=== PATIENT | male | born 1940 | race Caucasian/White ===

== ENCOUNTER → 2020-06-25 10:26 | Outpatient (BNVA) | payer MEDICARE, SELFPAY | PROVIDERS: Family Provider Nurse Practitioner; PCP Nurse Practitioner; Visit Provider Nurse Practitioner | DX: J43.9 Emphysema, unspecified (principal); R10.10 Upper abdominal pain, unspecified; I10 Essential (primary) hypertension; I25.10 Atherosclerotic heart disease of native coronary artery without angina pectoris | CPT/HCPCS: 71046; 80053; 80061; 85025 ==

== ENCOUNTER 2020-08-31 13:15 | Emergency (ER) | payer MEDICARE, SELFPAY ==
[2020-08-31 13:26] VITALS: BP 179/76; PULSE 78; RESP 14; TEMP 36.2; O2SAT 95; BMI 28.3
--- NOTE | 2020-08-31 13:33 | XRR_ITS ---
PROCEDURE INFORMATION: Exam: XR Left Wrist Exam date and time: 08/31/2020 1:38 PM Age: 80 years old Clinical indication: Injury or trauma; Fall; Blunt trauma (contusions or hematomas); Wrist; Left; Injury date: 08/31/20 TECHNIQUE: Imaging protocol: XR Left wrist. Views: 3 or more views. COMPARISON: No relevant prior studies available. FINDINGS: Bones/joints: There is a comminuted fracture of the distal left radius with dorsal angulation of the distal fracture fragment. There is osteopenia. There is joint space narrowing and osteophyte formation at the left 1st CMC joint. Soft tissues: Normal. XR/XR wrist LT min 3V* [id number] IMPRESSION: There is a comminuted fracture of the distal left radius with dorsal angulation of the distal fracture fragment.
--- NOTE | 2020-08-31 13:33 | XRR_ITS ---
PROCEDURE INFORMATION: Exam: XR Left Hip with Pelvis when Performed Exam date and time: 08/31/2020 1:38 PM Age: 80 years old Clinical indication: Injury or trauma; Fall; Blunt trauma (contusions or hematomas); Left; Hip; Injury date: 08/31/20 TECHNIQUE: Imaging protocol: XR Left hip with pelvis when performed. Views: 2 or 3 views. COMPARISON: No relevant prior studies available. FINDINGS: Bones/joints: There is osteopenia. No acute fracture. Soft tissues: Unremarkable. XR/XR hip LT 2-3V wo/w pel* [id number] IMPRESSION: No acute findings.
--- NOTE | 2020-08-31 13:33 | ED_ITS ---
HPI - Fall General: Chief Complaint: Fall Stated Complaint: FALL, POSS BROKEN ARM (L) Time Seen by Provider: 08/31/20 13:33 Source: patient Mode of arrival: ambulatory Limitations: no limitations History of Present Illness: HPI Narrative: 80-year-old male patient reports that he was in the yard and he tripped falling and injuring his left wrist and left hip area. Patient was able to stand on the hip but had significant pain and discomfort. Patient appears well. Patient denies any loss of consciousness or head injury. Patient denies any chest pain or difficulty breathing. Patient appears well. Patient appears in mild to moderate pain. Patient has a history of coronary artery disease, hypertension, and COPD. Patient takes Plavix, Review of Systems General: Reports: 10 or more systems reviewed and unremarkable except in HPI and below Musc: Reports: other (Left wrist, left hip pain.) [facility] ED PFSH: Medical History (Updated 08/31/20 @ 14:44 by KASHMIR Davis) CAD (coronary artery disease) COPD (chronic obstructive pulmonary disease) with emphysema Essential hypertension Mixed hyperlipidemia SCC (squamous cell carcinoma) Surgical History (Updated 06/25/20 @ 10:12 by KASHMIR Erazo-C) History of heart artery stent 5 Family History Other Heart disease Denies family history of Bleeding disorder Social History Smoking and tobacco status: current every day smoker Second hand smoke exposure: Yes Smoking risk assessment/counseling performed?: No Alcohol intake: never Desire information about alcohol rehabilitation?: No Counseling given: No Desire information about substance/drug rehabilitation?: No Counseling given: No Adopted: No Caregiver/support person: No Lives independently: Yes Household members: spouse Housing: House Marital status: Number of children: 0 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 History of recent travel: No Current gender identity: Male Physical Exam Const: COMMON NORMALS: no acute distress and patient oriented x3 GENERAL APPEARANCE: cooperative HENMT: COMMON NORMALS: normocephalic, TM's normal bilaterally and Normal external nose present HEAD & SCALP: normal to inspection and normocephalic NOSE: Normal external nose present TYMPANIC MEMBRANE: TM's normal bilaterally MOUTH: Normal oral and palatal mucosa present THROAT: posterior oropharynx normal Eye: GENERAL EYE: appearance normal, both eyes and all related structures Neck/C-Spine: COMMON NORMALS: full ROM Lymph: LYMPHATIC: no lymphadenopathy noted Chest: COMMONS NORMALS: normal inspection of the chest Resp: COMMON NORMALS: normal respiratory effort EFFORT & INSPECTION: Yes able to speak in complete sentences Cardio: COMMON NORMALS: regular rate and regular rhythm RATE: regular rate RHYTHM: regular rhythm GI: COMMON NORMALS: non-tender Back/Pelvis: COMMON NORMALS: thoracic and lumbar spine normal to inspection Extremity: NARRATIVE EXTREMITY EXAM: Mild dinner fork deformity to the left wrist area, tenderness is noted to the left hip area. Patient is able to lift leg from the ground. No swelling is noted in the extremities. Neuro: COMMON NORMALS: patient oriented x3 and moves all extremities Psych: COMMON NORMALS: mental status grossly normal and cooperative Skin: COMMON NORMALS: no rashes or lesions noted GENERAL SKIN EXAM: no rashes or lesions noted Course Vital Signs: Vital signs: Vital Signs Temperature 97.1 F L 08/31/20 13:26 Pulse Rate 74 08/31/20 13:55 Respiratory Rate 18 08/31/20 13:55 Blood Pressure 149/80 08/31/20 13:55 Pulse Oximetry 94 08/31/20 13:55 MDM - Fall MDM Narrative: Medical decision making narrative: Patient presents with injury to the left wrist and left hip area. Patient had tripped while walking in the [facility] falling catching self with outstretched left arm and landing on his hip. Patient denies any other injury. Patient appears well. Patient appears in moderate pain. Patient has taken ibuprofen prior to arrival to the ER. Exam notes dinner fork deformity to the left wrist area. Pulses and cap refill are intact. Left hip has some lateral tenderness, and some mild groin tenderness. Vital signs are normal except for some mild elevation in blood pressure. Differential diagnosis includes fracture, sprain, contusion. X-ray of the hip on the left side, pelvis, and left wrist noted a fracture of the distal left radius. Some mild angulation is noted to a comminuted intra-articular fracture. Patient was placed in a dorsal?volar splint to the left wrist. Patient had good report of pain control. Patient was placed in a sling for further comfort. Patient was evaluated for ambulation and was able to ambulate with minimal discomfort to the left wrist. Reviewed exam with patient with recommendations for follow-up with orthopedics. Case management was consulted for the orthopedic follow-up. Patient reported understanding of care plan and need for further treatment. Discharge Plan Discharge Patient Disposition: Home Clinical Impression: Distal radius fracture, left Qualifiers: Encounter type: initial encounter Fracture type: closed Fracture morphology: unspecified fracture morphology Qualified Code(s): S52.502A - Unspecified fracture of the lower end of left radius, initial encounter for closed fracture Condition: Stable Prescriptions: No Action aspirin 81 mg tablet,delayed release (DR/EC) 81 mg PO DAILY RF: 0 meclizine 25 mg tablet 25 mg PO DAILY PRNRF: 0 nitroglycerin 0.4 mg tablet, sublingual 0.4 mg sublingual Q5M PRNRF: 0 albuterol sulfate [Proventil HFA] 90 mcg/actuation HFA aerosol inhaler 2 puff inhalation TID Qty: 18 RF: 5 amlodipine 5 mg tablet 5 mg PO DAILY Qty: 30 RF: 5 clopidogrel 75 mg tablet 75 mg PO DAILY Qty: 30 RF: 5 lisinopril-hydrochlorothiazide 20-12.5 mg tablet 1 tab PO DAILY Qty: 30 RF: 5 metoprolol succinate 25 mg tablet extended release 24 hr 25 mg PO DAILY Qty: 30 RF: 5 Discharge Orders: Discharge ED (Routine); Ordered 08/31/20 Ordered By: Anthony Lopez Referrals: Mainor Cardenas, POSTAL SUPERINTENDENT-C [Primary Care Provider] - Discharge Diet: Usual diet Discharge Activity: Increase activity as tolerated Patient Instructions: Wrist Fracture in Adults (ED) Activity Restrictions/Additional Instructions: Keep splint clean and dry. Use sling for comfort. Use acetaminophen and ibuprofen for pain. Follow-up with orthopedics for further treatment and evaluation. Return to the emergency department for new concerns. Coding Level of Care Code ED Critical Care Physician for Justino Mcleod Exam Comprehensive
[2020-08-31 13:35] VITALS: BP 179/76; PULSE 78; RESP 16; O2SAT 97
[2020-08-31 13:55] VITALS: BP 149/80; PULSE 74; RESP 18; O2SAT 94
--- NOTE | 2020-09-01 10:18 | DCPLANNER ---
services account manager had message to schedule a follow-up appointment with ortho. services account manager called ortho and spoke with Nithya. Gave clinic patient's information. services account manager was told that patient's information would be printed and reviewed. Clinic will call patient with appointment information.
--- NOTE | 2020-09-02 09:12 | DCPLANNER ---
Patient has a follow up appointment scheduled for Monday, September 14 at 9:[address] Zavala. Clinic will call patient with appointment information.
--- NOTE | 2020-10-08 15:44 | DCPLANNER ---
Patient had a follow up appointment scheduled for 09.14.20 with ortho - patient did attend appointment.
== END 2020-08-31 14:52 | disposition home or self-care (01) ==
PROVIDERS: Emergency Provider Nurse Practitioner Family; PCP Nurse Practitioner
DX: S52.502A Unspecified fracture of the lower end of left radius, initial encounter for closed fracture (principal); Z79.82 Long term (current) use of aspirin; Z79.02 Long term (current) use of antithrombotics/antiplatelets; I25.10 Atherosclerotic heart disease of native coronary artery without angina pectoris; J44.9 Chronic obstructive pulmonary disease, unspecified; I10 Essential (primary) hypertension; E78.2 Mixed hyperlipidemia; F17.210 Nicotine dependence, cigarettes, uncomplicated; W01.0XXA Fall on same level from slipping, tripping and stumbling without subsequent striking against object, initial encounter
CPT/HCPCS: 12345; 29125; 73110; 73502; 99281; 99283

== ENCOUNTER → 2020-09-04 10:44 | Outpatient (BNVA) | payer MEDICARE, SELFPAY | PROVIDERS: PCP Nurse Practitioner; Referring Provider Nurse Practitioner Family; Visit Provider Orthopaedic Surgery | DX: S52.502A Unspecified fracture of the lower end of left radius, initial encounter for closed fracture (principal); W19.XXXA Unspecified fall, initial encounter | CPT/HCPCS: 73110; 97760; L3982 ==

== ENCOUNTER 2020-09-04 11:22 | Outpatient (CLI) | payer MEDICARE, SELFPAY | END 2020-09-04 11:23 | disposition home or self-care (01) | LOC: SPT 11:23 | PROVIDERS: PCP Nurse Practitioner; Visit Provider Orthopaedic Surgery | DX: Z46.89 Encounter for fitting and adjustment of other specified devices (principal); S52.502D Unspecified fracture of the lower end of left radius, subsequent encounter for closed fracture with routine healing; X58.XXXD Exposure to other specified factors, subsequent encounter | CPT/HCPCS: 97760; L3982 ==

== ENCOUNTER → 2020-09-25 09:15 | Outpatient (BNVA) | payer MEDICARE, SELFPAY | PROVIDERS: PCP Nurse Practitioner; Visit Provider Orthopaedic Surgery | DX: S52.502D Unspecified fracture of the lower end of left radius, subsequent encounter for closed fracture with routine healing (principal); X58.XXXD Exposure to other specified factors, subsequent encounter | CPT/HCPCS: 73110; 88304 ==

== ENCOUNTER → 2020-10-16 09:35 | Outpatient (BNVA) | payer MEDICARE, SELFPAY | PROVIDERS: PCP Nurse Practitioner; Visit Provider Orthopaedic Surgery | DX: S52.502D Unspecified fracture of the lower end of left radius, subsequent encounter for closed fracture with routine healing (principal); X58.XXXD Exposure to other specified factors, subsequent encounter | CPT/HCPCS: 73110 ==

== ENCOUNTER 2021-03-12 03:56 | Inpatient (IN) | payer OTHER, MEDICARE, SELFPAY ==
[2021-03-12] VITALS (14 sets, daily range): BP systolic 113–180; BP diastolic 69–90; PULSE 57–71; RESP 16–22; TEMP 35.8–37.1; O2SAT 90–98; BMI 28.3
--- NOTE | 2021-03-12 04:05 | ECG_ITS ---
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 Measurements Intervals Groom Rate: 69 P: 32 VT: 183 QRS: 78 QRSD: 86 T: 80 QT: 398 QTc: 429 Interpretive Statements SINUS RHYTHM SEPTAL MYOCARDIAL INFARCTION , PROBABLY OLD [40+ ms Q WAVE IN V1/V2] Compared to ECG 07/15/2016 05:58:14 Myocardial infarct finding now present T-wave abnormality no longer present Electronically Signed On 03-12-2021 19:31:14 CDT by Lucretia Tobar M.D. [id number]
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
[2021-03-12] MEDS: aspirin 81 mg Chew Tablet 324 MG PO (04:17)
[2021-03-12] MEDS: nitroglycerin 0.4 mg sublingual Tablet SUBLINGUAL (04:18)
[2021-03-12 04:21] LABS: Basophils # 0.1 10^3/uL (0.0-0.1); Basophils % 0.9 %; Eosinophils # 0.2 10^3/uL (0.0-0.8); Hematocrit 55.1 % (42.0-52.0); Lymphocytes # 2.2 10^3/uL (0.8-4.8); Lymphocytes % 18.4 %; Mean Corpuscular HGB Conc 30.9 g/dL (30.0-36.0); Mean Corpuscular Volume 90.6 fl (80-94); Mean Platelet Volume 10.1 fL (7.4-10.4); Monocytes # 0.8 10^3/uL (0.2-0.9); Monocytes % 6.7 %; Neutrophils # 8.38 10^3/uL (1.8-7.7); Neutrophils % 71.4 %; Nucleated Red Blood Cells % 0 %; Platelet Count 271 10^3/cmm (130-400); Red Blood Count 6.08 10^6/uL (4.1-5.3); Red Cell Distribution Width 13.5 % (12.1-15.1); White Blood Count 11.7 10^3/uL (4.0-10.0)
[2021-03-12 04:29] LABS: D Dimer <= 0.27 ug/mIFEU (0-0.59)
[2021-03-12 04:38] LABS: Troponin(5th) Baseline 21 ng/L (0-15)
[2021-03-12 04:47] LABS: Alanine Aminotransferase 24 U/L (0-41); Albumin Level 4.1 g/dL (3.5-5.2); Alkaline Phosphatase 85 IU/L (40-130); Anion Gap 13.5 (5-19); Aspartate Amino Transferase 12 U/L (0-40); Blood Urea Nitrogen 11 mg/dL (8-23); Calcium 9.2 mg/dL (8.5-10.5); Carbon Dioxide 31 mmol/L (22-29); Chloride 102 mmol/L (98-107); Globulin 2.5 g/dL (1.3-4.6); Glucose 137 mg/dL (65-115); NT Pro B Type Natriuretic Pept 140 pg/mL (0-450); Osmolality Calculated 296 mOsm/kg (285-295); Potassium 4.5 mmol/L (3.5-5.1); Sodium 142 mmol/L (136-145); Total Bilirubin 0.7 mg/dL (0.15-1.2); Total Protein 6.6 g/dL (6.6-8.7)
[2021-03-12 04:53] LABS: SARS Covid-2 Antigen Negative (Negative)
[2021-03-12 08:04] LABS: Troponin 5 2HR 17.94 ng/L (0-15)
[2021-03-12 08:08] LABS: Troponin 5 2HR Delta -3.06 ABS# (0-10)
--- NOTE | 2021-03-12 09:08 | USCV_ITS ---
Jason Escobedo Age: 80 Gender: M : 1940 Exam Date: 03/12/2021 15:19 Ordering Phys: Corbin Oliveira MD Technologist: Carri Del Valle Exam Location: [facility] [place] Indication: CHEST PAIN BP: 151 / 72 HR: 62 Rhythm: Sinus Technical Quality: Very poor MEASUREMENTS (Male / Female) Normal Values 2D ECHO LV Diastolic Diameter PLAX 4.0 cm 4.2 - 5.9 / 3.9 - 5.3 cm LV Systolic Diameter PLAX 1.9 cm IVS Diastolic Thickness 1.2 cm 0.6 - 1.0 / 0.6 - 0.9 cm IVS Systolic Thickness 1.7 cm LVPW Diastolic Thickness 1.1 cm 0.6 - 1.0 / 0.6 - 0.9 cm LVPW Systolic Thickness 1.8 cm LVOT Diameter 2.0 cm LV Ejection Fraction 2D Teich 83.7 % LV Ejection Fraction MOD 2C 70.0 % LV Ejection Fraction 2C AL 71.3 % LA Diameter 2.6 cm LA Width 3.8 cm LA Height 4.6 cm RA Width 4.3 cm RA Height 4.6 cm DOPPLER MV Peak Velocity 79.0 cm/s MV Area PHT 2.9 cm squared Mitral E to A Ratio 0.8 MV E' Velocity 41.0 cm/s Mitral E to MV E' Ratio 9.3 Mitral E to LV E' Lateral Ratio 12.2 Mitral E to LV E' Septal Ratio 7.6 FINDINGS Left Ventricle Normal left ventricular cavity size, wall thickness and systolic function. Left ventricular ejection fraction is estimated at 60 %. No regional wall motion abnormalities. Abnormal septal motion. Right Ventricle Normal right ventriular size and systolic function. Right Atrium Right atrium not well visualized. Probably normal right atrial size. Right atrial pressure estimated at 3 mm Hg. Left Atrium Normal left atrial size. Mitral Valve Structurally normal mitral valve. No mitral valve stenosis. No mitral valve regurgitation. Aortic Valve Aortic valve not well visualized. Tricuspid Valve Structurally normal tricuspid valve. Pulmonic Valve Pulmonic valve not well visualized. Pericardium No pericardial effusion. Aorta Aorta not well visualized. CONCLUSIONS 1. This is a technically difficult study. Optison was used per protocol. 2. Normal left ventricular cavity size, wall thickness and systolic function. Left ventricular ejection fraction is estimated at 60 %. No regional wall motion abnormalities. Abnormal septal motion. 3. Normal right ventriular size and systolic function. 4. No gross valvular abnormality. 5. No prior similar studies to compare. Chapis Garces MD (Electronically Signed) Final Date: 12 March 2021 19:22 S
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
--- NOTE | 2021-03-12 09:27 | PC.PHAR ---
PT STATES HE TAKES CARE OF HIS OWN MEDICATIONS-PT STATES METOPROLOL SUCCINATE ER 25MG DAILY WAS DCED BY Blake VAZQUEZ-[facility]ake [facility] OFFICE LAST SAW 06/25/20 ADDED THIS A NEW MED WITH 5 REFILLS 25MG PO DAILY-Blake [facility] OFFICE DIDNT DC PER [facility] LAST FILLED 01/21/21 30D/S-PT STATES HE THINKS THE LUMIGAN AND LOTEMAX ARE THE CORRECT EYE DROP HE HAS BEEN USING -BOTH EYE DROPS ARE ON THE PTS LIST FROM DR CASE OFFICE-PT STATES HIS WILL BRING IN THE EYE DROPS HE IS USING-PT STATES HE SAW DR CASE YESTERDAY AND STATES HE IS SUPPOSE TO HAVE SURGERY GENA SO HE WILL START USING EYE DROPS IN THE RIGHT EYE ALSO-PT STATES DR CASE DCED ONE OF HIS EYE DROPS YESTERDAY DR CASE OFFICE HAS PROLENSA A DCED EYE DROP-PT STATES HE THINKS HE WAS USING LUMIGAN 1 DROP LEFT EYE QPM THAT MATCHED DR CASE LIST AND PT STATES HE THINKS HE WAS USING LOTEMAX [address] CASE HAS 1 DROP TID-NOTES ARE MADE IN THE PHARMACY COMMENTS
[2021-03-12 09:35] LABS: Estmated Average Glucose 140; Hemoglobin A1C 6.5 % (4.0-6.0)
[2021-03-12 09:46] LABS: Thyroid Stimulating Hormone 1.81 uIU/mL (0.27-4.20)
[2021-03-12] MEDS: sodium chloride 0.9% 1,000 ML 50 ML IV (10:00)
--- NOTE | 2021-03-12 10:05 | ECG_ITS ---
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 Measurements Intervals [place] Rate: 63 P: 49 [place]: 194 QRS: 72 QRSD: 81 T: 75 QT: 393 QTc: 404 Interpretive Statements SINUS RHYTHM Compared to ECG 03/12/2021 04:02:49 Myocardial infarct finding no longer present Electronically Signed On 03-12-2021 19:40:24 CDT by Lucretia Tobar M.D. [id number]
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
[2021-03-12] MEDS: enoxaparin 40 mg/0.4 mL Syringe SUBCUT (10:09)
[2021-03-12 10:55] LABS: Troponin 5 6HR 17.89 ng/L (0-15)
[2021-03-12 11:01] LABS: Troponin 5 6HR Delta -3.11 ng/L (0-12)
[2021-03-12] MEDS: metoprolol tartrate 25 mg Tablet 12.5 MG PO ×2 (11:37→19:54)
[2021-03-12] MEDS: amlodipine 5 mg Tablet PO (11:37)
[2021-03-12] MEDS: lisinopril 20 mg Tablet PO (11:38)
[2021-03-12] MEDS: clopidogrel 75 mg Tablet PO (11:38)
--- NOTE | 2021-03-12 13:16 | XACV_ITS ---
Exam Room: 1 Ht: 185 cm Wt: 98 kg BSA: 2.26 m2 Gender: Male : 1940 Any Known Allergies: Other Exam Priority: Routine Procedure(s): Procedure Description: Diagnostic procedure Procedure Description: PCI procedure Procedure Description: Drug Eluting Coronary Stent Procedure Description: PTCA Procedure Description: Coronary Angiography Procedure Description: Pressure Wire Diagnostic Cath Status: Urgent Diagnostic Findings * No disease noted in the Left Main, Left Anterior Descending, Right, or Circumflex coronary arteries. * 1st Diagonal: severe 90% stenosis, BETO: 3 flow. * First Obtuse Marginal Branch Segment: moderate 50% stenosis, BETO: 3 flow. * Coronary angiography shows right dominance. PCI Status: Urgent PCI Indication: New Onset Angina <= 2 months Interventional Findings * Procedure detail: Procedure details: We engaged left main artery with a XB 3.5 guide catheter. IV heparin was administered to maintain an ACT above 250 seconds. FFR of OM was performed that was non-ischemic with a value of 0.93. We then turned our attention to diagonal artery stenosis. Initial plan was only to perform balloon angioplasty however after balloon angioplasty dissection was noted and patient vessel was stented to cover the dissection. A 0.014 run-through guidewire was used to cross the stenosis and was placed in distal diagonal artery. 2.25 x 12 mm semicompliant balloon was used to perform balloon angioplasty. This resulted in small dissection of the diagonal artery. We placed a 2.25 x 12 mm resolute [place] drug-eluting stent and diagonal artery. This was followed by dilation of the LAD stent as diagonal artery stent was slightly extending into the LAD. This dilation was performed with a 3.25 x12 mm noncompliant balloon. At this time final angiogram was performed that showed excellent stent expansion, BETO-3 flow and no residual stenosis. Guidewire and guide catheter were removed. Patient left the Baggage Checker in a stable condition.. * 1st Diagonal: 90% stenosis treated with a AB TREK 2.25X12 RX BALLOON, and MDT R ASIM 2.25X12 REMBERTO. 0% residual stenosis, BETO: 3 flow. Conclusions 1. Severe ostial diagonal stenosis status post successful revascularization with REMBERTO x1. 2. Moderate OM stenosis s/p FFR. FFR was non-ischemic. 3. No disease noted in the Left Main, Left Anterior Descending, Right, or Circumflex coronary arteries. 4. 1st Diagonal was treated with a Balloon, and Drug Eluting Stent. Recommendations * Aspirin and Plavix for atleast 1 year. * High intensity statin therapy. * Outpatient cardiology follow up in 1 month. Interventional RX Recommendation: PCI w/o planned CABG Diagnostic RX Recommendation: PCI w/o planned CABG Anticoagulation: Heparin Pressures Phase:Rest AO : 144 / 61 ( 94 ) @ 7:19:00 AM 150 / 62 ( 95 ) @ 7:20:00 AM 153 / 63 ( 97 ) @ 7:40:00 AM 171 / 65 ( 77 ) @ 7:53:00 AM Clinical Evaluation EBL: 5mL-10mL Procedural Details Procedure Consent Obtained. Pre-Procedure Time Out. Identified patient by full name and date of as verbalized by the patient/guarantor. Does the consent match the physician's order: Yes. Accurate & Complete Informed Consent: Yes. Inpatient/Outpatient History & Physical on Chart: Yes. If H&P is completed, is and addenduem needed: No. Visualize and Verify Site with Patient/Guarantor: N/A. Relevant Radiology Images available: Yes. The risks, benefits, and alternatives of sedation and/or procedure were discussed by physician. The patient agrees to continue. Procedure started. [facility] Clinical Fraility Score: 3: Managing Well. Baggage Checker Indications: Unstable/Worsening Angina. Chest Pain Symptom Assessment: Typical Angina Symptoms. Cardiovascular Instability: No. Correct patient, site and procedure confirmed by cath team. PERRLA. Strong, equal hand substance addiction coordinator bilaterally. Lungs clear x 5 lobes. IV Site on Arrival: 18 gauge in the right anticubital. IV Fluids: 0.9% NaCl at KVO. 100 mL infused prior to packing house laborer. Pre Procedural Pulses: bilateral dorsalis pedis was 2+. Pre Procedural Pulses: bilateral posterior tibial was 2+. Pre Procedural Pulses: bilateral radial was 3+. Oxygen started at 2liters/min via nasal canula. right groin was prepped with chloroprep then draped in the usual sterile fashion. right radial was prepped with chloroprep then draped in the usual sterile fashion. Physician notified. Baseline sample Acquired. HR: 76 BPM. Patient's family unavailable. Equipment: 6F - Radial. Cardiac Cath Pack. ACIST Manifold Kit Model BT 2000. Heparinized Saline (2 units/mL), 1000 mL bag. Physician arrived. Physician scrubbed in. Immediate Pre-Procedure Time Out. Correct Patient: Yes; Correct Procedure: Yes; Correct Site: Yes; Correct Patient Position: Yes; Correct Supplies: Yes; Dried Flammable Prep: Yes; Blood Products Available: N/A. Lidocaine 1% infiltrated to the right radial. Current Diagnosis : NSTEMI. Arterial access obtained. A 5 yemeni TIG catheter in over the exchange wire. Multiple views taken of left coronary artery. Catheter redirected to the RCA. Multiple views taken of right coronary artery. Catheter removed over the exchange wire. Physician review of cineography. 6 yemeni XB 3.5 guide catheter was inserted over the exchange wire. FFR guidewire was advanced through the guide catheter to lesion in the OM. An FFR value of 0.93 was obtained for a lesion located at 1st Ob [place]. FFR Guidewire redirected across lesion in the ostial diagonal branch. Fractional flow reserve measurements obtained. FFR wire out. Runthrough guidewire was advanced through the guide catheter to lesion in the prox LAD. Inflation number : 1 A AB TREK 2.25X12 RX BALLOON was prepped and advanced across the 1st Diag , then inflated to 10 ARTURO for 0:17 seconds. Inflation number: 2 The AB TREK 2.25X12 RX BALLOON was reinflated across the 1st Diag, to 12 ARTURO for 0:26 seconds. Balloon out. Inflation Number : 3 A WARREN Katz ASIM 2.25X12 REMBERTO -Lot Number# [id number] was prepped and advanced across the 1st Diag. The stent was deployed at 12 ARTURO for 0:22 seconds. Exp. 12/10/2021. Stent balloon out over wire. Runthrough wire redirected to the mid LAD. Inflation number : 1 A WARREN BECERRA EUPHORA RX [id number] BALLOON was prepped and advanced across the Mid LAD , then inflated to 14 ARTURO for 0:22 seconds. Results checked. Balloon and wire out. Results checked. Guide catheter out. Physician scrubbed out. ACT drawn. Results 234 seconds. Therapeutic limits - pre-heparin administration 90-150 seconds and monitoring heparin during a vascular procedure >250 seconds. TR band placed. Hemostasis obtained. Post Procedure: Pulses reassessed and unchanged. PERRLA. Strong, equal hand substance addiction coordinator bilaterally. No VTE prophylaxis required. Medication's Wasted: Lidocaine 1% = 18 mL. Medication's Wasted: Heparin = 1000 units. Medication's Wasted: Nitro = 49.8 mg. Medication's Wasted: Adenosine = 60 mg. Total IV fluids: 75 mL. A TR Band was successful obtaining hemostatsis at the Right Radial artery insertion site. PCI Indication: unstable angina/worsening angina. Post-op diagnosis: severe diagonal disease. Complications: none. Estimated blood loss: 5mL-10mL. Procedure completed. Patient transferred by stretcher to 1st floor. Vital chart was stopped. Access Site Site: Right Radial artery Sheath Size: 6 Fr Hemostasis Method: TR Band Hemostasis Success: Successful Procedure Medications Start: 8:06 AM Stop: 8:06 AM Medication: Solu-Medrol (methylprednisolone) Amount: 125 mg Route: I.V. Start: 8:06 AM Stop: 8:06 AM Medication: Versed Amount: 1 mg Route: I.V. Start: 8:06 AM Stop: 8:06 AM Medication: Fentanyl Amount: 50 mcg Route: I.V. Start: 8:13 AM Stop: 8:13 AM Medication: Nitrogylcerin Amount: 200 mcg Route: I.A. Start: 8:16 AM Stop: 8:16 AM Medication: Heparin Amount: 5000 units Route: I.V. Start: 8:26 AM Stop: 8:26 AM Medication: Heparin Amount: 5000 units Route: I.V. Start: 8:36 AM Stop: 8:36 AM Medication: Adenosine (Adenocard) Amount: 823 Route: I.V. bolus Start: 8:52 AM Stop: 8:52 AM Medication: Fentanyl Amount: 25 mcg Route: I.V. I, the attending physician, have reviewed and verified all procedure medications. Yes, all medications given per verbal order History/Risk Factors Hypertension: Yes Dyslipidemia: Yes Peripheral Arterial Disease (PAD): No Myocardial Infarction (IA): Yes Obesity: No Renal Disease: No Prior Interventions PCI: Yes CABG: No Valve Surgery: No Date of PCI: 07/14/2016 Report Signatures Finalized by Orestes Barkley MD on 03/24/2021 12:51 PM
[2021-03-12] MEDS: isosorbide mononitrate ER 30 mg Tablet 15 MG PO (14:10)
[2021-03-12] MEDS: enoxaparin 60 mg/0.6 mL Syringe SUBCUT (14:10)
--- NOTE | 2021-03-12 16:13 | PC.RESP ---
SMOKING CESSATION AND PULMONARY REHAB INFORMATION SENT TO PATIENT.
[2021-03-12] MEDS: perflutren protein-a microsphr 0.22 mg/mL SDV 3 mL IV (16:16)
--- NOTE | 2021-03-12 16:29 | ECG_ITS ---
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 Measurements Intervals [place] Rate: 57 P: 57 TX: 187 QRS: 73 QRSD: 76 T: 74 QT: 416 QTc: 407 Interpretive Statements SINUS BRADYCARDIA LOW QRS VOLTAGE IN PRECORDIAL LEADS [QRS DEFLECTION < 1.0 mV IN CHEST LEADS] SEPTAL MYOCARDIAL INFARCTION , OF INDETERMINATE AGE [40+ ms Q WAVE IN V1/V2] Compared to ECG 03/12/2021 12:05:20 Low QRS voltage now present Myocardial infarct finding now present Sinus rhythm no longer present Electronically Signed On 03-12-2021 19:41:53 CDT by Lucretia Tobar M.D. [id number]
--- NOTE | 2021-03-12 19:01 | PC.NURSE ---
Shift Note Frequent safety and comfort rounds continue. Orders and/or nursing care completed as indicated. Patient monitored for response to intervention and treatment(s). Education provided includes[pre cardiac cath instructions]. Patient and/or marketing development representative [verb understanding of instructions]. Will continue to monitor.
[2021-03-12] MEDS: atorvastatin 40 mg Tablet PO (19:54)
[2021-03-13] VITALS (39 sets, daily range): BP systolic 130–179; BP diastolic 58–92; PULSE 41–76; RESP 16–20; TEMP 36.7–36.9; O2SAT 87–99
[2021-03-13] MEDS: clopidogrel 75 mg Tablet PO (05:32)
[2021-03-13] MEDS: amlodipine 5 mg Tablet PO (05:32)
[2021-03-13] MEDS: sodium chloride 0.9% 1,000 ML 50 ML IV (05:32)
--- NOTE | 2021-03-13 05:38 | PC.NURSE ---
Addendum entered by Nina Devine RN 03/13/21 06:54: Dr. Barkley notified. Ordered to give 50 mg Benadryl IV, instead of PO. Original Note: Patient was asked about his allergy to contrast. Patient states, my throat swelled shut when they gave me contrast for an upper GI. Patient has heart stents. Patient was asked if he had a reaction to the contrast used when he had his heart stents placed in the past. Patient states, I don't remember anything about it, I was out. Dr. Barkley will be notified of contrast allergy.
--- NOTE | 2021-03-13 05:49 | PC.NURSE ---
Shift Note Frequent safety and comfort rounds continue. Orders and/or nursing care completed as indicated. Patient monitored for response to intervention and treatment(s). Education provided includes cardiac catheterization and NPO diet. Patient and/or floor representative asked questions and verbalized understanding. Will continue to monitor.
[2021-03-13] MEDS: diphenhydrAMINE 50 mg/mL SDV 1mL IVP (07:22)
--- NOTE | 2021-03-13 07:45 | PC.NURSE ---
patient taken to matlab developer via bed for planned procedure
[2021-03-13 08:00] LABS: Basophils # 0.1 10^3/uL (0.0-0.1); Basophils % 0.7 %; Eosinophils # 0.2 10^3/uL (0.0-0.8); Eosinophils % 1.8 %; Hematocrit 51.7 % (42.0-52.0); Hemoglobin 16.1 g/dL (11.7-16.6); Lymphocytes # 2.1 10^3/uL (0.8-4.8); Lymphocytes % 22.7 %; Mean Corpuscular HGB Conc 31.1 g/dL (30.0-36.0); Mean Corpuscular Volume 89.9 fl (80-94); Mean Platelet Volume 10.1 fL (7.4-10.4); Monocytes # 0.7 10^3/uL (0.2-0.9); Monocytes % 7.4 %; Neutrophils # 6.28 10^3/uL (1.8-7.7); Nucleated Red Blood Cells % 0 %; Platelet Count 232 10^3/cmm (130-400); Red Blood Count 5.75 10^6/uL (4.1-5.3); Red Cell Distribution Width 13.4 % (12.1-15.1); White Blood Count 9.4 10^3/uL (4.0-10.0)
--- NOTE | 2021-03-13 08:03 | W.PM.OPSUD ---
Surgery/Procedure H&P Update DATE OF PROCEDURE: March 13, 2021 DATE H&P PERFORMED: 03/12/21 H&P UPDATE INFORMATION: I have reviewed H&P completed within last 30 days, I have examined patient prior to procedure and No changes to prior documentation PREOP DIAGNOSIS: Unstable angina PRIMARY INDICATION FOR PROCEDURE: Unstable angina PLANNED PROCEDURE: Operation Date: 03/13/21 08:00 Proposed Procedures p Cardiac Catheterization(Left) - Orestes Barkley M.D Possible percutaneous coronary intervention PATIENT REASSESSED PRIOR TO SEDATION, WITH NO CHANGE NOTED: Yes PHYSICAL EXAM: alert, oriented x 3, clear to auscultation bilaterally and regular rate & rhythm AIRWAY EVAL/ANESTHESIA PLAN: ASA III, Monitored Anesthesia, Local Anesthesia, Risks, benefits & alternatives of sedation and/or procedure discussed and Patient agrees to continue as planned
[2021-03-13 08:43] LABS: Chol HDL Ratio 3.61 mg/dL (1.0-5.00); Cholesterol 148 mg/dL (0-200); HDL Cholesterol 41 mg/dL (60-100); LDL Cholesterol Calculated 83 mg/dL (50-129); LDL Cholesterol Direct 105 mg/dL (0-100); LDL HDL Ratio 2.02 RATIO (0.00-3.22); Triglycerides 118 mg/dL (0-150)
[2021-03-13] MEDS: lisinopril 20 mg Tablet PO (09:46)
[2021-03-13] MEDS: pantoprazole DR 40 mg Tablet PO (09:46)
[2021-03-13] MEDS: aspirin 325 mg Tablet PO (09:46)
[2021-03-13] MEDS: isosorbide mononitrate ER 30 mg Tablet 15 MG PO (09:46)
[2021-03-13] MEDS: clopidogrel 300 mg Tablet PO (09:46)
[2021-03-13] MEDS: metoprolol tartrate 25 mg Tablet 12.5 MG PO ×2 (09:48→19:19)
[2021-03-13 12:04] LABS: Alanine Aminotransferase 20 U/L (0-41); Albumin Level 3.5 g/dL (3.5-5.2); Alkaline Phosphatase 72 IU/L (40-130); Anion Gap 14.1 (5-19); Aspartate Amino Transferase 14 U/L (0-40); Blood Urea Nitrogen 9 mg/dL (8-23); Calcium 8.5 mg/dL (8.5-10.5); Carbon Dioxide 29 mmol/L (22-29); Chloride 100 mmol/L (98-107); Globulin 2.6 g/dL (1.3-4.6); Glucose 120 mg/dL (65-115); Osmolality Calculated 288 mOsm/kg (285-295); Potassium 4.1 mmol/L (3.5-5.1); Sodium 139 mmol/L (136-145); Total Bilirubin 1.1 mg/dL (0.15-1.2); Total Protein 6.1 g/dL (6.6-8.7)
--- NOTE | 2021-03-13 13:08 | P.PN_ITS ---
Subjective Subjective: Interval history: 80-year-old male presented to emergency room with chest discomfort. Status post cardiac catheterization. Denies chest pain. Breathing stable. Vitals stable Medications: Reviewed: Yes Vitals/I&O/Wt Last Vital Signs Temp 98.1 F 03/13/21 11:54 Pulse 66 03/13/21 11:54 Resp 19 H 03/13/21 11:54 BP 141/70 03/13/21 11:54 Pulse Ox 90 03/13/21 11:54 03/12/21 03/13/21 03/13/21 22:59 06:59 14:59 Intake Total 360 / 1420 300 / 1720 Balance 360 / 1420 300 / 1720 Weight last 48 hrs Weight 215 lb Physical Exam Const: COMMON NORMALS: no acute distress, average body habitus and patient oriented x3 Neck/C-Spine: COMMON NORMALS: no JVD Chest: COMMONS NORMALS: negative for normal inspection of the chest Resp: COMMON NORMALS: normal respiratory effort and No retractions Cardio: COMMON NORMALS: no JVD and regular rate RATE: regular rate GI: COMMON NORMALS: Normal to inspection, nondistended, normoactive bowel sounds present and Soft to palpation PALPATION: Yes Soft to palpation Extremity: OTHER: Right wrist incision site stable Neuro: COMMON NORMALS: patient oriented x3 and CN's II-XII intact bilaterally Psych: COMMON NORMALS: mental status grossly normal Data : 03/13/21 07:48 03/13/21 07:48 A&P Assessment and plan (1) CAD (coronary artery disease): Status: Chronic (2) COPD (chronic obstructive pulmonary disease) with emphysema: Status: Chronic (3) Mixed hyperlipidemia: Status: Acute (4) Essential hypertension: Status: Chronic Additional A&P Information #CAD --s/p cardiac catherization, angioplasty with stenting. final report pending --chest pain free --Plavix, lipitor, metoprolol, asa 325mg #HTN --BP stable, continue Norvasc 5mg --Lisinopril 20mg --Metoprolol DVT:Lovenox Dispo: home soon Attestations Medical Necessity Statement*: Jason Arauz Gregg's hospital stay will require greater than 2 midnights for chest pain Coding Level of Care Code Acute Data Software Engineer for g Fwd Diagnoses CAD (coronary artery disease) I25.10 COPD (chronic obstructive pulmonary disease) with emphysema J43.9 Mixed hyperlipidemia E78.2 Essential hypertension I10
[2021-03-13] MEDS: atorvastatin 40 mg Tablet PO (19:19)
--- NOTE | 2021-03-13 19:43 | PC.NURSE ---
Right wrist dressing and site WNL. Distal skin and pulses WNL. VSS. Patient educated on post-cath activity restrictions and care and verbalized understanding.
--- NOTE | 2021-03-13 20:04 | PC.NURSE ---
Shift Note Frequent safety and comfort rounds continue. Orders and/or nursing care completed as indicated. Patient monitored for response to intervention and treatment(s). Education provided includes Tr band removal and restrictions post PCI. Patient and/or guest services representative verbalized understanding. Will continue to monitor.
[2021-03-14 00:18] VITALS: BP 161/88; PULSE 69
[2021-03-14 03:27] VITALS: PULSE 62
[2021-03-14 03:46] VITALS: BP 132/67; PULSE 71; RESP 18; TEMP 36.9; O2SAT 93
[2021-03-14] MEDS: clopidogrel 75 mg Tablet PO (04:00)
[2021-03-14] MEDS: amlodipine 5 mg Tablet PO (04:00)
--- NOTE | 2021-03-14 04:08 | PC.NURSE ---
Shift Note Frequent safety and comfort rounds continue. Orders and/or nursing care completed as indicated. Patient monitored for response to intervention and treatment(s). Education provided includes post-cath activity restrictions and care. Patient and/or retail sales representative verbalized understanding. Will continue to monitor.
[2021-03-14 07:49] VITALS: BP 145/60; PULSE 75; RESP 18; TEMP 36.7; O2SAT 94
--- NOTE | 2021-03-14 08:19 | PM.PN ---
Subjective Subjective: Interval history: s/p ballooning and REMBERTO placement to ostial D1. Other stents are patent He denies having any symptoms overnight and states he is ready to go home. Medications: Reviewed: Yes Vitals/I&O/Wt Last Vital Signs Temp 98.0 F 03/14/21 07:49 Pulse 75 03/14/21 07:49 Resp 18 03/14/21 07:49 BP 145/60 03/14/21 07:49 Pulse Ox 94 03/14/21 07:49 03/13/21 03/14/21 03/14/21 22:59 06:59 14:59 Intake Total 1000 / 1360 300 / 1660 Output Total 775 / 775 Balance 1000 / 1360 -475 / 885 Physical Exam Narrative: EXAM NARRATIVE: GENERAL: Averagely built and averagely nourished in no acute distress HEENT: Left eye erythema+, no pallor or icterus. NECK: No carotid bruit. CARDIOVASCULAR SYSTEM: S1-S2 regular. No S3 or S4 present. No murmur rubs or gallops. RESPIRATORY SYSTEM: Chest clear to auscultation. No wheezes rhonchi or rubs heard. No use of accessory muscles. ABDOMEN: Soft, nontender and nondistended. Normal bowel sounds present. EXTREMITIES: No cyanosis or clubbing. No edema. No signs of chronic venous insufficiency. 2+ radial, no significant bruising or hematoma. MACHINERY CLEANER: Patient is alert oriented ?3. No focal neurological deficits. SKIN: Normal turgor and temperature. Data : 03/13/21 07:48 03/13/21 07:48 A&P Assessment and plan (1) NSTEMI (non-ST elevated myocardial infarction): Non ST elevation ACS -s/p left heart cathetarization by right radial access. -REMBERTO to ostial D1. -continue DAPT, statin, metoprolol. -Normal LV function on echo. Ms. Colette Sena in 1 week and with me in 6 weeks. -He lives 70 [place] away at [place] so probably will not be able to participate in cardiac rehab. Status: Acute (2) CAD (coronary artery disease): Status: Chronic Qualifiers: Associated angina: without angina Coronary Disease-Associated Artery/Lesion type: [place] artery [place] vs. transplanted heart: [place] heart Qualified Code(s): I25.10 - Atherosclerotic heart disease of [place] coronary artery without angina pectoris (3) Essential hypertension: Status: Chronic (4) Mixed hyperlipidemia: Status: Acute Additional A&P Information Bradycardia : keep a BP and HR log till follow up. recent left cataract surgery Thank you for allowing me to participate in patient's care. Patient may be discharged home from cardiac standpoint. Attestations Medical Necessity Statement*: stable to be discharged Time Spent in Patient Care: 16 - 35 minutes (>than 50% of time spent in counselling and/or direct pt care on unit). Coding Level of Care Code Acute Tourist Adviser for Chg Fwd Diagnoses NSTEMI (non-ST elevated myocardial infarction) I21.4 CAD (coronary artery disease) I25.10 Associated angina: without angina Coronary Disease-Associated Artery/Lesion type: [place] artery [place] vs. transplanted heart: [place] heart Essential hypertension I10 Mixed hyperlipidemia E78.2
[2021-03-14] MEDS: pantoprazole DR 40 mg Tablet PO (09:10)
[2021-03-14] MEDS: aspirin 325 mg Tablet PO (09:10)
[2021-03-14] MEDS: metoprolol tartrate 25 mg Tablet 12.5 MG PO (09:11)
[2021-03-14] MEDS: isosorbide mononitrate ER 30 mg Tablet 15 MG PO (09:13)
[2021-03-14] MEDS: lisinopril 20 mg Tablet PO (09:13)
--- NOTE | 2021-03-14 11:02 | PC.CHAP ---
Pastoral Care Encounter/Spiritual Assessment Type of Contact [] Declined scientific database curator visit [] Patient/Family/Request visit [] Outpatient visit [] Follow-up visit [] Physician referral [] Code/Alert [x] Routine visit [] Staff referral [] Actively dying [] Patient sleeping [] Family support [] [] Out of room [] Palliative care [] [] Receiving care in room [] Pre-surgical visit [] Trauma [] Long length of stay [] ICU visit [] Other: Relational/Emotional Strength [x] Patient feels connected with others/family/visitors/staff [] Distress [] Loneliness/isolation [] Abandonment Spirituality of Patient [x] Person of Ermelinda [] Attends Mandaeism of their [place] [x] Believes in Prayer [] Reads Bible or Yarsanism materials [] There are Spiritual issues to be addressed Blue Prints Trimmer Interventions [x] Prayer [x] Active listening [x] Non-anxious presence [] Spiritual/emotional support [] Crisis/trauma care [] Spiritual counseling [] Bereavement support [] Provided bereavement packet [] Provided Bible/devotional materials [] Provided toy/stuffed animal, coloring book to patient or family member [] Provided Communion [] Anointing/Downing [] Salvation [x] Completed spiritual assessment [] Other: Impact on Illness or Injury [] Angry [] Fearful [] Anxious [] Often cries [] Exhaustion [] Unable to work [] Unable to attend pentecostal [] Unable to walk/stand [] Unable to read [] Unable to drive [] Unable to eat/drink [] Unable to sleep [] Unable to be with family [] Patient intubated [] Other: Summary Blue Prints Trimmer prayed with patient. Time spent with patient 8 minutes.
[2021-03-14 12:41] VITALS: BP 145/60; PULSE 75; RESP 18; TEMP 36.7; O2SAT 94
--- NOTE | 2021-03-14 15:09 | P.DS_ITS ---
Discharge Providers Date of Admission: 03/13/21 13:14 Date of Discharge: March 14, 2021 Attending Provider at Admission: Jacy Delaney MD Attending Provider at Discharge: Arlette Leyva MD Primary Care Provider: MORENA Erazo Diagnoses at Discharge Discharge Diagnosis (1) NSTEMI (non-ST elevated myocardial infarction): Status: Acute (2) CAD (coronary artery disease): Status: Chronic Permanent problem details: 2016 angiogram demonstrated 90% LAD disease with 80% diagonal, circumflex 85% with obtuse marginal 80% RCA with 80 to 90%. Stents were deployed in circumflex, obtuse marginal, RCA. Qualifiers: Coronary Disease-Associated Artery/Lesion type: [place] artery [place] vs. transplanted heart: [place] heart Associated angina: without angina Qualified Code(s): I25.10 - Atherosclerotic heart disease of [place] coronary artery without angina pectoris (3) Essential hypertension: Status: Chronic (4) Mixed hyperlipidemia: Status: Acute Reason for Visit Reason for Visit: cp/sob Hospital Course Hospital Course Is a 80-year-old male who presented to the ER with complaints of chest discomfort. He also had some nausea sweating and shortness of breath. Chest symptoms improved with nitroglycerin. He was evaluated by cardiology. He was given aspirin,Echocardiogram was ordered. Patient was npo possible angiog Treated with aspirin, Plavix and bb. s/p ballooning and REMBERTO placement to ostial D1. Other stents are patent He was kept overnight for observation. Discharge chest pain-free. Discharged i n improved condition Physical Exam Const: COMMON NORMALS: no acute distress and patient oriented x3 Resp: COMMON NORMALS: normal respiratory effort and No retractions Cardio: COMMON NORMALS: regular rate and regular rhythm RATE: regular rate RHYTHM: regular rhythm GI: COMMON NORMALS: Normal to inspection, nondistended, normoactive bowel sounds present Neuro: COMMON NORMALS: patient oriented x3 and CN's II-XII intact bilaterally Psych: COMMON NORMALS: mental status grossly normal and Normal thought process present THOUGHT PROCESS: Normal thought process present Discharge Data Data Completed and Pending: Completed Studies During Hospitalization Category Date Time Status XR chest 1V [place] [id number] Stat Exams 03/12/21 04:05 Completed CV. echo wo/w con trast [id number] Routin e Ultrasound 03/12/21 09:08 Completed Pending at discharge Category Date Time Status AVIONICS SYSTEMS ENGINEER request for service Routin e Exams 03/12/21 13:16 Taken Vitals: Last Vital Signs Temp 98.0 F 03/14/21 12:41 Pulse 75 03/14/21 12:41 Resp 18 03/14/21 12:41 BP 145/60 03/14/21 12:41 Pulse Ox 94 03/14/21 12:41 Discharge Plan Discharge Patient Disposition: Home Condition: Stable Prescriptions: New atorvastatin 40 mg Tablet 40 mg PO BEDTIME Qty: 90 RF: 1 aspirin 325 mg Tablet 325 mg PO DAILY Qty: 30 RF: 0 isosorbide mononitrate 30 mg Tablet Extended Release 24 Hr 15 mg PO DAILY Qty: 30 RF: 0 nitroglycerin 0.4 mg Tablet, Sublingual 0.4 mg sublingual Q5M PRN (Reason: Chest Pain) Qty: 30 RF: 0 metoprolol tartrate 25 mg Tablet 12.5 mg PO BID@0900,2100 Qty: 60 RF: 0 clopidogrel 75 mg Tablet 75 mg PO QAM Qty: 30 RF: 0 Continued nitroglycerin 0.4 mg tablet, sublingual 0.4 mg sublingual Q5M PRN (Reason: Chest Pain) RF: 0 (DME) fastform cock up splint See Rx Instructions .Route .MEDSUPPLY Qty: 1 RF: 0 lisinopril-hydrochlorothiazide 20-12.5 mg tablet 1 tab PO QAM RF: 0 clopidogrel 75 mg tablet 75 mg PO QAM RF: 0 amlodipine 5 mg tablet 5 mg PO QAM RF: 0 Proventil HFA 90 mcg/actuation HFA aerosol inhaler 2 puff inhalation Q4H PRN (Reason: Shortness Of Breath) RF: 0 Lumigan 0.01 % drops 1 drp ophthalmic (eye) QPM RF: 0 Lotemax SM 0.38 % drops,gel 1 drp ophthalmic (eye) BID RF: 0 Discontinued aspirin 81 mg tablet,delayed release (DR/EC) 81 mg PO QAM RF: 0 metoprolol succinate 25 mg Tablet Extended Release 24 Hr See Rx Instructions .ROUTE .COMPLEX RF: 0 Discharge Orders: Discharge Order (Routine); Ordered 03/14/21 Ordered By: Arlette Leyva Referrals: Colette Sena FNP [Nurse Practitioner] - 4-7 days ([facility] will contact you to schedule an follow-up appointment in 4 to 7 days. If you haven't heard from them by Monday morning. Please call ) Chapis Garces MD [Physician] - 6 Weeks ([facility] anthony contact you to schedule an follow-up appointment in 6 weeks. If you haven't heard from them by Monday morning. Please call ) Discharge Diet: Cardiac Discharge Activity: Increase activity as tolerated Patient Instructions: Metoprolol (By mouth), Nitroglycerin (By mouth), Aspirin (By mouth), Isosorbide Mononitrate (By mouth), Atorvastatin (By mouth), Clopidogrel (By mouth), Left Heart Catheterization (DC), Opioid Safety, Post Angiogram Home Care Instructions Discharge Attestations Time Spent in Discharge Care*: less than 30 min Quality Metrics Clinical Quality Measures During this hospital stay, did patient experience: AMI Clinical Trial Participant: No Contraindication to aspirin (AMI): Aspirin given Contraindicati on to statin: Statin prescribed Coding Level of Care Code Acute [facility] DC note Diagnoses NSTEMI (non-ST elevated myocardial infarction) I21.4 CAD (coronary artery disease) I25.10 Coronary Disease-Associated Artery/Lesion type: [place] artery [place] vs. transplanted heart: [place] heart Associated angina: without angina Essential hypertension I10 Mixed hyperlipidemia E78.2
--- NOTE | 2021-03-17 09:35 | PC.SOCIAL ---
discharge follow up call made. Spoke with pts . Pt picked up all new medications and is taking as prescribed. Hasn't made follow up appointments. Follow up appointment made for Colette Sena, the office will call patient with appointment date and time with Dr. Garces.
--- NOTE | 2021-03-17 12:20 | PC.RESP ---
SMOKING CESSATION AND PULMONARY REHAB INFORMATION SENT TO PATIENT.
== END 2021-03-14 12:43 | disposition home or self-care (01) | DRG 247 ==
LOC: ER 05:35 → CSU 05:41
PROVIDERS: Internal Medicine; Internal Medicine Cardiovascular Disease; Admitting Provider Hospitalist; Emergency Provider Emergency Medicine; PCP Nurse Practitioner; Visit Provider Internal Medicine
DX: I21.4 Non-ST elevation (NSTEMI) myocardial infarction (principal); I25.10 Atherosclerotic heart disease of native coronary artery without angina pectoris; Z95.5 Presence of coronary angioplasty implant and graft; J44.9 Chronic obstructive pulmonary disease, unspecified; I10 Essential (primary) hypertension; E78.5 Hyperlipidemia, unspecified; E78.2 Mixed hyperlipidemia; F17.210 Nicotine dependence, cigarettes, uncomplicated; R73.9 Hyperglycemia, unspecified; I25.2 Old myocardial infarction; Z79.02 Long term (current) use of antithrombotics/antiplatelets
CPT/HCPCS: 36415; 71045; 80053; 80061; 83036; 83721; 83735; 83880; 84443; 84484; 85025; 85347; 85378; 87426; 93005; 93454; 93571; 96372; 99285; C1725; C1769; C1874; C1887; C1894; C8929; C9600; G0378; J0153; J1200; J1644; J1650; J2250; J2930; J3010; J3490; J7030; Q9956; Q9967

== ENCOUNTER → 2021-03-22 10:58 | Outpatient (BNVA) | payer OTHER, SELFPAY | PROVIDERS: PCP Nurse Practitioner; Visit Provider Nurse Practitioner Family | DX: I25.10 Atherosclerotic heart disease of native coronary artery without angina pectoris (principal) | CPT/HCPCS: 80048 ==

== ENCOUNTER → 2022-04-05 13:04 | Outpatient (BNVA) | payer OTHER, SELFPAY | PROVIDERS: PCP Family Medicine; Visit Provider Surgery | DX: Z12.11 Encounter for screening for malignant neoplasm of colon (principal) | CPT/HCPCS: 99203 ==

== ENCOUNTER 2022-05-09 06:53 | Day surgery (SDC) | payer OTHER, SELFPAY ==
[2022-05-05 09:46] VITALS: BMI 3905.5
[2022-05-09 07:42] VITALS: BP 167/71; PULSE 78; RESP 18; TEMP 36.2; O2SAT 93
[2022-05-09] MEDS: sodium chloride 0.9% 1,000 ML 30 ML IV (07:50)
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
[2022-05-09] MEDS: metoprolol tartrate 25 mg Tablet 12.5 MG PO (08:39)
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
[2022-05-09 09:29] VITALS: BP 110/57; PULSE 54; RESP 16; TEMP 36.1; O2SAT 94
[2022-05-09 09:42] VITALS: BP 100/57; PULSE 59; RESP 18; O2SAT 97
--- NOTE | 2022-05-09 14:58 | ANE.PACU2 ---
Inpatient post-anesthesia follow up: Airway intact: Yes Vital signs: Temperature 97 F Pulse Rate 59 Respiratory Rate 18 Blood Pressure 100/57 Pulse Oximetry 97 Oxygen Delivery Me thod Room Air Oxygen Flow Rate Fraction of Inspir ed Oxygen Hydration adequate: Yes Nausea and vomiting: No Pain level: 1 Mental status: Baseline
== END 2022-05-09 09:58 | disposition home or self-care (01) ==
PROVIDERS: PCP Family Medicine; Visit Provider Surgery
PROC: 0DJD8ZZ Inspection of Lower Intestinal Tract, Via Natural or Artificial Opening Endoscopic (ICD-10-PCS; CPT 45378; principal; 2022-05-09 09:00)
DX: Z12.11 Encounter for screening for malignant neoplasm of colon (principal); D12.4 Benign neoplasm of descending colon; Z79.82 Long term (current) use of aspirin; I25.10 Atherosclerotic heart disease of native coronary artery without angina pectoris; J44.9 Chronic obstructive pulmonary disease, unspecified; I10 Essential (primary) hypertension; Z86.010 Personal history of colon polyps; E78.2 Mixed hyperlipidemia; I25.2 Old myocardial infarction; F17.210 Nicotine dependence, cigarettes, uncomplicated; Z95.5 Presence of coronary angioplasty implant and graft
CPT/HCPCS: 45385; 88305; J2704; J7030

== ENCOUNTER → 2022-05-17 14:44 | Outpatient (BNVA) | payer OTHER, SELFPAY | PROVIDERS: PCP Family Medicine; Visit Provider Internal Medicine Cardiovascular Disease | DX: I25.10 Atherosclerotic heart disease of native coronary artery without angina pectoris (principal); I10 Essential (primary) hypertension; E78.2 Mixed hyperlipidemia; F17.200 Nicotine dependence, unspecified, uncomplicated; I25.2 Old myocardial infarction | CPT/HCPCS: 99214 ==

== ENCOUNTER → 2022-11-16 08:45 | Outpatient (BNVA) | payer MEDICARE, SELFPAY | PROVIDERS: PCP Family Medicine; Visit Provider Dermatology | DX: L27.9 Dermatitis due to unspecified substance taken internally (principal); Z48.02 Encounter for removal of sutures | CPT/HCPCS: 99212 ==

== ENCOUNTER → 2023-06-12 13:24 | Outpatient (BNVA) | payer OTHER, SELFPAY | PROVIDERS: PCP Family Medicine; Visit Provider Internal Medicine Cardiovascular Disease | DX: I25.10 Atherosclerotic heart disease of native coronary artery without angina pectoris (principal); I10 Essential (primary) hypertension; E78.2 Mixed hyperlipidemia; F17.200 Nicotine dependence, unspecified, uncomplicated; J43.9 Emphysema, unspecified | CPT/HCPCS: 99214 ==

== ENCOUNTER 2023-08-25 09:52 | Emergency (ER) | payer OTHER, SELFPAY ==
[2023-08-25] VITALS (8 sets, daily range): BP systolic 106–150; BP diastolic 68–88; PULSE 68–91; RESP 12–25; TEMP 36.6; O2SAT 90–96
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
--- NOTE | 2023-08-25 09:59 | ECG_ITS ---
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 Measurements Intervals [place] Rate: 86 P: 55 ME: 153 QRS: 87 QRSD: 86 T: 74 QT: 371 QTc: 446 Interpretive Statements SINUS RHYTHM WITH OCCASIONAL VENTRICULAR PREMATURE COMPLEXES WITH OCCASIONAL SUPRAVENTRICULAR PREMATURE COMPLEXES Compared to ECG 03/12/2021 16:37:59 Ventricular premature complex(es) now present Sinus bradycardia no longer present Myocardial infarct finding no longer present Electronically Signed On 08-26-2023 23:15:33 DRY GOODS CLERK by Orestes Barkley M.D. [id number] f
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
--- NOTE | 2023-08-25 11:47 | PC.PHAR ---
Addendum entered by Kira Devine 08/25/23 12:26: [facility]ts [facility] l[facility]op[facility]/hctz 10-12.5mg one tab bid pt states only takes one tab qam-pts [facility] med list [facility] lipitor 80mg take 40mg qpm pt states he does not take- Original Note: pt states he takes care of his own medications-pt states he no longer takes lipitor-medications entered are what the pt states he takes waiting on [facility] to fax med list back
[2023-08-25 12:45] LABS: Basophils # 0.1 10^3/uL (0.0-0.1); Basophils % 0.8 %; Eosinophils # 0.1 10^3/uL (0.0-0.8); Eosinophils % 1.8 %; Hematocrit 57.8 % (37-53); Lymphocytes # 1.6 10^3/uL (0.8-4.8); Lymphocytes % 22.4 %; Mean Corpuscular HGB Conc 31.5 g/dL (30-55); Mean Corpuscular Hemoglobin 28.1 pg (27-33); Mean Corpuscular Volume 89.3 fl (82-101); Mean Platelet Volume 9.8 fL (7.4-10.4); Monocytes # 0.6 10^3/uL (0.2-0.9); Monocytes % 7.8 %; Neutrophils # 4.88 10^3/uL (1.8-7.7); Neutrophils % 66.8 %; Nucleated Red Blood Cells % 0 %; Platelet Count 225 10^3/cmm (157-399); Red Blood Count 6.47 10^6/uL (3.85-5.65); Red Cell Distribution Width 13.7 % (12.1-15.1); White Blood Count 7.31 10^3/uL (3.29-11.43)
[2023-08-25 13:05] LABS: Troponin(5th) Baseline 26 ng/L (0-15)
[2023-08-25 13:06] LABS: INR 0.96 (0.8-1.2)
[2023-08-25 13:07] LABS: Glucose Urine UA Norm (Normal); Protein Urine 1+ (Negative); Urine Appearance Cloudy (CLEAR); Urine Color Dark Yellow (Yellow); pH Urine 5 (5-7)
[2023-08-25 13:07] LABS: Partial Thromboplastin Time 28.4 SECONDS (23.9-36.7)
[2023-08-25 13:08] LABS: Add Urine Microscopic? YES; Bilirubin Urine 1+ (Negative); Blood Urine Trace (Negative); Ketones Urine 1+ (Negative); Leukocyte Esterase Urine Trace (Negative); Nitrate Urine Negative (Negative); Urobilinogen Urine 1 mg/dL (Negative)
[2023-08-25 13:09] LABS: Add Urine Culture? No; Bacteria Urine 1+ /hpf; Mucus Urine 2+ /hpf; RBC Urine 0-4 /hpf (0-2); WBC Urine 0-4 /hpf (0-5)
[2023-08-25 13:15] LABS: Alanine Aminotransferase 14 U/L (0-41); Albumin Level 4.1 g/dL (3.5-5.2); Alkaline Phosphatase 78 U/L (40-130); Aspartate Amino Transferase 11 U/L (0-40); Blood Urea Nitrogen 16 mg/dL (8-23); Calcium 9.7 mg/dL (8.5-10.5); Carbon Dioxide 29 mmol/L (22-29); Chloride 101 mmol/L (98-107); Creatine Phosphokinase 46 U/L (39-308); Globulin 2.3 g/dL (1.3-4.6); Glucose 120 mg/dL (65-115); Lipase 29 U/L (13-60); NT Pro B Type Natriuretic Pept 151 pg/mL (0-450); Osmolality Calculated 292 mOsm/kg (285-295); Sodium 140 mmol/L (136-145); Total Protein 6.4 g/dL (6.6-8.7)
[2023-08-25 13:25] LABS: Anion Gap 14.8 (5-19); Potassium 4.8 mmol/L (3.5-5.1)
[2023-08-25 14:49] LABS: Troponin 5 2HR 22.54 ng/L (0-15)
[2023-08-25 14:52] LABS: Troponin 5 2HR Delta -3.46 ABS# (0-10)
--- NOTE | 2023-08-25 15:05 | ECG_ITS ---
[facility] Test Date: 2023-08-25 Pat Name: Jason Escobedo Department: Room: Gender: Male Supervisor Plate Forming: : 1940 Requested By: Dimitrios Quinteros Order Number: [id number] Fabian MD: Orestes Barkley M.D. Measurements Intervals [place] Rate: 70 P: 66 CO: 186 QRS: 74 QRSD: 82 T: 78 QT: 391 QTc: 423 Interpretive Statements SINUS RHYTHM Compared to ECG 08/25/2023 09:59:55 Ventricular premature complex(es) no longer present Electronically Signed On 08-26-2023 23:26:44 AUDITOR/QUALITY by Orestes Barkley M.D. [email or web address] Transmit [id number]
== END 2023-08-25 17:17 | disposition home or self-care (01) ==
PROVIDERS: Physician Assistant; Emergency Provider Family Medicine; PCP Family Medicine
DX: J44.1 Chronic obstructive pulmonary disease with (acute) exacerbation (principal); Z79.02 Long term (current) use of antithrombotics/antiplatelets; Z79.82 Long term (current) use of aspirin; I25.10 Atherosclerotic heart disease of native coronary artery without angina pectoris; I10 Essential (primary) hypertension; E78.2 Mixed hyperlipidemia; I25.2 Old myocardial infarction; Z72.0 Tobacco use
CPT/HCPCS: 36415; 71045; 80053; 81001; 82550; 83690; 83880; 84484; 85025; 85610; 85730; 93005; 94640; 99285

== ENCOUNTER → 2023-11-02 09:03 | Outpatient (BNVA) | payer MEDICARE, SELFPAY | PROVIDERS: PCP Family Medicine; Visit Provider Dermatology | DX: D48.5 Neoplasm of uncertain behavior of skin (principal); L24.9 Irritant contact dermatitis, unspecified cause; L72.0 Epidermal cyst; L57.0 Actinic keratosis; L57.8 Other skin changes due to chronic exposure to nonionizing radiation; D22.39 Melanocytic nevi of other parts of face; L81.4 Other melanin hyperpigmentation; D22.5 Melanocytic nevi of trunk | CPT/HCPCS: 11102; 17000; 99214 ==

== ENCOUNTER → 2023-11-23 14:26 | Outpatient (BNVA) | payer MEDICARE, SELFPAY | PROVIDERS: PCP Family Medicine; Visit Provider Dermatology | DX: D48.5 Neoplasm of uncertain behavior of skin (principal) | CPT/HCPCS: 11403; 11422; 12034; 13132 ==

== ENCOUNTER → 2023-11-29 08:29 | Outpatient (BNVA) | payer MEDICARE, SELFPAY | PROVIDERS: PCP Family Medicine; Visit Provider Dermatology | DX: C44.629 Squamous cell carcinoma of skin of left upper limb, including shoulder (principal); L82.1 Other seborrheic keratosis; L57.0 Actinic keratosis | CPT/HCPCS: 11602; 13121; 17000; 99212 ==

== ENCOUNTER → 2024-02-12 10:27 | Outpatient (BNVA) | payer OTHER, SELFPAY | PROVIDERS: PCP Family Medicine; Visit Provider Internal Medicine Cardiovascular Disease | DX: I25.10 Atherosclerotic heart disease of native coronary artery without angina pectoris (principal); Z95.5 Presence of coronary angioplasty implant and graft; E78.2 Mixed hyperlipidemia; I10 Essential (primary) hypertension; J43.9 Emphysema, unspecified; J44.9 Chronic obstructive pulmonary disease, unspecified; Z72.0 Tobacco use | CPT/HCPCS: 99214 ==

== ENCOUNTER 2024-03-18 08:22 | Outpatient (CLI) | payer OTHER, SELFPAY ==
--- NOTE | 2024-03-18 | ECG_ITS ---
[facility] Test Date: 2024-03-18 Pat Name: Jason Escobedo Department: Room: Gender: Male Dedicated Owner Operator: : 1940 Requested By: Jean Claude Otoole Order Number: [id number] Fabian MD: Orestes Barkley M.D. Interpretive Statements LEXISCAN Procedure: At the baseline, the blood pressure was 149/71 mmHg with a heart rate of 78 bpm. The electrocardiogram showed normal sinus rhythm, normal axis with normal ST and T's. The Lexiscan was infused over a period of 20 seconds. A total of 0.4 mg of Lexiscan was infused. The stress phase was continued for a total of 5 minutes. Heart rate was at the end of stress phase was 87 bpm and a blood pressure of 132/58 mmHg. The EKG at the peak infusion revealed normal sinus rhythm with no significant ST-T wave changes.PVCs were noted. Sestamibi was injected 20 seconds after the Lexiscan infusion. Blood pressure at the end of recovery phase was 129/60 mmHg with a heart rate of 83 bpm. Conclusion: 1. Normal EKG response to Lexiscan infusion 2. No Lexiscan induced chest pain or cardiac arrhythmia. 3. Normal blood pressure and heart rate response. 4. Sestamibi/sestamibi perfusion scan pending; see separate report. Electronically Signed On 03-22-2024 19:32:21 CDT by Orestes Barkley M.D. [id number]
[2024-03-18 08:47] VITALS: BMI 26.7
--- NOTE | 2024-03-18 09:08 | NMCV_ITS ---
NM elvira perf SPECT r/s* [id number] Jason Escobedo Age: 83 Gender: M : 1940 Exam Date: 03/18/2024 09:15 Ordering Phys: Jean Claude Otoole MD ([email or web address]) Technologist: ANTOINE Ahmadi Exam Location: [facility] Indications: SOB STRESS TEST [facility] IMAGE PROTOCOL Rest/Stress 1 Lexiscan Day Radiopharmaceutical Dose (mCi) Administration Site Administered by Rest: Tc-99m 10.9 IV ANTOINE Ahmadi Sestamibi Stress:Tc-99m 32.5 IV ANTOINE Ahmadi Sestamibi Rest: 18-Mar-2024 60 Discovery 630 Stress: 18-Mar-2024 30 Discovery 630 0.4mg Lexiscan. Images obtained in supine and prone position. SPECT RESULTS Technical Quality: Good Raw Data Analysis: Normal Image Corrections: No attenuation or motion correction applied Summed Stress Score: 2 Summed Rest Score: 0 Summed Difference Score: 2 PERFUSION FINDINGS Small area of reversible perfusion defect seen in the inferolateral wall that improves on prone imaging. This is consistent with small area of ischemia in left circumflex artery territory vs more likely attenuation artifact. Medical correlation is required. FUNCTIONAL RESULTS (calculated via Gated SPECT) Stress Image LV EF (%): 60 Stress EDV (mL):108 TID: 0.88 Stress ESV (mL):43 FUNCTIONAL FINDINGS: There is normal left ventricular systolic function. IMPRESSIONS 1. Small area of perfusion defect seen in inferolateral wall. Most likely attenuation artifact. Low probability of small area of ischemia in circumflex artery territory. Clinical correlation is required. 2. LV systolic function is normal Orestes Barkley MD (Electronically Signed) Final Date: 18 March 2024 11:55 S
[2024-03-18] MEDS: regadenoson 0.4 Mg/5 ml Syringe IVP (10:03)
[2024-03-18 10:35] VITALS: BP 132/84; PULSE 72
== END 2024-03-18 08:23 | disposition home or self-care (01) ==
LOC: CDL 08:47
PROVIDERS: PCP Family Medicine; Visit Provider Internal Medicine Cardiovascular Disease
DX: I25.10 Atherosclerotic heart disease of native coronary artery without angina pectoris (principal); R94.39 Abnormal result of other cardiovascular function study
CPT/HCPCS: 36415; 78452; 93017; 96374; A9500; J2785

== ENCOUNTER → 2024-04-16 13:20 | Outpatient (BNVA) | payer OTHER, SELFPAY | PROVIDERS: PCP Family Medicine; Visit Provider Nurse Practitioner Family | DX: L57.0 Actinic keratosis (principal); L57.8 Other skin changes due to chronic exposure to nonionizing radiation; L72.0 Epidermal cyst; L81.4 Other melanin hyperpigmentation; D22.5 Melanocytic nevi of trunk; Z85.828 Personal history of other malignant neoplasm of skin | CPT/HCPCS: 17004; 99213 ==

== ENCOUNTER 2024-05-01 11:51 | Emergency (ER) | payer OTHER, MEDICARE, SELFPAY ==
[2024-05-01 11:55] VITALS: BP 130/68; PULSE 86; RESP 16; TEMP 36.9; O2SAT 93; BMI 26.0
[2024-05-01 13:49] LABS: Basophils # 0.1 10^3/uL (0.0-0.1); Basophils % 0.6 %; Eosinophils % 0.2 %; Hematocrit 57.8 % (37-53); Lymphocytes # 1.2 10^3/uL (0.8-4.8); Mean Corpuscular HGB Conc 30.3 g/dL (30-55); Mean Corpuscular Hemoglobin 27.9 pg (27-33); Mean Platelet Volume 10.3 fL (7.4-10.4); Monocytes % 8.3 %; Neutrophils # 9.21 10^3/uL (1.8-7.7); Neutrophils % 80.1 %; Nucleated Red Blood Cells % 0 %; Platelet Count 239 10^3/cmm (157-399); Red Blood Count 6.28 10^6/uL (3.85-5.65); Red Cell Distribution Width 13.8 % (12.1-15.1); White Blood Count 11.49 10^3/uL (3.29-11.43)
[2024-05-01 14:07] LABS: Lactic Sepsis W/Reflex 2.3 mmol/L (0.5-2.2)
[2024-05-01 14:13] LABS: Alanine Aminotransferase 17 U/L (0-41); Albumin Level 3.5 g/dL (3.5-5.2); Alkaline Phosphatase 91 U/L (40-130); Anion Gap 15.8 (5-19); Aspartate Amino Transferase 12 U/L (0-40); Blood Urea Nitrogen 16 mg/dL (8-23); Carbon Dioxide 30 mmol/L (22-29); Chloride 101 mmol/L (98-107); Globulin 3.6 g/dL (1.3-4.6); Glucose 146 mg/dL (65-115); Osmolality Calculated 300 mOsm/kg (285-295); Potassium 3.8 mmol/L (3.5-5.1); Sodium 143 mmol/L (136-145); Total Bilirubin 0.9 mg/dL (0.15-1.2); Total Protein 7.1 g/dL (6.6-8.7)
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
[2024-05-01 14:14] VITALS: BP 171/80; PULSE 87; O2SAT 92
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
[2024-05-01] MEDS: phenazopyridine 100 mg Tablet PO (14:24)
[2024-05-01 15:00] VITALS: BP 171/78; PULSE 81; O2SAT 90
[2024-05-01 15:32] LABS: Add Urine Culture? Yes; Bacteria Urine 2+ /hpf; Mucus Urine 1+ /hpf; Oval Fat Bodies Urine 1+ /hpf; RBC Urine >100 /hpf (0-2); WBC Urine TOO NUMEROUS TO CNT /hpf (0-5)
[2024-05-01 15:32] LABS: Reflex Lactate Order REFLEX LACTIC ORDERD
[2024-05-01] MEDS: cefTRIAXone 2,000 mg SDV 2000 MG IVP (15:39)
[2024-05-01 16:14] VITALS: BP 144/65; PULSE 82; O2SAT 93
== END 2024-05-01 16:17 | disposition home or self-care (01) ==
PROVIDERS: Emergency Medicine; Emergency Provider Student in an Organized Health Care Education/Training Program; PCP Family Medicine
DX: N30.01 Acute cystitis with hematuria (principal); Z79.02 Long term (current) use of antithrombotics/antiplatelets; Z79.82 Long term (current) use of aspirin; Z87.891 Personal history of nicotine dependence; I25.2 Old myocardial infarction; I10 Essential (primary) hypertension; J44.9 Chronic obstructive pulmonary disease, unspecified; I25.10 Atherosclerotic heart disease of native coronary artery without angina pectoris; E78.2 Mixed hyperlipidemia
CPT/HCPCS: 36415; 74176; 80053; 81001; 83605; 85025; 87040; 87077; 87086; 87186; 96374; 99285; J0696

== ENCOUNTER 2024-07-28 12:09 | Inpatient (IN) | payer OTHER, MEDICARE, SELFPAY ==
[2024-07-28] VITALS (27 sets, daily range): BP systolic 144–169; BP diastolic 72–88; PULSE 88–107; RESP 18–36; TEMP 36.6–36.7; O2SAT 84–99; BMI 3807.9; BMI 24.3
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
--- NOTE | 2024-07-28 12:33 | ECG_ITS ---
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 Measurements Intervals [place] Rate: 95 P: 86 IA: 161 QRS: 102 QRSD: 89 T: 74 QT: 358 QTc: 451 Interpretive Statements SINUS RHYTHM RIGHT AXIS DEVIATION [QRS AXIS > 100] Compared to ECG 08/25/2023 15:16:10 Right-axis deviation now present Electronically Signed On 07-28-2024 13:30:23 SALES REPRESENTATIVE PUBLICATIONS by Lucretia Tobar M.D. [email or web address]
[2024-07-28 12:49] LABS: Basophils # 0.1 10^3/uL (0.0-0.1); Basophils % 0.4 %; Eosinophils % 0.2 %; Hematocrit 54.6 % (37-53); Lymphocytes # 1.1 10^3/uL (0.8-4.8); Lymphocytes % 8.6 %; Mean Corpuscular HGB Conc 30.6 g/dL (30-55); Mean Corpuscular Hemoglobin 26.6 pg (27-33); Mean Corpuscular Volume 87.1 fl (82-101); Monocytes % 7.3 %; Neutrophils # 11.02 10^3/uL (1.8-7.7); Nucleated Red Blood Cells % 0 %; Platelet Count 234 10^3/cmm (157-399); Red Blood Count 6.27 10^6/uL (3.85-5.65); Red Cell Distribution Width 14.9 % (12.1-15.1); White Blood Count 13.27 10^3/uL (3.29-11.43)
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
--- NOTE | 2024-07-28 12:53 | PC.PHAR ---
[facility]. Will consult with pt.
[2024-07-28 12:57] LABS: ABG PH Result 7.34 (7.35-7.45); Base Excess ABG 4.8 mmol/L (-2.0-2.0); Blood Gas Allen Test Pos; Blood Gas Operator Identificat WALCI; Blood Gas Sample Site Radial, right; Blood Gas Sample Type Arterial; Carboxyhemoglobin 2.5 %THgb (0.4-20.1); HCO3 ABG 33.1 mmol/L (22-26); HGB O2 Sat 91.1 % (95-100); Ionized Calcium Level - ABG 1.3 mmol/L (1.1-1.4); Methemoglobin 0.2 % (0.4-1.5); Oxygen Device NC; Oxygen Saturation ABG 93.6; PO2 ABG 80.5 mmHg (80.0-100.0); PO2 FiO2 Ratio Arterial Blood 2683; Potassium Level - ABG 3.9 mmol/L (3.5-5.0)
[2024-07-28 12:58] LABS: ABG PCO2 61.8 mmHg (35-45)
[2024-07-28] MEDS: methylPREDNISolone sod succ 125 mg/2 mL INJ IVP (13:00)
[2024-07-28] MEDS: ipratropium-albuterol 3 mL Neb INHALATION ×3 (13:02→19:15)
[2024-07-28] MEDS: albuterol 2.5 mg/3 mL Neb INHALATION (13:02)
[2024-07-28 13:08] LABS: Lactic Sepsis W/Reflex 1.6 mmol/L (0.5-2.2)
[2024-07-28 13:11] LABS: Troponin(5th) Baseline 25 ng/L (0-15)
[2024-07-28 13:18] LABS: Alanine Aminotransferase 12 U/L (0-41); Albumin Level 3.9 g/dL (3.5-5.2); Alkaline Phosphatase 85 U/L (40-130); Anion Gap 24.6 (5-19); Aspartate Amino Transferase 9 U/L (0-40); Blood Urea Nitrogen 13 mg/dL (8-23); Calcium 9.3 mg/dL (8.5-10.5); Carbon Dioxide 29 mmol/L (22-29); Chloride 92 mmol/L (98-107); Creatinine Clr Calc Pharmacy 89.0652; Globulin 2.8 g/dL (1.3-4.6); Glucose 160 mg/dL (65-115); NT Pro B Type Natriuretic Pept 975 pg/mL (0-450); Osmolality Calculated 296 mOsm/kg (285-295); Potassium 4.6 mmol/L (3.5-5.1); Sodium 141 mmol/L (136-145); Total Bilirubin 0.9 mg/dL (0.15-1.2); Total Protein 6.7 g/dL (6.6-8.7)
--- NOTE | 2024-07-28 14:17 | ECG_ITS ---
[facility] 2024-07[facility]28 Pat Name: Jason Escobedo Department: Room: 112 Gender: Male Assistant Designer: : 1940 Requested By: Yael Quinteros Order Number: [id number] Fabian MD: Lucretia Tobar M.D. Measurements Intervals [place] Rate: 93 P: 86 CT: 157 QRS: 98 QRSD: 85 T: 72 QT: 359 QTc: 448 Interpretive Statements SINUS RHYTHM BORDERLINE RIGHT AXIS DEVIATION [QRS AXIS > 90] Compared to ECG 07/28/2024 12:33:43 No significant changes Electronically Signed On 07-29-2024 17:24:52 QUALITY ASSURANCE DIRECTOR by Lucretia Tobar M.D. [id number]
[2024-07-28] MEDS: doxycycline 100 MG in sodium chloride 0.9% (plus) 100 ML IV (14:33)
[2024-07-28 14:45] LABS: Troponin 5 2HR 22.12 ng/L (0-15)
[2024-07-28 14:46] LABS: Troponin 5 2HR Delta -2.88 ABS# (0-10)
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
--- NOTE | 2024-07-28 15:01 | CTR_ITS ---
PROCEDURE INFORMATION: Exam: CTA Chest With Contrast Exam date and time: 07/28/2024 3:59 PM Age: 84 years old Clinical indication: Shortness of breath; Additional info: Hypoxia, HX of copd , suspect pe TECHNIQUE: Imaging protocol: Computed tomographic angiography of the chest with contrast. Exam focused on the arteries. 3D rendering (Not supervised by radiologist): MIP and/or 3D reconstructed images were created by the technologist. Radiation optimization: All CT scans at this facility use at least one of these dose optimization techniques: automated exposure control; mA and/or kV adjustment per patient size (includes targeted exams where dose is matched to clinical indication); or iterative reconstruction. Contrast material: OMNI 350; Contrast volume: 65 ml; Contrast route: INTRAVENOUS (IV); COMPARISON: CR (CHEST, ) 07/28/2024 12:39 PM RADIATION DOSE METRICS: Total DLP (mGy-cm): 380.63 FINDINGS: Pulmonary arteries: Normal. No pulmonary emboli. Aorta: Unremarkable. No aortic aneurysm. No aortic dissection. Other arteries: Calcified atheromas of the visualized arteries. Lungs: Scattered calcified granulomas in the lungs. Mild centrilobular emphysematous changes are present. Bibasilar atelectasis. No focal infiltrates. Pleural spaces: Unremarkable. No pneumothorax. No pleural effusion. Heart: Unremarkable. No cardiomegaly. No pericardial effusion. Lymph nodes: Calcified subcarinal lymph nodes. Bones/joints: There are diffuse enthesopathic changes consistent with benign diffuse idiopathic skeletal hyperostosis (DISH). Demineralization of the visualized bones, limiting sensitivity for nondisplaced fractures. Soft tissues: Unremarkable. CT/CT angio chest PE protcl [id number] IMPRESSION: 1. No pulmonary embolism. 2. No acute infiltrates.
[2024-07-28 15:14] LABS: Adenovirus Not Detected (NOT DETECT); Chlamydia Pneumoniae Not Detected (NOT DETECT); Coronavirus 229E,HKU1,NL63,OC4 Not Detected (NOT DETECT); Human Metapneumovirus Not Detected (NOT DETECT); Human Rhinovirus/Enterovirus Not Detected (NOT DETECT); Influenza A Not Detected (NOT DETECT); Influenza A H1 Not Detected (NOT DETECT); Influenza A H1-2009 Not Detected (NOT DETECT); Influenza A H3 Not Detected (NOT DETECT); Influenza B Not Detected (NOT DETECT); Mycoplasma Pneumoniae Not Detected (NOT DETECT); Parainfluenza Virus Type 1 Not Detected (NOT DETECT); Parainfluenza Virus Type 2 Not Detected (NOT DETECT); Parainfluenza Virus Type 3 Not Detected (NOT DETECT); Parainfluenza Virus Type 4 Not Detected (NOT DETECT); Respiratory Syncytial Virus A Not Detected (NOT DETECT); Respiratory Syncytial Virus B Not Detected (NOT DETECT); SARS-COV-2 Not Detected (NOT DETECT)
[2024-07-28 15:22] LABS: Lactic Sepsis W/Reflex 1.9 mmol/L (0.5-2.2)
[2024-07-28 15:33] LABS: Procalcitonin 0.06 ng/mL (0-0.5); Thyroid Stimulating Hormone 1.96 uIU/mL (0.27-4.20)
[2024-07-28] MEDS: diphenhydrAMINE 50 mg/mL SDV 1mL IVP (15:39)
[2024-07-28] MEDS: famotidine 20 mg/2 mL INJ 40 MG IVP (15:39)
--- OUTSIDE RECORDS SUMMARY | 2024-07-28 15:52 | XMS_ITS | Continuity of Care Document ---
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 It does not include entries that were removed or entered in error. Problem Status Onset Date Problem Type Date of Resolution Comments Source Arthritis * (ICD-9-CM 716.90) Active Condition [place] [facility] CAD - Coronary Artery Disease (SCT 70306583) Active Condition Apr 19, 2021 Entered By: NAVIN EUBANKS Comment: Sees cardiology.Sep 06, 2023 Entered By: NAVIN EUBANKS Comment: 5 cardiac stents 06/2016 [facility] Chest Pain (SCT 44969495) Active Condition Mar 20, 2021 Entered By: NAVIN EUBANKS Comment: seen in ED for CP 2020 Entered By: NAVIN EUBANKS Comment: NSTEMI, CAD, hyperlipidemia, [facility] [facility] Chronic obstructive lung disease Active Condition [facility] COPD - Chronic Obstructive Pulmonary Disease (SCT 87383301) Active Condition [place] [facility] Diabetes Mellitus Type 2 (SCT 95167277) Active Condition Mar 25, 2022 Entered By: NAVIN EUBANKS Comment: diet controlled [place] [facility] elevated hemoglobin & hematocrit Active Condition [place] [facility] Essential hypertension (SNOMED CT 06014416) Active Condition [place] [facility] hematuria, uti Active Condition [place] [facility] Hypertensive disorder Active Condition [facility] Mixed Hyperlipidemia (SCT 698980431) Active Condition [place] [facility] Neck Pain (ICD-9-CM 723.1) Active Condition [place] [facility] Nocturia due to benign prostatic hypertrophy (SNOMED CT 0374893438186) Active Condition [place] [facility] Polyp Colon (SCT 30639252) Active Condition Sep 06, 2023 Entered By: NAVIN EUBANKS Comment: Needs Colonoscopy done 04/2027 [facility] Tobacco user Active Condition [facility] Diagnosis: ICD-10-CM J44.9 Chronic obstructive pulmonary disease, unspecified Active Diagnosis [facility] Diagnosis: ICD-10-CM R32 Unspecified urinary incontinence Active Diagnosis [facility] Diagnosis: ICD-10-CM Z00.01 Encounter for general adult medical exam w abnormal findings Active Diagnosis [facility] Diagnosis: ICD-10-CM L08.9 Local infection of the skin and subcutaneous tissue, unsp Active Diagnosis [facility] Diagnosis: ICD-10-CM Z71.89 Other specified counseling Active Diagnosis [facility] Diagnosis: ICD-10-CM J44.1 Chronic obstructive pulmonary disease w (acute) exacerbation Active Diagnosis [facility] Diagnosis: ICD-10-CM I25.10 Athscl heart disease of [place] coronary artery w/o ang pctrs Active Diagnosis [facility] Medications Combined list of outpatient medications from Department of Defense and Veterans Affairs facilities.Medications provided include 1) outpatient medications from the last 15 months, and 2) patient-reported medications. Medication Details Route Status Patient Instructions Prescription Expires Prescription Number Last Dispense Date Ordering Provider Order Date Order Qty Source ALBUTEROL SO4 90MCG/ACTUA T (CFC-F) INHL,ORAL,8 .5GM INHALE 2 PUFFS ORAL INHALATI ON EVERY 4 HOURS NEEDED FOR SHORTNES S OF BREATH SHAKE WELL. RINSE MOUTHPIE CE FREQUENT LY TO PREVENT CLOGGING . RESPIR ATORY (INHAL ATION) ACTIVE 12/01/2024 [id number] 4 QUENTIN CALVIN W 2023 3 [facility] ALBUTEROL SO4 90MCG/ACTUA T (CFC-F) INHL,ORAL,8 .5GM INHALE 2 PUFFS ORAL INHALATI ON EVERY 4 HOURS NEEDED FOR SHORTNES S OF BREATH SHAKE WELL. RINSE MOUTHPIE CE FREQUENT LY TO PREVENT CLOGGING . RESPIR ATORY (INHAL ATION) DISCONT INUED (EDIT) 06/12/2024 [id number] 4 CHRISTINA CORBIN 2022 1 [place] [facility] ALBUTEROL SO4 90MCG/ACTUA T (CFC-F) INHL,ORAL,8 .5GM INHALE 2 PUFFS BY ORAL INHALATI ON FOUR TIMES A DAY NEEDED FOR BREATHIN G. SHAKE WELL. RINSE MOUTHPIE CE FREQUENT LY TO PREVENT CLOGGING . RESPIR ATORY (INHAL ATION) DISCONT INUED 10/29/2023 [id number] 3 JAKY EUBANKS 2022 3 [facility] APPLE CIDER VINEGAR CAP/TAB TAKE 1 CAP/TAB BY MOUTH ONCE A DAY ORAL ACTIVE QUENTIN CALVIN 2023 [facility] ASPIRIN 81MG TAB,CHEWABL E CHEW AND SWALLOW ONE TABLET BY MOUTH ONCE A DAY FOR CARDIOVA SCULAR DISEASE (TAKE WITH FOOD) ORAL 04/06/2024 [id number] 4 JAKY EUBANKS 2022 90 [facility] ASPIRIN 81MG TAB,EC TAKE ONE TABLET BY MOUTH ONCE A DAY ORAL ACTIVE GRISEL HALL 2014 [place] [facility] CARBAMIDE PEROXIDE 6.5%/GLYCER IN SOLN,OTIC INSTILL 4 DROPS IN BOTH EARS EVERY 4 WEEKS NEEDED FOR EAR WAX BLOCKAGE AURICU LAR (OTIC) 04/06/2024 [id number] 4 JAKY EUBANKS 2022 15 [facility] CHOLECALCIF JACKELYN 50MCG (2,000UNIT) TAB TAKE THREE TABLETS BY MOUTH ONCE A DAY FOR VITAMIN D DEFICIEN CY ORAL ACTIVE 04/05/2025 [id number] 4 QUENTIN CALVIN 2023 300 [facility] CHOLECALCIF JACKELYN 50MCG (2,000UNIT) TAB TAKE TWO TABLETS BY MOUTH ONCE A DAY FOR VITAMIN D DEFICIEN CY ORAL DISCONT INUED (EDIT) 09/22/2024 [id number] 4 JAKY EUBANKS 2023 200 [facility] CRANBERRY JUICE TAKE 120 ML ONCE A DAY ACTIVE QUENTIN CALVIN 2023 [facility] FINASTERIDE 5MG TAB TAKE ONE TABLET BY MOUTH EVERY EVENING FOR BENIGN PROSTATI C HYPERPLA ANA SWALLOW WHOLE, DO NOT CRUSH, SPLIT, OR CHEW. ORAL ACTIVE 05/14/2025 [id number] 4 QUENTIN CALVIN W 2023 90 [facility] FLUTICASONE 100MCG/SALM ETEROL 50MCG INHL,ORAL,D ISKUS,60 INHALE 1 INHALATI ON ORAL INHALATI ON TWICE A DAY FOR COPD (OPEN DISKUS; CLICK ONLY ONCE; MAY INHALE TWICE TO COMPLETE DOSE; CLOSE WHEN FINISHED ) RINSE MOUTH AND SPIT AFTER EACH USE. RESPIR ATORY (INHAL ATION) ACTIVE 09/06/2024 [id number] 4 JAKY EUBANKS 2023 3 [facility] HYDROCHLORO THIAZIDE 12.5MG/TREMAYNE NOPRIL 10MG TAB TAKE 1 TABLET BY MOUTH TWICE A DAY ORAL 06/12/2024 [id number] CHRISTINA CORBIN HANA 2022 180 [place] [facility] LOSARTAN 50MG TAB TAKE ONE-HALF TABLET BY MOUTH ONCE A DAY ORAL ACTIVE TATA POPE 2015 KRUPA LEYVA [facility] MUPIROCIN 2% OINT,TOP APPLY SPARINGL Y TO AFFECTED AREA(S) TWICE A DAY FOR BACTERIA L INFECTIO N EXTERNAL USE ONLY. TOPICA L ACTIVE 10/03/2024 [id number] 4 [place] ISTENeli G 2023 66 [facility] PHENAZOPYRI DINE HCL 100MG TAB TAKE TWO TABLETS BY MOUTH THREE TIMES A DAY WITH MEALS FOR URINARY ANALGESI A TAKE WITH PLENTY OF WATER*MA Y DISCOLOR THE URINE ORAL ACTIVE 05/14/2025 [id number] 4 QUENTIN CALVIN W 2023 180 [facility] ROSUVASTATI N CA 5MG TAB TAKE ONE-HALF TABLET BY MOUTH EVERY EVENING FOR HIGH CHOLESTE ROL TAKE ORALLY WITH EVENING MEAL ORAL ACTIVE 04/05/2025 [id number] QUENTIN CALVIN W 2023 45 [facility] TIOTROPIUM 2.5MCG/ACTU AT INHL,ORAL,6 0D,4GM INHALE 2 INHALATI ONS ORAL INHALATI ON ONCE A DAY FOR COPD (ADMINIS TER AT SAME TIME EACH DAY) RESPIR ATORY (INHAL ATION) ACTIVE 08/28/2024 [id number] 4 ACACIARHONDAJAKY Regla Katz 2023 3 [facility] Allergies, Adverse Reactions, Alerts Combined list of allergies from Department of Defense and Veterans Affairs facilities. It does not include entries that were removed or entered in error. Substance Category Reaction Severity Reaction type Status Date Reported Comments Source CONTRAST MEDIA Propensity to adverse reactions to drug (finding) Eruption, Itching active 5 [facility] 15 Immunizations Combined list of available immunizations from the Department of [facility] and Veterans Affairs facilities. Immunization Series Date Given Administered By Site Reaction Lot Number CVX Code Drug Hvac Operations Technician Status Comments Source ZOSTER RECOMBINANT 2023 JOYA GROVER LEFT DELTO ID [id number] 187 complet ed [facility] INFLUENZA, HIGH-DOSE, QUADRIVALENT 3 2022 197 complet ed [facility] N ZOSTER RECOMBINANT 2022 JOYA GROVER LEFT DELTO ID [id number] 187 complet ed [facility] INFLUENZA, HIGH-DOSE, QUADRIVALENT 2 2021 197 complet ed [facility] N INFLUENZA, INJECTABLE, QUADRIVALENT, PRESERVATIVE FREE 2020 150 complet ed [facility] COVID-19 (DRAGAN), VECTOR-NR, [id number], PF, 0.5 ML 1 2020 212 complet ed [facility] N INFLUENZA, INJECTABLE, QUADRIVALENT, PRESERVATIVE FREE 2018 150 complet ed [facility] INFLUENZA, HIGH DOSE SEASONAL 1 2017 135 complet ed [facility] N INFLUENZA, SEASONAL, INJECTABLE, PRESERVATIVE FREE 2016 140 complet ed Right Deltoid [facility] INFLUENZA, SEASONAL, INJECTABLE, PRESERVATIVE FREE 2015 140 complet ed [place] [facility] PNEUMOCOCCAL CONJUGATE PCV 13 2015 133 complet ed [facility] [place] [facility] PNEUMOCOCCAL CONJUGATE PCV 13 2015 133 complet ed [facility] INFLUENZA, SEASONAL, INJECTABLE, PRESERVATIVE FREE 2014 140 complet ed [facility] INFLUENZA, UNSPECIFIED FORMULATION 2014 88 complet ed [facility] INFLUENZA, UNSPECIFIED FORMULATION 2013 88 complet ed [facility] INFLUENZA, UNSPECIFIED FORMULATION 2012 88 complet ed [place] [facility] INFLUENZA, UNSPECIFIED FORMULATION 2011 88 complet ed [facility] INFLUENZA, UNSPECIFIED FORMULATION 2010 88 complet ed [facility] TDAP 2010 115 complet ed [facility] 15 INFLUENZA, UNSPECIFIED FORMULATION 2009 88 complet ed [facility] INFLUENZA, UNSPECIFIED FORMULATION 2008 88 complet ed [facility] PNEUMOCOCCAL, UNSPECIFIED FORMULATION 2008 109 complet ed Left Deltoid, Lot #:[id number] [facility] PNEUMOCOCCAL POLYSACCHARID E PPV23 2008 33 complet ed [facility], [facility] 15 INFLUENZA, UNSPECIFIED FORMULATION 2007 88 complet ed [facility] INFLUENZA, UNSPECIFIED FORMULATION 2006 88 complet ed [facility] INFLUENZA, UNSPECIFIED FORMULATION 2005 88 complet ed [facility] INFLUENZA, UNSPECIFIED FORMULATION 2004 88 complet ed [facility] TD (ADULT), 2 LF TETANUS TOXOID, PRESERVATIVE FREE, ADSORBED 1 2000 09 complet ed [facility] DIV[facility] N Results Combined list of recent chemistry, hematology and other laboratory results from Department of Defense and Veterans Affairs, ranging from 15 months to all on record, depending upon the facility. Order Name Results Value Reference Range Date Interpretation Specimen Comments Source POC UA (STL-PB-MA ) PROTEIN [MASS/VOLUM E] IN URINE BY TEST STRIP 30 mg/dL 04/04 Specimen Type: URINE No comment entered. Ordering Provider: QUENTIN CALVIN Report Released Date/Time : Apr 04, 2024 12:10 PM Reporting Lab: [place] [facility] [address] [facility] [address] Performin g Lab: [place] [facility] [address] [place] [place] [address] [place] [facility] POC UA (STL-PB-MA ) HEMOGLOBIN [MASS/VOLUM E] IN URINE BY TEST STRIP Negative 04/04 Specimen Type: URINE No comment entered. Ordering Provider: QUENTIN CALVIN Report Released Date/Time : Apr 04, 2024 12:10 PM Reporting Lab: [place] [facility] [address] [facility] [address] Performin g Lab: [place] [facility] [address] [place] [place] [place] [address] [place] [facility] POC UA (STL-PB-MA ) LEUKOCYTES [PRESENCE] IN URINE Negative 04/04 Specimen Type: URINE No comment entered. Ordering Provider: QUENTIN CALVIN Report Released Date/Time : Apr 04, 2024 12:10 PM Reporting Lab: [place] [facility] [address] [facility] [address] [facility] [address] Performin g Lab: [place] [facility] [address] [place] [place] [address] [place] [facility] POC UA (STL-PB-MA ) COLOR OF URINE Dark yellow 04/04 Specimen Type: URINE No comment entered. Ordering Provider: QUENTIN CALVIN Report Released Date/Time : Apr 04, 2024 12:10 PM Reporting Lab: [place] [facility] [address] [facility] [address] [facility] [address] Performin g Lab: [place] [facility] [address] [facility] [address] [place] [address] [place] [facility] POC UA (STL-PB-MA ) SPECIFIC GRAVITY OF URINE 1.025 1.005 - 1.030 04/04 Specimen Type: URINE No comment entered. Ordering Provider: QUENTIN CALVIN Report Released Date/Time : Apr 04, 2024 12:10 PM Reporting Lab: [place] [facility] [address] [facility] [address] [facility] [address] Performin g Lab: [place] [facility] [address] [place] [address] [facility] POC UA (STL-PB-MA ) UROBILINOGE N [UNITS/VOLU ME] IN URINE 1.0 {Shannon' U}/dL 0.1 - 1.0 04/04 Specimen Type: URINE No comment entered. Ordering Provider: QUENTIN CALVIN Report Released Date/Time : Apr 04, 2024 12:10 PM Reporting Lab: [place] [facility] [address] [place] [address] Performin g Lab: [place] [facility] [address] [facility] [address] [facility] [address] [place] [facility] POC UA (STL-PB-MA ) BILIRUBIN.T OTAL [PRESENCE] IN URINE Negative 04/04 Specimen Type: URINE No comment entered. Ordering Provider: QUENTIN CALVIN Report Released Date/Time : Apr 04, 2024 12:10 PM Reporting Lab: [place] [facility] [address] [facility] [address] Performin g Lab: [place] [facility] [address] [facility] [address] [facility] [address] [facility] POC UA (STL-PB-MA ) KETONES [MASS/VOLUM E] IN URINE BY TEST STRIP Negativem g/dL 04/04 Specimen Type: URINE No comment entered. Ordering Provider: QUENTIN CALVIN Report Released Date/Time : Apr 04, 2024 12:10 PM Reporting Lab: [place] [facility] [address] [facility] [address] Performin g Lab: [place] [facility] [address] [facility] [address] [facility] POC UA (STL-PB-MA ) GLUCOSE [MASS/VOLUM E] IN URINE BY TEST STRIP Negativem g/dL 04/04 Specimen Type: URINE No comment entered. Ordering Provider: QUENTIN CALVIN Report Released Date/Time : Apr 04, 2024 12:10 PM Reporting Lab: [place] [facility] [address] [facility] [address] Performin g Lab: [place] [facility] [address] [place] [address] [facility] POC UA (STL-PB-MA ) PH OF URINE 6.0 5.0 - 8.0 04/04 Specimen Type: URINE No comment entered. Ordering Provider: QUENTIN CALVIN Report Released Date/Time : Apr 04, 2024 12:10 PM Reporting Lab: [place] [facility] [address] [place] [address] Performin g Lab: [place] [facility] [address] [place] [address] [facility] POC UA (STL-PB-MA ) NITRITE [PRESENCE] IN URINE BY TEST STRIP Negative 04/04 Specimen Type: URINE No comment entered. Ordering Provider: QUENTIN CALVIN Report Released Date/Time : Apr 04, 2024 12:10 PM Reporting Lab: [facility] [address] [facility] [address] Performin g Lab: [facility] [address] [facility] [address] [facility] [address] [facility] POC UA (STL-PB-MA ) CLARITY OF URINE Clear 04/04 Specimen Type: URINE No comment entered. Ordering Provider: QUENTIN CALVIN Report Released Date/Time : Apr 04, 2024 12:10 PM Reporting Lab: [facility] [address] [facility] [address] [facility] [address] Performin g Lab: [facility] [address] [facility] [address] [facility] [address] [facility] COMPREHENS MICKIE METABOLIC PANEL CREATININE [MASS/VOLUM E] IN SERUM OR PLASMA 0.97 mg/dL 0.7 - 1.3 03/27 Specimen Type: PLASMA No comment entered. Ordering Provider: JAKY EUBANKS Report Released Date/Time : Apr 05, 2023 04:52 PM Reporting Lab: [place] [facility] [address] [place] [address] Performin g Lab: [place] [facility] [address] [place] [address] [facility] COMPREHENS MICKIE METABOLIC PANEL UREA NITROGEN [MASS/VOLUM E] IN SERUM OR PLASMA 13 mg/dL 9 - 25 03/27 Specimen Type: PLASMA No comment entered. Ordering Provider: JAKY EUBANKS Report Released Date/Time : Apr 05, 2023 04:52 PM Reporting Lab: [place] [facility] [address] [place] [address] Performin g Lab: [place] [facility] [address] [place] [address] [facility] COMPREHENS MICKIE METABOLIC PANEL GLUCOSE [MASS/VOLUM E] IN SERUM OR PLASMA 159 mg/dL 72 - 99 03/27 H Specimen Type: PLASMA No comment entered. Ordering Provider: JAKY EUBANKS Report Released Date/Time : Apr 05, 2023 04:52 PM Reporting Lab: [place] [facility] [address] [place] [address] Performin g Lab: [place] [facility] [address] [place] [address] [facility] COMPREHENS MICKIE METABOLIC PANEL SODIUM [MOLES/VOLU ME] IN SERUM OR PLASMA 142 meq/L 136 - 145 03/27 Specimen Type: PLASMA No comment entered. Ordering Provider: JAKY EUBANKS Report Released Date/Time : Apr 05, 2023 04:52 PM Reporting Lab: [place] [facility] [address] [place] [address] Performin g Lab: [place] [facility] [address] [place] [address] [facility] COMPREHENS MICKIE METABOLIC PANEL POTASSIUM [MOLES/VOLU ME] IN SERUM OR PLASMA 3.9 meq/L 3.5 - 5 03/27 Specimen Type: PLASMA No comment entered. Ordering Provider: JAKY EUBANKS Report Released Date/Time : Apr 05, 2023 04:52 PM Reporting Lab: [place] [facility] [address] [place] [address] Performin g Lab: [place] [facility] [address] [place] [address] [facility] COMPREHENS MICKIE METABOLIC PANEL CHLORIDE [MOLES/VOLU ME] IN SERUM OR PLASMA 102 meq/L 98 - 107 03/27 Specimen Type: PLASMA No comment entered. Ordering Provider: JAKY EUBANKS Report Released Date/Time : Apr 05, 2023 04:52 PM Reporting Lab: [place] [facility] [address] [place] [address] Performin g Lab: [place] [facility] [address] [place] [address] [facility] COMPREHENS MICKIE METABOLIC PANEL CARBON DIOXIDE, TOTAL [MOLES/VOLU ME] IN SERUM OR PLASMA 31 meq/L 22 - 31 03/27 Specimen Type: PLASMA No comment entered. Ordering Provider: JAKY EUBANKS Report Released Date/Time : Apr 05, 2023 04:52 PM Reporting Lab: [place] [facility] [address] [place] [address] Performin g Lab: [place] [facility] [address] [place] [address] [facility] COMPREHENS MICKIE METABOLIC PANEL CALCIUM [MASS/VOLUM E] IN SERUM OR PLASMA 8.9 mg/dL 8.4 - 10.4 03/27 Specimen Type: PLASMA No comment entered. Ordering Provider: JAKY EUBANKS Report Released Date/Time : Apr 05, 2023 04:52 PM Reporting Lab: [place] [facility] [address] [place] [address] Performin g Lab: [place] [facility] [address] [place] [address] [facility] COMPREHENS MICKIE METABOLIC PANEL PROTEIN [MASS/VOLUM E] IN SERUM OR PLASMA 6.7 g/dL 6 - 8.6 03/27 Specimen Type: PLASMA No comment entered. Ordering Provider: JAKY EUBANKS Report Released Date/Time : Apr 05, 2023 04:52 PM Reporting Lab: [place] [facility] [address] [place] [address] Performin g Lab: [place] [facility] [address] [place] [address] [facility] COMPREHENS MICKIE METABOLIC PANEL ALBUMIN [MASS/VOLUM E] IN SERUM OR PLASMA 4.0 g/dL 3.4 - 5 03/27 Specimen Type: PLASMA No comment entered. Ordering Provider: JAKY EUBANKS Report Released Date/Time : Apr 05, 2023 04:52 PM Reporting Lab: [place] [facility] [address] [place] [address] Performin g Lab: [place] [facility] [address] [place] [address] [facility] COMPREHENS MICKIE METABOLIC PANEL BILIRUBIN.T OTAL [MASS/VOLUM E] IN SERUM OR PLASMA 1.0 mg/dL 0.2 - 1.2 03/27 Specimen Type: PLASMA No comment entered. Ordering Provider: JAKY EUBANKS Report Released Date/Time : Apr 05, 2023 04:52 PM Reporting Lab: [place] [facility] [address] [place] [address] Performin g Lab: [place] [facility] [address] [place] [address] [facility] COMPREHENS MICKIE METABOLIC PANEL ALKALINE PHOSPHATASE [ENZYMATIC ACTIVITY/VO LUME] IN SERUM OR PLASMA 70 U/L 40 - 150 03/27 Specimen Type: PLASMA No comment entered. Ordering Provider: JAKY EUBANKS Report Released Date/Time : Apr 05, 2023 04:52 PM Reporting Lab: [place] [facility] [address] [place] [address] Performin g Lab: [place] [facility] [address] [place] [address] [facility] COMPREHENS MICKIE METABOLIC PANEL ASPARTATE AMINOTRANSF ERASE [ENZYMATIC ACTIVITY/VO LUME] IN SERUM OR PLASMA 12 U/L 5 - 34 03/27 Specimen Type: PLASMA No comment entered. Ordering Provider: JAKY EUBANKS Report Released Date/Time : Apr 05, 2023 04:52 PM Reporting Lab: [place] [facility] [address] [place] [address] Performin g Lab: [place] [facility] [address] [place] [address] [facility] COMPREHENS MICKIE METABOLIC PANEL ALANINE AMINOTRANSF ERASE [ENZYMATIC ACTIVITY/VO LUME] IN SERUM OR PLASMA 16 U/L 8 - 40 03/27 Specimen Type: PLASMA No comment entered. Ordering Provider: JAKY EUBANKS Report Released Date/Time : Apr 05, 2023 04:52 PM Reporting Lab: [place] [facility] [address] [place] [address] Performin g Lab: [place] [facility] [address] [place] [address] [facility] COMPREHENS MICKIE METABOLIC PANEL GLOMERULAR FILTRATION RATE/1.73 SQ M.PREDICTED [VOLUME RATE/AREA] IN SERUM, PLASMA OR BLOOD BY CREATININE- BASED FORMULA (CKD-EPI 2020) 78 03/27 Specimen Type: PLASMA No comment entered. Ordering Provider: JAKY EUBANKS Report Released Date/Time : Apr 05, 2023 04:52 PM Reporting Lab: [place] [facility] [address] [place] [address] Performin g Lab: [place] [facility] [address] [place] [address] [facility] B12 COBALAMIN (VITAMIN B12) [MASS/VOLUM E] IN SERUM OR PLASMA 679 pg/mL 213 - 816 03/27 Specimen Type: SERUM No comment entered. Ordering Provider: JAKY EUBANKS Report Released Date/Time : Apr 05, 2023 04:52 PM Reporting Lab: [place] [facility] [address] [place] [address] Performin g Lab: [place] [facility] [address] [place] [address] [facility] CBC LEUKOCYTES [#/VOLUME] IN BLOOD BY AUTOMATED COUNT 7.9 10*3/uL 3.6 - 11.2 03/27 Specimen Type: BLOOD No comment entered. Ordering Provider: JAKY EUBANKS Report Released Date/Time : Apr 05, 2023 04:52 PM Reporting Lab: [place] [facility] [address] [place] [address] Performin g Lab: [place] [facility] [address] [place] [address] 8 [facility] CBC ERYTHROCYTE S [#/VOLUME] IN BLOOD BY AUTOMATED COUNT 6.44 10*6/uL 4.10 - 5.70 03/27 H Specimen Type: BLOOD No comment entered. Ordering Provider: JAKY EUBANKS Report Released Date/Time : Apr 05, 2023 04:52 PM Reporting Lab: [place] [facility] [address] [place] [address] 8 Performin g Lab: [place] [facility] [address] [place] [id number] 8 [facility] CBC HEMOGLOBIN [MASS/VOLUM E] IN BLOOD 18.0 g/dL 13.1 - 16.8 03/27 H Specimen Type: BLOOD No comment entered. Ordering Provider: JAKY EUBANKS Report Released Date/Time : Apr 05, 2023 04:52 PM Reporting Lab: [place] [facility] [address] [place] [address] 8 Performin g Lab: [place] [facility] [address] [place] [phone] [facility] CBC HEMATOCRIT [VOLUME FRACTION] OF BLOOD 57.1 38.2 - 48.4 03/27 H Specimen Type: BLOOD No comment entered. Ordering Provider: JAKY EUBANKS Report Released Date/Time : Apr 05, 2023 04:52 PM Reporting Lab: [place] [facility] [address] [place] [address] 8 Performin g Lab: [place] [facility] [address] [place] [address] 8 [facility] CBC MCV [ENTITIC VOLUME] BY AUTOMATED COUNT 88.7 fL 80.0 - 100.0 03/27 Specimen Type: BLOOD No comment entered. Ordering Provider: JAKY EUBANKS Report Released Date/Time : Apr 05, 2023 04:52 PM Reporting Lab: [place] [facility] [address] [place] [address] 8 Performin g Lab: [place] [facility] [address] [place] [address] [facility] CBC MCH [ENTITIC MASS] BY AUTOMATED COUNT 28.0 pg 27.0 - 34.0 03/27 Specimen Type: BLOOD No comment entered. Ordering Provider: JAKY EUBANKS Report Released Date/Time : Apr 05, 2023 04:52 PM Reporting Lab: [place] [facility] [address] [place] [address] 8 Performin g Lab: [place] [facility] [address] [place] [address] 8 [facility] CBC MCHC [MASS/VOLUM E] BY AUTOMATED COUNT 31.5 g/dL 33.0 - 36.0 03/27 L Specimen Type: BLOOD No comment entered. Ordering Provider: JAKY EUBANKS Report Released Date/Time : Apr 05, 2023 04:52 PM Reporting Lab: [place] [facility] [address] [place] [address] Performin g Lab: [place] [facility] [address] [place] [address] 8 [facility] CBC PLATELETS [#/VOLUME] IN BLOOD BY AUTOMATED COUNT 212 10*3/uL 150 - 400 03/27 Specimen Type: BLOOD No comment entered. Ordering Provider: JAKY EUBANKS Report Released Date/Time : Apr 05, 2023 04:52 PM Reporting Lab: [place] [facility] [address] [place] [address] 8 Performin g Lab: [place] [facility] [address] [place] [address] 8 [facility] CBC PLATELET MEAN VOLUME [ENTITIC VOLUME] IN BLOOD BY AUTOMATED COUNT 10.7 fL 7.5 - 11.2 03/27 Specimen Type: BLOOD No comment entered. Ordering Provider: JAKY EUBANKS Report Released Date/Time : Apr 05, 2023 04:52 PM Reporting Lab: [place] [facility] [address] [place] [address] 8 Performin g Lab: [place] [facility] [address] [place] [address] 8 [facility] CBC ERYTHROCYTE DISTRIBUTIO N WIDTH [RATIO] BY AUTOMATED COUNT 13.8 11.8 - 15.1 03/27 Specimen Type: BLOOD No comment entered. Ordering Provider: JAKY EUBANKS Report Released Date/Time : Apr 05, 2023 04:52 PM Reporting Lab: [place] [facility] [address] [place] [address] 8 Performin g Lab: [place] [facility] [address] [place] [address] 8 [facility] CBC LYMPHOCYTES /100 LEUKOCYTES IN BLOOD BY AUTOMATED COUNT 20.2 03/27 Specimen Type: BLOOD No comment entered. Ordering Provider: JAKY EUBANKS Report Released Date/Time : Apr 05, 2023 04:52 PM Reporting Lab: [place] [facility] [address] [place] [address] 8 Performin g Lab: [place] [facility] [address] [place] [address] 8 [facility] CBC MONOCYTES/1 00 LEUKOCYTES IN BLOOD BY AUTOMATED COUNT 6.3 03/27 Specimen Type: BLOOD No comment entered. Ordering Provider: JAKY EUBANKS Report Released Date/Time : Apr 05, 2023 04:52 PM Reporting Lab: [place] [facility] [address] [place] [address] 8 Performin g Lab: [place] [facility] [address] [place] [address] 8 [facility] CBC NEUTROPHILS /100 LEUKOCYTES IN BLOOD BY AUTOMATED COUNT 69.7 03/27 Specimen Type: BLOOD No comment entered. Ordering Provider: JAKY EUBANKS Report Released Date/Time : Apr 05, 2023 04:52 PM Reporting Lab: [place] [facility] [address] [place] [address] 8 Performin g Lab: [place] [facility] [address] [place] [address] 8 [place] [facility] CBC EOSINOPHILS /100 LEUKOCYTES IN BLOOD BY AUTOMATED COUNT 2.4 03/27 Specimen Type: BLOOD No comment entered. Ordering Provider: JAKY EUBANKS Report Released Date/Time : Apr 05, 2023 04:52 PM Reporting Lab: [place] [facility] [address] [place] [address] 8 Performin g Lab: [place] [facility] [address] [place] [address] 8 [facility] CBC BASOPHILS/1 00 LEUKOCYTES IN BLOOD BY AUTOMATED COUNT 0.9 03/27 Specimen Type: BLOOD No comment entered. Ordering Provider: JAKY EUBANKS Report Released Date/Time : Apr 05, 2023 04:52 PM Reporting Lab: [place] [facility] [address] [place] [address] 8 Performin g Lab: [place] [facility] [address] [place] [address] 8 [facility] CBC LYMPHOCYTES [#/VOLUME] IN BLOOD BY AUTOMATED COUNT 1.60 10*3/uL 0.77 - 4.50 03/27 Specimen Type: BLOOD No comment entered. Ordering Provider: JAKY EUBANKS Report Released Date/Time : Apr 05, 2023 04:52 PM Reporting Lab: [place] [facility] [address] [place] [address] Performin g Lab: [place] [facility] [address] [place] [address] 8 [facility] CBC MONOCYTES [#/VOLUME] IN BLOOD BY AUTOMATED COUNT 0.50 10*3/uL 0.19 - 0.8 03/27 Specimen Type: BLOOD No comment entered. Ordering Provider: JAKY EUBANKS Report Released Date/Time : Apr 05, 2023 04:52 PM Reporting Lab: [place] [facility] [address] [place] [address] 8 Performin g Lab: [place] [facility] [address] [place] [address] 8 [facility] CBC NEUTROPHILS [#/VOLUME] IN BLOOD BY AUTOMATED COUNT 5.51 10*3/uL 2.10 - 8.00 03/27 Specimen Type: BLOOD No comment entered. Ordering Provider: JAKY EUBANKS Report Released Date/Time : Apr 05, 2023 04:52 PM Reporting Lab: [place] [facility] [address] [place] [address] Performin g Lab: [place] [facility] [address] [place] [address] 8 [facility] CBC EOSINOPHILS [#/VOLUME] IN BLOOD BY AUTOMATED COUNT 0.19 10*3/uL 0.00 - 0.60 03/27 Specimen Type: BLOOD No comment entered. Ordering Provider: JAKY EUBANKS Report Released Date/Time : Apr 05, 2023 04:52 PM Reporting Lab: [place] [facility] [address] [place] [address] Performin g Lab: [place] [facility] [address] [place] [address] [facility] CBC BASOPHILS [#/VOLUME] IN BLOOD BY AUTOMATED COUNT 0.07 10*3/uL 0.00 - 0.20 03/27 Specimen Type: BLOOD No comment entered. Ordering Provider: JAKY EUBANKS Report Released Date/Time : Apr 05, 2023 04:52 PM Reporting Lab: [place] [facility] [address] [place] [address] Performin g Lab: [place] [facility] [address] [place] [address] [facility] CBC IMMATURE GRANULOCYTE S/100 LEUKOCYTES IN BLOOD BY AUTOMATED COUNT 0.5 03/27 Specimen Type: BLOOD No comment entered. Ordering Provider: JAKY EUBANKS Report Released Date/Time : Apr 05, 2023 04:52 PM Reporting Lab: [place] [facility] [address] [place] [address] 8 Performin g Lab: [place] [facility] [address] [place] [address] 8 [facility] CBC IMMATURE GRANULOCYTE S [#/VOLUME] IN BLOOD BY AUTOMATED COUNT 0.04 10*3/uL 0.00 - 0.05 03/27 Specimen Type: BLOOD No comment entered. Ordering Provider: JAKY EUBANKS Report Released Date/Time : Apr 05, 2023 04:52 PM Reporting Lab: [place] [facility] [address] [place] [address] Performin g Lab: [place] [facility] [address] [place] [address] 8 [facility] HGA1C HEMOGLOBIN A1C/HEMOGLO BIN.TOTAL IN BLOOD 6.5 4.0 - 6.0 03/27 H Specimen Type: BLOOD No comment entered. Ordering Provider: JAKY EUBANKS Report Released Date/Time : Apr 05, 2023 04:52 PM Reporting Lab: [place] [facility] [address] [place] [address] Performin g Lab: [place] [facility] [address] [place] [address] [facility] FOLATE (PB) FOLATE [MASS/VOLUM E] IN SERUM OR PLASMA 7.0 ng/mL 7 - 20 03/27 Specimen Type: SERUM No comment entered. Ordering Provider: JAKY EUBANKS Report Released Date/Time : Apr 05, 2023 04:52 PM Reporting Lab: [place] [facility] [address] [place] [address] Performin g Lab: [place] [facility] [address] [place] [address] 8 [facility] VITAMIN D, 25-HYDROXY 25-HYDROXYV ITAMIN D3 [MASS/VOLUM E] IN SERUM OR PLASMA 23.4 ng/mL 30 - 96 03/27 L Specimen Type: SERUM No comment entered. Ordering Provider: JAKY EUBANKS Report Released Date/Time : Apr 05, 2023 04:52 PM Reporting Lab: [place] [facility] [address] [place] [address] Performin g Lab: [place] [facility] [address] [place] [address] [facility] URINE ALBUMIN PROFILE-ih (PB) ALBUMIN [MASS/VOLUM E] IN URINE 222.10 mg/L 0 - 30 03/27 H Specimen Type: URINE No comment entered. Ordering Provider: JAKY EUBANKS Report Released Date/Time : Apr 05, 2023 04:52 PM Reporting Lab: [place] [facility] [address] [place] [address] Performin g Lab: [place] [facility] [address] [place] [address] 8 [facility] URINE ALBUMIN PROFILE-ih (PB) ALBUMIN/CRE ATININE [MASS RATIO] IN URINE 107.25 ug/mg 03/27 Specimen Type: URINE No comment entered. Ordering Provider: JAKY EUBANKS Report Released Date/Time : Apr 05, 2023 04:52 PM Reporting Lab: [place] [facility] [address] [place] [address] 8 Performin g Lab: [place] [facility] [address] [place] [address] 8 [facility] URINE ALBUMIN PROFILE-ih (PB) CREATININE [MASS/VOLUM E] IN URINE 207.08 mg/dL 03/27 Specimen Type: URINE No comment entered. Ordering Provider: JAKY EUBANKS Report Released Date/Time : Apr 05, 2023 04:52 PM Reporting Lab: [place] [facility] [address] [place] [address] Performin g Lab: [place] [facility] [address] [place] [address] 8 [facility] CHOLESTERO L PANEL (PB) CHOLESTEROL [MASS/VOLUM E] IN SERUM OR PLASMA 188 mg/dL 0 - 200 03/27 Specimen Type: PLASMA No comment entered. Ordering Provider: JAKY EUBANKS Report Released Date/Time : Apr 05, 2023 04:52 PM Reporting Lab: [place] [facility] [address] [place] [address] 8 Performin g Lab: [place] [facility] [address] [place] [address] 8 [facility] CHOLESTERO L PANEL (PB) TRIGLYCERID E [MASS/VOLUM E] IN SERUM OR PLASMA 77 mg/dL 0 - 150 03/27 Specimen Type: PLASMA No comment entered. Ordering Provider: JAKY EUBANKS Report Released Date/Time : Apr 05, 2023 04:52 PM Reporting Lab: [place] [facility] [address] [place] [address] 8 Performin g Lab: [place] [facility] [address] [place] [address] 8 [facility] CHOLESTERO L PANEL (PB) CHOLESTEROL IN LDL [MASS/VOLUM E] IN SERUM OR PLASMA BY CALCULATION 122.3 mg/dL 03/27 Specimen Type: PLASMA No comment entered. Ordering Provider: JAKY EUBANKS Report Released Date/Time : Apr 05, 2023 04:52 PM Reporting Lab: [place] [facility] [address] [place] [address] Performin g Lab: [place] [facility] [address] [place] [address] 8 [facility] CHOLESTERO L PANEL (PB) CHOLESTEROL IN HDL [MASS/VOLUM E] IN SERUM OR PLASMA 50.3 mg/dL 40 03/27 H Specimen Type: PLASMA No comment entered. Ordering Provider: JAKY EUBANKS Report Released Date/Time : Apr 05, 2023 04:52 PM Reporting Lab: [place] [facility] [address] [place] [address] 8 Performin g Lab: [place] [facility] [address] [place] [address] 8 [facility] CHOLESTERO L PANEL (PB) CHOLESTEROL IN HDL/CHOLEST JACKELYN.TOTAL [MASS RATIO] IN SERUM OR PLASMA 26.8 25 03/27 Specimen Type: PLASMA No comment entered. Ordering Provider: JAKY EUBANKS Report Released Date/Time : Apr 05, 2023 04:52 PM Reporting Lab: [place] [facility] [address] [place] [address] Performin g Lab: [place] [facility] [address] [place] [address] [facility] TSH (MA-PB) THYROTROPIN [UNITS/VOLU ME] IN SERUM OR PLASMA 1.700 u[IU]/mL 0.47 - 5 03/27 Specimen Type: SERUM No comment entered. Ordering Provider: JAKY EUBANKS Report Released Date/Time : Apr 05, 2023 04:52 PM Reporting Lab: [place] [facility] [address] [place] [address] 8 Performin g Lab: [place] [facility] [address] [place] [address] [facility] [place] [facility] Vital Signs Combined list of inpatient and outpatient Vital Signs from Department of Defense and Veterans Affairs, ranging from 12 months to all on record, depending upon the facility. Vital Sign Value Date Comments Source SYSTOLIC BLOOD PRESSURE 106 05/13/2024 11:38:00 [place] [facility] DIASTOLIC BLOOD PRESSURE 60 05/13/2024 11:38:00 [place] [facility] TEMPERATURE 97.9 05/13/2024 11:38:00 [place] [facility] PULSE 70 05/13/2024 11:38:00 [place] [facility] SYSTOLIC BLOOD PRESSURE 128 04/04/2024 11:34:00 [place] [facility] DIASTOLIC BLOOD PRESSURE 72 04/04/2024 11:34:00 [place] [facility] PULSE OXIMETRY 96 04/04/2024 11:34:00 [facility] [place] [facility] WEIGHT 192.3 04/04/2024 11:34:00 [place] [facility] BMI 26kg/m2 04/04/2024 11:34:[place] [facility] PAIN 0 04/04/2024 11:34:00 [place] [facility] HEIGHT 72.0 04/04/2024 11:34:00 [place] [facility] TEMPERATURE 98.0 04/04/2024 11:34:00 [place] [facility] PULSE 79 04/04/2024 11:34:00 [place] [facility] RESPIRATION 18 04/04/2024 11:34:[place] [facility] SYSTOLIC BLOOD PRESSURE 115 10/05/2023 13:55:17 [place] [facility] DIASTOLIC BLOOD PRESSURE 68 10/05/2023 13:55:17 [place] [facility] PULSE OXIMETRY 94 10/05/2023 13:55:17 [place] [facility] WEIGHT 192.1 10/05/2023 13:55:17 [place] [facility] BMI 26kg/m2 10/05/2023 13:55:17 [place] [facility] PAIN 3 10/05/2023 13:55:17 [place] [facility] TEMPERATURE 97.6 10/05/2023 13:55:17 [place] [facility] PULSE 81 10/05/2023 13:55:17 [place] [facility] RESPIRATION 18 10/05/2023 13:55:17 [facility] [place] [facility] SYSTOLIC BLOOD PRESSURE 117 09/06/2023 11:51:53 [facility] [place] [facility] DIASTOLIC BLOOD PRESSURE 80 09/06/2023 11:51:53 [place] [facility] PULSE OXIMETRY 94 09/06/2023 11:51:53 [facility] [place] [facility] WEIGHT 192 09/06/2023 11:51:53 [place] [facility] BMI 26kg/m2 09/06/2023 11:51:53 [place] [facility] PAIN 0 09/06/2023 11:51:53 [place] [facility] HEIGHT 72 09/06/2023 11:51:53 [place] [facility] TEMPERATURE 98.2 09/06/2023 11:51:53 [place] [facility] PULSE 85 09/06/2023 11:51:53 [place] [facility] RESPIRATION 16 09/06/2023 11:51:53 [place] [facility] Encounters Combined list of: 1) Encounters from Department of [facility] facilities going back up to thelast 18 months. 2) Encounters from the Department of Defense facilities going back up to 280 months. 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<b r/> NAVIN EUBANKS Gianna 04/06 [facility] Outpatient Encounter [id number] CUSTRED,TO RRI J 04/12 [facility] Outpatient Encounter [id number] NAVIN EUBANKS Gianna 04/17 [facility] Outpatient Encounter [id number] 05/09 [facility] [place] [facility] Outpatient Encounter [id number] 05/16 [place] [facility] Outpatient Encounter [id number] 05/22 [facility] [place] [facility] Outpatient Encounter [id number] 05/23 [place] [facility] Outpatient Encounter [id number] 05/24 [facility] Outpatient Encounter [id number] 06/12 [facility] Outpatient Encounter [id number] 06/12 [facility] Outpatient Encounter [id number] OSBALDO ISAACS 08/28 [facility] [place] [facility] Outpatient Encounter [id number] NOVEMBERKELLY E 08/28 [place] [facility] [place] [facility] Outpatient Encounter [id number] 08/28 [place] [facility] Outpatient Encounter [id number] Diagnos is: ICD-10- CM J44.1 Chronic obstruc tive pulmona ry disease w (acute) exacerb ation<b r/> Arminda CALVIN CANDY W 08/28 [facility] [place] [facility] Outpatient Encounter [id number] 08/30 [place] [facility] OFFICE O/P EST MOD 30 MIN [id number] Diagnos is: ICD-10- CM J44.9 Chronic obstruc tive pulmona ry disease , unspeci fied
CHANAVIN R 09/06 [facility] FEE [id number] Diagnos is: ICD-10- CM J44.9 Chronic obstruc tive pulmona ry disease , unspeci fied
RAJEEV GROVER 09/06 [facility] HC PRO PHONE CALL 5-10 MIN [id number] Diagnos is: ICD-10- CM Z71.89 Other specifi ed ip counsel ing<br/ > MONALISA TOLLIVER 10[facility]02 [facility] EST NOVEM[facility] X REQ PHY/QHP [id number] Diagnos is: ICD-10- CM L08.9 Local infecti on of the skin and subcuta neous tissue, unsp
CUSTRED,TO RRI J 10/02 [facility] Outpatient Encounter [id number] 10/02 [facility] OFFICE O/P EST MOD 30 MIN [id number] Diagnos is: ICD-10- CM L08.9 Local infecti on of the skin and subcuta neous tissue, unsp
VÍCTOR HAMPTON STEL G 10/02 [facility] OFF/OP EST NOVEMBER X REQ PHY/QHP [id number] [id number] Diagnos is: ICD-10- CM L08.9 Local infecti on of the skin and subcuta neous tissue, unsp
MONALISA TOLLIVER D 10/04 [facility] Outpatient Encounter [id number] 11/01 [facility] Outpatient Encounter [id number] Diagnos is: ICD-10- CM J44.9 Chronic obstruc tive pulmona ry disease , unspeci fied
Arminda CALVIN W 11/30 [facility] Outpatient Encounter [id number] 12/26 [facility] MTMS BY PHARM ADDL 15 MIN [id number] Diagnos is: ICD-10- CM J44.9 Chronic obstruc tive pulmona ry disease , unspeci fied
Arminda CALVIN W 01/11 [facility] Outpatient Encounter [id number] 01/15 [facility] Outpatient Encounter [id number] 01/[address] [facility] Outpatient Encounter [id number] 02/11 [facility] Outpatient Encounter [id number] 04/04 [facility] CB OFFICE O/P EST MOD 30 MIN [id number] Diagnos is: ICD-10- CM Z00.01 Encount er for general adult medical exam w abnorma l finding s
NAVIN EUBANKS R 04/04 [facility] MTMS BY PHARM ADDL 15 MIN [id number] Diagnos is: ICD-10- CM J44.9 Chronic obstruc tive pulmona ry disease , unspeci fied
Arminda CALVIN W 04/04 [facility] Outpatient Encounter [id number] [id number] 04/16 [facility] Outpatient Encounter [id number] VÍCTOR DAVILA N 05/02 [facility] Outpatient Encounter [id number] 05/03 [facility] OFF/OP EST MAY X REQ PHY/QHP [id number] Diagnos is: ICD-10- CM R32 Unspeci fied urinary inconti nence<b r/> CUSTRED,TO RRI J 05/13 [facility] MTMS BY PHARM ADDL 15 MIN [id number] [id number] Diagnos is: ICD-10- CM J44.9 Chronic obstruc tive pulmona ry disease , unspeci fied
Arminda CALVIN CANDY W 05/13 [facility] Outpatient Encounter [id number] 07/05 [facility] Outpatient Encounter [id number] 07/09 [facility] MTMS BY PHARM ADDL 15 MIN [id number] Diagnos is: ICD-10- CM J44.9 Chronic obstruc tive pulmona ry disease , unspeci fied
Arminda CALVIN CANDY W 07/26 [facility] Social History Combined list of available smoking, tobacco, and other social history from Department of Defense and Veterans Affairs facilities. Social History Type Response Date Comment Sourc e Tobacco smoking status NHIS VA-TOBACCO USER EVERY DAY 04/04/2024 [facility] History of tobacco use [place]-TOBACCO DOESNT USE WI 30 MIN WAKEUP 04/04/2024 [facility] History of tobacco use VA-TOBACCO USER S OME DAYS 04/06/2023 [facility] History of tobacco use VA-TOBACCO USER E VERY DAY 04/12/2022 [facility] History of tobacco use CO-TOBACCO USE [address] 02/03/2015 [facility] History of tobacco use TOBACCO OFFERED S [facility] 10/12/2009 [facility] History of tobacco use TOBACCO OFFERRED ST[facility]MOKING [facility]INIC 08/07/2008 [facility] History of tobacco use QUIT TOBACCO >7 Y EARS AGO 06/12/2007 [facility] History of tobacco use CURRENT TOBACCO USER 08/31/2005 [facility] History of tobacco use CURRENT TOBACCO USER 06/21/2005 [facility] History of tobacco use CURRENT TOBACCO USER 12/14/2004 [facility] History of tobacco use CURRENT TOBACCO USER 12/09/2003 [facility] Plan of Care List of future care activities from Department of Veterans Affairs facilities. Additional future care activities may be listed in the Assessment and Plan section. Date/Time Care Activity Care Activity Detail Facili ty 08/15/2024 AMBULATORY - MEDICINE AMBULATORY - MEDICI [facility] 07/05/2024 Consult Order COMMUNITY CARE-D ERMATOLOGY [id number] Cons Venereal Disease Investigator's Choice [facility] 07/19/2024 Laboratory - Manager Credit Risk ry Order DIRECT LDL (MA-PB) GREEN LI/HEP BLD/PLAS PLASMA [facility] 07/19/2024 Laboratory - Manager Credit Risk ry Order CHOLESTEROL PANEL (PB) GREEN LI/HEP BLD/PLAS PLAS[facility] 07/19/2024 Laboratory - Manager Credit Risk ry Order COMPREHENSIVE METABOLIC PANEL GREEN LI/HEP BLD/PLAS PLAS[facility] 07/19/2024 Laboratory - Manager Credit Risk ry Order VITAMIN D, 25-HYDROXY GOLD/RED SST SERUM [facility] 07/19/2024 Laboratory - Manager Credit Risk ry Order FOLATE (PB) GOLD/RED SST SERUM [facility] 07/19/2024 Laboratory - Manager Credit Risk ry Order B12 GOLD/RED SST [facility] 07/19/2024 Laboratory - Manager Credit Risk ry Order HGA1C BLOOD [facility]
--- OUTSIDE RECORDS SUMMARY | 2024-07-28 15:53 | XMS_ITS | Encounter Summary ---
Author Name [facility] [place] [facility] [place] Address [address] [place] [address] Care Team Providers Care Gold And Silver Assayer Name Role Phone NAVIN EUBANKS Primary Care Provider Unavailabl e Insurance Providers: All historical and current Section Date Range: From patient's date of to the date document was created. This section includes the names of all active insurance providers for the patient. Insurance Provider Type of Coverage Plan Name Start of Policy Coverage End of Policy Coverage Group Number Member ID Insurance Provider's Telephone Number Policy Reagan's Name Patient's Relationship to Policy Reagan [facility] (WNR) MEDICARE ADVANTAGE [facility] November 22, 2015 [id number] Arminda LONG PATIENT MEDICARE (WNR) MEDICARE (M) PART A Feb 21, 2007 PART A [id number] [phone] Arminda LONG PATIENT MEDICARE (WN) MEDICARE (M) PART B Feb 21, 2007 PART B [id number] [phone] Arminda LONG PATIENT [facility] (WNR) MEDICARE ADVANTAGE [facility] ([facility]) November 22, 2015 [id number] Arminda LONG PATIENT Selected Encounter This section includes the information on record at [place] for the Encounter. Date/Time Encounter Type Encounter Description Reason Provider Source Apr 04, 2024 11:30 AM MTMS BY PHARM GAL 15 MIN CLINICAL PHARMACY ICD-10-CM J44.9 Chronic obstructive pulmonary disease, unspecified QUENTIN CALVIN Regla Encounter Template Text not used by [place] Assessments - Encounter Diagnoses This section includes the primary and secondary diagnoses documented for the Encounter. Date/Time Primary/Secondary Diagnosis Diagnosis Name Provider Source Apr 04, 2024 06:41 AM PRIMARY Chronic obstructive pulmonary disease, unspecified QUENTIN CALVIN [facility] Plan of Treatment: Future Appointments (+ 6 months) and Future Tests (+/- 45 days) The Plan of Treatment section includes future care activities for the patient from all [facility]. This section includes future appointments and future orders which are active, pending or scheduled. Future Appointments This section includes appointments that were scheduled to occur 6 months from the date of the Encounter, up to a maximum of 20 appointments. The data comes from all [facility]. Appointment Date/Time Appointment Type Appointme nt Facility Name May 13, 2024 10:30 AM AMBULATORY - MEDICINE [facility] May 13, 2024 11:00 AM AMBULATORY - MEDICINE [facility] Jul 26, 2024 09:30 AM AMBULATORY MEDICINE [facility] Aug 15, 2024 02:00 PM [facility] Active, Pending, and Scheduled Orders This section includes a listing of several types of active, pending, and scheduled orders, including clinic medications orders, diagnostic test orders, procedure orders and consult orders; where the start date of the order is 45 days before the date of the Encounter or 45 days after the date of theEncounter. The data comes from all [facility]. Test Date/Time Test Type Test Details Facility Name Apr 04, 2024 11:56 AM Laboratory - Chemi stry Order POC UA (STL-PB-MA) [facility] May 13, 2024 10:16 AM Laboratory - Chemi stry Order POC UA (STL-PB-MA) [facility] Lab Results: +/- 30 days of the encounter This section includes the Chemistry and Hematology Lab Results [facility] with [facility] for [facility]. Radiology Reports and Pathology Reports are provided separately, in subsequent sections. Lab Results This section contains the Chemistry/Hematology Results that were resulted 30 days before or 30 daysafter the date of the Encounter. Date/Time Source Result Type Result - Unit Interpretation Reference Range Comment Apr 04, 2024 12:03 PM [facility] POC UA (STL-PB-MA) Specimen Type: URINE No comment entered. Ordering Provider: DM CALVIN Report Released Date/Time: Apr 04, 2024 12:10 PM Reporting Lab: [facility] [address] [facility] [address] Performing Lab: [facility] [address] [facility] [address] PROTEIN POC UA 30 mg/dL Negative BLOOD POC UA Negative Negative LEUKOCYTES POC UA Negative Negative COLOR POC UA Dark yellow YELLOW SPEC GRAV POC UA 1.025 1.005-1.030 UROBILINOGEN POC UA 1.0 {Shannon'U} /dL 0.1-1.0 BILIRUBIN POC UA Negative Negative KETONES POC UA Negative mg/dL Negative GLUCOSE POC UA Negative mg/dL Negative pH POC UA 6.0 5.0-8.0 NITRITE POC UA Negative Negative CLARITY POC UA Clear CLEAR Mar 27, 2024 08:37 AM [facility] B[facility] Specimen Type: SERUM No comment entered. Ordering Provider: NAVIN EUBANKS Report Released Date/Time: Apr 05, 2023 04:52 PM Reporting Lab: [place] [facility] [address] [place] [address] Performing Lab: [place] [facility] [address] [place] [address] B12 679 pg/mL 213-816 Mar 27, 2024 08:37 AM [facility] COMPREHENSIVE METABOLIC PANEL Specimen Type: PLASMA No comment entered. Ordering Provider: NAVIN EUBANKS Report Released Date/Time: Apr 05, 2023 04:52 PM Reporting Lab: [place] [facility] [address] [place] [address] Performing Lab: [place] [facility] [address] [place] [address] CREATININE 0.97 mg/dL 0.7-1.3 UREA NITROGEN 13 mg/dL 9-25 GLUCOSE 159 mg/dL H 72-99 SODIUM 142 meq/L 136-145 POTASSIUM 3.9 meq/L 3.5-5 CHLORIDE 102 meq/L 98-107 CARBON DIOXIDE 31 meq/L 22-31 CALCIUM 8.9 mg/dL 8.4-10.4 PROTEIN 6.7 g/dL 6-8.6 ALBUMIN 4.0 g/dL 3.4-5 TOTAL BILIRUBIN 1.0 mg/dL 0.2-1.2 ALKALINE PHOSPHATASE 70 U/L 40-150 AST/SGOT 12 U/L 5-34 ALT/SGPT 16 U/L 8-40 EGFR (CKD-EPI 2020) 78 Mar 27, 2024 08:37 AM [facility] CBC Specimen Type: BLOOD No comment entered. Ordering Provider: NAVIN EUBANKS Report Released Date/Time: Apr 05, 2023 04:52 PM Reporting Lab: [place] [facility] [address] [facility] [facility] [address] Performing Lab: [place] [facility] [address] [facility] [facility] [address] WBC 7.9 10*3/uL 3.6-11.2 RBC 6.44 10*6/uL H 4.10-5.70 HGB 18.0 g/dL H 13.1-16.8 HCT 57.1 H 38.2-48.4 MCV 88.7 fL 80.0-100.0 MCH 28.0 pg 27.0-34.0 MCHC 31.5 g/dL L 33.0-36.0 PLT 212 10*3/uL 150-400 MPV 10.7 fL 7.5-11.2 RDW 13.8 11.8-15.1 LYMPHOCYTES, AUTO % 20.2 MONOCYTES, AUTO % 6.3 NEUTROPHILS, AUTO % 69.7 EOSINOPHILS, AUTO % 2.4 BASOPHILS, AUTO % 0.9 LYMPHOCYTES, ABSOLUTE 1.60 10*3/uL 0.77-4.50 MONOCYTES, ABSOLUTE 0.50 10*3/uL 0.19-0.8 NEUTROPHILS, ABSOLUTE 5.51 10*3/uL 2.10-8.00 EOSINOPHILS, ABSOLUTE 0.19 10*3/uL 0.00-0.60 BASOPHILS, ABSOLUTE 0.07 10*3/uL 0.00-0.20 IMMATURE GRANS, AUTO % 0.5 IMMATURE GRANS, AUTO ABS 0.04 10*3/uL 0.00-0.05 Mar 27, 2024 08:37 AM [facility] [place] [facility] FOLATE (PB) Specimen Type: SERUM No comment entered. Ordering Provider: NAVIN EUBANKS Report Released Date/Time: Apr 05, 2023 04:52 PM Reporting Lab: [place] [facility] [address] [place] [address] Performing Lab: [place] [facility] [address] [place] [address] FOLATE (PB) 7.0 ng/mL 7-20 Mar 27, 2024 08:37 AM [facility] HGA1C Specimen Type: BLOOD No comment entered. Ordering Provider: NAVIN EUBANKS Report Released Date/Time: Apr 05, 2023 04:52 PM Reporting Lab: [place] [facility] [address] [place] [address] Performing Lab: [place] [facility] [address] [place] [address] HGA1C 6.5 H 4.0-6.0 Mar 27, 2024 08:37 AM [facility] URINE ALBUMIN PROFILE-ih (PB) Specimen Type: URINE No comment entered. Ordering Provider: NAVIN EUBANKS Report Released Date/Time: Apr 05, 2023 04:52 PM Reporting Lab: [place] [facility] [address] [place] [address] Performing Lab: [place] [facility] [address] [place] [address] URINE ALBUMIN (PB-STL) 222.10 mg/L H 0-30 uACR (PB-MA) 107.25 ug/mg CREATININE URINE/OTHERS 207.08 mg/dL Mar 27, 2024 08:37 AM [facility] VITAMIN D, 25-HYDROXY Specimen Type: SERUM No comment entered. Ordering Provider: NAVIN EUBANKS Report Released Date/Time: Apr 05, 2023 04:52 PM Reporting Lab: [place] [facility] [address] [place] [address] Performing Lab: [place] [facility] [address] [place] [address] VITAMIN D, 25-HYDROXY 23.4 ng/mL L 30-96 Mar 27, 2024 08:37 AM [facility] CHOLESTEROL PANEL (PB) Specimen Type: PLASMA No comment entered. Ordering Provider: NAVIN EUBANKS Report Released Date/Time: Apr 05, 2023 04:52 PM Reporting Lab: [place] [facility] [address] [place] [address] Performing Lab: [place] [facility] [address] [place] [address] CHOLESTEROL 188 mg/dL 0-200 TRIGLYCERIDE 77 mg/dL 0-150 CALCULATED LDL 122.3 mg/dL HDL(New) 50.3 mg/dL H >40 HDL % OF TOTAL CHOLESTEROL (PB) 26.8 >25 Mar 27, 2024 08:37 AM [facility] TSH (MA-PB) Specimen Type: SERUM No comment entered. Ordering Provider: NAVIN EUBANKS Report Released Date/Time: Apr 05, 2023 04:52 PM Reporting Lab: [place] [facility] [address] [place] [address] Performing Lab: [place] [facility] [address] [place] [address] TSH 1.700 u[IU]/mL 0.47-5 Mar 27, 2024 08:37 AM [facility] FERRITIN Specimen Type: SERUM No comment entered. Ordering Provider: NAVIN EUBANKS Report Released Date/Time: Sep 22, 2023 09:54 AM Reporting Lab: [place] [facility] [address] [place] [address] Performing Lab: [place] [facility] [address] [place] [address] FERRITIN 62 ng/mL 22-275 Mar 27, 2024 08:37 AM [facility] IRON/TIBC PROFILE Specimen Type: PLASMA No comment entered. Ordering Provider: NAVIN EUBANKS Report Released Date/Time: Sep 22, 2023 09:54 AM Reporting Lab: [place] [facility] [address] [place] [address] Performing Lab: [place] [facility] [address] [place] [address] TIBC 368 mg/dL TRANSFERRIN 294 mg/dL 163-344 IRON SATURATION 38 20-50 IRON 139 ug/dL 65-175 Vital Signs: All taken on the encounter date This section contains inpatient and outpatient Vital Signs collected on the date of the Encounter. Date/Time Temperature Pulse Blood Pressure Respiratory Rate SP02 Pain Height Weight Body Mass Index Source Apr 04, 2024 11:34 AM 98.0 79 128/72 18 96 0 72.0 192.3 26 [facility] Social History: Smoking Status (Most current) and Tobacco Use (All prior to encounter date) This section includes the most current, and the historical, smoking and tobacco- related health factors from the [place] facility where the Encounter took place. Current Smoking Status This section includes the most current smoking, or tobacco-related health factor, from the [place] facility where the Encounter took place. Date/Time Current Smoking Status Comment Facil ity Apr 04, 2024 10:30 AM VA-TOBACCO USER EVERY DAY [facility] Tobacco Use History This section includes a history of the smoking, or tobacco-related health factors, that were collected on or before the date of the Encounter. The data comes from the [place] facility where the Encounter took place. Date/Time Smoking Status/Tobacco Use Comment F acility Apr 04, 2024 10:30 AM VA-TOBACCO USE 30 YEARS OR MORE [facility] Apr 04, 2024 10:30 AM VA-TOBACCO USE ADVICE [facility] Apr 04, 2024 10:30 AM VA-TOBACCO USE PHARMACIST HOSPITAL NO [facility] Apr 04, 2024 10:30 AM VA-TOBACCO USE MED NO [facility] Apr 04, 2024 10:30 AM VA-TOBACCO USER EVERY DAY [facility] Apr 06, 2023 08:30 AM VA-TOBACCO DOESNT USE WI 30 MIN WAKEUP [facility] Apr 06, 2023 08:30 AM VA-TOBACCO USE 30 YEARS OR MORE [facility] Apr 06, 2023 08:30 AM VA-TOBACCO USE ADVICE [facility] Apr 06, 2023 08:30 AM VA-TOBACCO USE PHARMACIST HOSPITAL NO [facility] Apr 06, 2023 08:30 AM VA-TOBACCO USE MED NO [facility] Apr 06, 2023 08:30 AM VA-TOBACCO USER SOME DAYS [facility] Apr 12, 2022 02:30 PM VA-TOBACCO DOESNT USE WI 30 MIN [place]KEUP [place] [facility] Apr 12, 2022 02:30 PM VA-TOBACCO USE 30 YEARS OR MORE [place] [facility] Apr 12, 2022 02:30 PM VA-TOBACCO USE ADVICE [facility] Apr 12, 2022 02:30 PM VA-TOBACCO USE [facility] [place] [facility] Apr 12, 2022 02:30 PM VA-TOBACCO USE MED NO [facility] [facility] Apr 12, 2022 02:30 PM VA-TOBACCO USER EVERY DAY [facility] Oct 12, 2009 10:39 AM CURRENT TOBACCO USER [place] [facility] Oct 12, 2009 10:39 AM TOBACCO OFFERED STOP SMOKING CLI FABI [facility] Aug 07, 2008 11:49 AM CURRENT TOBACCO USER [facility] Aug 07, 2008 11:49 AM TOBACCO OFFERED STOP SMOKING CLI FABI [facility] Aug 07, 2008 11:49 [facility] Jun 12, 2007 10:21 AM QUIT TOBACCO >7 YEARS AGO [facility] Aug 31, 2005 01:59 PM CURRENT TOBACCO USER [facility] Jun 21, 2005 08:52 AM CURRENT TOBACCO USER [facility] December 14, 2004 09:52 AM CURRENT TOBACCO USER [facility] December 09, 2003 01:01 PM CURRENT TOBACCO USER [facility] Encounter Notes: All associated encounter notes This section contains the clinical notes associated to the Encounter. Date/Time Encounter Note(s) Provider Source Apr 04, 2024 06:39 AM PHARMACY NOTE: LOCAL TITLE: PHARMACY CHRONIC DISEASE STATE MANAGEMENT PB STANDARD TITLE: PHARMACY NOTE DATE OF NOTE: APR 04, 2024@06:39 ENTRY DATE: APR 04, 2024@06:39:56 AUTHOR: QUENTIN CALVIN EXP COSIGNER: URGENCY: STATUS: COMPLETED QUENTIN LONG is a 83 year old MALE monitored for dyslipidemia - T2D - HTN - CAD - BPH - colon polyps - arthritis - h/o chest pain - COPD - h/o of MRSA with sebaceous cysts Allergies: Patient has answered NKA - verified personal appointment; identified pt. by social security and full name service connected status: not connected Was the personal/phone visit directly with the patient or immediate resident care spec: YES-patient Subjective: 1. Missed doses or extra doses or pt. stopping any medications: NO saw today in clinic to follow-up on recent labs and discuss necessity for cholesterol and LDL lowering medication due to increased values at these labs; also discussed the use of patient's 3 metered-dose inhalers and reviewed technique and overall use of these devices; vitamin D3 required increase from 50 mcg to 150 mcg daily; patient's hemoglobin A1c was still controlled, but has increased; patient did get dermatology consult for sebaceous cysts and had removal; patient has not had any further emergency room admissions for shortness of breath or COPD exacerbations; cont. derm. f/u appts. 2. [-] med. compliance- [-} weight gain- [-] weight loss- [-] hypoglycemia symptoms or values <70 mg/dL- [-] hyperglycemia symptoms- [x] rule of 15 discussed/checked [-] hypotension symptoms or values <90/60 mmHg- [-] hypertension symptoms- [x] Dietary modifications made- discussed in detail [-] Changes in lifestyle or social history- [x] tobacco use disorder counseling- [x] Lung abnormalities: [x] COPD-patient uses fluticasone/salmeterol, albuterol, and tiotropium MDIs and seems to be controlled on these 3 devices, but question compliance [-] emphysema [-] asthma [-] other related SOB issues [-] oxygen use at home [-] cancer [-] Adverse effects of antilipemic agents-muscle pain/weakness, GI upset, or flushing) [-] Mental Health med. evaluation- none [x] Shared medical decision making- occurred during this visit with the Objective: seemed alert and oriented; no headache, blurred vision, dizziness, or extreme fatigue; denies chest pains, shortness of breath, or edema;reports he generally feels -somewhat better with cyst excision VITALS: Weight: Patient Weight History - Last Four 1. 192.1 lbs. / 87.1 kg. on OCT 05, 2023@13:55:17 2. 192.0 lbs. / 87.1 kg. on SEP 06, 2023@11:51:53 3. 196.0 lbs. / 88.9 kg. on APR 06, 2023@08:46:48 4. 202.7 lbs. / 91.9 kg. on APR 12, 2022@14:44:17 Height: 72 in [182.9 cm] (09/06/2023 11:51) BMI: 26.1 Pulse: 81 (10/05/2023 13:55) RR: 18 (10/05/2023 13:55) Pulse Ox:(L/MIN)(%) 10/05/2023 13:55 94 09/06/2023 11:51 94 04/06/2023 08:46 92 04/12/2022 14:44 94 TEMP:97.6 F [36.4 C] (10/05/2023 13:55) B/P-Latest: (10/05/2023 13:55) Pertinent Labs: Creatine phosphokinase test: not evaluated 25 U/L L (09/06/23 12:15) Hepatitis C Antibody [facility] Hep C tests in last five years. *No Lab Data Found* Calculated 10 year cardiovascular risk is: 22.7% -- Physical monitoring parameters: B/P, edema, renal function, electrolytes, s/s of dizziness/drowsiness --HTN: Assessment/Plan - older diagnosis - (evaluated at this time); Pt is monitored by PCP (consulted) Goal: per 2021 ACC/AHA guidelines; Recommendation 10.4 on blood pressure treatment goals in individuals with diabetes was revised to target a blood pressure of less than 130/80; Blood pressure target is usually below 140/90 for people with diabetes or below 150/90 if aged 80 years or above; for patients with kidney disease the target may be below 130/80 *Normal = less than 120 and less than 80 *Elevated = 120-129 and greater than 80 *High Blood Pressure Stage 1 = 130-139 or 80-89 *High Blood Pressure Stage 2 = 140 or higher or 90 or higher *Hypertensive Crisis (call provider immediately) = Higher than 180 and/or higher than 120 *Goal is reduced to <140/90 with accompanying T2D and > 60 years per VA/DOD guidelines *Per Up-To-Date for older adults: in most older adults (defined as age 65 years or older), suggest a less aggressive systolic goal blood pressure of 135 to 140 routinely -Pt. most recent blood pressure evaluation: on 04 October in clinic, 102/65 on 06 APR 2023 -Pt. is on: Hydrochlorothiazide 12.5/lisinopril 10mg daily -Pt. blood pressure is controlled for age category; did asked patient to get blood pressure check at next clinic appointment --DM: Assessment/Plan - older diagnosis - (evaluated at this time); Pt is monitored by PCP (consulted) -Glycemic goal: HA1C <7.5 w/o episode of hypoglycemia; fasting bg 90-130; 1.5 hours PP <180; 2 hours PP <140; Bedtime <150 -Contact the clinic if you have a blood glucose less than 70 (after you follow the rule of 15) or blood glucose greater than 300 -HYPOGLYCEMIC EPISODES: none stated in the last few weeks; but did reviewed rule of15 with the and solutions to counter occurrences -Pt. most recent HA1c was 6.5 with B/G of 159 on Mar, ncreased from 6.1[best ever] with blood glucose of 148 on 04 January, decreased from prior 6.8 with blood glucose of 167 on Aug, increased from 6.7 with blood glucose of 178 on 06 April 2023 -Pt. is on: no medications, but cautioned about dietary planning -Patient states B/G values have ranged from the 130s to 150s in the last several weeks -Non-medication therapy: is not keeping B/G log to georgina glycemic progress, but will send BG monitoring supplies and asked patient to monitor weekly to keep BG's in the 120s to 140s range -Pt.'s support system in the event of hypoglycemia or hyperglycemia: Yes- spouse/caregiver -Patient was also told to check feet monthly -Pave Foot Check-foot exam (including monofilament test for sensation) has never been performed in the past 3 years in the private sector or at [place] -Confirmed patient has had optometry appointment within the last year for prior cataracts -Patient to drink more water and avoid sweetened beverages and less coffee and tea -Patient's diabetic situation is adequately controlled to less than 6.5, but barely and will follow in future COPD GOALS: -Check for family history; access gas exchange, physical characteristics, such as bending over and use of throat muscles, barrel chest, very lean body weight, any hosp. dismissal notes, exacerbation history, cyanosis, clubbed fingers, SpO2 less than 87%, history of exposure, or obesity -Look at absolute eosinophil counts, WBCs, check history -Provide education on meds. usage -Check for ADEs/side effects -Access pt. characteristics Check adherence, technique, and correct inhaler usage -Ask how COPD affects daily activities and what are patients GOALS or need for pulmonary consult; check with PCP -Asked patient about symptoms and exacerbation history, which guided initial med choice -Check to see if all vaccinations are updated (flu, COVID-19, pneumococcal) -Discussed and emphasized smoking cessation, when needed -Questioned pt. about infiltrates possibly to lungs and presence of frequent pneumonia bouts -Try to order spirometry or obtain latest FEV1/FVC, if less than 70% or 0.7, which indicates presence of airway obstruction/limitations - FVC should be less than 80%; both pre & post bronchodilator use should be less than 70% FEV1/FVC for diagnosis?.healthy males 20-60 range is 4.75 to 5.5 liters -Note if Lungs are restricted to filling to vital capacity of air -Check history for contaminants or exposures -Note CAT score less than 10 is good / greater than 30 is bad -Asertain GOLD Grouping: A-albuterol as rescue / Phoebe tiotropium/olodaterol or fluticasone/salmeterol / [place] ICS; also consider exacerbations and recent hospital admissions -Check to see if Bronchodilator response should be more than 12% or 200ml increase in either FEV1 or FVC -Determine if other causes of obstruction are: asthma, allergic rhinitis, chronic bronchitis, or cancer -Asked patient to demonstrate inhaler technique, use of devices, and also remind about cleanliness and other usage characteristics of MDIs and other devices -Define necessity and difficult to get spirometery on pt. due to no availability locally -NOTE: if improvement in post-BD use or increasing FEV1/FVC or reversing consider ASTHMA -ALSO NOTE: normal absolute eosinophil count ranges from 0 to 500 cells per microliter; elevated in COPD pts.; eosinophil count > 300 suggests addition of an ICS, but watch eosinophil counts if pt. is using ICS senior living COPD PLAN: -Pt is not monitored by non-va starch dumper -Pt is now somewhat interested in making changes at this time -Pt states he does not have a scheduled appt. with any starch dumper, and can usually manage condition, but will go to ED, only when needed -Pt. will continue to follow the directions of the [place] providers -Goal is to reduce exacerbations and control symptoms for this -Pt. states adherence -Reinforced proper inhaler use and technique, including shaking, activation, aming, holding breath, cleanliness, and storage and pt. has fully demonstrated proper inhaler use -Patient is usually controlled on his 2 metered-dose inhalers of albuterol 1 puff up to every 6 hours as needed for rescue and tiotropium MDI at 1 to 2 inhalations twice daily, continually, but added fluticasone/salmeterol MDI at 1 inhalation twice daily, but may occasionally increase to 2 inhalations as described -Pt. will not consult starch dumper, due to non-effectiveness from prior visits -Pt. will be more adherent to INH johanna. and appreciated review of dosing instructions -Patient states he feels all symptoms are now controlled on currently prescribed inhalers, devices, and nebulizer treatment -Unable to access spirometry parameters either in history or current for this patient -Pt. declined to do CAT analysis -Patient's eosinophil count: is not within asseptable range at last labs of 2.4 -Patient is current on all vaccines, except RSV vacc.-offered -Patient was educated about condition management and side effects and precautions of all meds -Patient is satisfied with current therapy and recent improvement of condition --Medication profile management and general reconciliation: patient does not experience problems or side effects; continue all 3 metered-dose inhalers, increase vitamin D3 from 50 mcg 150 mcg daily, continue hydrochlorothiazide/lisinopril , added rosuvastatin 2.5mg with evening meal and OTC apple cider vinegar daily; suggested inj. of new flu and COVID, as well as RSV vaccs. Active and Recently Outpatient Medications (excluding Supplies): Active Outpatient Medications Status 1) ALBUTEROL 90MCG (CFC-F) 200D ORAL INHL INHALE 2 PUFFS ACTIVE ORAL INHALATION EVERY 4 HOURS NEEDED FOR SHORTNESS OF BREATH SHAKE WELL. RINSE MOUTHPIECE FREQUENTLY TO PREVENT CLOGGING. 2) ASPIRIN 81MG CHEW TAB CHEW AND SWALLOW ONE TABLET BY ACTIVE MOUTH ONCE A DAY FOR CARDIOVASCULAR DISEASE (TAKE WITH FOOD) 3) CARBAMIDE PEROXIDE 6.5% OTIC SOLN INSTILL 4 DROPS IN ACTIVE BOTH EARS EVERY 4 WEEKS NEEDED FOR EAR WAX BLOCKAGE 4) CHOLECALCIF 50MCG (D3-2,000UNIT) TAB TAKE TWO TABLETS ACTIVE BY MOUTH ONCE A DAY FOR VITAMIN D DEFICIENCY 5) FLUTICAS 100/SALMETEROL 50 INHL DISK 60 INHALE 1 ACTIVE INHALATION ORAL INHALATION TWICE A DAY FOR COPD (OPEN DISKUS; CLICK ONLY ONCE; MAY INHALE TWICE TO COMPLETE DOSE; CLOSE WHEN FINISHED) RINSE MOUTH AND SPIT AFTER EACH USE. 6) HCTZ 12.5/LISINOPRIL 10MG TAB TAKE 1 TABLET BY MOUTH ACTIVE TWICE A DAY 7) MUPIROCIN 2% OINT APPLY SPARINGLY TO AFFECTED AREA(S) ACTIVE TWICE A DAY FOR BACTERIAL INFECTION EXTERNAL USE ONLY. 8) TIOTROPIUM 2.5MCG/ACTUAT 60D ORAL INHL INHALE 2 ACTIVE INHALATIONS ORAL INHALATION ONCE A DAY FOR COPD (ADMINISTER AT SAME TIME EACH DAY) LIPID PROFILE - High cholesterol and triglycerides (lipids) are risk factors for heart disease. Cholesterol should fall between 140 and 200, and triglycerides levels should be less than or equal to 150. HDL is the good cholesterol and should ideally be greater than 40. LDL is the bad cholesterol and optimal levels should be less than 100 (near optimal is between 100 and 129) LIPID Therapeutic goals: (consulted) [facility]/D[facility] guideline; triglycerides <150 & cholesterol 140-200 & HDL > 40 & LDL <100 Assessment: 1. The pt is currently on lipid or other necessary medication? If so List: Patient is currently on no medication for lipid reduction 2. Compliance per pt response? YES Patient only takes aspirin 81 mg ECT daily, HCTZ/lisinopril 12.5/10 twice daily, increased vitamin D3 from 50 mcg to 100 mcg daily, and patient also uses mupirocin ointment and carbamide peroxide otic solution besides the 3 metered-dose inhalers; Pt states he will not skip/miss doses Plan: --Lipid lowering agent and dose: per ACC/AHA guidelines for ASCVD, however shared decision making is a goal: lipids now controlled [low intensity statin]- cont. rosuvastatin 2.5 mg with evening meal and also added OTC apple cider vinegar daily --Pt. instructed to contact Lipid clinic if they have medication changes (new medications or stopped medications) --Overall Plan: patient to continue lipid meds. as above, continue fluticasone/salmeterol, tiotropium, and albuterol metered-dose inhalers, hydrochlorothiazide 12.5/lisinopril 10 mg daily, increased vitamin D3 to 100 mcg daily, but will now increase to 150mcg daily, continue aspirin 81 mg chewable daily, carbamide peroxide ear solution, and continue to use mupirocin ointment for subcutaneous cystic excision areas; cont. derm. f/u appts.; advised shingles, RSV, and new flu and COVID vaccs. --Specific information about medication(s): necessity to start very low-dose statin --Diet Interventions: discussed minimizing the intake of trans fats, processed meats, refined carbohydrates, and sweetened beverages as part of a heart healthy diet -Discussed with pt. the Nutrient basic Composition of the [facility] Diet and pt. to choose a low fat/low carb diet, modeled after the my-plate model and concentrate on eating oatmeal, whole grains, bran flakes, beans, eggplant, okra, nuts, apples, grapes, strawberries, oranges and use vegetable oils; avoid red meat and more turkey, fish, sea food, chicken, and pork; avoid fried and any fatty foods and avoid sodas and alcohol -Encouraged low salt and decreased caffeine intake -Saturated fat < 7 percent of total calories. -Polyunsaturated fat Up to 10 percent of total calories. -Monounsaturated fat Up to 20 percent of total calories. -Total fat 25-35 percent of total calories. -Carbohydrate 50-60 percent of total calories. Carbohydrate should be derived predominantly from foods rich in complex carbohydrates including grains, especially whole grains, fruits, and vegetables -Fiber 20-30 g/day. -Protein Approximately 15 percent of total calories. -Cholesterol Less than 200 mg/day. --Weight management: Weight Loss: Plasma triglyceride and LDL tend to decrease and HDL levels tend to increase in obese persons who lose weight; pt. needs to lose no more than a pound each month --Increased physical activity as indicated: Aerobic exercise has a modest elevating effect on plasma levels of HDL in most persons but has cardiovascular benefits that extend beyond the effects on plasma lipid levels. ADA recommends 150min/week (distributed over at least 3 days) of moderated aerobic physical activity); stressed to pt. that a routine daily exercise program consisting of 15 to 20 minutes of walking exercise should be started and maintained if at all possible --Future Appointments: 04/04/2024 11:30 [facility] PHONE PACT PHARM 03/27/2024 08:40 [facility] ( 04/04/2024 10:30 [facility] PACT DELTA PCP --Precautions: patient was instructed to seek medical attention immediately if they experience any signs or symptoms of severe muscle pain/chest pain or gastrointestinal difficulties; patient did not report any side effects from diabetic/lipid/HTN medications; stressed the importance of medication adherence --Discrepancies: compared newly ordered medications and medication changes to pertinent active medications and non-VA medications and then reviewed medications with patient and/or caregiver; all discrepancies noted and reconciled; reviewed pertinent labs; potential adverse reactions of new medications were also discussed with the patient --Consult(s): will be placed to: derm, f/u to nursing -- in agreement with plan and voices understanding: yes --Next lab date: Jun; the patient repeat labs will be scheduled; pt understands labs are fasting; will alert audit control clerk to schedule next lab and appointment --PID: Next follow up date: Jul; follow-up to labs from Jun and check MDIs and added rosuvastatin; will alert audit control clerk to schedule this check status appt --Thanked for their time and expressed my pleasure to serve them I have communicated previous lab results to patient and the voiced understanding ---Please note that this dictation was completed with computer recognition software, often unanticipated grammatical, syntax and other interpretive errors are inadvertently transcribed by the computer software. Please disregard these errors--- Time spent: 39 minute(s)- TELEPHONE CONTACT no - FACE TO FACE yes PBM PharmD Pharmacotherapy Rem V12: PHARMACIST INTERVENTIONS: CHRONIC OBSTRUCTIVE PULMONARY DISEASE (COPD) Medication monitoring, no dosage change required, continue to monitor and assess Plan: PATIENT TO CONTINUE tiotropium MDI and newly added fluticasone/salmeterol metered-dose inhaler, continually / pt. to not wait for using rescue inhaler, albuterol MDI and/or as soon as he feels exacerbation starting, cont. rosuvastatin 2.5mg with evening meal, increased vit D3 from 100 to 150mcg daily, HCTZ/lisinopril 12.5/10 daily, OTC asa 81mg chew. daily, and carbamide peroxide ear suspension as needed / patient did complete prophylactic prednisone course and anti-biotics per last ED admission / patient could use pulmonology consult, but declined / did request dermatology consult for sebaceous cyst that was excised and check for any recurrence also to continue derm. follow-up and use of mupirocin ointment / advised shingles, RSV, and new flu and COVID vaccs. /evelia/ Donnell ALBERTS PACT CLINICAL GRAINING OPERATOR Signed: 04/04/2024 16:41 Receipt Acknowledged By: 04/05/2024 13:20 /evelia/ [facility]
--- OUTSIDE RECORDS SUMMARY | 2024-07-28 15:53 | XMS_ITS | Encounter Summary ---
Author Name [facility] Address [address] [place] [address] Care Team Providers Care Audio Technician Name Role Phone NAVIN EUBANKS Primary Care [...] Reagan's Name Patient's Relationship to Policy Reagan [facility] (WNR) MEDICARE ADVANTAGE [facility] ([facility]) November 22, 2015 [id number] Arminda LONG PATIENT MEDICARE (WNR) MEDICARE (M) PART A Feb 21, 2007 PART A [id number] [phone] Arminda LONG PATIENT MEDICARE (WN) MEDICARE (M) PART B Feb 21, 2007 PART B [id number] [phone] Arminda LONG PATIENT [facility] (WNR) MEDICARE ADVANTAGE [facility] ([facility]) November 22, 2015 [id number] [phone] Arminda LONG PATIENT Selected Encounter This section includes the information on record at NH for the Encounter. Date/Time Encounter Type Encounter Description Reason Provider Source May 13, 2024 11:00 AM MTMS BY PHARM GAL 15 MIN CLINICAL PHARMACY ICD-10-CM J44.9 Chronic obstructive pulmonary disease, unspecified QUENTIN CALVIN Regla Encounter Template Text not used by [place] Assessments - Encounter Diagnoses This section includes the primary and secondary diagnoses documented for the Encounter. Date/Time Primary/Secondary Diagnosis Diagnosis Name Provider Source May 13, 2024 10:14 AM PRIMARY Chronic obstructive pulmonary disease, unspecified QUENTIN CALVIN [facility] May 13, 2024 10:14 AM SECONDARY Mixed hyperlipidemia QUENTIN CALVIN [facility] May 13, 2024 10:14 AM SECONDARY Type 2 diabetes mellitus without complications [facility] Plan of Treatment: Future Appointments (+ 6 months) and Future Tests (+/- 45 days) The Plan of Treatment section includes future care activities for the patient [facility] This section includes future appointments and future orders which are active, pending or scheduled. Future Appointments This section includes appointments that were scheduled to occur 6 months from the date of the Encounter, up to a maximum of 20 appointments. The data comes from all [place] treatment facilities. Appointment Date/Time Appointment Type Appointme nt Facility Name Jul 26, 2024 09:30 AM AMBULATORY - MEDICINE [facility] Aug 15, 2024 02:00 PM [facility]ORY [facility] MEDICINE [facility] Active, Pending, and Scheduled Orders This section includes a listing of several types of active, pending, and scheduled orders, including clinic medications orders, diagnostic test orders, procedure orders and consult orders; where the start date of the order is 45 days before the date of the Encounter or 45 days after the date of theEncounter. The data comes from all [place] treatment [facility]. Test Date/Time Test Type Test Details Facility Name Apr 04, 2024 11:56 AM Laboratory - Chemi stry Order POC UA (STL-PB-MA) URINE [facility] May 13, 2024 10:16 AM Laboratory - Chemi stry Order POC UA (STL-PB-MA) URINE [facility] Vital Signs: All taken on the encounter date This section contains inpatient and outpatient Vital Signs collected on the date of the Encounter. Date/Time Temperature Pulse Blood Pressure Respiratory Rate SP02 Pain Height Weight Body Mass Index Source May 13, 2024 11:38 AM 97.9 70 106/60 [facility] Social History: Smoking Status (Most current) and Tobacco Use (All prior to encounter date) This section includes the most current, and the historical, smoking and tobacco- related health factors from the [place] facility where the Encounter took place. Current Smoking Status This section includes the most current smoking, or tobacco-related health factor, from the [place] facility where the Encounter took place. Date/Time Current Smoking Status Comment Facil ity Apr 04, 2024 10:30 AM VA-TOBACCO USER EVERY DAY [facility] Tobacco Use History This section includes a history of the smoking, or tobacco-related health factors, that were collected on or before the date of the Encounter. The data comes from the [place] facility where the Encounter took place. Date/Time Smoking Status/Tobacco Use Comment F acility Apr 04, 2024 10:30 AM VA-TOBACCO USE 30 YEARS OR MORE [facility] Apr 04, 2024 10:30 AM VA-TOBACCO USE ADVICE [facility] Apr 04, 2024 10:30 AM VA-TOBACCO USE CLEANING SPECIALIST NO [facility] Apr 04, 2024 10:30 AM VA-TOBACCO USE MED NO [facility] Apr 04, 2024 10:30 AM VA-TOBACCO USER EVERY DAY [facility] Apr 06, 2023 08:30 AM VA-TOBACCO DOESNT USE WI 30 MIN WAKEUP [facility] Apr 06, 2023 08:30 AM VA-TOBACCO USE 30 YEARS OR MORE [facility] Apr 06, 2023 08:30 AM VA-TOBACCO USE ADVICE [facility] Apr 06, 2023 08:30 AM VA-TOBACCO USE CLEANING SPECIALIST NO [facility] Apr 06, 2023 08:30 AM VA-TOBACCO USE MED NO [facility] Apr 06, 2023 08:30 AM VA-TOBACCO USER SOME DAYS [facility] Apr 12, 2022 02:30 PM VA-TOBACCO DOESNT USE WI 30 MIN WA[facility]UP [facility] Apr 12, 2022 02:30 PM VA-TOBACCO USE 30 YEARS OR MORE [facility] Apr 12, 2022 02:30 PM VA-TOBACCO USE ADVICE [facility] Apr 12, 2022 02:30 PM VA-TOBACCO USE CLEANING SPECIALIST NO [facility] Apr 12, 2022 02:30 PM VA-TOBACCO USE MED NO [facility] Apr 12, 2022 02:30 PM VA-TOBACCO USER EVERY DAY [facility] Oct 12, 2009 10:39 AM CURRENT TOBACCO USER [facility] Oct 12, 2009 10:39 AM TOBACCO OFFERED STOP SMOKING CLI [facility] Aug 07, 2008 11:49 AM CURRENT TOBACCO USER [facility] Aug 07, 2008 11:49 AM TOBACCO OFFERED STOP SMOKING CLI [facility] Aug 07, 2008 11:49 AM TOBACCO OFFERRED S TOP SMOKING CLINIC [facility] Jun 12, 2007 10:21 AM QUIT TOBACCO >7 YEARS AGO [facility] Aug 31, 2005 01:59 PM [facility] Jun 21, 2005 08:52 AM [facility] December 14, 2004 09:52 AM CURRENT TOBACCO USER [facility] December 09, 2003 01:01 PM CURRENT TOBACCO USER [facility] Encounter Notes: All associated encounter notes This section contains the clinical notes associated to the Encounter. Date/Time Encounter Note(s) Provider Source May 13, 2024 10:13 AM PHARMACY NOTE: LOCAL TITLE: PHARMACY CHRONIC DISEASE STATE MANAGEMENT PB STANDARD TITLE: PHARMACY NOTE DATE OF NOTE: MAY 13, 2024@10:13 ENTRY DATE: MAY 13, 2024@10:13:12 AUTHOR: QUENTIN CALVIN EXP COSIGNER: URGENCY: STATUS: COMPLETED ETHANQUENTIN is a 84 year old MALE monitored for dyslipidemia - [...] visit directly with the patient or immediate youth career specialist: YES-patient Subjective: 1. Missed doses or extra doses or pt. stopping any medications: NO saw today in clinic to follow-up on recent ED admision for a UTI; pt. did complete oral cephalexin after IM ceftriaxone and condition has now resolved; added phenoazopyridien 200mg 3 times daily and also advised pt. to combine his OTC apple cider vinegar daily use with cranberry, water and lemon juice mixture; also will add finasteride 5mg each evening for severe BPH; re- discussed recent labs and reminded pt. of necessity for cholesterol and LDL lowering medication due to increased values at last labs; also discussed the use of patient's 3 metered-dose inhalers and reviewedtechnique and overall use of these devices; vitamin D3 required increase from 50 mcg to 150 mcg daily; patient's hemoglobin A1c was still controlled, but has increased somewhat and re-discussed diset plan; patient did get dermatology consult for sebaceous cysts and had removal and will use muprocin and triple antibiotic oints.; patient has not had any further emergency [...] denies chest pains, shortness of breath, or edema; reports he generally feels -somewhat better with cyst excision, but is prone to UTIs VITALS: Weight: Patient Weight History - Last Four 1. 192.3 lbs. / 87.2 kg. on APR 04, 2024@11:34 2. 192.1 lbs. / 87.1 kg. on OCT 05, 2023@13:55:17 3. 192.0 lbs. / 87.1 kg. on SEP 06, 2023@11:51:53 4. 196.0 lbs. / 88.9 kg. on APR 06, 2023@08:46:48 Height: 72 in [182.9 cm] (09/06/2023 11:51) BMI: 26.1 Pulse: 81 (10/05/2023 13:55) RR: 18 (10/05/2023 13:55) Pulse Ox:(L/MIN)(%) 10/05/2023 13:55 94 09/06/2023 11:51 94 04/06/2023 08:46 92 04/12/2022 14:44 94 TEMP:97.6 F [36.4 C] (10/05/2023 13:55) B/P-Latest:128/72 (04/04/2024 13:55) Pertinent Labs: HGB A1C Collection DT Specimen Test Name Result Units Ref Range 03/27/2024 08:37 BLOOD HGA1C 6.5 H % 4.0 - 6.0 01/05/2024 08:48 BLOOD HGA1C 6.1 H % 4.0 - 6.0 09/06/2023 12:15 BLOOD HGA1C 6.8 H % 4.0 - 6.0 04/06/2023 09:11 BLOOD HGA1C 6.7 H % 4.0 - 6.0 LIVER FUNCTION PANEL Labs: triglyceride cholesterol LDL values are high TRIGLYCERIDE 77 mg/dL 03/27/2024 08:37 CHOLESTEROL 188 mg/dL 03/27/2024 08:37 HDL(New) 50.3 H mg/dL 03/27/2024 08:37 DIRECT LDL 121.8 H mg/dL 01/05/2024 08:48 CALCULATED LDL 122.3 mg/dL 03/27/2024 08:37 HDL % OF TOTAL CHOLESTEROL (PB) 26.8 % 03/27/2024 08:37 DIRECT LDL 121.8 H mg/dL 01/05/2024 08:48 Liver Function Tests: values are within acceptable limit SGOT: 12 U/L (03/27/24 08:37) SGPT: 16 U/L (03/27/24 08:37) Chemistry: Sodium: SODIUM 142 mEq/L 03/27/2024 08:37 POTASSIUM 3.9 mEq/L 03/27/2024 08:37 Chloride: 102 mEq/L (03/27/24 08:37) BUN: 13 mg/dL (03/27/24 08:37) Glucose: GLUCOSE 159 H mg/dL 03/27/2024 08:37 ALT/SGPT 16 U/L 03/27/2024 08:37 AST/SGOT 12 U/L 03/27/2024 08:37 Renal function: Creatinine Clearance: 64.4mL/min CREATININE 0.97 mg/dL 03/27/2024 08:37 EGFR (CKD-EPI 2020) 78 03/27/2024 08:37 No MICRAL/CREAT RATIO (STL) data found Creatine phosphokinase test: not evaluated 25 U/L [...] routinely -Pt. most recent blood pressure evaluation: 128/72 on Mar in clinic, 115/68 on 04 October in clinic, 102/65 on 06 APR 2023 -Pt. is on: Hydrochlorothiazide 12.5/lisinopril 10mg daily -Pt. 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 with any telephone surveyor, and can usually manage condition, but will go to ED, only when needed -Pt. will continue to follow the directions of the [facility] providers -Goal is to reduce exacerbations and control symptoms for this -Pt. states adherence -Reinforced proper inhaler use and technique, including shaking, activation, aming, holding breath, cleanliness, and storage and pt. has fully demonstrated proper inhaler use -Patient is usually controlled on his 3 metered-dose inhalers of albuterol 1 puff up to every 6 hours as needed for rescue and tiotropium MDI at 2 inhalations twice daily, continually, but added fluticasone/salmeterol MDI at 1 inhalation twice daily, but may occasionally increase to 2 inhalations as described -Pt. will not consult telephone surveyor, due to non-effectiveness from prior visits -Pt. will be more adherent to MDI johanna. and appreciated review of dosing instructions -Patient states he feels all symptoms are now controlled on currently prescribed inhalers and devices treatment -Unable to access spirometry parameters either [...] meal and OTC apple cider vinegar daily; added phenoazopyridien 200mg 3 times daily and also advised pt. to combine his apple cider vinegar daily use with cranberry, water and lemon juice mixture; also will add finasteride 5mg each evening for severe BPH; suggested inj. of new flu and COVID, [...] to continue lipid meds. as above, continue fluticasone/salmeterol 1 puff daily, tiotropium at 2 puffs daily, and albuterol for rescue metered-dose inhalers, hydrochlorothiazide 12.5/lisinopril 10 mg daily, increased vitamin D3 to 100 mcg daily, but will now increase to 150mcg daily, continue OTC aspirin 81 mg chewable daily, carbamide peroxide ear solution, and continue to use mupirocin and triple antibiotic ointments for subcutaneous cystic excision areas; added phenoazopyridien 200mg 3 times daily and also advised pt. to combine his apple cider vinegar daily use with water, SF cranberry, and lemon juice mixture; also will add finasteride 5mg each evening for severe BPH; cont. derm. f/u appts.; advised shingles, RSV, and new flu and COVID vaccs. --Specific information about medication(s): necessity to start very low-dose statin --Diet Interventions: discussed minimizing the intake of trans fats, processed meats, refined carbohydrates, and sweetened beverages as part of a heart healthy diet -Discussed with pt. the Nutrient basic Composition of the [facility] Diet and pt. to choose a low [...] maintained if at all possible --Future Appointments: 05/13/2024 11:30 [facility] --Precautions: patient was instructed to seek medical [...] will be placed to: derm, f/u to nursing, cardiology -- in agreement with plan and voices understanding: yes --Next lab date: Jun; the patient repeat labs will be scheduled; pt understands labs are fasting; will alert tool clerk to schedule next lab and appointment --PID: Next follow up date: Jul; follow-up to labs from Jun and check MDIs and added rosuvastatin; will alert tool clerk to schedule this check status appt --Thanked for their time and expressed my pleasure to serve them I have communicated previous lab results to patient and the voiced understanding ---Please note that this dictation was completed with computer recognition software, often unanticipated grammatical, syntax and other interpretive errors are inadvertently transcribed by the computer software. Please disregard these errors--- Time spent: 43 minute(s)- TELEPHONE CONTACT no - FACE TO FACE yes PBM PharmD Pharmacotherapy Rem V12: PHARMACIST INTERVENTIONS: CHRONIC OBSTRUCTIVE PULMONARY DISEASE (COPD) Medication monitoring, no dosage change required, continue to monitor and assess Plan: patient to continue tiotropium MDI and newly added fluticasone/salmeterol metered-dose inhaler, continually / pt. to not wait for using rescue inhaler, albuterol MDI and/or as soon as he feels exacerbation starting, cont. rosuvastatin 2.5mg with evening meal, increased vit D3 from 100 to 150mcg daily, HCTZ/lisinopril 12.5/10 daily, OTC asa 81mg chew. daily, and carbamide peroxide ear suspension as needed / added phenoazopyridien 200mg 3 times daily and also advised pt. to combine his apple cider vinegar daily use with cranberry, water, and lemon juice mixture; also will add finasteride 5mg each evening for severe BPHpatient did complete prophylactic prednisone course and anti-biotics per last ED admission / patient could use pulmonology consult, but declined / did request dermatology consult for sebaceous cyst that was excised and check for any recurrence also to continue derm. follow-up and use of mupirocin and triple antibiotic ointments / advised shingles, RSV, and new flu and COVID vaccs. /evelia/ Donnell [facility] PACT CLINICAL NEONATAL CRITICAL CARE NURSE Signed: 05/13/2024 13:06 Receipt Acknowledged By: 05/13/2024 13:25 /evelia/ JESSE JUAN [facility] QU[facility]IN MOORE [facility]
--- OUTSIDE RECORDS SUMMARY | 2024-07-28 15:53 | XMS_ITS | Encounter Summary ---
Author Name [facility] [place] Organization [facility] [place] Address [address] [place] [address] Care Team Providers Care Risk Adjustment Specialist Name Role Phone CHA NAVIN Primary Care Provider Unavailabl e Insurance Providers: [...] Reagan's Name Patient's Relationship to Policy Reagan [facility] (WNR) MEDICARE ADVANTAGE [facility] ([facility]) November 22, 2015 [id number] [phone] Arminda LONG PATIENT MEDICARE (WNR) MEDICARE (M) PART A Feb 21, 2007 PART A [id number] [phone] Arminda LONG PATIENT MEDICARE (WN) MEDICARE (M) PART B Feb 21, 2007 PART B [id number] [phone] Arminda LONG PATIENT [facility] (WNR) MEDICARE ADVANTAGE [facility] (WN) November 22, 2015 [id number] Arminda LONG PATIENT Selected Encounter This section includes the information on record at [place] for the Encounter. Date/Time Encounter Type Encounter Description Reason Provider Source May 13, 2024 10:30 AM OFF/OP EST MAY X REQ PHY/QHP PRIMARY CARE/MEDICINE ICD-10-CM R32 Unspecified urinary incontinence DIANA MARQUEZ [facility] Encounter Template Text not used by VA Assessments - Encounter Diagnoses This section includes the primary and secondary diagnoses documented for the Encounter. Date/Time Primary/Secondary Diagnosis Diagnosis Name Provider Source May 14, 2024 08:16 AM PRIMARY Unspecified urinary incontinence DIANA MARQUEZ [facility] Plan of Treatment: Future Appointments (+ 6 months) and Future Tests (+/- 45 days) The Plan of Treatment section includes future care activities for the patient from all [place] [facility]. This section includes future appointments and future orders which are active, pending or scheduled. Future Appointments This section includes appointments that were scheduled to occur 6 months from the date of the Encounter, up to a maximum of 20 appointments. The data comes from all [place] treatment facilities. Appointment Date/Time Appointment Type Appointme nt Facility Name Jul 26, 2024 09:30 AM AMBULATORY - MEDICINE [facility] Aug 15, 2024 02:00 PM AMBULATORY - MEDICINE [facility] Active, Pending, and Scheduled Orders This section includes a listing of several types of active, pending, and scheduled orders, including clinic medications orders, diagnostic test orders, procedure orders and consult orders; where the start date of the order is 45 days before the date of the Encounter or 45 days after the date of theEncounter. The data comes from all [place] treatment facilities. Test Date/Time Test Type Test Details Facility Name Apr 04, 2024 11:56 AM Laboratory - Chemi stry Order POC UA (STL-PB-MA) URINE [facility] May 13, 2024 10:16 AM Laboratory - Chemi stry Order POC UA (STL-PB-MA) URINE [facility] Vital Signs: All taken on the encounter date This section contains inpatient and outpatient Vital Signs collected on the date of the Encounter. Date/Time Temperature Pulse Blood Pressure Respiratory Rate SP02 Pain Height Weight Body Mass Index Source May 13, 2024 11:38 AM 97.9 70 106/60 [facility] Social History: Smoking Status (Most current) and Tobacco Use (All prior to encounter date) This section includes the most current, and the historical, smoking and tobacco- related health factors from the [place] facility where the Encounter took place. Current Smoking Status This section includes the most current smoking, or tobacco-related health factor, from the [place] facility where the Encounter took place. Date/Time Current Smoking Status Comment Facil ity Apr 04, 2024 10:30 AM VA-TOBACCO USER EVERY DAY [facility] Tobacco Use History This section includes a history of the smoking, or tobacco-related health factors, that were collected on or before the date of the Encounter. The data comes from the [place] facility where the Encounter took place. 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 [facility] Apr 04, 2024 10:30 AM VA-TOBACCO USE MED NO [facility] Apr 04, 2024 10:30 AM VA-TOBACCO USER EVERY DAY [facility] Apr 06, 2023 08:30 AM VA-TOBACCO DOESNT USE WI 30 MIN WAKEUP [facility] Apr 06, 2023 08:30 AM VA-TOBACCO USE 30 YEARS OR MORE [facility] Apr 06, 2023 08:30 AM VA-TOBACCO USE ADVICE [facility] Apr 06, 2023 08:30 AM 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 [facility] Apr 06, 2023 08:30 AM VA-TOBACCO USE MED NO [facility] Apr 06, 2023 08:30 AM VA-TOBACCO USER SOME DAYS [facility] Apr 12, 2022 02:30 PM VA-TOBACCO DOESNT USE WI 30 MIN WAKEUP [facility] Apr 12, 2022 02:30 PM VA-TOBACCO USE 30 YEARS OR MORE [facility] Apr 12, 2022 02:30 PM VA-TOBACCO USE ADVICE [facility] Apr 12, 2022 02:30 PM 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 [facility] Apr 12, 2022 02:30 PM VA-TOBACCO USE MED NO [facility] Apr 12, 2022 02:30 PM VA-TOBACCO USER EVERY DAY [facility] Oct 12, 2009 10:39 AM CURRENT TOBACCO USER [facility] Oct 12, 2009 10:39 AM TOBACCO OFFERED STOP SMOKING CLI [facility] Aug 07, 2008 11:49 AM CURRENT TOBACCO USER [facility] Aug 07, 2008 11:49 AM TOBACCO OFFERED STOP SMOKING CLI F[facility] Aug 07, 2008 11:49 AM TOBACCO OFFERRED S [facility] SMOKING [facility]INIC [facility] Jun 12, 2007 10:21 AM QUIT TOBACCO >7 YEARS AGO [facility] Aug 31, 2005 01:59 PM CURRENT TOBACCO USER [facility] Jun 21, 2005 08:52 AM CURRENT TOBACCO USER [facility] December 14, 2004 09:52 AM CURRENT TOBACCO USER [facility] December 09, 2003 01:01 PM CURRENT TOBACCO USER [facility] Encounter Notes: All associated encounter notes This section contains the clinical notes associated to the Encounter. Date/Time Encounter Note(s) Provider Source May 13, 2024 11:38 AM NURSING PROGRESS N OTE: LOCAL TITLE: NURSING NOTE PB STANDARD TITLE: NURSING PROGRESS NOTE DATE OF NOTE: MAY 13, 2024@11:38 ENTRY DATE: MAY 13, 2024@11:38:39 AUTHOR: DIANA MARQUEZ EXP COSIGNER: URGENCY: STATUS: COMPLETED Blood Pressure: 106/60 Pulse: 70 Temperature: 97.9 F (36.6 C) Pulse Oximetry: 97% Active Outpatient Medications: Active Outpatient Medications (including Supplies): Active Outpatient Medications Status 1) ALBUTEROL 90MCG (CFC-F) 200D ORAL INHL INHALE 2 PUFFS ACTIVE ORAL INHALATION EVERY 4 HOURS NEEDED FOR SHORTNESS OF BREATH SHAKE WELL. RINSE MOUTHPIECE FREQUENTLY TO PREVENT CLOGGING. 2) CHOLECALCIF 50MCG (D3-2,000UNIT) TAB TAKE THREE ACTIVE TABLETS BY MOUTH ONCE A DAY FOR VITAMIN D DEFICIENCY 3) FLUTICAS 100/SALMETEROL 50 INHL DISK 60 INHALE 1 ACTIVE INHALATION ORAL INHALATION TWICE A DAY FOR COPD (OPEN DISKUS; CLICK ONLY ONCE; MAY INHALE TWICE TO COMPLETE DOSE; CLOSE WHEN FINISHED) RINSE MOUTH AND SPIT AFTER EACH USE. 4) HCTZ 12.5/LISINOPRIL 10MG TAB TAKE 1 TABLET BY MOUTH ACTIVE TWICE A DAY 5) MUPIROCIN 2% OINT APPLY SPARINGLY TO AFFECTED AREA(S) ACTIVE TWICE A DAY FOR BACTERIAL INFECTION EXTERNAL USE ONLY. 6) ROSUVASTATIN CA 5MG TAB TAKE ONE-HALF TABLET BY MOUTH ACTIVE EVERY EVENING FOR HIGH CHOLESTEROL TAKE ORALLY WITH EVENING MEAL 7) TIOTROPIUM 2.5MCG/ACTUAT 60D ORAL INHL INHALE 2 ACTIVE INHALATIONS ORAL INHALATION ONCE A DAY FOR COPD (ADMINISTER AT SAME TIME EACH DAY) Active Non-VA Medications Status 1) Non-VA APPLE CIDER VINEGAR CAP/TAB 1 CAP/TAB BY MOUTH ACTIVE ONCE A DAY CC: Ernesto presents to clinic for scheduled nurse visit to assess recent UTI diagnosis from ER visit. Subjective: Edina states he went to ER for hematuria on 05/03/24. He was discharged home with diagnosis of UTI. Edina prescribed antibiotic course for 10 days. Here to follow up. O/A: is alert and oriented. States improved urinary symptoms. Denies fevres, chills, malaise, burning, or pain. Respirations easy and non-labored. Heart rate regular with stable VS. Abdomen soft and not tender on palpation. Urine specimen obtained and dark rg in color. No visible blood or cloudiness. Edina reports continued urgency and incontinence of urine. Plan/ Intervention: Post void bladder scan done and less than 7cc remains in bladder. POC urine collected. Discussed with PACT PCP. Edina reports 1 day of treatment remains of antibiotic course from ER. Treatment continues so UA C/S not done. instructed to finish course and allow few days to see if symptoms subside. Return to clinic in 1 week if symptoms continue. Report sooner if fevers, chills, malaise, or difficulty urinating occurs. Encouraged good hydration. Edina reports understanding of instructions. RTC: As scheduled and as needed. Per [facility] Directive 1605.06, wristband documentation: Patient wristband was removed and destroyed by (staff name) Diana Marquez RN and placed in the designated [facility] bin. /es/ DIANA JARAMILLO, JOHN [facility] Signed: 05/13/2024 11:56 Receipt Acknowledged By: 05/13/2024 15:33 /es/ NAVIN MARQUEZ,DIANA [facility]
--- OUTSIDE RECORDS SUMMARY | 2024-07-28 15:53 | XMS_ITS | Encounter Summary ---
Author Name [facility] [place] Organization [facility] [place] Address [address] [place] [address] Care Team Providers Care Bmw Sales Consultant Name Role Phone ACACIANAVIN ELLIS Primary Care Provider Unavailabl e Insurance Providers: [...] Reagan's Name Patient's Relationship to Policy Reagan [facility] (WNR) MEDICARE ADVANTAGE [facility] ([facility]) November 22, 2015 [id number] Arminda LONG PATIENT MEDICARE (WNR) MEDICARE (M) PART A Feb 21, 2007 PART A [id number] [phone] Arminda LONG PATIENT MEDICARE (WN) MEDICARE (M) PART B Feb 21, 2007 PART B [id number] [phone] Arminda LONG PATIENT [facility] (WNR) MEDICARE ADVANTAGE [facility] ([facility]) November 22, 2015 [id number] Arminda LONG PATIENT Selected Encounter This section includes the information on record at [place] for the Encounter. Date/Time Encounter Type Encounter Description Reason Pro vider Source Jul 05, 2024 01:15 PM Outpatient Encounter COMMUNITY CARE CONSULT IHE Encounter Template Text not used by [place] Plan of Treatment: Future Appointments (+ 6 months) and Future Tests (+/- 45 days) The Plan of Treatment section includes future care activities for the patient from all [place] [facility]. This section includes future appointments and future orders which are active, pending or scheduled. Future Appointments This section includes appointments that were scheduled to occur 6 months from the date of the Encounter, up to a maximum of 20 appointments. The data comes from all [place] treatment [facility]. Appointment Date/Time Appointment Type Appointme nt Facility Name Jul 26, 2024 09:30 AM AMBULATORY - MEDICINE [facility] Aug 15, 2024 02:00 PM AMBULATORY - MEDICINE [facility] Active, Pending, and Scheduled Orders This section includes a listing of several types of active, pending, and scheduled orders, including clinic medications orders, diagnostic test orders, procedure orders and consult orders; where the start date of the order is 45 days before the date of the Encounter or 45 days after the date of theEncounter. The data comes from all [facility]. Test Date/Time Test Type Test Details Facility Name Jul 05, 2024 02:55 PM Consult Order COMMUNITY CARE-DERMATOLOGY [id number] Cons Outside B2B Sales's Choice CHRISTIAN COLMENARES [facility] Jul 19, 2024 12:00 AM Laboratory - Chemistry Order CHOLESTEROL PANEL (PB) GREEN LI/HEP BLD/PLAS PLASMA [facility] Jul 19, 2024 12:00 AM Laboratory - Chemistry Order DIRECT LDL (MA-PB) GREEN LI/HEP BLD/PLAS PLASMA [facility] Jul 19, 2024 12:00 AM Laboratory - Chemistry Order COMPREHENSIVE METABOLIC PANEL GREEN LI/HEP BLD/PLAS PLASMA [facility] Jul 19, 2024 12:00 AM Laboratory - Chemistry Order VITAMIN D, 25-HYDROXY GOLD/RED SST SERUM [facility] Jul 19, 2024 12:00 AM Laboratory - Chemistry Order FOLATE (PB) GOLD/RED SST SERUM [facility] Jul 19, 2024 12:00 AM Laboratory - Chemistry Order B12 GOLD/RED SST SERUM [facility] Jul 19, 2024 12:00 AM Laboratory - Chemistry Order [id number] BLOOD [facility] Encounter Notes: All associated encounter notes This section contains the clinical notes associated to the Encounter. Date/Time Encounter Note(s) Provider Source Jul 05, 2024 01:17 PM LETTERS: LOCAL TITLE: COMMUNITY CARE-REQUEST FOR SERVICES (RFS) LETTER PB STANDARD TITLE: LETTERS DATE OF NOTE: JUL 05, 2024@13:17 ENTRY DATE: JUL 05, 2024@13:17:34 AUTHOR: MARC GROVER EXP COSIGNER: URGENCY: STATUS: COMPLETED [facility] [address] [place] [address] P: [phone] F: [phone] Dear Provider, [place] Information: Patient Name: QUENTIN LONG Date of : 1940 The [facility] has received the request. Upon review, the following determination has been made: A new consult has been entered for the requested services. Once the consult has been signed and processed a new authorization will be faxed to the appropriate office. No further action is required from you at this time. Should you have questions, please contact the employment evaluator/case manager Marc Grover RN at [phone] ext [phone]. As a reminder, if applicable, return medical records within 30 days for routine services. Sincerely, MARC Lundberg RN [facility] Jul 05, 2024 01:16 PM NONVA NOTE: LOCAL TITLE: COMMUNITY CARE-REQUEST FOR SERVICE NOTE PB STANDARD TITLE: NONVA NOTE DATE OF NOTE: JUL 05, 2024@13:16 ENTRY DATE: JUL 05, 2024@13:16:19 AUTHOR: MARC GROVER EXP COSIGNER: URGENCY: STATUS: COMPLETED COMMUNITY CARE-REQUEST FOR SERVICE NOTE PB Has ADDENDA Request for Services (RFS) documentation has been sent for scanning to [facility] [facility] Community Care Consult: COMMUNITY [id number] Consult Number: [id number] Authorization Number: Date sent to scanning: Jun A Request for Service (RFS) form [id number] has been received which includes the following: Care Requested:. RFS received from [facility] for continuation of care, appointment 08/15/24 at 1400. Dx Z85.828, L57.0 Date VA received request: Jun Date service required (PID): Jul Requesting Community Provider Information: Name of Ordering Provider: . [facility] [address] [place] [address] P: [phone] F: [phone] /evelia/ MARC GROVER RN Signed: 07/05/2024 13:17 07/08/2024 ADDENDUM STATUS: COMPLETED [facility] Scanned Document - Addendum. Request for Services (RFS) documentation has been sent for scanning to [facility] Community Care Consult: COMMUNITY [id number] Consult Number: [id number] Authorization Number: Date sent to scanning: Jun SCANNED DOCUMENT SIGNATURE NOT REQUIRED Electronically Filed: 07/08/2024 by: MARC Yanez [facility]
--- OUTSIDE RECORDS SUMMARY | 2024-07-28 15:53 | XMS_ITS | Encounter Summary ---
Author Name [facility] [place] Organization [facility] [place] Address [address] [place] [address] Care Team Providers Care Tube Man Name Role Phone ACACIANAVIN ELLIS Primary Care [...] Reagan's Name Patient's Relationship to Policy Reagan [facility] (WNR) MEDICARE ADVANTAGE [facility]) November 22, 2015 [id number] Arminda LONG PATIENT MEDICARE (WNR) MEDICARE (M) PART A Feb 21, 2007 PART A [id number] [phone] Arminda LONG PATIENT MEDICARE (WN) MEDICARE (M) PART B Feb 21, 2007 PART B [id number] [phone] Arminda LONG PATIENT [facility] (WNR) MEDICARE ADVANTAGE [facility] ([facility]) November 22, 2015 [id number] [phone] Arminda LONG PATIENT Selected Encounter This section includes the information on record at [place] for the Encounter. Date/Time Encounter Type Encounter Description Reason Provider Source May 02, 2024 08:38 AM Outpatient Encounter COMMUNITY CARE CONSULT PATRICIA DAVILA IHRegla Encounter Template Text not used by [place] Plan of Treatment: Future Appointments (+ 6 months) and Future Tests (+/- 45 days) The Plan of Treatment section includes future care activities for the patient from all [place] [facility]. This section includes future appointments and future orders which are active, pending or scheduled. Future Appointments This section includes appointments that were scheduled to occur 6 months from the date of the Encounter, up to a maximum of 20 appointments. The data comes from all [facility]. Appointment Date/Time Appointment Type Appointme nt Facility Name May 13, 2024 10:30 AM AMBULATORY - MEDICINE [facility] May 13, 2024 11:00 AM AMBULATORY - MEDICINE [facility] Jul 26, 2024 09:30 AM AMBULATORY - MEDICINE [facility] Aug 15, 2024 02:00 PM AMBULATORY - MEDICINE [facility] Active, Pending, and Scheduled Orders This section includes a listing of several types of active, pending, and scheduled orders, including clinic medications orders, diagnostic test orders, procedure orders and consult orders; where the start date of the order is 45 days before the date of the Encounter or 45 days after the date of theEncounter. The data comes from all [facility]. Test Date/Time Test Type Test Details Facility Name Apr 04, 2024 11:56 AM Laboratory - Chemi stry Order POC UA (STL-PB-MA) URINE [facility] May 13, 2024 10:16 AM Laboratory - Chemi stry Order POC UA (STL-PB-MA) URINE [facility] Lab Results: +/- 30 days of the encounter This section includes the Chemistry and Hematology Lab Results on record with [place] for the patient. Radiology Reports and Pathology Reports are provided separately, in subsequent sections. Lab Results This section contains the Chemistry/Hematology Results that were resulted 30 days before or 30 daysafter the date of the Encounter. Date/Time Source Result Type Result - Unit Interpretation Reference Range Comment Apr 04, 2024 12:03 PM [facility] POC UA (STL-PB-MA) Specimen Type: URINE No comment entered. Ordering Provider: DM CALVIN Report Released Date/Time: Apr 04, 2024 12:10 PM Reporting Lab: [facility] [address] [facility] [address] Performing Lab: [facility] [address] [facility] [address] PROTEIN POC UA 30 mg/dL Negative BLOOD [...] Negative Negative CLARITY POC UA Clear CLEAR Encounter Notes: All associated encounter notes This section contains the clinical notes associated to the Encounter. Date/Time Encounter Note(s) Provider Source May 02, 2024 11:56 AM ADDENDUM: LOCAL TITLE: Addendum STANDARD TITLE: ADDENDUM DATE OF NOTE: MAY 02, 2024@11:56:29 ENTRY DATE: MAY 02, 2024@11:56:31 AUTHOR: ROSEMARIE ISAACS EXP COSIGNER: URGENCY: STATUS: COMPLETED [address] [address] Time Seen by Provider: 05/01/24 14:08 84-year-old male presents with some hematuria and passing blood clots this been going for about 4 days. He complains of significant discomfort when he urinates with a burning. He is on a blood thinner. He denies any nausea, vomiting, flank pain, belly emilia. Associated symptoms: Reports dysuria, hematuria and urinary incontinence; Deny nausea or vomiting Patient's labs were ordered reviewed and interpreted by me. Patient'ss [id number] is consistent with likely urinary tract infection. Patient CT also shows symptoms consistent for cystitis and ureteritis. Patient was treated with 2 g IV Rocephin in the ER and discharged on Keflex x 7 days. He should follow-up with a primary care provider early next week for recheck of his symptoms. Patient is stable and discharged home. Patient Disposition: Home Clinical Impression: Urinary tract infection Qualifiers: Urinary tract infection type: acute cystitis Hematuria presence: with hematuria Qualified Code(s): N30.0l - Acute cystitis with hematuria Condition: Stable Prescriptions: New cephalexin 500 mg capsule 500 mg PO Q6H 7 Days Qty: 28 ORF (Provider: Jacob Nelson DO) /evelia/ ROSEMARIE JARAMILLO RN Signed: 05/02/2024 12:01 Receipt Acknowledged By: 05/03/2024 14:33 /es/ LUDA SALDANA LPN 05/03/2024 20:40 /es/ NAVIN EUBANKS MD --- Original Document --- 05/01/24 [facility] SELF PRESENTING CARE COORD PLAN 657A4 PB: Emergency Notification Intake Date Presenting to the Facility: 05/01/2024 11:45 AM CDT Date of note has been modified to reflect Date of Service. Reason for modification: Care Coordination Method of Contact: Notified from [employer] worklist Notification ID: [id number] [facility] Referral #: [id number] Clinical Review [facility] Hospital Name: [facility] Address: [address] [place] [address] City: [place] State: [place] Zip Code: [address] Phone : [facility] Facility Point of Contact: Name: Connie Diallo Chief complaint: Passing blood, lots of pain Primary Diagnosis: Disposition Unknown at time of intake note entry /es/ Patricia Davila RN-BSN Devendra Rice [facility] Signed: 05/02/2024 08:40 Receipt Acknowledged By: 05/02/2024 09:35 /evelia/ ROSEMARIE JARAMILLO RN 05/01/2024 ADDENDUM STATUS: COMPLETED VistA Imaging Scanned Document - Addendum. ED NOTES/CT ABD PELV REPORT, [facility], [id number] SCANNED DOCUMENT SIGNATURE NOT REQUIRED Electronically Filed: 05/03/2024 by: OLGA ALEXIS,BUSINESS OFFICE ROSEMARIE ISAACS [facility] May 01, 2024 12:00 PM NONVA NOTE: LOCAL TITLE: COMMUNITY CARE-LEIGH SELF PRESENTING CARE COORD PLAN STANDARD TITLE: NONVA NOTE DATE OF NOTE: MAY 01, 2024@12:00 ENTRY DATE: MAY 02, 2024@08:39 AUTHOR: PATRICIA DAVILA COSIGNER: URGENCY: STATUS: COMPLETED COMMUNITY CARE-LEIGH SELF PRESENTING CARE COORD PLAN 657A4 PB Has ADDENDA Emergency Notification Intake Date Presenting to the Facility: 05/01/2024 11:45 AM CDT Date of note has been modified to reflect Date of Service. Reason for modification: Care Coordination Method of Contact: Notified from [employer] worklist Notification ID: [id number] [facility] Referral #: [id number] Clinical Review [facility] Address: [address] [facility] City: [place] State: [place] Zip Code: [address] Phone : [facility] Facility Point of Contact: Name: Connie Diallo Chief complaint: Passing blood, lots of pain Primary Diagnosis: Disposition Unknown at time of intake note entry /es/ Patricia Davila RN-BSN Devendra Chahing [facility] Signed: 05/02/2024 08:40 Receipt Acknowledged By: 05/02/2024 09:35 /es/ ROSEMARIE JARAMILLO RN 05/02/2024 ADDENDUM STATUS: COMPLETED [address] [place] [address] Time Seen by Provider: 05/01/24 14:08 84-year-old male presents with some hematuria and passing blood clots this been going for about 4 days. He complains of significant discomfort when he urinates with a burning. He is on a blood thinner. He denies any nausea, vomiting, flank pain, belly emilia. Associated symptoms: Reports dysuria, hematuria and urinary incontinence; Deny nausea or vomiting Patient's labs were ordered reviewed and interpreted by me. Patient'ss [id number] is consistent with likely urinary tract infection. Patient CT also shows symptoms consistent for cystitis and ureteritis. Patient was treated with 2 g IV Rocephin in the ER and discharged on Keflex x 7 days. He should follow-up with a primary care provider early next week for recheck of his symptoms. Patient is stable and discharged home. Patient Disposition: Home Clinical Impression: Urinary tract infection Qualifiers: Urinary tract infection type: acute cystitis Hematuria presence: with hematuria Qualified Code(s): N30.0l - Acute cystitis with hematuria Condition: Stable Prescriptions: New cephalexin 500 mg capsule 500 mg PO Q6H 7 Days Qty: 28 ORF (Provider: Jacob Nelson DO) /october Neli JONESN,RN Signed: 05/02/2024 12:01 Receipt Acknowledged By: * AWAITING SIGNATURE * LUDA SALDANA * AWAITING SIGNATURE * DIANA NOLASCO * AWAITING SIGNATURE * NAVIN EUBANKS * AWAITING SIGNATURE * JESSE JUAN 05/01/2024 ADDENDUM STATUS: COMPLETED VistA Imaging Scanned Document - Addendum. ED NOTES/CT ABD PELV REPORT, [facility], [id number] SCANNED DOCUMENT SIGNATURE NOT REQUIRED Electronically Filed: 05/03/2024 by: OLGA LAEXIS,BUSINESS OFFICE PATRICIA DAVILA [facility]
--- OUTSIDE RECORDS SUMMARY | 2024-07-28 15:53 | XMS_ITS | Encounter Summary ---
Author Name Department of Vetera Affairs [place]) Organization [place] Address [address] [place] [address] Care Team Providers Care Medical Claims Analyst Name Role Phone ACACIANAVIN ELLIS Primary Care [...] Reagan's Name Patient's Relationship to Policy Reagan [facility] (WNR) MEDICARE ADVANTAGE [facility] ([facility]) November 22, 2015 [id number] Arminda LONG PATIENT MEDICARE (WNR) MEDICARE (M) PART A Feb 21, 2007 PART A [id number] [phone] Arminda LONG PATIENT MEDICARE (WN) MEDICARE (M) PART B Feb 21, 2007 PART B [id number] [phone] [facility] (WNR) MEDICARE ADVANTAGE [facility] ([facility]) November 22, 2015 [id number] [phone] Arminda LONG PATIENT Selected Encounter This section includes the information on record at [place] for the Encounter. Date/Time Encounter Type Encounter Description Reason Pro vider Source Jul 09, 2024 04:12 PM Outpatient Encounter COMMUNITY CARE CONSULT IHE Encounter Template Text not used by [place] Plan of Treatment: Future Appointments (+ 6 months) and Future Tests (+/- 45 days) The Plan of Treatment section includes future care activities for the patient from all [place] [facility]. This section includes future appointments and future orders which are active, pending or scheduled. Future Appointments This section includes appointments that were scheduled to occur 6 months from the date of the Encounter, up to a maximum of 20 appointments. The data comes from all [place] treatment [facility]. Appointment Date/Time Appointment Type Appointme nt Facility Name Jul 26, 2024 09:30 AM AMBULATORY - MEDICINE [facility] Aug 15, 2024 02:00 PM AMBULATORY - MEDICINE [facility] Active, Pending, and Scheduled Orders This section includes a listing of several types of active, pending, and scheduled orders, including clinic medications orders, diagnostic test orders, procedure orders and consult orders; where the start date of the order is 45 days before the date of the Encounter or 45 days after the date of theEncounter. The data comes from all [facility]. Test Date/Time Test Type Test Details Facility Name Jul 05, 2024 02:55 PM Consult Order COMMUNITY CARE-DERMATOLOGY 657A4 Cons Client Solutions Manager's Choice [facility] Jul 19, 2024 12:00 AM Laboratory - Chemistry Order CHOLESTEROL PANEL (PB) GREEN LI/HEP BLD/PLAS PLASMA [facility] Jul 19, 2024 12:00 AM Laboratory - Chemistry Order DIRECT LDL (MA-PB) GREEN LI/HEP BLD/PLAS PLASMA [facility] Jul 19, 2024 12:00 AM Laboratory - Chemistry Order COMPREHENSIVE METABOLIC PANEL GREEN LI/HEP BLD/PLAS PLASMA [facility] Jul 19, 2024 12:00 AM Laboratory - Chemistry Order VITAMIN D, 25-HYDROXY GOLD/RED SST SERUM [facility] Jul 19, 2024 12:00 AM Laboratory - Chemistry Order FOLATE (PB) GOLD/RED SST [facility] Jul 19, 2024 12:00 AM Laboratory - Chemistry Order B12 GOLD/RED SST [facility] Jul 19, 2024 12:00 AM Laboratory - Chemistry Order HGA1C BLOOD SP [facility] Encounter Notes: All associated encounter notes This section contains the clinical notes associated to the Encounter. Date/Time Encounter Note(s) Provider Source Jul 09, 2024 04:12 PM LETTERS: LOCAL TITLE: COMMUNITY CARE-REFERRAL PB (AUTO-PRINT) STANDARD TITLE: LETTERS DATE OF NOTE: JUL 09, 2024@16:12:33 ENTRY DATE: JUL 09, 2024@16:12:33 AUTHOR: EMANUEL GALAN COSIGNER: URGENCY: STATUS: COMPLETED Quentin Long [id number] [place], [place] [address] Dear QUENTIN LONG, Your VA provider has referred you to a provider within the community for care. Your medical care for dermatology has been authorized with the Community Care Provider listed below. DO NOT REPORT TO THE [facility] Provider info: An appointment has been scheduled for you on: Aug 15, 2024 02:00 PM Office Name: [facility] Address: [address] [place] [address] Address: [place] [address] Auth #: [id number] Referral Issue Date: 2024-07-09 Expiration Date: 2025-02-11 If you are unable to keep this appointment or the appointment is no longer needed, please contact the community provider above for notification/rescheduling and then call the Devendra Rice [place] Community Care Office at [phone] Ext [phone]. If you need additional care/services not mentioned above, please contact your primary care provider for a new referral. Co-Payments: If you are required to pay a VA co-payment, you will be billed by the ID for each authorized visit that you attend. However, you are NOT REQUIRED to make co-payments to a Community Provider. Prescriptions: Your community provider may write a prescription related to the authorized care. If there is an immediate need for your prescriptions from your community care visit, you may be able to get up to a 14-day fill of your prescription at your own expense for the cost of the medication, and may seek reimbursement from the VA. If you require more than a 14-day supply or if the prescribed medication is not immediately needed, your community provider will send a prescription to a VA pharmacy so that the VA can provide you with your routine medication. In-network locations can be found at https://www.va.gov/find-loca tions/ Medical Devices: Your community provider may recommend that medical devices, adapted equipment, or other items be provided for the treatment or rehabilitation of your medical condition. Veterans are generally required to obtain these items through the Prosthetics and Sensory Aids Service (PSAS) in your referring facility. Emergency/Inpatient Services: You, your community provider, or your family must provide notification within 72hr or ER visit and/or admission by [phone]. Thank you for the opportunity to serve you and for your service to our great nation! Devendra Rice [facility] Care in the Community [address] [facility] [place] [address] EMANUEL GALAN [facility]
--- OUTSIDE RECORDS SUMMARY | 2024-07-28 15:53 | XMS_ITS | Encounter Summary ---
Author Name [facility] [place] [facility] [place] Address [address] [place] [address] Care Team Providers Care Puppy Walker Name Role Phone ACACIANAVIN ELLIS Primary Care [...] Reagan's Name Patient's Relationship to Policy Reagan AARP [facility] (WNR) MEDICARE ADVANTAGE [facility] ([facility]) November 22, 2015 [id number] [phone] Arminda LONG PATIENT MEDICARE (WNR) MEDICARE (M) PART A Feb 21, 2007 PART A [id number] Arminda LONG PATIENT MEDICARE (WNR) MEDICARE (M) PART B Feb 21, 2007 PART B [id number] [phone] Arminda LONG PATIENT [facility] (WNR) MEDICARE ADVANTAGE [facility] (WN) November 22, 2015 [id number] Arminda LONG PATIENT Selected Encounter This section includes the information on record at [place] for the Encounter. Date/Time Encounter Type Encounter Description Reason Pro vider Source Apr 16, 2024 12:00 AM Outpatient Encounter EVENT (HISTORICAL) IHE Encounter Template Text not used by [facility] Plan of Treatment: Future Appointments (+ 6 months) and Future Tests (+/- 45 days) The Plan of Treatment section includes future care activities for the patient from all [place] [facility]. This section includes future appointments and future orders which are active, pending or scheduled. Future Appointments This section includes appointments that were scheduled to occur 6 months from the date of the Encounter, up to a maximum of 20 appointments. The data comes from all [facility]. Appointment Date/Time Appointment Type Appointme nt Facility Name May 13, 2024 10:30 AM AMBULATORY - MEDICINE [facility] May 13, 2024 11:00 AM AMBULATORY - MEDICINE [facility] Jul 26, 2024 09:30 AM AMBULATORY - MEDICINE [facility] Aug 15, 2024 02:00 PM AMBULATORY - MEDICINE [facility] Active, Pending, and Scheduled Orders This section includes a listing of several types of active, pending, and scheduled orders, including clinic medications orders, diagnostic test orders, procedure orders and consult orders; where the start date of the order is 45 days before the date of the Encounter or 45 days after the date of theEncounter. The data comes from all [facility]. Test Date/Time Test Type Test Details Facility Name Apr 04, 2024 11:56 AM Laboratory - Chemi stry Order POC UA (STL-PB-MA) URINE [facility] May 13, 2024 10:16 AM Laboratory - Chemi stry Order POC UA (STL-PB-MA) URINE [facility] Lab Results: +/- 30 days of the encounter This section includes the Chemistry and Hematology Lab Results on record with [place] for the patient. Radiology Reports and Pathology Reports are provided separately, in subsequent sections. Lab Results This section contains the Chemistry/Hematology Results that were resulted 30 days before or 30 daysafter the date of the Encounter. Date/Time Source Result Type Result - Unit Interpretation Reference Range Comment Apr 04, 2024 12:03 PM [facility] POC UA (STL-PB-MA) Specimen Type: URINE No comment entered. Ordering Provider: DM CALVIN Report Released Date/Time: Apr 04, 2024 12:10 PM Reporting Lab: [facility] [address] [facility] [address] Performing Lab: [facility] [address] [facility] [address] [facility] [address] PROTEIN POC UA 30 mg/dL Negative BLOOD [...] Clear CLEAR Mar 27, 2024 08:37 AM [facility] COMPREHENSIVE METABOLIC PANEL Specimen Type: PLASMA No comment entered. Ordering Provider: NAVIN EUBANKS Report Released Date/Time: Apr 05, 2023 04:52 PM Reporting Lab: [place] [facility] [address] [place] [address] Performing Lab: [place] [facility] [address] [place] [address] CREATININE 0.97 mg/dL 0.7-1.3 UREA NITROGEN 13 [...] 2020) 78 Mar 27, 2024 08:37 AM [facility] CBC Specimen Type: BLOOD No comment entered. Ordering Provider: NAVIN EUBANKS Report Released Date/Time: Apr 05, 2023 04:52 PM Reporting Lab: [place] [facility] [address] [place] [address] Performing Lab: [place] [facility] [address] [place] [address] WBC 7.9 10*3/uL 3.6-11.2 RBC 6.44 10*6/uL [...] 10*3/uL 0.00-0.05 Mar 27, 2024 08:37 AM [facility] B12 Specimen Type: SERUM No comment entered. Ordering Provider: NAVIN EUBANKS Report Released Date/Time: Apr 05, 2023 04:52 PM Reporting Lab: [place] [facility] [address] [place] [address] Performing Lab: [place] [facility] [address] [place] [address] B12 679 pg/mL 213-816 Mar 27, 2024 08:37 AM [facility] HGA1C Specimen Type: BLOOD No comment entered. Ordering Provider: NAVIN EUBANKS Report Released Date/Time: Apr 05, 2023 04:52 PM Reporting Lab: [place] [facility] [address] [place] [facility] Performing Lab: [place] [facility] [address] [place] [address] HGA1C 6.5 H 4.0-6.0 Mar 27, 2024 08:37 AM [facility] FOLATE (PB) Specimen Type: SERUM No comment entered. Ordering Provider: NAVIN EUBANKS Report Released Date/Time: Apr 05, 2023 04:52 PM Reporting Lab: [place] [facility] [address] [place] [address] Performing Lab: [place] [facility] [address] [place] [address] FOLATE (PB) 7.0 ng/mL 7-20 Mar 27, 2024 08:37 AM [facility] CHOLESTEROL PANEL (PB) Specimen Type: PLASMA No comment entered. Ordering Provider: NAVIN EUBANKS Report Released Date/Time: Apr 05, 2023 04:52 PM Reporting Lab: [place] [facility] [address] [place] [address] Performing Lab: [place] [facility] [address] [place] [address] CHOLESTEROL 188 mg/dL 0-200 TRIGLYCERIDE 77 mg/dL 0-150 CALCULATED LDL 122.3 mg/dL HDL(New) 50.3 mg/dL H >40 HDL % OF TOTAL CHOLESTEROL (PB) 26.8 >25 Mar 27, 2024 08:37 AM [facility] URINE ALBUMIN PROFILE-ih (PB) Specimen Type: URINE No comment entered. Ordering Provider: NAVIN EUBANKS Report Released Date/Time: Apr 05, 2023 04:52 PM Reporting Lab: [place] [facility] [address] [place] [address] Performing Lab: [place] [facility] [address] [place] [address] URINE ALBUMIN (PB-STL) 222.10 mg/L H 0-30 uACR (PB-MA) 107.25 ug/mg CREATININE URINE/OTHERS 207.08 mg/dL Mar 27, 2024 08:37 AM [facility] TSH (MA-PB) Specimen Type: SERUM No comment entered. Ordering Provider: NAVIN EUBANKS Report Released Date/Time: Apr 05, 2023 04:52 PM Reporting Lab: [place] [facility] [address] [place] [address] Performing Lab: [place] [facility] [address] [place] [address] TSH 1.700 u[IU]/mL 0.47-5 Mar 27, 2024 08:37 AM [facility] VITAMIN D, 25-HYDROXY Specimen Type: SERUM No comment entered. Ordering Provider: NAVIN EUBANKS Report Released Date/Time: Apr 05, 2023 04:52 PM Reporting Lab: [place] [facility] [address] [place] [address] Performing Lab: [place] [facility] [address] [place] [address] VITAMIN D, 25-HYDROXY 23.4 ng/mL L 30-96 Mar 27, 2024 08:37 AM [facility] FERRITIN Specimen Type: SERUM No comment entered. Ordering Provider: NAVIN EUBANKS Report Released Date/Time: Sep 22, 2023 09:54 AM Reporting Lab: [place] [facility] [address] [place] [address] Performing Lab: [place] [facility] [address] [place] [address] FERRITIN 62 ng/mL 22-275 Mar 27, 2024 08:37 AM [facility] IRON/TIBC PROFILE Specimen Type: PLASMA No comment entered. Ordering Provider: NAVIN EUBANKS Report Released Date/Time: Sep 22, 2023 09:54 AM Reporting Lab: [place] [facility] [address] [place] [address] Performing Lab: [place] [facility] [address] [place] [address] TIBC 368 mg/dL TRANSFERRIN 294 mg/dL 163-344 IRON SATURATION 38 20-50 IRON 139 ug/dL 65-175 Encounter Notes: All associated encounter notes This section contains the clinical notes associated to the Encounter. Date/Time Encounter Note(s) Provider Source Apr 16, 2024 12:00 AM NONVA CONSULT: LOCAL TITLE: COMMUNITY CARE-CONSULT RESULT NOTE PB STANDARD TITLE: NONVA CONSULT DATE OF NOTE: APR 16, 2024 ENTRY DATE: JUL 07, 2024@23:33:13 AUTHOR: NGHIA BARRIGA EXP COSIGNER: URGENCY: STATUS: COMPLETED VistA Imaging - Scanned Document 04/16/24 [facility] DERMATOLOGY F/U SCANNED DOCUMENT SIGNATURE NOT REQUIRED Electronically Filed: 07/07/2024 by: NGHIA TOSCANO [facility]
--- OUTSIDE RECORDS SUMMARY | 2024-07-28 15:53 | XMS_ITS | Encounter Summary ---
Author Name [facility] [place] Address [address] [place] [address] Care Team Providers Care Electrical Products Engineer Name Role Phone NAVIN EUBANKS Primary Care [...] Reagan's Name Patient's Relationship to Policy Reagan [facility] (WNR) MEDICARE ADVANTAGE [facility] ([facility]) November 22, 2015 [id number] [phone] Arminda LONG PATIENT MEDICARE (WNR) MEDICARE (M) PART A Feb 21, 2007 PART A [id number] Arminda LONG PATIENT MEDICARE (WN) MEDICARE (M) PART B Feb 21, 2007 PART B [id number] Arminda LONG PATIENT [facility] (WNR) MEDICARE ADVANTAGE [facility] ([facility]) November 22, 2015 [id number] Arminda LONG PATIENT Selected Encounter This section includes the information on record at [place] for the Encounter. Date/Time Encounter Type Encounter Description Reason Provider Source Jul 26, 2024 09:30 AM MTMS BY PHARM GAL 15 MIN CLINICAL PHARMACY ICD-10-CM J44.9 Chronic obstructive pulmonary disease, unspecified QUENTIN CALVIN Regla Encounter Template Text not used by [place] Assessments - Encounter Diagnoses This section includes the primary and secondary diagnoses documented for the Encounter. 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 This section includes future appointments and future orders which are active, pending or scheduled. Future Appointments This section includes appointments that were scheduled to occur 6 months from the date of the Encounter, up to a maximum of 20 appointments. The data comes from all [place] treatment facilities. Appointment Date/Time Appointment Type Appointme nt Facility Name Aug 15, 2024 02:00 PM AMBULATORY - MEDICINE [facility] Active, Pending, and Scheduled Orders This section includes a listing of several types of active, pending, and scheduled orders, including clinic medications orders, diagnostic test orders, procedure orders and consult orders; where the start date of the order is 45 days before the date of the Encounter or 45 days after the date of theEncounter. The data comes from all [place] treatment [facility]. Test Date/Time Test Type Test Details Facility Name Jul 05, 2024 02:55 PM Consult Order COMMUNITY CARE-DERMATOLOGY [id number] Cons Public Relations Consultant's Choice [facility] Jul 19, 2024 12:00 AM Laboratory - Chemistry Order CHOLESTEROL PANEL (PB) GREEN LI/HEP BLD/PLAS PLASMA SP [facility] Jul 19, 2024 12:00 AM Laboratory - Chemistry Order DIRECT LDL (MA-PB) GREEN LI/HEP BLD/PLAS PLASMA [facility] Jul 19, 2024 12:00 AM Laboratory - Chemistry Order COMPREHENSIVE METABOLIC PANEL GREEN LI/HEP BLD/PLAS PLASMA [facility] Jul 19, 2024 12:00 AM Laboratory - Chemistry Order VITAMIN D, 25-HYDROXY GOLD/RED SST SERUM [facility] Jul 19, 2024 12:00 AM Laboratory - Chemistry Order FOLATE (PB) GOLD/RED SST SERUM [facility] Jul 19, 2024 12:00 AM Laboratory - Chemistry Order B12 GOLD/RED SST SERUM [facility] Jul 19, 2024 12:00 AM Laboratory - Chemistry Order HGA1C BLOOD [facility] Social History: Smoking Status (Most current) and Tobacco Use (All prior to encounter date) This section includes the most current, and the historical, smoking and tobacco- related health factors from the [place] facility where the Encounter took place. Current Smoking Status This section includes the most current smoking, or tobacco-related health factor, from the [place] facility where the Encounter took place. Date/Time Current Smoking Status Comment Facil ity Apr 04, 2024 10:30 AM VA-TOBACCO USER EVERY DAY [facility] Tobacco Use History This section includes a history of the smoking, or tobacco-related health factors, that were collected on or before the date of the Encounter. The data comes from the [place] facility where the Encounter took place. Date/Time Smoking Status/Tobacco Use Comment F acility Apr 04, 2024 10:30 AM VA-TOBACCO USE 30 YEARS OR MORE [facility] Apr 04, 2024 10:30 AM VA-TOBACCO USE ADVICE [facility] Apr 04, 2024 10:30 AM VA-TOBACCO USE INCIDENT RESPONSE SPECIALIST NO [facility] Apr 04, 2024 10:30 AM VA-TOBACCO USE MED NO [facility] Apr 04, 2024 10:30 AM VA-TOBACCO USER EVERY DAY [facility] Apr 06, 2023 08:30 AM VA-TOBACCO DOESNT USE WI 30 MIN WAKEUP [facility] Apr 06, 2023 08:30 AM VA-TOBACCO USE 30 YEARS OR MORE [facility] Apr 06, 2023 08:30 AM VA-TOBACCO USE ADVICE [facility] Apr 06, 2023 08:30 AM VA-TOBACCO USE INCIDENT RESPONSE SPECIALIST NO [facility] Apr 06, 2023 08:30 AM VA-TOBACCO USE MED NO [facility] Apr 06, 2023 08:30 AM VA-TOBACCO USER SOME DAYS [facility] Apr 12, 2022 02:30 PM VA-TOBACCO DOESNT USE WI 30 MIN WAKEUP [facility] Apr 12, 2022 02:30 PM VA-TOBACCO USE 30 YEARS OR MORE [facility] Apr 12, 2022 02:30 PM VA-TOBACCO USE ADVICE [facility] Apr 12, 2022 02:30 PM VA-TOBACCO USE INCIDENT RESPONSE SPECIALIST NO [facility] Apr 12, 2022 02:30 PM VA-TOBACCO USE MED NO [facility] Apr 12, 2022 02:30 PM VA-TOBACCO USER EVERY DAY [facility] Oct 12, 2009 10:39 AM CURRENT TOBACCO USER [facility] [facility] Oct 12, 2009 10:39 AM TOBACCO OFFERED STOP SMOKING CLI FABI [facility] Aug 07, 2008 11:49 AM CURRENT TOBACCO USER [facility] Aug 07, 2008 11:49 AM TOBACCO OFFERED STOP SMOKING CLI FABI [facility] Aug 07, 2008 11:49 [facility] [place] [facility] Jun 12, 2007 10:21 AM QUIT TOBACCO >7 YEARS AGO [place] [facility] Aug 31, 2005 01:59 PM CURRENT TOBACCO USER [facility] Jun 21, 2005 08:52 AM CURRENT TOBACCO USER [facility] December 14, 2004 09:52 AM CURRENT TOBACCO USER [facility] [facility] December 09, 2003 01:01 PM CURRENT [place]BACCO USER [facility] [facility] Encounter Notes: All associated encounter notes This section contains the clinical notes associated to the Encounter. Date/Time Encounter Note(s) Provider Source Jul 26, 2024 08:57 AM PHARMACY NOTE: LOCAL TITLE: PHARMACY CHRONIC DISEASE STATE MANAGEMENT PB STANDARD TITLE: PHARMACY NOTE DATE OF NOTE: JUL 26, 2024@08:57 ENTRY DATE: JUL 26, 2024@08:57:59 AUTHOR: QUENTIN CALVIN COSIGNER: URGENCY: STATUS: COMPLETED QUENTIN LONG is a 84 year old MALE monitored for dyslipidemia - T2D - HTN - CAD - BPH - colon polyps - arthritis - h/o chest pain - COPD - h/o of MRSA with sebaceous cysts - h/o of UTIs Allergies: Patient has answered NKA - verified personal appointment; identified pt. by social security and full name service connected status: not connected Was the personal/phone visit directly with the patient or immediate patient care secretary: YES-patient Subjective: 1. Missed doses or extra doses or pt. stopping any medications: NO saw today in clinic to follow-up on recent ED admision for another UTI; pt. did complete oral cephalexin after IM ceftriaxone and condition has now resolved; added phenoazopyridien 200mg 3 times daily and also advised pt. to combine his OTC apple cider vinegar daily use with SF cranberry juice, water and lemon juice mixture; added finasteride 5mg each evening for severe BPH; re- discussed recent labs and reminded pt. of necessity for cholesterol and LDL lowering low-dose statin medication due to increased values at last labs; discussed the use of patient's 3 metered-dose inhalers and reviewed technique and overall use of these devices; vitamin D3 required increase from 50 mcg to 150 mcg daily; pt's hemoglobin A1c was still controlled, but has [...] [x] Dietary modifications made- discussed in detail as to better meal planning [-] Changes in lifestyle or social history- [-] tobacco use disorder counseling- [x] Lung abnormalities: [x] COPD-patient uses fluticasone/salmeterol, albuterol, and tiotropium MDIs and seems to be controlled on these 3 devices, but question compliance; cautioned pt. to use albuterol MDI as only rescue [-] emphysema [-] asthma [-] other related [...] cyst excision, but is prone to UTIs and has BPH VITALS: Weight: Patient Weight History - Last [...] 4.0 - 6.0 LIVER FUNCTION PANEL Labs: cholesterol is barely controlled, but LDL values are high TRIGLYCERIDE 77 mg/dL [...] Data Found* Calculated 10 year cardiovascular risk was: Not calculated; as patient greatly exceeds threshold -- Physical monitoring parameters: B/P, edema, renal [...] routinely -Pt. most recent blood pressure evaluation: 106/60 on Apr in clinic, 128/72 on Mar in clinic, 115/68 on 04 October in clinic, 102/65 on 06 APR 2023 -Pt. is on: Hydrochlorothiazide 12.5/lisinopril 10mg daily -Pt. 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 with any industrial trainer, and can usually manage condition, but will [...] inhalations as described -Pt. will not consult industrial trainer, due to non-effectiveness from prior visits -Pt. [...] his apple cider vinegar daily use with SF cranberry, juice, water and lemon juice mixture; also added finasteride 5mg each evening for severe BPH; suggested RSV vacc. Active and Recently Outpatient Medications (excluding Supplies): [...] and also added OTC apple cider vinegar mixed with water, lemon juice, and SF cranberry juice daily --Pt. instructed to contact Lipid clinic [...] added phenoazopyridien 200mg 3 times daily and added finasteride 5mg each evening for severe BPH; cont. derm. f/u appts.; advised RSV, as has already recieved shingles, new flu and COVID vaccs. --Specific information about medication(s): necessity to start very low-dose statin and how it works --Diet Interventions: discussed minimizing the intake of trans fats, processed meats, refined carbohydrates, and sweetened beverages as part of a heart healthy diet -Discussed with pt. the Nutrient basic Composition of the [facility] Diet and pt. to choose a low [...] maintained if at all possible --Future Appointments: 07/26/2024 09:30 [facility] --Precautions: patient was instructed to seek [...] the patient --Consult(s): will be placed to: derm., f/u to nursing, cardiology -- in agreement with plan and voices understanding: yes --Next lab date: Jul; the patient repeat labs will be scheduled; pt understands labs are fasting; will alert teletype clerk to schedule next lab and appointment --PID: Next follow up date: Jul; follow-up to labs from Jul and check MDIs and added rosuvastatin; will alert teletype clerk to schedule this check status appt --Thanked for their time and expressed my pleasure to serve them I have communicated previous lab results to patient and the voiced understanding ---Please note that this dictation was completed with computer recognition software, often unanticipated grammatical, syntax and other interpretive errors are inadvertently transcribed by the computer software. Please disregard these errors--- Time spent: 46 minute(s)- TELEPHONE CONTACT NO - FACE TO FACE YES PBM PharmD Pharmacotherapy Rem V12: PHARMACIST INTERVENTIONS: CHRONIC OBSTRUCTIVE PULMONARY DISEASE (COPD) Medication monitoring, no dosage change required, continue to monitor and assess Plan: patient to continue tiotropium MDI and newly added fluticasone/salmeterol metered-dose inhaler, continually, but not wait for using rescue inhaler, albuterol MDI and/or as soon as he feels exacerbation starting, cont. rosuvastatin 2.5mg with evening meal, increased vit D3 from 100 to 150mcg daily, HCTZ/lisinopril 12.5/10 daily, OTC asa 81mg chew. daily, carbamide peroxide ear suspension as needed, added phenoazopyridien 200mg 3 times daily and also advised pt. to combine his apple cider vinegar daily use with cranberry, water, and lemon juice mixture; also will add finasteride 5mg each evening for severe BPH, patient did complete prophylactic prednisone course and anti-biotics per last ED admission / patient declined pulmonology consult / did request dermatology consult for sebaceous cyst that was excised and check for any recurrence also to continue derm. follow-up and use of mupirocin and triple antibiotic ointments / did get shingles, new flu and COVID vaccs. / advised RSV vacc. /es/ Donnell ALBERTS PACT CLINICAL ARCHITECTURAL ENGINEERING TEACHER Signed: 07/26/2024 16:21 QUENTIN CALVIN [facility]
--- OUTSIDE RECORDS SUMMARY | 2024-07-28 15:53 | XMS_ITS | Encounter Summary ---
Author Name [facility] [facility] [place] Address [address] [place] [address] Care Team Providers Care Cafeteria Worker Name Role Phone ACACIANAVIN ELLIS Primary Care [...] Name Patient's Relationship to Policy Reagan AARP [facility] (WNR) MEDICARE ADVANTAGE [facility] ([facility]) November 22, 2015 [id number] Arminda LONG PATIENT MEDICARE (WNR) MEDICARE (M) PART A Feb 21, 2007 PART A [id number] Arminda LONG PATIENT MEDICARE (WNR) MEDICARE (M) PART B Feb 21, 2007 PART B [id number] [phone] Arminda LONG PATIENT [facility] (WNR) MEDICARE ADVANTAGE [facility] ([place] November 22, 2015 [id number] Arminda LONG PATIENT Selected Encounter This section includes the information on record at [place] for the Encounter. Date/Time Encounter Type Encounter Description Reason Pro vider Source Feb 12, 2024 12:00 AM Outpatient Encounter EVENT (HISTORICAL) [facility] Encounter Template Text not used by [place] Plan of Treatment: Future Appointments (+ 6 months) and Future Tests (+/- 45 days) The Plan of Treatment section includes future care activities for the patient from all [place] treatmentfacilities. This section includes future appointments and future orders which are active, pending or scheduled. Future Appointments This section includes appointments that were scheduled to occur 6 months from the date of the Encounter, up to a maximum of 20 appointments. The data comes from all [place] treatment facilities. Appointment Date/Time Appointment Type Appointme nt Facility Name Mar 27, 2024 08:40 AM AMBULATORY - MEDICINE [facility] Apr 04, 2024 10:30 AM AMBULATORY [facility]ICINE [facility] Apr 04, 2024 11:30 AM AMBULATORY MEDICINE [facility] May 13, 2024 10:30 AM AMBULATORY MEDICINE [facility] May 13, 2024 11:00 AM AMBULATORY MEDICINE [facility] Jul 26, 2024 09:30 AM AMBULATORY MEDICINE [facility] Encounter Notes: All associated encounter notes This section contains the clinical notes associated to the Encounter. Date/Time Encounter Note(s) Provider Source Feb 12, 2024 12:00 AM NONVA CONSULT: LOCAL TITLE: COMMUNITY CARE-CONSULT RESULT NOTE PB STANDARD TITLE: NONVA CONSULT DATE OF NOTE: FEB 12, 2024 ENTRY DATE: MAR 06, 2024@14:46:53 AUTHOR: JODEE CORRIGAN EXP COSIGNER: URGENCY: STATUS: COMPLETED VistA Imaging - Scanned Document 24 Cardiology Progress Notes OZH SCANNED DOCUMENT SIGNATURE NOT REQUIRED Electronically Filed: 03/06/2024 by: Devendra Poe [facility] JODEE CORRIGAN [facility]
--- OUTSIDE RECORDS SUMMARY | 2024-07-28 15:53 | XMS_ITS | Encounter Summary ---
Author Name [facility] [place] [facility] [place] [facility] [facility] [place] Address [address] [place] [address] Care Team Providers Care Crew Director Name Role Phone NAVIN EUBANKS Primary Care [...] Reagan's Name Patient's Relationship to Policy Reagan [facility] (WNR) MEDICARE ADVANTAGE [facility] ([facility]) November 22, 2015 [id number] [phone] Arminda LONG PATIENT MEDICARE (WN) MEDICARE (M) PART A Feb 21, 2007 PART A [id number] [phone] Arminda LONG PATIENT MEDICARE (WN) MEDICARE (M) PART B Feb 21, 2007 PART B [id number] [phone] Arminda LONG PATIENT [facility] (WNR) MEDICARE ADVANTAGE [facility] ([facility]) November 22, 2015 [id number] Arminda LONG PATIENT Selected Encounter This section includes the information on record at [place] for the Encounter. Date/Time Encounter Type Encounter Description Reason Provider Source Apr 04, 2024 10:30 AM OFFICE O/P EST MOD 30 MIN PRIMARY CARE/MEDICINE ICD-10-CM Z00.01 Encounter for general adult medical exam w abnormal findings NAVIN EUBANKS Encounter Template Text not used by [place] Assessments - Encounter Diagnoses This section includes the primary and secondary diagnoses documented for the Encounter. 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 NAVIN EUBANKS [facility] Apr 11, 2024 04:27 PM SECONDARY Chronic obstructive pulmonary disease, unspecified NAVIN EUBANKS [facility] Apr 11, 2024 04:27 PM SECONDARY Essential (primary) hypertension NAVIN EUBANKS [facility] Apr 11, 2024 04:27 PM SECONDARY Mixed hyperlipidemia NAVIN EUBANKS [facility] Apr 11, 2024 04:27 PM SECONDARY Polyp of colon NAVIN EUBANKS [facility] Apr 11, 2024 04:27 PM SECONDARY Type 2 diabetes mellitus without complications NAVIN EUBANKS [facility] Plan of Treatment: Future Appointments (+ 6 months) and Future Tests (+/- 45 days) The Plan of Treatment section includes future care activities for the patient from all [place] treatmentfacilities. This section includes future appointments and future orders which are active, pending or scheduled. Future Appointments This section includes appointments that were scheduled to occur 6 months from the date of the Encounter, up to a maximum of 20 appointments. The data comes from all [place] treatment facilities. Appointment Date/Time Appointment Type Appointme nt Facility Name May 13, 2024 10:30 AM AMBULATORY - MEDICINE [facility] May 13, 2024 11:00 AM AMBULATORY - MEDICINE [facility] Jul 26, 2024 09:30 AM AMBULATORY - MEDICINE [facility] Aug 15, 2024 02:00 PM AMBULATORY - MEDICINE [facility] Active, Pending, and Scheduled Orders This section includes a listing of several types of active, pending, and scheduled orders, including clinic medications orders, diagnostic test orders, procedure orders and consult orders; where the start date of the order is 45 days before the date of the Encounter or 45 days after the date of theEncounter. The data comes from all [place] treatment facilities. Test Date/Time Test Type Test Details Facility Name Apr 04, 2024 11:56 AM Laboratory - Chemi stry Order POC UA (STL-PB-MA) URINE SP [facility] May 13, 2024 10:16 AM Laboratory - Chemi stry Order POC UA (STL-PB-MA) URINE SP [facility] Lab Results: +/- 30 days of the encounter This section includes the Chemistry and Hematology Lab Results on record with [facility] for the patient. Radiology Reports and Pathology [...] Apr 04, 2024 12:10 PM Reporting Lab: [facility] [address] [address] Performing Lab: [facility] [address] [address] PROTEIN POC UA 30 mg/dL Negative BLOOD [...] Clear CLEAR Mar 27, 2024 08:37 AM [facility] B12 Specimen Type: SERUM No comment entered. Ordering Provider: NAVIN EUBANKS Report Released Date/Time: Apr 05, 2023 04:52 PM Reporting Lab: [facility] [address] [place] [place] [address] Performing Lab: [place] [facility] [address] [place] [address] B12 679 pg/mL 213-816 Mar 27, 2024 08:37 AM [facility] COMPREHENSIVE METABOLIC PANEL Specimen Type: PLASMA No comment entered. Ordering Provider: NAVIN EUBANKS Report Released Date/Time: Apr 05, 2023 04:52 PM Reporting Lab: [place] [facility] [address] [place] [facility] Performing Lab: [place] [facility] [address] [place] [address] CREATININE 0.97 mg/dL 0.7-1.3 UREA NITROGEN 13 [...] 2020) 78 Mar 27, 2024 08:37 AM [facility] CBC Specimen Type: BLOOD No comment entered. Ordering Provider: NAVIN EUBANKS Report Released Date/Time: Apr 05, 2023 04:52 PM Reporting Lab: [place] [facility] [address] [place] [address] Performing Lab: [place] [facility] [address] [place] [address] WBC 7.9 10*3/uL 3.6-11.2 RBC 6.44 10*6/uL [...] 0.00-0.05 Mar 27, 2024 08:37 AM [place] [facility] FOLATE (PB) Specimen Type: SERUM No comment entered. Ordering Provider: NAVIN EUBANKS Report Released Date/Time: Apr 05, 2023 04:52 PM Reporting Lab: [place] [facility] [address] [place] [address] Performing Lab: [place] [facility] [address] [place] [facility] FOLATE (PB) 7.0 ng/mL 7-20 Mar 27, 2024 08:37 AM [facility] HGA1C Specimen Type: BLOOD No comment entered. Ordering Provider: NAVIN EUBANKS Report Released Date/Time: Apr 05, 2023 04:52 PM Reporting Lab: [place] [facility] [address] [place] [address] Performing Lab: [place] [facility] [address] [place] [address] HGA1C 6.5 H 4.0-6.0 Mar 27, 2024 08:[address] [place] [place] [facility] URINE ALBUMIN PROFILE-ih (PB) Specimen Type: URINE No comment entered. Ordering Provider: NAVIN EUBANKS Report Released Date/Time: Apr 05, 2023 04:52 PM Reporting Lab: [place] [facility] [address] [place] [address] Performing Lab: [place] [facility] [address] [place] [address] URINE ALBUMIN (PB-STL) 222.10 mg/L H 0-30 uACR (PB-MA) 107.25 ug/mg CREATININE URINE/OTHERS 207.08 mg/dL Mar 27, 2024 08:37 AM [facility] VITAMIN D, 25-HYDROXY Specimen Type: SERUM No comment entered. Ordering Provider: NAVIN EUBANKS Report Released Date/Time: Apr 05, 2023 04:52 PM Reporting Lab: [place] [facility] [address] [place] [id number] Performing Lab: [place] [facility] [address] [place] [address] VITAMIN D, 25-HYDROXY 23.4 ng/mL L 30-96 Mar 27, 2024 08:37 AM [facility] CHOLESTEROL PANEL (PB) Specimen Type: PLASMA No comment entered. Ordering Provider: NAVIN EUBANKS Report Released Date/Time: Apr 05, 2023 04:52 PM Reporting Lab: [place] [facility] [address] [place] [address] Performing Lab: [place] [facility] [address] [place] [phone] CHOLESTEROL 188 mg/dL 0-200 TRIGLYCERIDE 77 mg/dL 0-150 CALCULATED LDL 122.3 mg/dL HDL(New) 50.3 mg/dL H >40 HDL % OF TOTAL CHOLESTEROL (PB) 26.8 >25 Mar 27, 2024 08:37 AM [facility] TSH (MA-PB) Specimen Type: SERUM No comment entered. Ordering Provider: NAVIN EUBANKS Report Released Date/Time: Apr 05, 2023 04:52 PM Reporting Lab: [place] [facility] [address] [place] [address] Performing Lab: [place] [facility] [address] [place] [phone] TSH 1.700 u[IU]/mL 0.47-5 Mar 27, 2024 08:37 AM [facility] FERRITIN Specimen Type: SERUM No comment entered. Ordering Provider: NAVIN EUBANKS Report Released Date/Time: Sep 22, 2023 09:54 AM Reporting Lab: [place] [facility] [address] [place] [address] Performing Lab: [place] [facility] [address] [place] [address] FERRITIN 62 ng/mL 22-275 Mar 27, 2024 08:37 AM [facility] IRON/TIBC PROFILE Specimen Type: PLASMA No comment entered. Ordering Provider: NAVIN EUBANKS Report Released Date/Time: Sep 22, 2023 09:54 AM Reporting Lab: [place] [facility] [address] [place] [address] Performing Lab: [place] [facility] [address] [place] [address] TIBC 368 mg/dL TRANSFERRIN 294 mg/dL 163-344 [...] and tobacco- related health factors from the [place] facility where the Encounter took place. Current Smoking Status This section includes the most current smoking, or tobacco-related health factor, from the [place] facility where the Encounter took place. Date/Time Current Smoking Status Comment Facil ity Apr 04, 2024 10:30 AM VA-TOBACCO USER EVERY DAY [facility] Tobacco Use History This section includes a history of the smoking, or tobacco-related health factors, that were collected on or before the date of the Encounter. The data comes from the [facility] facility where the Encounter took place. Date/Time Smoking Status/Tobacco Use Comment F acility Apr 04, 2024 10:30 AM VA-TOBACCO USE 30 YEARS OR MORE [facility] Apr 04, 2024 10:30 AM VA-TOBACCO USE ADVICE [facility] Apr 04, 2024 10:30 AM VA-TOBACCO USE ORGANIZATIONAL DEVELOPMENT MANAGER NO [facility] Apr 04, 2024 10:30 AM VA-TOBACCO USE MED NO [facility] Apr 04, 2024 10:30 AM VA-TOBACCO USER EVERY DAY [facility] Apr 06, 2023 08:30 AM VA-TOBACCO DOESNT USE WI 30 MIN [facility] Apr 06, 2023 08:30 AM VA-TOBACCO USE 30 YEARS OR MORE [facility] Apr 06, 2023 08:30 AM VA-TOBACCO USE ADVICE [facility] Apr 06, 2023 08:30 AM VA-TOBACCO USE ORGANIZATIONAL DEVELOPMENT MANAGER NO [facility] Apr 06, 2023 08:30 AM VA-TOBACCO USE MED NO [facility] Apr 06, 2023 08:30 AM VA-TOBACCO USER SOME DAYS [facility] Apr 12, 2022 02:30 PM VA-TOBACCO DOESNT USE WI 30 MIN [facility] Apr 12, 2022 02:30 PM VA-TOBACCO USE 30 YEARS OR MORE [place] [facility] Apr 12, 2022 02:30 PM VA-TOBACCO USE ADVICE [facility] [facility] Apr 12, 2022 02:30 PM VA-TOBACCO USE ORGANIZATIONAL DEVELOPMENT MANAGER NO [place] [facility] Apr 12, 2022 02:30 PM VA-TOBACCO USE MED NO [facility] Apr 12, 2022 02:30 PM VA-TOBACCO USER EVERY DAY [place] [facility] Oct 12, 2009 10:39 AM CURRENT TOBACCO USER [facility] [facility] Oct 12, 2009 10:39 AM TOBACCO OFFERED STOP SMOKING CLI [facility] [place] [facility] Aug 07, 2008 11:49 AM CURRENT TOBACCO USER [place] [facility] Aug 07, 2008 11:49 AM TOBACCO OFFERED STOP SMOKING CLI [facility] [place] [facility] Aug 07, 2008 11:49 [facility] [place] [facility] Jun 12, 2007 10:21 AM QUIT TOBACCO >7 YEARS AGO [place] [facility] Aug 31, 2005 01:59 PM CURRENT TOBACCO USER [place] [facility] Jun 21, 2005 08:52 AM CURRENT TOBACCO USER [place] [facility] December 14, 2004 09:52 AM CURRENT TOBACCO USER [place] [facility] December 09, 2003 01:01 PM CURRENT TOBACCO USER [facility] Encounter Notes: All associated encounter notes This section contains the clinical notes associated to the Encounter. Date/Time Encounter Note(s) Provider Source Apr 04, 2024 11:16 AM PRIMARY CARE PROGR DILMA NOTE: LOCAL TITLE: PRIMARY CARE CLINIC PROGRESS NOTE PB STANDARD TITLE: PRIMARY CARE PROGRESS NOTE DATE OF NOTE: APR 04, 2024@11:16 ENTRY DATE: APR 11, 2024@16:16:20 AUTHOR: NAVIN EUBANKS COSIGNER: URGENCY: STATUS: COMPLETED Provider Assessment Date & Time:Mar@11:16 Chief Complaint: Annual exam, lab review Subjective: Annual visit, lab review, Patient says he has increased frequency in urination sometimes this will Are you receiving care any where other than the [place]? No [facility] [place], [facility] [place], opthamology REVIEW OF SYSTEMS: HEENT: Hearing loss RESPIRATORY: No shortness of breath, cough or sputum. CARDIOVASCULAR: No chest pain or palpitation., Blood pressure is normal GI: No abdominal pain, nausea, vomiting or bowel changes. MUSCULOSKELETAL: No muscle aches or pains. SKIN: No new rashes, no unhealing lesions, no moles. : Nocturia PSYCH: Denies being depressed or anxious. Objective: Vital Signs: 98.0 F [36.7 C] (04/04/2024 11:34) 79 (04/04/2024 11:34) 18 (04/04/2024 11:34) 128/72 (04/04/2024 11:34) 0 (04/04/2024 11:34) 72.0 in [182.9 cm] (04/04/2024 11:34) 192.3 lb [87.23 kg] (04/04/2024 11:34) HEENT: Oral mucosa is moist, Normocephalic/atraumatic, Pupils equal, round, reactive to light , Extraocular muscles intact, Sclera clear, Ears, TMs clear, No voice change, Thyromegaly negative, No jugular venous distention, Oropharynx normal NECK: Supple, Thyroid, normal sized, Lymphadenopathy not present CARDIAC: RRR RESPIRATORY: Clear breath sounds, Shortness of breath GI: WNL, BOWEL SOUNDS NORMAL MUSCULOSKELETAL: Joint Stiffness EXTREMITITES: edemaNone noted SKIN: Warm, Dry, [place] NEUROLOGICAL: The is alert and oriented times: x3 2+ = Normal DEEP TENDON REFLEXES (DTR'S) GAIT & STANCE: normalNormal, bedrest, immobile= [0] A/P: ASSESSMENT and PLAN 1) BPH W/O URINARY OBSTRUCT 2) Arthritis * (ICD-9-CM 716.90) 3) Neck Pain (ICD-9-CM 723.1) 4) Essential hypertension (SNOMED CT 51736606) 5) Chest Pain (SCT 19030368) 6) CAD - Coronary Artery Disease (SCT 71929828) 7) Mixed Hyperlipidemia (SCT 847616500) 8) Diabetes Mellitus Type 2 (SCT 95747572) 9) COPD - Chronic Obstructive Pulmonary Disease (SCT 28844062) 10) Polyp Colon (SCT 23156214) 11) elevated hemoglobin & hematocrit -Follow-up with me every March for annual exam and annual labs -Follow-up every September for 6-month labs -Follow-up with me as needed SUMMARY STATEMENT: Plan of care has been discussed with including expected therapeutic benefits and potential side effects of prescribed medication and treatments. verbalizes understanding and is in agreement with the plan of care. Patient was instructed to keep all scheduled appointments and contact bag adjuster for any additional problems. Health Maintenance: Order annual labs today. Discussed preventative health to include diet and exercise including immunizations. Stable. Discussed medications with patient; med rec completed. Continue current regimen as prescribed by PCP and specialists. RTC as needed if developing any new or worsening symptoms. Please notify PACT with medication changes or for orders coordination as needed if seen by a specialist in the future. Discussed with patient that in the event of community imaging / testing being ordered in the future, once the imaging / testing has been completed, please notify PACT of completion at outside facility if not called with results within 1 week by a [facility] PACT member; this is due to intermittent lapses in notification of imaging completion within [facility]. All questions answered; agrees to plan of care. Follow up as listed above, annually, and as needed. Keep all appointments. Medications Reconciled *ELEVATED LDL DIABETIC: No lipid treatment change is needed based on patient's current status. Comment: continu same The benefits of maintaining a healthy weight range were explained to the patient. /es/ NAVIN EUBANKS MD Signed: 04/11/2024 16:25 NAVIN EUBANKS [facility] Apr 04, 2024 11:03 AM PRIMARY CARE MK FRYE NOTE: LOCAL TITLE: PRIMARY CARE NURSING PROGRESS NOTE (TEXT) NURSING P STANDARD TITLE: PRIMARY CARE NURSING NOTE DATE OF NOTE: APR 04, 2024@11:03 ENTRY DATE: APR 04, 2024@11:03:45 AUTHOR: CROW ERVIN EXP COSIGNER: URGENCY: STATUS: COMPLETED PRIMARY CARE NURSING PROGRESS NOTE (TEXT) NURSING PB Has ADDENDA Established Patient QUENTIN LONG IS A 84 YEAR OLD MALE BEING SEEN IN CLINIC APR 04, 2024. = = REASON FOR VISIT: Annual visit, lab review, increased frequency in urination Are you receiving care any where other than the [facility]? No [facility] [place], [facility] [place], opthamology HEALTH AND SURGICAL HISTORY: no new surgery Does patient report using home oxygen? No CURRENT ACTIVE MEDICATIONS FOR REVIEW: Allergies/ADRs (Tool #5) FACILITY ALLERGY/ADR -------- [facility] No Known Allergies Med. Reconciliation (Tool #1) INCLUDED IN THIS LIST: Alphabetical list of active outpatient prescriptions dispensed from this [facility] (local) and dispensed from another [facility] or [facility] facility (remote) as well as inpatient orders (local pending and active), local clinic medications, locally documented non-VA medications, and local prescriptions that have or been discontinued in the past 90 days. Non-VA Meds Last Documented On: Apr 04, 2024 NOTE The display of VA prescriptions dispensed from another [facility] or [facility] facility (remote) is limited to active outpatient prescription entries matched to National Drug File at the originating site and may not include some items such as investigational drugs, compounds, etc. NOT INCLUDED IN THIS LIST: Medications self-entered by the patient into personal health records (i.e. [employer]) are NOT included in this list. Non-VA medications documented outside this [facility], remote inpatient orders (regardless of status) and remote clinic medications are NOT included in this list. The patient and provider must always discuss medications the patient is taking, regardless of where the medication was dispensed or obtained. OUTPT ALBUTEROL 90MCG (CFC-F) 200D ORAL INHL (Status = Active) INHALE 2 PUFFS ORAL INHALATION EVERY 4 HOURS NEEDED FOR SHORTNESS OF BREATH SHAKE WELL. RINSE MOUTHPIECE FREQUENTLY TO PREVENT CLOGGING. Rx# [id number] Last Released: 02/09/24 Qty/Days Supply: Rx Expiration Date: 12/01/24 Refills Remainin Indication: FOR SHORTNESS OF BREATH Non-VA APPLE CIDER VINEGAR CAP/TAB TAKE 1 CAP/TAB BY MOUTH ONCE A DAY Jan 12, 2024 UT RX: Non-VA medication recommended by [facility] provider VA RX: Patient wants to buy from Non-VA pharmacy Indication: sipplement OUTPT ASPIRIN 81MG CHEW TAB (Status = Active) CHEW AND SWALLOW ONE TABLET BY MOUTH ONCE A DAY FOR CARDIOVASCULAR DISEASE (TAKE WITH FOOD) Rx# [id number] Last Released: 01/29/24 Qty/Days Supply: Rx Expiration Date: 04/06/24 Refills Remainin Indication: FOR CARDIOVASCULAR DISEASE OUTPT CARBAMIDE PEROXIDE 6.5% OTIC SOLN (Status = Active) INSTILL 4 DROPS IN BOTH EARS EVERY 4 WEEKS NEEDED FOR EAR WAX BLOCKAGE Rx# [id number] Last Released: 01/29/24 Qty/Days Supply: Rx Expiration Date: 04/06/24 Refills Remainin Indication: FOR EAR WAX BLOCKAGE OUTPT CHOLECALCIF 50MCG (D3-2,000UNIT) TAB (Status = Discontinued) TAKE TWO TABLETS BY MOUTH ONCE A DAY FOR VITAMIN D DEFICIENCY Rx# [id number] Last Released: 01/29/24 Qty/Days Supply: 200/90 Rx Expiration Date: 09/22/24 Refills Remainin Indication: FOR VITAMIN D DEFICIENCY OUTPT CHOLECALCIF 50MCG (D3-2,000UNIT) TAB (Status = Active/Suspended) TAKE THREE TABLETS BY MOUTH ONCE A DAY FOR VITAMIN D DEFICIENCY Rx# [id number] Last Released: Qty/Days Supply: 300/90 Rx Expiration Date: 04/05/25 Refills Remainin Indication: FOR VITAMIN D DEFICIENCY OUTPT FLUTICAS 100/SALMETEROL 50 INHL DISK 60 (Status = Active) INHALE 1 INHALATION ORAL INHALATION TWICE A DAY FOR COPD (OPEN DISKUS; CLICK ONLY ONCE; MAY INHALE TWICE TO COMPLETE DOSE; CLOSE WHEN FINISHED) RINSE MOUTH AND SPIT AFTER EACH USE. Rx# [id number] Last Released: 01/29/24 Qty/Days Supply: Rx Expiration Date: 09/06/24 Refills Remainin Indication: FOR COPD OUTPT HCTZ 12.5/LISINOPRIL 10MG TAB (Status = Active) TAKE 1 TABLET BY MOUTH TWICE A DAY Rx# [id number] Last Released: 01/29/24 Qty/Days Supply: 180/90 Rx Expiration Date: 06/12/24 Refills Remainin OUTPT MUPIROCIN 2% OINT (Status = Active) APPLY SPARINGLY TO AFFECTED AREA(S) TWICE A DAY FOR BACTERIAL INFECTION EXTERNAL USE ONLY. Rx# [id number] Last Released: 01/29/24 Qty/Days Supply: 66 Rx Expiration Date: 10/03/24 Refills Remainin Indication: FOR BACTERIAL INFECTION OUTPT ROSUVASTATIN CA 5MG TAB (Status = Active/Suspended) TAKE ONE-HALF TABLET BY MOUTH EVERY EVENING FOR HIGH CHOLESTEROL TAKE ORALLY WITH EVENING MEAL Rx# [id number] Last Released: Qty/Days Supply: 45 Rx Expiration Date: 04/05/25 Refills Remainin Indication: FOR HIGH CHOLESTEROL OUTPT TIOTROPIUM 2.5MCG/ACTUAT 60D ORAL INHL (Status = Active) INHALE 2 INHALATIONS ORAL INHALATION ONCE A DAY FOR COPD (ADMINISTER AT SAME TIME EACH DAY) Rx# [id number] Last Released: 01/29/24 Qty/Days Supply: Rx Expiration Date: 08/28/24 Refills Remainin Indication: FOR COPD SUPPLIES PHARMACY TERMS AND POSSIBLE PATIENT ACTIONS INPT = UT inpatient order IV = UT intravenous medication OUTPT = UT outpatient prescription PHARMACY POSSIBLE PATIENT TERMS EXPLANATION ACTIONS -------- ---- ACTIVE A prescription that can be If you have refills, filled at the local [facility] pharmacy. you may request a refill of this prescription from your [facility] pharmacy. CLINIC A medication you received during If you have questions a visit to a [facility] clinic or about this medication emergency department. contact your [facility] healthcare team. DISCONTINUED A prescription your provider has Contact your VA stopped. It is no longer healthcare team if you available to be sent to you or need more of this picked up at the [facility] pharmacy medication. window. A prescription which is too old Contact your VA to fill. This does not refer to healthcare team if you the expiration date of the need more of this medication in the container. medication. NON-VA A medication that came from If this medication someplace other than a VA information is pharmacy. This may be a incorrect or out of prescription from either the VA date, please tell your or non VA providers that was VA healthcare team. filled outside the VA. Or, it may be an [id number] (OTC), herbal, dietary supplements or sample medication. ON HOLD An active prescription that will Contact your VA not be filled until pharmacy pharmacy when you need resolves the issue. more of this medication. PARKED An active prescription that will Contact your VA not be filled until the patient pharmacy when you need requests it. this medication. PENDING This prescription order has been If you have been sent to the pharmacy for review instructed to start and is not ready yet. this medication now, contact your VA pharmacy. SUSPENDED An active prescription that is Contact your VA not scheduled to be filled yet. pharmacy if you need You should receive it before this medication now. you run out. Patient reports taking medications as ordered. IS PATIENT TAKING ANY OVER THE COUNTER MEDICATIONS, SUCH VITAMINS OR HERBAL SUPPLEMENTS, INCLUDING ANY MEDICATIONS PRESCRIBED BY ANOTHER PHYSICIAN? No ALLERGIES/ADVERSE REACTIONS: Patient has answered NKA Does patient have any new allergies to report since last visit? VITALS: TEMPERATURE: 97.6 F [36.4 C] (10/05/2023 13:55) BP: 115/68 (10/05/2023 13:55) RESP: 18 (10/05/2023 13:55) PULSE: 81 (10/05/2023 13:55) HT: 72 in [182.9 cm] (09/06/2023 11:51) WT: 192.1 lb [87.14 kg] (10/05/2023 13:55) BMI: 26.1 PAIN ASSESSMENT: (Most Recent Pain Score in Vitals Package: 3 (10/05/2023 13:55) ) The patient indicated that they and their close contacts have not traveled outside of the [place] in the past 21 days. The patient reports the following symptoms: No symptoms present The patient is not immunocompromised. The patient does not report having a history of Multi Drug Resistant Organism (MDRO) within the last five years. The patient does not report having been exposed to measles, chickenpox, or zoster in last 30 days. Patient reports no pain at this visit. Pain Score = 0. STRESS: Thank you for your service. Now let us serve you. At the [facility], we strive to provide you with exceptional health care that improves your health and well-being. Are you feeling sad, empty, or depressed? No Do you need to talk about things in your life that worry you or cause you stress? No Do you need to talk about personal problems, family problems, alcohol use, drug use, or mental or emotional illness? No SUICIDE SCREENING: The patient was asked, Over the past two weeks, how often have you been bothered by thoughts that you would be better off or of hurting yourself in some way? Not At All SPIRITUAL ASSESSMENT: Are there roman catholic practices or spiritual concerns you want the painter railroad car, your physician, and other health care team members to immediately know about? No Patient advised to call the clinic for any concerns, questions, or symptoms. Patient and/or caregiver verbalized understanding of plan of care. Frail/Elderly Screen: ADL Screen - [place]rick Index of [place] in Activities of Daily Living Bathing: (3 Points) Receives no assistance (gets in and out of tub by self, if tub is usual means of bathing) Dressing: (3 Points) Gets clothes and gets completely dressed without assistance. Toileting: (3 Points) Goes to toilet room , cleans self, and arranges clothes without assistance (may use object for support such as cane, walker, or wheelchair, and may manage own night bedpan or commode, emptying same next morning) Transferring: (3 Points) Moves in and out of bed and in and out of chair without assistance (may be using object for support, such as cane or walker) Continence: (3 Points) Controls urination and bowel movement completely by self Feeding: (3 Points) Feeds self without assistance Total Score: 18 Points 18 = High (patient independent) 6 = Low (patient very dependent) IADL Screen - Cole Instrumental Activities of Daily Living Scale Ability to use telephone: (1 point) Operates Telephone on own initiative; looks up and dials numbers. Shopping: (0 points) Completely unable to shop. Food preparation: (1 point) Plans, prepares, and serves adequate meals independently. Housekeeping: (1 point) Maintains house alone with occasional assistance (heavy work). Laundry: (1 point) Does personal laundry completely. Mode of transportation: (1 point) Travels independently on public transportation or drives own car. Responsibility for own medications: (1 point) Is responsible for taking medications in correct dosages at correct times. Ability to handle finances: (1 point) Manages financial matters independently (budgets, writes checks, pays rent and bills, goes to bank); collects and keeps track of income. Total score: 8 points 8 = High function, independent 0 = Low function, dependent Incontinence Screen: No incontinence. Suicide Screen: C-SSRS Screening [place]-Suicide Severity Rating Scale (C-SSRS Screener) 1. Over the past month, have you wished you were or wished you could go to sleep and not wake up? No 2. Over the past month, have you had any actual thoughts of killing yourself? No 3. Over the past month, have you been thinking about how you might do this? Response not required due to responses to other questions. 4. Over the past month, have you had these thoughts and had some intention of acting on them? Response not required due to responses to other questions. 5. Over the past month, have you started to work out or worked out the details of how to kill yourself? Response not required due to responses to other questions. 6. If yes, at any time in the past month did you intend to carry out this plan? Response not required due to responses to other questions. 7. In your lifetime, have you ever done anything, started to do anything, or prepared to do anything to end your life (for example, collected pills, obtained a gun, gave away valuables, went to the roof but didn't jump)? No 8. If YES, was this within the past 3 months? Response not required due to responses to other questions. Sexual Orientation: The patient thinks of their sexual orientation as: Straight or Heterosexual FALL RISK OP PB: NIELSON FALL RISK ASSESSMENT Have you experienced any falls within the last 12 months: 0 = No Secondary Dx: 5 = Yes Secondary Dx Ambulatory Aid: 5 = Crutches/Walker/Cane Gait/Transferrin = Normal/Bedrest/Immobile Mental status: 0 = Oriented to own ability Medications: 5 = High risk meds TOTAL SCORE: 15 Score <30 - patient IS NOT at risk for falls. No action at this time. Reassess annually or if needed. Fall Documentation No - Patient did not experience a fall within the last year RHS Screen: RHS Screen Session Format: Face to Face Environmental Check Upon inquiry, the individual reports that the environment is safe to proceed. Informed Consent to Screen and Document The individual consents to proceed with screening. The individual consents to documentation of responses. PRIMARY SCREEN: In the past 12 months, how often did a current or former intimate partner (e.g., boyfriend, girlfriend, , , sexual partner): 1. Scream or curse at you Never 2. Insult or talk down to you Never 3. Threaten you with harm Never 4. Physically hurt you Never 5. Force or pressure you to have sexual contact against your will, or when you were unable to say no Never ?? The HITS tool (items 1-4 above) is US copyright protected by Jean Claude Pat MD, and the user has full rights to use it throughout the [facility] system. PRIMARY SCREEN RESULT: The Primary Screen is NEGATIVE. The individual answered never to all forms of IPV above (i.e., answered never to all 5 items) The individual accepts education and/or resources: Yes - Offered verbal universal education about IPV EDUCATION: The individual indicated readiness to learn. Education offered during this session as noted above. The individual indicated understanding by asking relevant questions and making appropriate comments. No barriers to learning were observed or identified. COVID-19 Immunization: Refused Moderna Monovalent COVID-19 vaccine Immunization: COVID-19 (MODERNA), MRNA, LNP-S, PF, 50 MCG/0.5 ML (AGES 12+ YEARS) Refusal Reason: PATIENT DECISION Patient refuses all immunization(s) in the COVID-19 group Date Documented: 04/04/24 11:23 Alcohol Use Screen (AUDIT-C): Alcohol Screen: SCREEN FOR ALCOHOL (AUDIT-C) An alcohol screening test (AUDIT-C) was negative (score=0). 1. How often did you have a drink containing alcohol in the past year? Consider a drink to be a 12 ounce can or bottle of regular beer, 8 ounces of malt liquor, a 5 ounce glass of table wine, or a 1.5 ounce shot of liquor (like scotch, gin, or vodka). Never 2. How many drinks containing alcohol did you have on a typical day when you were drinking in the past year? Response not required due to responses to other questions. 3. How often did you have six or more drinks on one occasion in the past year? Response not required due to responses to other questions. Diagnostic Colonoscopy: (+) FIT/FOBT identified. A diagnostic Colonoscopy is due based on information available to this reminder. A diagnostic colonoscopy is not recommended/indicated. Reason: [place] is 84 and has declined Due to patient's age, risk level, and/or co-morbid conditions, discontinuation of asymptomatic colorectal cancer screening/surveillance is recommended. This recommendation has been discussed with the patient and/or guardian Depression Screening: Perform PHQ-2 A PHQ-2 screen was performed. The score was 0 which is a negative screen for depression. Over the past two weeks, how often have you been bothered by the following problems? 1. Little interest or pleasure in doing things Not at all 2. Feeling down, depressed, or hopeless Not at all Tobacco Use Screening: The patient uses tobacco every day. The patient does not use tobacco within 30 minutes of waking up. The patient has been smoking or using tobacco for thirty years or more. Patient was advised to quit smoking and/or using tobacco. Discussion with patient included: - Quitting smoking or tobacco use is one of the most important things you can do to protect and improve your health and [facility] has the resources to support you. - Set a quit date when you are ready to quit. - Get support from your family and friends. - Review any past quit attempts- What helped? What didn't? - On the day you plan to quit, get rid of all cigarettes and tobacco products from your home, car or work. - Using a combination of behavioral counseling or other support strategies and FDA-approved cessation medications is the most effective way to ensure success in quitting. Patient was offered Behavioral Counseling and other support strategies to assist with quitting. Discussion with patient included: - Behavioral counseling or other support strategies greatly increases your chances of successfully quitting smoking or tobacco use by helping you develop a quit plan and providing support and other strategies to make behavioral changes to help you quit. - [facility] has a number of behavioral counseling options to help you with quitting, including: * Provide information about the facility smoking or tobacco use treatment options or clinics * [facility]'s national quitline, 5-659-BXQI-VET, with counseling available Monday-Monday The patient was not interested in receiving additional information about how to use the treatment options discussed. Patient was offered FDA-approved cessation medications. Discussion with patient included: - Medications for Nicotine replacement therapy such as the patch, gum or lozenge, and other medications such as varenicline or bupropion, can play an important role in the initial weeks and months after you quit smoking or tobacco use. - Medications help with cravings and withdrawal symptoms and they greatly increase your chances of successfully quitting. The patient was not interested in a prescription for tobacco cessation medications. Influenza Immunization: Deferral / Refusal The patient declines to receive the recommended dose of seasonal influenza vaccine. Immunization: INFLUENZA, UNSPECIFIED FORMULATION Refusal Reason: PATIENT DECISION Patient refuses all immunization(s) in the FLU group Date Documented: 04/04/24 11:26 Advanced Directive Screen/Diamond Polisher: ADVANCE DIRECTIVE SCREENING: I asked if the patient has an advance directive, and determined that: Patient does not have an Advance Directive. Patient declines advance directive education/instruction at this time. ADVANCE DIRECTIVE NOTIFICATION I did not provide the patient with written notification about advance directives because declines Level of understanding: Good Tdap Immunization: The patient declines to receive the recommended dose of Tdap vaccine. Immunization: TDAP Refusal Reason: PATIENT DECISION Patient refuses all immunization(s) in the TDAP group Date Documented: 04/04/24 11:27 Pain Assessment: - PAIN ASSESSMENT: .. Patient reports no pain at this visit. Pain Score = 0. Patient's self identified pain goal: 0 Weight Control/Nutrition Counseling: * The patient received the following counseling at this encounter: Patient was encouraged to restrict fat, especially saturated fats, in a normal diet. Benefit of a diet high in fiber was discussed. Patient was advised to include 5 or more servings of fruit and vegetables and six or more servings of grains as a well balanced diet. HIV Screening-Routine: Patient has been offered HIV testing and has declined. I have explained that HIV testing is recommended for all adults, even if all risk factors are absent. Patient/Nurse Interview: * * Patient stated that adequate information was received regarding the condition and/or treatment. Eye Care At-Risk Screen : Patient identified to be at risk for the following eye condition(s): DIABETIC RETINOPATHY: Diabetes Diagnosis Information: Encounter Diagnosis: 09/06/2023@11:30 E11.9 (ICD-10-CM) Type 2 Diabetes Mellitus without Complications rank: SECONDARY Prov. Narr. - Diabetes Mellitus Type 2 ([facility] [id number]) MACULAR DEGENERATION: Macular Degeneration Risk Factors Information: Reminder Term: VA-AMD RISK FACTORS Encounter Diagnosis: 09/06/2023@11:30 I25.10 (ICD-10-CM) Atherosclerotic Heart Disease of [place] Coronary Artery without Angina Pectoris rank: SECONDARY Prov. Narr. - CAD - Coronary Artery Disease ([facility] [id number]) Action: No Referral Ordered: Eye exam completed elsewhere by an Air Operations Manager or Full Stack Php Developer Diabetic retinal exam result: Negative for Retinopathy Date: March, ? Exact date is unknown Location: [facility] Foot Check: A complete foot check was completed at this encounter. VISUAL INSPECTION: Includes inspection for skin breaks, deformity, erythema, trauma, pallor on elevation, dependent rubor, nail deformities, extensive callus and pitting edema. Visual exam results: Normal PEDAL PULSES: Includes palpation of dorsalis and posterior tibial pulses and signs/symptoms of vascular compromise like pain, pallor, parasthesia or paralysis. Present (even if diminished) SENSORY CHECK: Includes 10 gram Monofilament ([place]) test of sensation. Intact (Greater than or equal to 80% of sites checked) Abnormal (Less than 80% of sites checked): Intact LOW-RISK: LOW RISK INFORMATION PROVIDED: 1. Advised patient not to walk barefoot. 2. Explained the importance of daily foot checks for changes. 3. Stressed the importance of daily foot hygiene, including bathing and complete drying. /evelia/ Crow Ervin RN BSN ISAIAH MCADAMS [facility] Signed: 04/04/2024 11:35 04/04/2024 ADDENDUM STATUS: COMPLETED Prevoid Bladder scan 140ml Post void Bladder scan 0ml Per [facility] Directive 1605.06, wristband documentation: Patient wristband was removed and destroyed by (staff name) Crow Ervin and placed in the designated [employer] bin. // Crow Ervin RN BSN ISAIAH Cortes [facility] Signed: 04/04/2024 14:19 CROW ERVIN [facility]
--- OUTSIDE RECORDS SUMMARY | 2024-07-28 15:53 | XMS_ITS | Encounter Summary ---
Author Name [facility] [place] [facility] [place] [facility] [place] Address [address] [place] [address] Care Team Providers Care Camera Repairman Name Role Phone ACACIANAVIN ELLIS Primary Care [...] Name Patient's Relationship to Policy Reagan AARP [facility] (WNR) MEDICARE ADVANTAGE [facility] ([facility]) November 22, 2015 [id number] Arminda LONG PATIENT MEDICARE (WNR) MEDICARE (M) PART A Feb 21, 2007 PART A [id number] [phone] Arminda LONG PATIENT MEDICARE (WNR) MEDICARE (M) PART B Feb 21, 2007 PART B [id number] Arminda LONG PATIENT [facility] (WNR) MEDICARE ADVANTAGE [facility] (WN) November 22, 2015 [id number] Arminda LONG PATIENT Selected Encounter This section includes the information on record at [place] for the Encounter. Date/Time Encounter Type Encounter Description Reason Pro vider Source Apr 04, 2024 12:00 AM Outpatient Encounter EVENT (HISTORICAL) IHE Encounter Template Text not used by [facility] Plan of Treatment: Future Appointments (+ 6 months) and Future Tests (+/- 45 days) The Plan of Treatment section includes future care activities for the patient from all [place] [facility] This section includes future appointments and future orders which are active, pending or scheduled. Future Appointments This section includes appointments that were scheduled to occur 6 months from the date of the Encounter, up to a maximum of 20 appointments. The data comes from all [place] treatment [facility]. Appointment Date/Time Appointment Type Appointme nt Facility Name May 13, 2024 10:30 AM AMBULATORY - MEDICINE [facility] May 13, 2024 11:00 AM AMBULATORY - MEDICINE [facility] Jul 26, 2024 09:30 AM AMBULATORY - MEDICINE [facility] Aug 15, 2024 02:00 PM AMBULATORY - MEDICINE [facility] Active, Pending, and Scheduled Orders This section includes a listing of several types of active, pending, and scheduled orders, including clinic medications orders, diagnostic test orders, procedure orders and consult orders; where the start date of the order is 45 days before the date of the Encounter or 45 days after the date of theEncounter. The data comes from all [facility]. Test Date/Time Test Type Test Details Facility Name Apr 04, 2024 11:56 AM Laboratory - Chemi stry Order POC UA (STL-PB-MA) URINE [facility] May 13, 2024 10:16 AM Laboratory - Chemi stry Order POC UA (STL-PB-MA) URINE [facility] Lab Results: +/- 30 days of the encounter This section includes the Chemistry and Hematology Lab Results on record with [place] for the patient. Radiology Reports and Pathology Reports are provided separately, in subsequent sections. Lab Results This section contains the Chemistry/Hematology Results that were resulted 30 days before or 30 daysafter the date of the Encounter. Date/Time Source Result Type Result - Unit Interpretation Reference Range Comment Apr 04, 2024 12:03 PM [facility] POC UA (STL-PB-MA) Specimen Type: URINE No comment entered. Ordering Provider: DM CALVIN Report Released Date/Time: Apr 04, 2024 12:10 PM Reporting Lab: [facility] [address] [facility] [address] Performing Lab: [facility] [address] [facility] [address] [facility] [address] PROTEIN POC UA 30 mg/dL Negative BLOOD [...] Clear CLEAR Mar 27, 2024 08:37 AM [facility] B12 Specimen Type: SERUM No comment entered. Ordering Provider: NAVIN EUBANKS Report Released Date/Time: Apr 05, 2023 04:52 PM Reporting Lab: [place] [facility] [address] [place] [address] Performing Lab: [place] [facility] [address] [place] [address] B12 679 pg/mL 213-816 Mar 27, 2024 08:37 AM [facility] COMPREHENSIVE METABOLIC PANEL Specimen Type: PLASMA No comment entered. Ordering Provider: NAVIN EUBANKS Report Released Date/Time: Apr 05, 2023 04:52 PM Reporting Lab: [facility] [facility] [facility] [address] [place] [address] Performing Lab: [place] [facility] [address] [place] [address] CREATININE 0.97 mg/dL 0.7-1.3 UREA NITROGEN 13 [...] 2020) 78 Mar 27, 2024 08:37 AM [facility] FOLATE (PB) Specimen Type: SERUM No comment entered. Ordering Provider: NAVIN EUBANKS Report Released Date/Time: Apr 05, 2023 04:52 PM Reporting Lab: [facility] [facility] [address] [place] [address] Performing Lab: [place] [facility] [address] [place] [address] FOLATE (PB) 7.0 ng/mL 7-20 Mar 27, 2024 08:37 AM [facility] CBC Specimen Type: BLOOD No comment entered. Ordering Provider: NAVIN EUBANKS Report Released Date/Time: Apr 05, 2023 04:52 PM Reporting Lab: [place] [facility] [address] [place] [address] Performing Lab: [place] [facility] [address] [place] [address] WBC 7.9 10*3/uL 3.6-11.2 RBC 6.44 10*6/uL [...] 10*3/uL 0.00-0.05 Mar 27, 2024 08:37 AM [facility] HGA1C Specimen Type: BLOOD No comment entered. Ordering Provider: NAVIN EUBANKS Report Released Date/Time: Apr 05, 2023 04:52 PM Reporting Lab: [place] [facility] [address] [place] [phone] Performing Lab: [place] [facility] [address] [place] [phone] HGA1C 6.5 H 4.0-6.0 Mar 27, 2024 08:37 AM [facility] VITAMIN D, 25-HYDROXY Specimen Type: SERUM No comment entered. Ordering Provider: NAVIN EUBANKS Report Released Date/Time: Apr 05, 2023 04:52 PM Reporting Lab: [place] [facility] [address] [place] [phone] Performing Lab: [place] [facility] [address] [place] [phone] VITAMIN D, 25-HYDROXY 23.4 ng/mL L 30-96 Mar 27, 2024 08:37 AM [facility] CHOLESTEROL PANEL (PB) Specimen Type: PLASMA No comment entered. Ordering Provider: NAVIN EUBANKS Report Released Date/Time: Apr 05, 2023 04:52 PM Reporting Lab: [place] [facility] [address] [place] [address] Performing Lab: [place] [facility] [address] [place] [address] CHOLESTEROL 188 mg/dL 0-200 TRIGLYCERIDE 77 mg/dL 0-150 CALCULATED LDL 122.3 mg/dL HDL(New) 50.3 mg/dL H >40 HDL % OF TOTAL CHOLESTEROL (PB) 26.8 >25 Mar 27, 2024 08:37 AM [facility] URINE ALBUMIN PROFILE-ih (PB) Specimen Type: URINE No comment entered. Ordering Provider: NAVIN EUBANKS Report Released Date/Time: Apr 05, 2023 04:52 PM Reporting Lab: [place] [facility] [address] [place] [address] Performing Lab: [place] [facility] [address] [place] [address] URINE ALBUMIN (PB-STL) 222.10 mg/L H 0-30 uACR (PB-MA) 107.25 ug/mg CREATININE URINE/OTHERS 207.08 mg/dL Mar 27, 2024 08:37 AM [facility] TSH (MA-PB) Specimen Type: SERUM No comment entered. Ordering Provider: NAVIN EUBANKS Report Released Date/Time: Apr 05, 2023 04:52 PM Reporting Lab: [place] [facility] [address] [place] [address] Performing Lab: [place] [facility] [address] [place] [address] TSH 1.700 u[IU]/mL 0.47-5 Mar 27, 2024 08:37 AM [facility] FERRITIN Specimen Type: SERUM No comment entered. Ordering Provider: NAVIN EUBANKS Report Released Date/Time: Sep 22, 2023 09:54 AM Reporting Lab: [place] [facility] [address] [place] [address] Performing Lab: [place] [facility] [address] [place] [address] FERRITIN 62 ng/mL 22-275 Mar 27, 2024 08:37 AM [facility] IRON/TIBC PROFILE Specimen Type: PLASMA No comment entered. Ordering Provider: NAVIN EUBANKS Report Released Date/Time: Sep 22, 2023 09:54 AM Reporting Lab: [place] [facility] [address] [place] [address] Performing Lab: [place] [facility] [address] [place] [address] TIBC 368 mg/dL TRANSFERRIN 294 mg/dL 163-344 IRON SATURATION 38 20-50 IRON 139 ug/dL 65-175
--- OUTSIDE RECORDS SUMMARY | 2024-07-28 15:53 | XMS_ITS | Encounter Summary ---
Author Name [facility] [place] Organization [place] Address [address] [place] [address] Care Team Providers Care Lube Technician Name Role Phone NAVIN EUBANKS Primary [...] Reagan's Name Patient's Relationship to Policy Reagan [facility] (WNR) MEDICARE ADVANTAGE [facility] ([facility]) November 22, 2015 [id number] Arminda LONG PATIENT MEDICARE (WNR) MEDICARE (M) PART A Feb 21, 2007 PART A [id number] [phone] Arminda LONG PATIENT MEDICARE (WN) MEDICARE (M) PART B Feb 21, 2007 PART B [id number] [phone] Arminda LONG PATIENT [facility] (WNR) MEDICARE ADVANTAGE [facility] (WN) November 22, 2015 [id number] [phone] Arminda LONG PATIENT Selected Encounter This section includes the information on record at [place] for the Encounter. Date/Time Encounter Type Encounter Description Reason Pro vider Source May 03, 2024 02:30 PM Outpatient Encounter PRIMARY CARE/MEDICINE IHE Encounter Template Text not used by [facility] Plan of Treatment: Future Appointments (+ 6 months) and Future Tests (+/- 45 days) The Plan of Treatment section includes future care activities for the [facility] [place] [facility] This section includes future appointments and future orders which are active, pending or scheduled. Future Appointments This section includes appointments that were scheduled to occur 6 months from the date of the Encounter, up to a maximum of 20 appointments. The data comes from all [place] treatment [facility]. Appointment Date/Time Appointment Type Appointme nt Facility Name May 13, 2024 10:30 AM AMBULATORY - MEDICINE [facility] May 13, 2024 11:00 AM AMBULATORY - MEDICINE [facility] Jul 26, 2024 09:30 AM AMBULATORY - MEDICINE [facility] Aug 15, 2024 02:00 PM AMBULATORY - MEDICINE [facility] Active, Pending, and Scheduled Orders This section includes a listing of several types of active, pending, and scheduled orders, including clinic medications orders, diagnostic test orders, procedure orders and consult orders; where the start date of the order is 45 days before the date of the Encounter or 45 days after the date of theEncounter. The data comes from all [facility]. Test Date/Time Test Type Test Details Facility Name Apr 04, 2024 11:56 AM Laboratory - Chemi stry Order POC UA (STL-PB-MA) URINE [facility] May 13, 2024 10:16 AM Laboratory - Chemi stry Order POC UA (STL-PB-MA) URINE [facility] Lab Results: +/- 30 days of the encounter This section includes the Chemistry and Hematology Lab Results on record with [place] for the patient. Radiology Reports and Pathology Reports are provided separately, in subsequent sections. Lab Results This section contains the Chemistry/Hematology Results that were resulted 30 days before or 30 daysafter the date of the Encounter. Date/Time Source Result Type Result - Unit Interpretation Reference Range Comment Apr 04, 2024 12:03 PM [facility] POC UA (STL-PB-MA) Specimen Type: URINE No comment entered. Ordering Provider: DM SERRANO Report Released Date/Time: Apr 04, 2024 12:10 PM Reporting Lab: [facility] [address] [facility] [address] Performing Lab: [facility] [address] [facility] [address] PROTEIN POC UA 30 mg/dL Negative BLOOD [...] Encounter. Date/Time Encounter Note(s) Provider Source May 03, 2024 02:30 PM TELEPHONE ENCOUNTE R NOTE: LOCAL TITLE: POST DISCHARGE TELEPHONE F/U NOTE STANDARD TITLE: TELEPHONE ENCOUNTER NOTE DATE OF NOTE: MAY 03, 2024@14:30 ENTRY DATE: MAY 03, 2024@14:30:31 AUTHOR: LUDA SALDAAN EXP COSIGNER: URGENCY: STATUS: COMPLETED Post discharge follow-up call. Patient was contacted. [id number] [place], [place] [id number] Treating Facility: Primary Care Provider: NAVIN EUBANKS Admitting Physician: Last discharge date: Discharge Dx: How are you doing since discharge? PROBLEMS/SYMPTOMS/COMPLAINT S: Fever: No Problems with IV site: No Change in weight: No Blood sugar: N/A Wound/incision site - new swelling, drainage, redness: N/A Pain Screening: Is your pain worse than you expected since returning home? No Pain Rating Score: 0 Location: with urination Active Outpatient Medications (including Supplies): Active Outpatient [...] CAP/TAB BY MOUTH ACTIVE ONCE A DAY 8 Total Medications ALLERGIES: Patient has answered NKA Any questions regarding your medications? No Were you provided with a copy of your updated medication list upon discharge? Yes taking the medication Do you know where to call to get more information? Yes Any questions regarding your discharge instructions? Yes yes, i need to have a follow up with the and i have an appt with DR Serrano too, i need those on the same day and not early in the morning. Next Appt: 05/09/24 8:30 am [facility] [phone] 07/26/24 9:30 am [facility] [phone] 04/01/25 12:30 pm [facility] CVT [facility]CT DEL[facility](MD [phone] 04/01/25 12:31 pm [facility] CV[facility]([place] [phone] Are you doing okay at home taking care of yourself, or do you have help? Overall, how would you rate the quality of care you received at the hospital? 3-good Anything else I can do for you at this time? Advice given/instructed caller to: instructed to contact their Primary Care team if any questions or concerns arise: Yes Patient referred/transferred to: [facility] to schedule follow up appt to check urine/status /es/ LUDA SALDANA LPN Signed: 05/03/2024 14:32 LUDA SALDANA [facility]
--- OUTSIDE RECORDS SUMMARY | 2024-07-28 15:54 | XMS_ITS | Encounter Summary ---
Author Name [facility] [place] Address [address] [place] [address] Care Team Providers Care Academy Education Director Name Role Phone ACACIANAVIN ELLIS Primary Care [...] Reagan's Name Patient's Relationship to Policy Reagan [facility] (WNR) MEDICARE ADVANTAGE [facility] ([facility] November 22, 2015 [id number] Arminda LONG PATIENT MEDICARE (WNR) MEDICARE (M) PART A Feb 21, 2007 PART A [id number] [phone] Arminda LONG PATIENT MEDICARE (WN) MEDICARE (M) PART B Feb 21, 2007 PART B [id number] [phone] Arminda LONG PATIENT [facility] (WNR) MEDICARE ADVANTAGE [facility] ([facility] November 22, 2015 [id number] Arminda LONG PATIENT Selected Encounter This section includes the information on record at [place] for the Encounter. Date/Time Encounter Type Encounter Description Reason Pro vider Source Dec 27, 2023 03:56 PM Outpatient Encounter COMMUNITY CARE CONSULT IHE Encounter Template Text not used by [place] Plan of Treatment: Future Appointments (+ 6 months) and Future Tests (+/- 45 days) The Plan of Treatment section includes future care activities for the patient from all [place] treatmentfacilities. This section includes future appointments and future orders which are active, pending or scheduled. Future Appointments This section includes appointments that were scheduled to occur 6 months from the date of the Encounter, up to a maximum of 20 appointments. The data comes from all [place] treatment facilities. Appointment Date/Time Appointment Type Appointme nt Facility Name Jan 05, 2024 09:20 AM AMBULATORY - MEDICINE [facility] Jan 12, 2024 11:30 AM AMBULATORY - MEDICINE [facility] Feb 12, 2024 11:00 AM AMBULATORY - MEDICINE [facility] Mar 27, 2024 08:40 AM AMBULATORY - MEDICINE [facility] Apr 04, 2024 10:30 AM AMBULATORY - MEDICINE [facility] Apr 04, 2024 11:30 AM AMBULATORY - MEDICINE [facility] May 13, 2024 10:30 AM AMBULATORY - MEDICINE [facility] May 13, 2024 11:00 AM AMBULATORY - MEDICINE [facility] Lab Results: +/- 30 days of the encounter This section includes the Chemistry and Hematology Lab Results on record with [place] for the patient. Radiology Reports and Pathology Reports are provided separately, in subsequent sections. Lab Results This section contains the Chemistry/Hematology Results that were resulted 30 days before or 30 daysafter the date of the Encounter. Date/Time Source Result Type Result - Unit Interpretation Reference Range Comment Jan 05, 2024 08:48 AM [facility] PROCALCITONIN (PB) Specimen Type: PLASMA No comment entered. Ordering Provider: DM CALVIN Report Released Date/Time: December 01, 2023 05:38 AM Reporting Lab: [facility] [address] [place] [address] Performing Lab: [facility] [address] [place] [address] PROCALCITONIN (PB) 0.02 ng/mL 0-0.5 Jan 05, 2024 08:48 AM [facility] IRON Specimen Type: PLASMA No comment entered. Ordering Provider: DM CALVIN W Report Released Date/Time: December 01, 2023 05:38 AM Reporting Lab: [facility] [facility] [address] [place] [address] Performing Lab: [facility] [facility] [address] [place] [address] IRON 195 ug/dL H 65-175 Jan 05, 2024 08:48 AM [facility] CHOLESTEROL PANEL (PB) Specimen Type: PLASMA No comment entered. Ordering Provider: DM CALVIN W Report Released Date/Time: December 01, 2023 05:38 AM Reporting Lab: [facility] [facility] [address] [place] [address] Performing Lab: [place] [facility] [address] [place] [address] CHOLESTEROL 178 mg/dL 0-200 TRIGLYCERIDE 90 mg/dL 0-150 CALCULATED LDL 105.3 mg/dL HDL(New) 54.7 mg/dL H >40 HDL % OF TOTAL CHOLESTEROL (PB) 30.7 >25 Jan 05, 2024 08:48 AM [facility] DIRECT LDL (MA-PB) Specimen Type: PLASMA No comment entered. Ordering Provider: DM CALVIN W Report Released Date/Time: December 01, 2023 05:38 AM Reporting Lab: [place] [facility] [address] [place] [address] Performing Lab: [place] [facility] [address] [place] [address] DIRECT LDL 121.8 mg/dL H 0-99.9 Jan 05, 2024 08:48 AM [facility] VITAMIN D, 25-HYDROXY Specimen Type: SERUM No comment entered. Ordering Provider: DM CALVIN W Report Released Date/Time: December 01, 2023 05:38 AM Reporting Lab: [facility] [facility] [address] [place] [address] Performing Lab: [place] [place] [facility] [address] [place] [address] VITAMIN D, 25-HYDROXY 27.5 ng/mL L 30-96 Jan 05, 2024 08:48 AM [facility] COMPREHENSIVE METABOLIC PANEL Specimen Type: PLASMA No comment entered. Ordering Provider: DM CALVIN W Report Released Date/Time: December 01, 2023 05:38 AM Reporting Lab: [facility] [facility] [facility] [address] [place] [address] Performing Lab: [place] [facility] [address] [place] [address] CREATININE 1.05 mg/dL 0.7-1.3 UREA NITROGEN 14 mg/dL 9-25 GLUCOSE 148 mg/dL H 72-99 SODIUM 142 meq/L 136-145 POTASSIUM 3.9 meq/L 3.5-5 CHLORIDE 103 meq/L 98-107 CARBON DIOXIDE 31 meq/L 22-31 CALCIUM 9.0 mg/dL 8.4-10.4 PROTEIN 6.6 g/dL 6-8.6 ALBUMIN 3.9 g/dL 3.4-5 TOTAL BILIRUBIN 1.1 mg/dL 0.2-1.2 ALKALINE PHOSPHATASE 66 U/L 40-150 AST/SGOT 14 U/L 5-34 ALT/SGPT 15 U/L 8-40 EGFR (CKD-EPI 2020) 71 Jan 05, 2024 08:48 AM [facility] FOLATE (PB) Specimen Type: SERUM No comment entered. Ordering Provider: DM CALVIN Report Released Date/Time: December 01, 2023 05:38 AM Reporting Lab: [place] [facility] [address] [place] [address] Performing Lab: [place] [facility] [address] [place] [address] FOLATE (PB) 10.3 ng/mL 7-20 Jan 05, 2024 08:48 AM [facility] HGA1C Specimen Type: BLOOD No comment entered. Ordering Provider: DM CALVIN W Report Released Date/Time: December 01, 2023 05:38 AM Reporting Lab: [place] [facility] [address] [place] [address] Performing Lab: [place] [facility] [address] [place] [address] HGA1C 6.1 H 4.0-6.0 Jan 05, 2024 08:48 AM [facility] B12 Specimen Type: SERUM No comment entered. Ordering Provider: DM CALVIN W Report Released Date/Time: December 01, 2023 05:38 AM Reporting Lab: [facility] [address] [place] [address] Performing Lab: [place] [facility] [address] [place] [address] B12 705 pg/mL 213-816 Jan 05, 2024 08:48 AM [facility] CBC Specimen Type: BLOOD No comment entered. Ordering Provider: DM CALVIN Report Released Date/Time: December 01, 2023 05:38 AM Reporting Lab: [place] [facility] [address] [place] [address] Performing Lab: [place] [facility] [address] [place] [address] WBC 7.7 10*3/uL 3.6-11.2 RBC 6.24 10*6/uL H 4.10-5.70 HGB 18.1 g/dL H 13.1-16.8 HCT 55.9 H 38.2-48.4 MCV 89.6 fL 80.0-100.0 MCH 29.0 pg 27.0-34.0 MCHC 32.4 g/dL L 33.0-36.0 PLT 255 10*3/uL 150-400 MPV 10.2 fL 7.5-11.2 RDW 13.9 11.8-15.1 LYMPHOCYTES, AUTO % 26.4 MONOCYTES, AUTO % 7.2 NEUTROPHILS, AUTO % 62.4 EOSINOPHILS, AUTO % 2.5 BASOPHILS, AUTO % 1.0 LYMPHOCYTES, ABSOLUTE 2.04 10*3/uL 0.77-4.50 MONOCYTES, ABSOLUTE 0.56 10*3/uL 0.19-0.8 NEUTROPHILS, ABSOLUTE 4.82 10*3/uL 2.10-8.00 EOSINOPHILS, ABSOLUTE 0.19 10*3/uL 0.00-0.60 BASOPHILS, ABSOLUTE 0.08 10*3/uL 0.00-0.20 IMMATURE GRANS, AUTO % 0.5 IMMATURE GRANS, AUTO ABS 0.04 10*3/uL 0.00-0.05 Encounter Notes: All associated encounter notes This section contains the clinical notes associated to the Encounter. Date/Time Encounter Note(s) Provider Source Dec 27, 2023 03:56 PM LETTERS: LOCAL TITLE: COMMUNITY CARE-REFERRAL PB (AUTO-PRINT) STANDARD TITLE: LETTERS DATE OF NOTE: DEC 27, 2023@15:56:56 ENTRY DATE: DEC 27, 2023@15:56:57 AUTHOR: EMANUEL GALAN COSIGNER: URGENCY: STATUS: COMPLETED Quentin Long [id number] [place], [place] [address] Dear QUENTIN LONG, Your VA provider has referred you to a provider within the community for care. Your medical care for dermatology has been authorized with the Community Care Provider listed below. DO NOT REPORT TO THE [facility] Provider info: An appointment has been scheduled for you on: Office Name: [facility] Address: [address] Address: [place] [address] Auth #: [id number] Referral Issue Date:2023-11-02 Expiration Date:2024-04-30 If you are unable to keep this appointment or the appointment is no longer needed, please contact the community provider above for notification/rescheduling and then call the [facility] [place] [facility] at [phone] Ext [phone]. If you need additional care/services not mentioned above, please contact your primary care provider for a new referral. Co-Payments: If you are required to pay a VA co-payment, you will be billed by the VA for each authorized visit that you attend. [...] 72hr or ER visit and/or admission by [phone]. Thank you for the opportunity to serve you and for your service to our great nation! [facility] Care in the Community [address] [facility] [place] [address] [facility]
--- OUTSIDE RECORDS SUMMARY | 2024-07-28 15:54 | XMS_ITS | Encounter Summary ---
Author Name [facility] Address [address] [place] [address] Care Team Providers Care Mold Presser Name Role Phone NAVIN EUBANKS Primary Care [...] Reagan's Name Patient's Relationship to Policy Reagan [facility] (WNR) MEDICARE ADVANTAGE [facility] ([facility]) November 22, 2015 [id number] Arminda LONG PATIENT MEDICARE (WN) MEDICARE (M) PART A Feb 21, 2007 PART A [id number] Arminda LONG PATIENT MEDICARE (WN) MEDICARE (M) PART B Feb 21, 2007 PART B [id number] [phone] Arminda LONG PATIENT [facility] (WNR) MEDICARE ADVANTAGE [facility] ([facility]) November 22, 2015 [id number] Arminda LONG PATIENT Selected Encounter This section includes the information on record at NH for the Encounter. Date/Time Encounter Type Encounter Description Reason Provider Source Oct 03, 2023 11:08 AM HC PRO PHONE CALL 5-10 MIN TELEPHONE PRIMARY CARE ICD-10-CM Z71.89 Other specified counseling CROW ERVIN E Encounter Template Text not used by NH Assessments - Encounter Diagnoses This section includes the primary and secondary diagnoses documented for the Encounter. Date/Time Primary/Secondary Diagnosis Diagnosis Name Provider Source Oct 03, 2023 11:08 AM PRIMARY Other specified counseling CROW ERVIN [facility] Plan of Treatment: Future Appointments (+ 6 months) and Future Tests (+/- 45 days) The Plan of Treatment section includes [facility] care [facility] the [facility] This section includes future appointments and future orders which are active, pending or scheduled. Future Appointments This section includes appointments that were scheduled to occur 6 months from the date of the Encounter, up to a maximum of 20 appointments. The data comes from all [facility]. Appointment Date/Time Appointment Type Appointme nt Facility Name Oct 05, 2023 01:45 PM AMBULATORY - MEDICINE [facility] Nov 02, 2023 09:30 AM AMBULATORY - MEDICINE [facility] December 01, 2023 10:00 AM AMBULATORY - MEDICINE [facility] Jan 05, 2024 09:20 AM AMBULATORY - MEDICINE [facility] Jan 12, 2024 11:30 AM AMBULATORY - MEDICINE [facility] Feb 12, 2024 11:00 AM AMBULATORY - MEDICINE [facility] Mar 27, 2024 08:40 AM AMBULATORY - MEDICINE [facility] Apr 04, 2024 10:30 AM AMBULATORY - MEDICINE [facility] Apr 04, 2024 11:30 AM AMBULATORY - MEDICINE [facility] Active, Pending, and Scheduled Orders This section includes a listing of several types of active, pending, and scheduled orders, including clinic medications orders, diagnostic test orders, procedure orders and consult orders; where the start date of the order is 45 days before the date of the Encounter or 45 days after the date of theEncounter. The data comes from all [facility]. Test Date/Time Test Type Test Details Facility Name Sep 06, 2023 12:15 PM Laboratory - Chemi stry Order CK-MB GREEN LI/HEP BLD/PLAS PLASMA SP [facility] Lab Results: +/- 30 days of the encounter This section includes the Chemistry and Hematology Lab Results on record with NH for the patient. Radiology Reports and Pathology Reports are provided separately, in subsequent sections. Lab Results This section contains the Chemistry/Hematology Results that were resulted 30 days before or 30 daysafter the date of the Encounter. Date/Time Source Result Type Result - Unit Interpretation Reference Range Comment Sep 06, 2023 12:15 PM [facility] BRAIN NATRIURETIC PEPTIDE Specimen Type: PLASMA No comment entered. Ordering Provider: NAVIN EUBANKS Report Released Date/Time: Sep 06, 2023 12:14 PM Reporting Lab: [place] [facility] [address] [place] [address] Performing Lab: [place] [facility] [address] [place] [address] BRAIN NATRIURETIC PEPTIDE 19 pg/mL 0-100 Sep 06, 2023 12:15 PM [facility] CPK PROFILE (PB) Specimen Type: PLASMA No comment entered. Ordering Provider: NAVIN EUBANKS Report Released Date/Time: Sep 06, 2023 12:14 PM Reporting Lab: [place] [facility] [address] [place] [address] Performing Lab: [place] [facility] [address] [place] [address] CPK 25 U/L L 30-200 Sep 06, 2023 12:15 PM [facility] LDH Specimen Type: PLASMA No comment entered. Ordering Provider: NAVIN EUBANKS Report Released Date/Time: Sep 06, 2023 12:14 PM Reporting Lab: [place] [facility] [address] [place] [address] Performing Lab: [place] [facility] [address] [place] [address] LDH 175 U/L 125-243 Sep 06, 2023 12:15 PM [facility] HGA1C Specimen Type: BLOOD No comment entered. Ordering Provider: NAVIN EUBANKS Report Released Date/Time: Sep 06, 2023 12:14 PM Reporting Lab: [place] [facility] [address] [place] [address] Performing Lab: [place] [facility] [address] [place] [address] HGA1C 6.8 H 4.0-6.0 Sep 06, 2023 12:15 PM [facility] B12 Specimen Type: SERUM No comment entered. Ordering Provider: NAVIN EUBANKS Report Released Date/Time: Sep 06, 2023 12:14 PM Reporting Lab: [place] [facility] [address] [place] [address] Performing Lab: [place] [facility] [address] [place] [address] B12 556 pg/mL 213-816 Sep 06, 2023 12:15 PM [facility] BASIC METABOLIC PANEL Specimen Type: PLASMA No comment entered. Ordering Provider: NAVIN EUBANKS Report Released Date/Time: Sep 06, 2023 12:14 PM Reporting Lab: [place] [facility] [address] [place] [address] Performing Lab: [place] [facility] [address] [place] [address] CREATININE 0.98 mg/dL 0.7-1.3 UREA NITROGEN 17 mg/dL 9-25 GLUCOSE 96 mg/dL 72-99 SODIUM 142 meq/L 136-145 POTASSIUM 4.3 meq/L 3.5-5 CHLORIDE 102 meq/L 98-107 CARBON DIOXIDE 31 meq/L 22-31 CALCIUM 8.9 mg/dL 8.4-10.4 EGFR (CKD-EPI 2020) 77 Sep 06, 2023 12:15 PM [facility] VITAMIN D, 25-HYDROXY Specimen Type: SERUM No comment entered. Ordering Provider: NAVIN EUBANKS Report Released Date/Time: Sep 06, 2023 12:14 PM Reporting Lab: [place] [facility] [address] [place] [address] Performing Lab: [place] [facility] [address] [place] [address] VITAMIN D, 25-HYDROXY 26.4 ng/mL L 30-96 Sep 06, 2023 12:15 PM [facility] CHOLESTEROL PANEL (PB) Specimen Type: PLASMA No comment entered. Ordering Provider: NAVIN EUBANKS Report Released Date/Time: Sep 06, 2023 12:14 PM Reporting Lab: [place] [facility] [address] [place] [address] Performing Lab: [place] [facility] [address] [place] [address] CHOLESTEROL 169 mg/dL 0-200 TRIGLYCERIDE 100 mg/dL 0-150 CALCULATED LDL 92.4 mg/dL HDL(New) 56.6 mg/dL H >40 HDL % OF TOTAL CHOLESTEROL (PB) 33.5 >25 Sep 06, 2023 12:15 PM [facility] CBC Specimen Type: BLOOD Comment: ~Pre-Operat ermias Pre-Operati ve Ordering Provider: NAVIN EUBANKS Report Released Date/Time: Sep 06, 2023 12:14 PM Reporting Lab: [place] [facility] [address] [place] [facility] Performing Lab: [place] [facility] [address] [place] [id number] WBC 11.2 10*3/uL 3.6-11.2 RBC 6.65 10*6/uL H 4.10-5.70 HGB 18.8 g/dL H 13.1-16.8 HCT 59.1 H 38.2-48.4 MCV 88.9 fL 80.0-100.0 MCH 28.3 pg 27.0-34.0 MCHC 31.8 g/dL L 33.0-36.0 PLT 272 10*3/uL 150-400 MPV 10.7 fL 7.5-11.2 RDW 13.8 11.8-15.1 LYMPHOCYTES, AUTO % 19.7 MONOCYTES, AUTO % 8.1 NEUTROPHILS, AUTO % 69.8 EOSINOPHILS, AUTO % 0.9 BASOPHILS, AUTO % 0.6 LYMPHOCYTES, ABSOLUTE 2.21 10*3/uL 0.77-4.50 MONOCYTES, ABSOLUTE 0.91 10*3/uL H 0.19-0.8 NEUTROPHILS, ABSOLUTE 7.83 10*3/uL 2.10-8.00 EOSINOPHILS, ABSOLUTE 0.10 10*3/uL 0.00-0.60 BASOPHILS, ABSOLUTE 0.07 10*3/uL 0.00-0.20 IMMATURE GRANS, AUTO % 0.9 IMMATURE GRANS, AUTO ABS 0.10 10*3/uL H 0.00-0.05 Sep 06, 2023 12:15 PM [facility] HEPATIC FUNCTION PROFILE (PB) Specimen Type: PLASMA No comment entered. Ordering Provider: NAVIN EUBANKS Report Released Date/Time: Sep 06, 2023 12:14 PM Reporting Lab: [place] [facility] [address] [place] [phone] Performing Lab: [place] [facility] [address] [place] [facility] PROTEIN 6.6 g/dL 6-8.6 ALBUMIN 4.0 g/dL 3.4-5 TOTAL BILIRUBIN 0.6 mg/dL 0.2-1.2 ALKALINE PHOSPHATASE 80 U/L 40-150 AST/SGOT 10 U/L 5-34 ALT/SGPT 16 U/L 8-40 CONJ. BILIRUBIN 0.3 mg/dL 0-0.5 Sep 06, 2023 12:15 PM [facility] TSH (MA-PB-STL) Specimen Type: SERUM No comment entered. Ordering Provider: NAVIN EUBANKS Report Released Date/Time: Sep 06, 2023 12:14 PM Reporting Lab: [place] [facility] [address] [place] [address] Performing Lab: [place] [facility] [address] [place] [facility] TSH 1.401 u[IU]/mL 0.47-5 Social History: Smoking Status (Most current) and [...] Current Smoking Status Comment Facil ity Apr 06, 2023 08:30 AM NH-TOBACCO DOESNT USE WI 30 MIN WAKEUP [facility] Tobacco Use History This section includes a history of the smoking, or tobacco-related health factors, that were collected on or before the date of the Encounter. The data comes from the [place] facility where the Encounter took place. 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 [facility] Apr 06, 2023 08:30 AM VA-TOBACCO USE MED NO [facility] Apr 06, 2023 08:30 AM VA-TOBACCO USER SOME DAYS [facility] Apr 12, 2022 02:30 PM VA-TOBACCO DOESNT USE WI 30 MIN WAKEUP [facility] Apr 12, 2022 02:30 PM VA-TOBACCO USE 30 YEARS OR MORE [facility] Apr 12, 2022 02:30 PM VA-TOBAC[place] USE ADVICE [place] [facility] Apr 12, 2022 02:30 PM 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 [facility] Apr 12, 2022 02:30 PM VA-TOBACCO USE MED NO [facility] Apr 12, 2022 02:30 PM VA-TOBACCO USER EVERY DAY [facility] Oct 12, 2009 10:39 AM CURRENT TOBACCO USER [facility] Oct 12, 2009 10:39 AM TOBACCO OFFERED STOP SMOKING CLI FABI [facility] Aug 07, 2008 11:49 AM CURRENT TOBACCO USER [facility] Aug 07, 2008 11:49 AM TOBACCO OFFERED STOP SMOKING CLI FABI [facility] Aug 07, 2008 11:49 AM [facility] [place] [facility] Jun 12, 2007 10:21 AM QUIT TOBACCO >7 YEARS AGO [facility] Aug 31, 2005 01:59 PM CURRENT TOBACCO USER [facility] Jun 21, 2005 08:52 AM CURRENT TOBACCO USER [facility] December 14, 2004 09:52 AM CURRENT TOBACCO USER [facility] December 09, 2003 01:01 PM CURRENT TOBACCO USER [facility] Pathology Reports: +/- 30 days of the encounter Pathology Reports For cases when an order for pathology services may have been completed prior to the date of the Encounter, the report list includes the Pathology Reports that were completed up to 30 days before dateof the Encounter. For cases when an order for pathology services may have been completed after the date of the Encounter, the report list also includes the Pathology Reports that were completed up to30 days after date of the Encounter. The data comes from all [place] treatment facilities. Date/Time Pathology Report Provider Source Oct 03, 2023 04:31 PM LR MICROBIOLOGY RE PORT: Accession [UID]: [id number] [[id number]] Received: Oct 03, 2023@16:31 Collection sample: SWAB Collection date: Oct 03, 2023 16:31 Site/Specimen: SKIN OF BACK Provider: SHOSHANA HAMPTON Comment on specimen: right upper back Test(s) ordered: C&S WOUND CULTURE (PB)........ completed: Oct 09, 2023 * BACTERIOLOGY FINAL REPORT => Oct 09, 2023 11:19 TECH CODE: [id number] GRAM STAIN: RARE GRAM POSITIVE COCCI Bacteriology Remark(s): NO GROWTH AT 72 HOURS Test(s) Performed By: DANIELF =--=--=--=--=--=--=--=--=--=--=--= --=--=--=--=--=--=--=--=--=--=--=- -=--=--=-- Performing Laboratory: Bacteriology Report Performed By: [facility]H [facility] [CLIA# [id number]] [address] [place] [address] [facility] Encounter Notes: All associated encounter notes This section contains the clinical notes associated to the Encounter. Date/Time Encounter Note(s) Provider Source Oct 03, 2023 11:08 AM TELEPHONE ENCOUNTE R NOTE: LOCAL TITLE: TELEPHONE NOTE STANDARD TITLE: TELEPHONE ENCOUNTER NOTE DATE OF NOTE: OCT 03, 2023@11:08 ENTRY DATE: OCT 03, 2023@11:08:30 AUTHOR: CROW ERVIN EXP COSIGNER: URGENCY: STATUS: COMPLETED phoned the clinic to report he has a cyst on his back that has broken open. states he has seen Dr. Larios, Dermatology for things like this in the past. Hamilton requested consult for dermatology and has an appt on 10/18/23. Advised Hamilton that he can come to clinic as a walk in to be assessed for signs of infection. Hamilton agreed to be come to clinic today for evaluation and plan of care. Hamilton voiced understanding of above and all questions and concerns addressed at this time. /evelia/ Crow Ervin RN BSN [facility] Signed: 10/03/2023 11:13 Receipt Acknowledged By: 10/03/2023 11:19 /evelia/ KASHMIR Wright, MSN, Isaiah Cortes [facility] CROW ERVIN [facility]
--- OUTSIDE RECORDS SUMMARY | 2024-07-28 15:54 | XMS_ITS ---
Author Name [facility] [place] Organization [facility] [place] [place] Address [address] [place] [address] Care Team Providers Care Process Line Operator Name Role Phone ACACIAJAKY ELLISE Primary Care Provider Unavailabl e Insurance Providers: [...] Reagan's Name Patient's Relationship to Policy [facility] (WNR) MEDICARE ADVANTAGE [facility] (WN) November 22, 2015 [id number] [phone] Arminda LONG PATIENT MEDICARE (WNR) MEDICARE (M) PART A Feb 21, 2007 PART A [id number] Arminda LONG PATIENT MEDICARE (WNR) MEDICARE (M) PART B Feb 21, 2007 PART B [id number] Arminda LONG PATIENT [facility] (WNR) MEDICARE ADVANTAGE [facility] (WNR) November 22, 2015 [id number] [phone] Arminda LONG PATIENT Selected Encounter This section includes the information on record at [place] for the Encounter. Date/Time Encounter Type Encounter Description Reason Pro vider Source Aug 28, 2023 10:36 AM Outpatient Encounter ADMIN PAT ACTIVTIES (MASNONCT) IHE Encounter Template Text not used by [facility] Plan of Treatment: Future Appointments (+ 6 months) and Future Tests (+/- 45 days) The Plan of Treatment section includes future care activities for the patient from all [place] [facility]. This section includes future appointments and future orders which are active, pending or scheduled. Future Appointments This section includes appointments that were scheduled to occur 6 months from the date of the Encounter, up to a maximum of 20 appointments. The data comes from all [facility]. Appointment Date/Time Appointment Type Appointme nt Facility Name Sep 06, 2023 11:30 AM AMBULATORY - [facility] Sep 06, 2023 11:31 AM AMBULATORY - [facility] Oct 03, 2023 12:30 PM AMBULATORY - [facility] Oct 05, 2023 01:45 PM AMBULATORY - MEDICINE [facility] Nov 02, 2023 09:30 AM [facility] December 01, 2023 10:00 AM AMBULATORY - MEDICINE [facility] Jan 05, 2024 09:20 AM AMBULATORY - MEDICINE [facility] Jan 12, 2024 11:30 AM AMBULATORY - MEDICINE [facility] Feb 12, 2024 11:00 AM AMBULATORY - MEDICINE [facility] Active, Pending, and Scheduled Orders This section includes a listing of several types of active, pending, and scheduled orders, including clinic medications orders, diagnostic test orders, procedure orders and consult orders; where the start date of the order is 45 days before the date of the Encounter or 45 days after the date of theEncounter. The data comes from all [facility]. Test Date/Time Test Type Test Details Facility Name Sep 06, 2023 12:15 PM Laboratory - Chemi stry Order CK-MB GREEN LI/HEP BLD/PLAS PLASMA SP [facility] Lab Results: +/- 30 days of the encounter This section includes the Chemistry and Hematology Lab Results on record with [place] for the patient. Radiology Reports and Pathology Reports are provided separately, in subsequent sections. Lab Results This section contains the Chemistry/Hematology Results that were resulted 30 days before or 30 daysafter the date of the Encounter. Date/Time Source Result Type Result - Unit Interpretation Reference Range Comment Sep 06, 2023 12:15 PM [facility] [place] [facility] BRAIN NATRIURETIC PEPTIDE Specimen Type: PLASMA No comment entered. Ordering Provider: NAVIN EUBANKS Report Released Date/Time: Sep 06, 2023 12:14 PM Reporting Lab: [place] [facility] [address] [place] [address] Performing Lab: [place] [facility] [address] [place] [address] BRAIN NATRIURETIC PEPTIDE 19 pg/mL 0-100 Sep 06, 2023 12:15 PM [facility] CPK PROFILE (PB) Specimen Type: PLASMA No comment entered. Ordering Provider: NAVIN EUBANKS Report Released Date/Time: Sep 06, 2023 12:14 PM Reporting Lab: [place] [facility] [address] [place] [address] Performing Lab: [place] [facility] [address] [place] [address] CPK 25 U/L L 30-200 Sep 06, 2023 12:15 PM [facility] [facility] LDH Specimen Type: PLASMA No comment entered. Ordering Provider: NAVIN EUBANKS Report Released Date/Time: Sep 06, 2023 12:14 PM Reporting Lab: [place] [facility] [address] [place] [address] Performing Lab: [place] [facility] [address] [place] [address] LDH 175 U/L 125-243 Sep 06, 2023 12:15 PM [facility] HGA1C Specimen Type: BLOOD No comment entered. Ordering Provider: NAVIN EUBANKS Report Released Date/Time: Sep 06, 2023 12:14 PM Reporting Lab: [place] [facility] [address] [place] [address] Performing Lab: [place] [facility] [address] [place] [address] HGA1C 6.8 H 4.0-6.0 Sep 06, 2023 12:15 PM [facility] [place] [place] [facility] B12 Specimen Type: SERUM No comment entered. Ordering Provider: NAVIN EUBANKS Report Released Date/Time: Sep 06, 2023 12:14 PM Reporting Lab: [place] [facility] [address] [place] [address] Performing Lab: [place] [facility] [address] [place] [address] B12 556 pg/mL 213-816 Sep 06, 2023 12:15 PM [facility] VITAMIN D, 25-HYDROXY Specimen Type: SERUM No comment entered. Ordering Provider: NAVIN EUBANKS Report Released Date/Time: Sep 06, 2023 12:14 PM Reporting Lab: [place] [facility] [address] [place] [address] Performing Lab: [place] [facility] [address] [place] [address] VITAMIN D, 25-HYDROXY 26.4 ng/mL L 30-96 Sep 06, 2023 12:15 PM [facility] BASIC METABOLIC PANEL Specimen Type: PLASMA No comment entered. Ordering Provider: NAVIN EUBANKS Report Released Date/Time: Sep 06, 2023 12:14 PM Reporting Lab: [place] [facility] [address] [place] [address] Performing Lab: [place] [facility] [address] [place] [address] CREATININE 0.98 mg/dL 0.7-1.3 UREA NITROGEN 17 mg/dL 9-25 GLUCOSE 96 mg/dL 72-99 SODIUM 142 meq/L 136-145 POTASSIUM 4.3 meq/L 3.5-5 CHLORIDE 102 meq/L 98-107 CARBON DIOXIDE 31 meq/L 22-31 CALCIUM 8.9 mg/dL 8.4-10.4 EGFR (CKD-EPI 2020) 77 Sep 06, 2023 12:15 PM [facility] CHOLESTEROL PANEL (PB) Specimen Type: PLASMA No comment entered. Ordering Provider: NAVIN EUBANKS Report Released Date/Time: Sep 06, 2023 12:14 PM Reporting Lab: [place] [facility] [address] [place] [address] Performing Lab: [place] [facility] [address] [place] [address] CHOLESTEROL 169 mg/dL 0-200 TRIGLYCERIDE 100 mg/dL 0-150 CALCULATED LDL 92.4 mg/dL HDL(New) 56.6 mg/dL H >40 HDL % OF TOTAL CHOLESTEROL (PB) 33.5 >25 Sep 06, 2023 12:15 PM [facility] HEPATIC FUNCTION PROFILE (PB) Specimen Type: PLASMA No comment entered. Ordering Provider: NAVIN EUBANKS Report Released Date/Time: Sep 06, 2023 12:14 PM Reporting Lab: [place] [facility] [address] [place] [address] Performing Lab: [place] [facility] [address] [place] [facility] PROTEIN 6.6 g/dL 6-8.6 ALBUMIN 4.0 g/dL 3.4-5 TOTAL BILIRUBIN 0.6 mg/dL 0.2-1.2 ALKALINE PHOSPHATASE 80 U/L 40-150 AST/SGOT 10 U/L 5-34 ALT/SGPT 16 U/L 8-40 CONJ. BILIRUBIN 0.3 mg/dL 0-0.5 Sep 06, 2023 12:15 PM [facility] CBC Specimen Type: BLOOD Comment: ~Pre-Operat ermias Pre-Operati ve Ordering Provider: NAVIN EUBANKS Report Released Date/Time: Sep 06, 2023 12:14 PM Reporting Lab: [place] [facility] [address] [place] [facility] Performing Lab: [place] [facility] [address] [place] [facility] WBC 11.2 10*3/uL 3.6-11.2 RBC 6.65 10*6/uL [...] H 0.00-0.05 Sep 06, 2023 12:15 PM [facility] TSH (MA-PB-STL) Specimen Type: SERUM No comment entered. Ordering Provider: NAVIN EUBANKS Report Released Date/Time: Sep 06, 2023 12:14 PM Reporting Lab: [place] [facility] [address] [place] [address] Performing Lab: [place] [facility] [address] [place] [address] TSH 1.401 u[IU]/mL 0.47-5 Encounter Notes: All associated encounter notes This section contains the clinical notes associated to the Encounter. Date/Time Encounter Note(s) Provider Source Aug 28, 2023 10:36 AM ADMINISTRATIVE NOT E: LOCAL TITLE: CCC: SCHEDULING ADMINISTRATION STANDARD TITLE: ADMINISTRATIVE NOTE DATE OF NOTE: AUG 28, 2023@10:36:38 ENTRY DATE: AUG 28, 2023@10:36:38 AUTHOR: MARY ARGUELLO EXP COSIGNER: URGENCY: STATUS: COMPLETED CCC: SCHEDULING ADMINISTRATION Has ADDENDA Patient Demographics Patient Name: QUENTIN LONG Patient Primary Phone: [phone] Patient Primary Address: [facility] [id number] [place] [id number] Patient : 1940 Patient Age: 83 Caller/Recipient Relation to Patient: Self Administrative Administrative Note Reason: Other Administrative Note Comments: Pt. phoned states he was in the ED on 08/25/23 due to breathing problems. It is requested that he follow-up with PCP this week. No appts. are available. He is requesting call back please to get scheduled. /evelia/ MARY ARGUELLO Signed: 08/28/2023 10:36 Receipt Acknowledged By: 08/30/2023 11:18 /es/ DIANA JARAMILLO RN [facility] 08/28/2023 11:19 /es/ NAVIN EUBANKS MD 08/29/2023 11:26 /es/ JESSE JUAN [facility] 08/28/2023 ADDENDUM STATUS: COMPLETED This call was transferred from triage for the appt. /evelia/ MARY ARGUELLO Signed: 08/28/2023 10:39 MARY ARGUELLO [facility]
--- OUTSIDE RECORDS SUMMARY | 2024-07-28 15:54 | XMS_ITS | Encounter Summary ---
Author Name [facility] [place] Address [address] [place] [address] Care Team Providers Care Grants Specialist Name Role Phone ACACIANAVIN ELLIS Primary Care [...] Patient's Relationship to Policy Reagan [employer]ARP [facility] (WNR) MEDICARE ADVANTAGE [facility] November 22, 2015 [id number] Arminda LONG PATIENT MEDICARE (WNR) MEDICARE (M) PART A Feb 21, 2007 PART A [id number] Arminda LONG PATIENT MEDICARE (WNR) MEDICARE (M) PART B Feb 21, 2007 PART B [id number] Arminda LONG PATIENT [facility] (WNR) MEDICARE ADVANTAGE [facility] (WN) November 22, 2015 [id number] Arminda LONG PATIENT Selected Encounter This section includes the information on record at [place] for the Encounter. Date/Time Encounter Type Encounter Description Reason Pro vider Source Nov 02, 2023 12:00 AM Outpatient Encounter EVENT (HISTORICAL) IHE Encounter Template Text not used by [place] Plan of Treatment: Future Appointments (+ 6 months) and Future Tests (+/- 45 days) The Plan of Treatment section includes future care activities for the patient from all [place] [facility]. This section includes future appointments and future orders which are active, pending or scheduled. Future Appointments This section includes appointments that were scheduled to occur 6 months from the date of the Encounter, up to a maximum of 20 appointments. The data comes from all [facility]. Appointment Date/Time Appointment Type Appointme nt Facility Name December 01, 2023 10:00 AM AMBULATORY - [facility]ICINE [facility] Jan 05, 2024 09:20 AM [facility] Jan 12, 2024 11:30 AM [facility] Feb 12, 2024 11:00 AM AMBULATORY - MEDICINE [facility] Mar 27, 2024 08:40 AM [facility]ORY [facility]IC[facility] Apr 04, 2024 10:30 AM AMBULATORY - MEDICINE [facility] Apr 04, 2024 11:30 AM AMBULATORY - MEDICINE [facility] Pathology Reports: +/- 30 days of the [...] the Encounter. The data comes from all [facility]. Date/Time Pathology Report Provider Source Oct 03, 2023 04:31 PM LR MICROBIOLOGY RE PORT: Accession [UID]: [id number] [[id number]] Received: Oct 03, 2023@16:31 Collection sample: SWAB Collection date: Oct 03, 2023 16:31 Site/Specimen: SKIN OF BACK Provider: SHOSHANA HAMPTON Comment on specimen: right upper back Test(s) ordered: C&S WOUND CULTURE (PB)........ completed: Oct 09, 2023 * BACTERIOLOGY FINAL REPORT => Oct 09, 2023 11:19 TECH CODE: [id number] GRAM STAIN: RARE GRAM POSITIVE COCCI Bacteriology Remark(s): NO GROWTH AT 72 HOURS Test(s) Performed By: BHARATH =--=--=--=--=--=--=--=--=--=--=--= --=--=--=--=--=--=--=--=--=--=--=- -=--=--=-- Performing Laboratory: Bacteriology Report Performed By: ISAIAH MCADAMS [facility] [CLIA# [id number]] [address] [facility] [place] [id number] [facility] Encounter Notes: All associated encounter notes This section contains the clinical notes associated to the Encounter. Date/Time Encounter Note(s) Provider Source Nov 02, 2023 12:00 AM NONVA CONSULT: LOCAL TITLE: COMMUNITY CARE-CONSULT RESULT NOTE PB STANDARD TITLE: NONVA CONSULT DATE OF NOTE: NOV 02, 2023 ENTRY DATE: FEB 04, 2024@02:00:31 AUTHOR: NICK ANDERSON EXP COSIGNER: URGENCY: STATUS: COMPLETED VistA Imaging - Scanned Document [id number] [facility] DERM, PREVENTATIVE SKIN CHECK SCANNED DOCUMENT SIGNATURE NOT REQUIRED Electronically Filed: 02/04/2024 by: NICK HARDING [facility]
--- OUTSIDE RECORDS SUMMARY | 2024-07-28 15:54 | XMS_ITS | Encounter Summary ---
Author Name [facility] [place] [facility] [place] Address [address] [place] [address] Care Team Providers Care Apparel Fashion Designer Name Role Phone CHA NAVIN Primary Care [...] Reagan's Name Patient's Relationship to Policy Reagan [facility] (WNR) MEDICARE ADVANTAGE [facility] ([facility]) November 22, 2015 [id number] [phone] Arminda OLNG PATIENT MEDICARE (WNR) MEDICARE (M) PART A Feb 21, 2007 PART A [id number] [phone] Arminda LONG PATIENT MEDICARE (WN) MEDICARE (M) PART B Feb 21, 2007 PART B [id number] [phone] Arminda LONG PATIENT [facility] (WNR) MEDICARE ADVANTAGE [facility] (WN) November 22, 2015 [id number] Arminda LONG PATIENT Selected Encounter This section includes the information on record at [place] for the Encounter. Date/Time Encounter Type Encounter Description Reason Provider Source Oct 05, 2023 01:45 PM OFF/OP EST NOVEMBER X REQ PHY/QHP PRIMARY CARE/MEDICINE ICD-10-CM L08.9 Local infection of the skin and subcutaneous tissue, ARYAN Kuhn IHRegla Encounter Template Text not used by [place] Assessments - Encounter Diagnoses This section includes the primary and secondary diagnoses documented for the Encounter. Date/Time Primary/Secondary Diagnosis Diagnosis Name Provider Source Oct 05, 2023 02:30 PM PRIMARY Local infection of the skin and subcutaneous tissue, CROW Kuhn [facility] Plan of Treatment: Future Appointments (+ 6 months) and Future Tests (+/- 45 days) The Plan of Treatment section includes future care activities for the patient [facility] [place] [facility] This section includes future appointments and future orders which are active, pending or scheduled. Future Appointments This section includes appointments that were scheduled to occur 6 months from the date of the Encounter, up to a maximum of 20 appointments. The data comes from all [place] treatment facilities. Appointment Date/Time Appointment Type Appointme nt Facility Name Nov 02, 2023 09:30 AM AMBULATORY - [place]IC[place] [facility] December 01, 2023 10:00 AM AMBULATORY - MEDICINE [facility] Jan 05, 2024 09:20 AM AMBULATORY - MEDICINE [facility] Jan 12, 2024 11:30 AM AMBULATORY - MEDICINE [facility] Feb 12, 2024 11:00 AM [facility]ORY - [facility] Mar 27, 2024 08:40 AM AMBULATORY - MEDICINE [facility] Apr 04, 2024 10:30 AM AMBULATORY - MEDICINE [facility] Apr 04, 2024 11:30 AM AMBULATORY - MEDICINE [facility] Active, Pending, and Scheduled Orders This section includes a listing of several types of active, pending, and scheduled orders, including clinic medications orders, diagnostic test orders, procedure orders and consult orders; where the start date of the order is 45 days before the date of the Encounter or 45 days after the date of theEncounter. The data comes from all [facility]. Test Date/Time Test Type Test Details Facility Name Sep 06, 2023 12:15 PM Laboratory - Chemi stry Order CK-MB GREEN LI/HEP BLD/PLAS PLASMA SP [facility] Lab Results: +/- 30 days of the encounter This section includes the Chemistry and Hematology Lab Results on record with [place] for the patient. Radiology Reports and Pathology Reports are provided separately, in subsequent sections. Lab Results This section contains the Chemistry/Hematology Results that were resulted 30 days before or 30 daysafter the date of the Encounter. Date/Time Source Result Type Result - Unit Interpretation Reference Range Comment Sep 06, 2023 12:15 PM [facility] BRAIN NATRIURETIC PEPTIDE Specimen Type: PLASMA No comment entered. Ordering Provider: NAVIN EUBANKS Report Released Date/Time: Sep 06, 2023 12:14 PM Reporting Lab: [place] [facility] [address] [place] [address] Performing Lab: [place] [facility] [address] [place] [address] BRAIN NATRIURETIC PEPTIDE 19 pg/mL 0-100 Sep 06, 2023 12:15 PM [facility] CPK PROFILE (PB) Specimen Type: PLASMA No comment entered. Ordering Provider: NAVIN EUBANKS Report Released Date/Time: Sep 06, 2023 12:14 PM Reporting Lab: [place] [facility] [address] [place] [address] Performing Lab: [place] [facility] [address] [place] [address] CPK 25 U/L L 30-200 Sep 06, 2023 12:15 PM [facility] LDH Specimen Type: PLASMA No comment entered. Ordering Provider: NAVIN EUBANKS Report Released Date/Time: Sep 06, 2023 12:14 PM Reporting Lab: [place] [facility] [address] [place] [address] Performing Lab: [place] [facility] [address] [place] [address] LDH 175 U/L 125-243 Sep 06, 2023 12:15 PM [facility] HGA1C Specimen Type: BLOOD No comment entered. Ordering Provider: NAVIN EUBANKS Report Released Date/Time: Sep 06, 2023 12:14 PM Reporting Lab: [place] [facility] [address] [place] [address] Performing Lab: [place] [facility] [address] [place] [address] HGA1C 6.8 H 4.0-6.0 Sep 06, 2023 12:15 PM [facility] B12 Specimen Type: SERUM No comment entered. Ordering Provider: NAVIN EUBANKS Report Released Date/Time: Sep 06, 2023 12:14 PM Reporting Lab: [place] [facility] [address] [place] [address] Performing Lab: [place] [facility] [address] [place] [address] B12 556 pg/mL 213-816 Sep 06, 2023 12:15 PM [facility] BASIC METABOLIC PANEL Specimen Type: PLASMA No comment entered. Ordering Provider: NAVIN EUBANKS Report Released Date/Time: Sep 06, 2023 12:14 PM Reporting Lab: [place] [facility] [address] [place] [address] Performing Lab: [place] [facility] [address] [place] [address] CREATININE 0.98 mg/dL 0.7-1.3 UREA NITROGEN 17 mg/dL 9-25 GLUCOSE 96 mg/dL 72-99 SODIUM 142 meq/L 136-145 POTASSIUM 4.3 meq/L 3.5-5 CHLORIDE 102 meq/L 98-107 CARBON DIOXIDE 31 meq/L 22-31 CALCIUM 8.9 mg/dL 8.4-10.4 EGFR (CKD-EPI 2020) 77 Sep 06, 2023 12:15 PM [facility] VITAMIN D, 25-HYDROXY Specimen Type: SERUM No comment entered. Ordering Provider: NAVIN EUBANKS Report Released Date/Time: Sep 06, 2023 12:14 PM Reporting Lab: [place] [facility] [address] [place] [address] Performing Lab: [place] [facility] [address] [place] [address] VITAMIN D, 25-HYDROXY 26.4 ng/mL L 30-96 Sep 06, 2023 12:15 PM [facility] CHOLESTEROL PANEL (PB) Specimen Type: PLASMA No comment entered. Ordering Provider: NAVIN EUBANKS Report Released Date/Time: Sep 06, 2023 12:14 PM Reporting Lab: [place] [facility] [address] [place] [address] Performing Lab: [place] [facility] [address] [place] [address] CHOLESTEROL 169 mg/dL 0-200 TRIGLYCERIDE 100 mg/dL 0-150 CALCULATED LDL 92.4 mg/dL HDL(New) 56.6 mg/dL H >40 HDL % OF TOTAL CHOLESTEROL (PB) 33.5 >25 Sep 06, 2023 12:15 PM [facility] CBC Specimen Type: BLOOD Comment: ~Pre-Operat ermias Pre-Operati ve Ordering Provider: NAVIN EUBANKS Report Released Date/Time: Sep 06, 2023 12:14 PM Reporting Lab: [place] [facility] [address] [place] [address] Performing Lab: [place] [facility] [address] [place] [address] WBC 11.2 10*3/uL 3.6-11.2 RBC 6.65 10*6/uL [...] H 0.00-0.05 Sep 06, 2023 12:15 PM [facility] HEPATIC FUNCTION PROFILE (PB) Specimen Type: PLASMA No comment entered. Ordering Provider: NAVIN EUBANKS Report Released Date/Time: Sep 06, 2023 12:14 PM Reporting Lab: [place] [facility] [address] [place] [facility] Performing Lab: [place] [facility] [address] [place] [facility] [address] PROTEIN 6.6 g/dL 6-8.6 ALBUMIN 4.0 g/dL 3.4-5 TOTAL BILIRUBIN 0.6 mg/dL 0.2-1.2 ALKALINE PHOSPHATASE 80 U/L 40-150 AST/SGOT 10 U/L 5-34 ALT/SGPT 16 U/L 8-40 CONJ. BILIRUBIN 0.3 mg/dL 0-0.5 Sep 06, 2023 12:15 PM [facility] TSH (MA-PB-STL) Specimen Type: SERUM No comment entered. Ordering Provider: NAVIN EUBANKS Report Released Date/Time: Sep 06, 2023 12:14 PM Reporting Lab: [place] [facility] [address] [place] [address] Performing Lab: [place] [facility] [address] [place] [address] TSH 1.401 u[IU]/mL 0.47-5 Vital Signs: All taken on the encounter date This section contains inpatient and outpatient Vital Signs collected on the date of the Encounter. Date/Time Temperature Pulse Blood Pressure Respiratory Rate SP02 Pain Height Weight Body Mass Index Source Oct 05, 2023 01:55 PM 97.6 81 115/68 18 94 3 192.1 26 [facility] Social History: Smoking Status (Most current) and Tobacco Use (All prior to encounter date) This section includes the most current, and the historical, smoking and tobacco- related health factors from the [place] facility where the Encounter took place. Current Smoking Status This section includes the most current smoking, or tobacco-related health factor, from the [place] facility where the Encounter took place. Date/Time Current Smoking Status Comment Facil ity Apr 06, 2023 08:30 AM VA-TOBACCO DOESNT USE [place] 30 MIN [facility]UP [place] [facility] Tobacco Use History This section includes a history of the smoking, or tobacco-related health factors, that were collected on or before the date of the Encounter. The data comes from the [place] facility where the Encounter took place. 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 [facility] Apr 06, 2023 08:30 AM VA-TOBACCO USE MED NO [place] [facility] Apr 06, 2023 08:30 AM VA-TOBACCO USER SOME DAYS [place] [facility] Apr 12, 2022 02:30 PM VA-TOBACCO DOESNT USE [place] 30 MIN [place] [place] [facility] Apr 12, 2022 02:30 PM VA-TOBACCO USE 30 YEARS OR MORE [place] [facility] Apr 12, 2022 02:30 PM VA-TOBACCO USE ADVICE [place] [facility] Apr 12, 2022 02:30 PM VA-TOBACCO USE CHIEF INFORMATICS OFFICER NO [place] [facility] Apr 12, 2022 02:30 PM VA-TOBACCO USE MED NO [place] [facility] Apr 12, 2022 02:30 PM VA-TOBACCO USER EVERY DAY [place] [facility] Oct 12, 2009 10:39 AM CURRENT TOBACCO USER [place] [facility] Oct 12, 2009 10:39 AM TOBACCO OFFERED STOP SMOKING CLI F[facility]I [place] [facility] Aug 07, 2008 11:49 AM CURRENT TOBACCO USER [place] [facility] Aug 07, 2008 11:49 AM TOBACCO OFFERED STOP SMOKING CLI [facility] [place] [facility] Aug 07, 2008 11:49 [facility] [place] [facility] Jun 12, 2007 10:21 AM QUIT TOBACCO >7 YEARS AGO [place] [facility] Aug 31, 2005 01:59 PM CURRENT TOBACCO USER [place] [facility] Jun 21, 2005 08:52 AM CURRENT TOBACCO USER [place] [facility] December 14, 2004 09:52 AM CURRENT TOBACCO USER [facility] December 09, 2003 01:01 PM CURRENT TOBACCO USER [facility] Pathology Reports: +/- 30 days of [...] the Encounter. The data comes from all [facility] facilities. Date/Time Pathology Report Provider Source Oct 03, 2023 04:31 PM LR MICROBIOLOGY RE PORT: Accession [UID]: [id number] [[id number]] Received: Oct 03, 2023@16:31 Collection sample: SWAB Collection date: Oct 03, 2023 16:31 Site/Specimen: SKIN OF BACK Provider: SHOSHANA HAMPTON Comment on specimen: right upper back Test(s) ordered: C&S WOUND CULTURE (PB)........ completed: Oct 09, 2023 * BACTERIOLOGY FINAL REPORT => Oct 09, 2023 11:19 TECH CODE: [id number] GRAM STAIN: RARE GRAM POSITIVE COCCI Bacteriology Remark(s): NO GROWTH AT 72 HOURS Test(s) Performed By: BHARATH =--=--=--=--=--=--=--=--=--=--=--= --=--=--=--=--=--=--=--=--=--=--=- -=--=--=-- Performing Laboratory: Bacteriology Report Performed By: ISAIAH MCADAMS [facility] [CLIA# [id number]] [address] [facility] [place] [address] [facility] Encounter Notes: All associated encounter notes This section contains the clinical notes associated to the Encounter. Date/Time Encounter Note(s) Provider Source Oct 05, 2023 01:56 PM PRIMARY CARE NURSI NG NOTE: LOCAL TITLE: PRIMARY CARE NURSING PROGRESS NOTE (TEXT) NURSING P STANDARD TITLE: PRIMARY CARE NURSING NOTE DATE OF NOTE: OCT 05, 2023@13:56 ENTRY DATE: OCT 05, 2023@13:56:21 AUTHOR: CROW ERVIN EXP COSIGNER: URGENCY: STATUS: COMPLETED This is a 83 year old MALE with known Allergies as noted: Patient has answered NKA On the following Active Medications: Active Outpatient Medications (including Supplies): Active Outpatient Medications Status 1) ALBUTEROL 90MCG (CFC-F) 200D ORAL INHL INHALE 2 PUFFS ACTIVE ORAL INHALATION EVERY 4 HOURS NEEDED FOR SHORTNESS OF BREATH SHAKE WELL. RINSE MOUTHPIECE FREQUENTLY TO PREVENT CLOGGING. 2) AMLODIPINE BESYLATE 5MG TAB TAKE ONE TABLET BY MOUTH ACTIVE ONCE A DAY FOR HEART/BLOOD PRESSURE 3) ASPIRIN 81MG CHEW TAB CHEW AND SWALLOW ONE TABLET BY ACTIVE MOUTH ONCE A DAY FOR CARDIOVASCULAR DISEASE (TAKE WITH FOOD) 4) ATORVASTATIN CALCIUM 80MG TAB TAKE ONE-HALF TABLET BY ACTIVE MOUTH EVERY EVENING TO LOWER CHOLESTEROL 5) CARBAMIDE PEROXIDE 6.5% OTIC SOLN INSTILL 4 DROPS IN ACTIVE BOTH EARS EVERY 4 WEEKS NEEDED FOR EAR WAX BLOCKAGE 6) CHOLECALCIF 50MCG (D3-2,000UNIT) TAB TAKE TWO TABLETS ACTIVE BY MOUTH ONCE A DAY FOR VITAMIN D DEFICIENCY FOR VITAMIN D DEFICIENCY. 7) CLOPIDOGREL BISULFATE 75MG TAB TAKE ONE TABLET BY ACTIVE MOUTH ONCE A DAY TO THIN BLOOD 8) FLUTICAS 100/SALMETEROL 50 INHL DISK 60 INHALE 1 ACTIVE INHALATION ORAL INHALATION TWICE A DAY FOR COPD (OPEN DISKUS; CLICK ONLY ONCE; MAY INHALE TWICE TO COMPLETE DOSE; CLOSE WHEN FINISHED) RINSE MOUTH AND SPIT AFTER EACH USE. 9) HCTZ 12.5/LISINOPRIL 10MG TAB TAKE 1 TABLET BY MOUTH ACTIVE TWICE A DAY 10) MUPIROCIN 2% OINT APPLY SPARINGLY TO AFFECTED AREA(S) ACTIVE TWICE A DAY FOR BACTERIAL INFECTION EXTERNAL USE ONLY. 11) TIOTROPIUM 2.5MCG/ACTUAT 60D ORAL INHL INHALE 2 ACTIVE INHALATIONS ORAL INHALATION ONCE A DAY FOR COPD (ADMINISTER AT SAME TIME EACH DAY) C/C: Wound check S: presents to the clinic as a walk-in for a follow up on the cyst on his back that was lanced on 10/03/23. Irvine reports if feel much better and he is taking his prescribed antibiotics and doing dressing changes and packing daily as directed by provider. O/A: ambulated to exam room with steady gait and no assistance. alert and oriented x4 with unlabored breathing. Using aseptic technique removed dressing and packing. slight erythema noted around wound edges. small amount of thick serous drainage expressed from wound. Wound is much improved from initial visit per original RNLorrie. Irrigated wound with sterile saline. Using sterile technique packed wound with plain packing strip covered with 2x2 sterile gauze and silk tape. Vital Signs: see cover sheet Weight: 192.1 pounds P: Advised Irvine to continue with previous Provider recommendations and attend his scheduled appointment with dermatology. Advised Irvine to report to clinic if needed or report to ER if symptoms worsen. RTC: Advised to return to clinic as needed or report to ER if symptoms worsen. /evelia/ Crow Ervin RN BSN [facility] Signed: 10/05/2023 14:30 Receipt Acknowledged By: 10/09/2023 08:24 /evelia/ KASHMIR Wright, MSN, [facility]
--- OUTSIDE RECORDS SUMMARY | 2024-07-28 15:54 | XMS_ITS | Encounter Summary ---
Author Name [facility] [place] Organization [place] Address [address] [place] [address] Care Team Providers Care Ag Service Manager Name Role Phone ACACIANAVIN ELLIS Primary Care [...] Reagan's Name Patient's Relationship to Policy Reagan [facility] (WNR) MEDICARE ADVANTAGE [facility] ([facility]) November 22, 2015 [id number] [phone] Arminda LONG PATIENT MEDICARE (WNR) MEDICARE (M) PART A Feb 21, 2007 PART A [id number] [phone] Arminda LONG PATIENT MEDICARE (WN) MEDICARE (M) PART B Feb 21, 2007 PART B [id number] [phone] Arminda LONG PATIENT [facility] (WNR) MEDICARE ADVANTAGE [facility] ([facility]) November 22, 2015 [id number] Arminda LONG PATIENT Selected Encounter This section includes the information on record at [place] for the Encounter. Date/Time Encounter Type Encounter Description Reason Pro vider Source Jan 16, 2024 03:04 PM Outpatient Encounter COMMUNITY CARE CONSULT IHE Encounter Template Text not used by MT Plan of Treatment: Future Appointments (+ 6 months) and Future Tests (+/- 45 days) The Plan of Treatment section includes future care activities for the patient from all [place] treatmentfacilities. This section includes future appointments and future orders which are active, pending or scheduled. Future Appointments This section includes appointments that were scheduled to occur 6 months from the date of the Encounter, up to a maximum of 20 appointments. The data comes from all [place] treatment facilities. Appointment Date/Time Appointment Type Appointme nt Facility Name Feb 12, 2024 11:00 AM [facility] [place] [facility] Mar 27, 2024 08:40 AM AM[facility]ULATORY - MEDICINE [facility] Apr 04, 2024 10:30 AM AMBULATORY - MEDICINE [facility] Apr 04, 2024 11:30 AM [facility] May 13, 2024 10:30 AM AMBULATORY - MEDICINE [facility] May 13, 2024 11:00 AM AMBULATORY - MEDICINE [facility] Lab Results: +/- 30 days of the encounter This section includes the Chemistry and Hematology Lab Results on record with [place] for the patient. Radiology Reports and Pathology Reports are provided separately, in subsequent sections. Lab Results This section contains the Chemistry/Hematology Results that were resulted 30 days before or 30 daysafter the date of the Encounter. Date/Time Source Result Type Result - Unit Interpretation Reference Range Comment Jan 05, 2024 08:48 AM [facility] IRON Specimen Type: PLASMA No comment entered. Ordering Provider: DM CALVIN Report Released Date/Time: December 01, 2023 05:38 AM Reporting Lab: [place] [facility] [address] [place] [address] Performing Lab: [place] [facility] [address] [place] [address] IRON 195 ug/dL H 65-175 Jan 05, 2024 08:48 AM [facility] PROCALCITONIN (PB) Specimen Type: PLASMA No comment entered. Ordering Provider: DM CALVIN Report Released Date/Time: December 01, 2023 05:38 AM Reporting Lab: [place] [facility] [address] [place] [address] Performing Lab: [place] [facility] [address] [place] [address] PROCALCITONIN (PB) 0.02 ng/mL 0-0.5 Jan 05, 2024 08:48 AM [facility] CHOLESTEROL PANEL (PB) Specimen Type: PLASMA No comment entered. Ordering Provider: DM CALVIN W Report Released Date/Time: December 01, 2023 05:38 AM Reporting Lab: [place] [facility] [address] [place] [address] Performing Lab: [place] [facility] [address] [place] [address] CHOLESTEROL 178 mg/dL 0-200 TRIGLYCERIDE 90 mg/dL 0-150 CALCULATED LDL 105.3 mg/dL HDL(New) 54.7 mg/dL H >40 HDL % OF TOTAL CHOLESTEROL (PB) 30.7 >25 Jan 05, 2024 08:48 AM [facility] DIRECT LDL (MA-PB) Specimen Type: PLASMA No comment entered. Ordering Provider: DM CALVIN W Report Released Date/Time: December 01, 2023 05:38 AM Reporting Lab: [place] [facility] [address] [place] [address] Performing Lab: [place] [facility] [address] [place] [address] DIRECT LDL 121.8 mg/dL H 0-99.9 Jan 05, 2024 08:48 AM [facility] VITAMIN D, 25-HYDROXY Specimen Type: SERUM No comment entered. Ordering Provider: DM CALVIN W Report Released Date/Time: December 01, 2023 05:38 AM Reporting Lab: [place] [facility] [address] [place] [address] Performing Lab: [place] [facility] [address] [place] [address] VITAMIN D, 25-HYDROXY 27.5 ng/mL L 30-96 Jan 05, 2024 08:48 AM [facility] COMPREHENSIVE METABOLIC PANEL Specimen Type: PLASMA No comment entered. Ordering Provider: DM CALVIN W Report Released Date/Time: December 01, 2023 05:38 AM Reporting Lab: [place] [facility] [address] [place] [address] Performing Lab: [place] [facility] [address] [place] [address] CREATININE 1.05 mg/dL 0.7-1.3 UREA NITROGEN 14 [...] 2020) 71 Jan 05, 2024 08:48 AM [facility] FOLATE (PB) Specimen Type: SERUM No comment entered. Ordering Provider: DM CALVIN Report Released Date/Time: December 01, 2023 05:38 AM Reporting Lab: [place] [facility] [address] [place] [address] Performing Lab: [place] [facility] [address] [place] [address] FOLATE (PB) 10.3 ng/mL 7-20 Jan 05, 2024 08:48 AM [facility] CBC Specimen Type: BLOOD No comment entered. Ordering Provider: DM CALVIN Report Released Date/Time: December 01, 2023 05:38 AM Reporting Lab: [place] [facility] [address] [place] [address] Performing Lab: [place] [facility] [address] [place] [address] WBC 7.7 10*3/uL 3.6-11.2 RBC 6.24 10*6/uL [...] IMMATURE GRANS, AUTO ABS 0.04 10*3/uL 0.00-0.05 Jan 05, 2024 08:48 AM [facility] HGA1C Specimen Type: BLOOD No comment entered. Ordering Provider: DM CALVIN Report Released Date/Time: December 01, 2023 05:38 AM Reporting Lab: [place] [facility] [address] [place] [address] Performing Lab: [place] [facility] [address] [place] [address] HGA1C 6.1 H 4.0-6.0 Jan 05, 2024 08:48 AM [facility] B12 Specimen Type: SERUM No comment entered. Ordering Provider: DM CALVIN Report Released Date/Time: December 01, 2023 05:38 AM Reporting Lab: [place] [facility] [address] [place] [address] Performing Lab: [place] [facility] [address] [place] [address] B12 705 pg/mL 213-816 Encounter Notes: All associated encounter notes This section contains the clinical notes associated to the Encounter. Date/Time Encounter Note(s) Provider Source Jan 16, 2024 03:13 PM LETTERS: LOCAL TITLE: COMMUNITY CARE-REQUEST FOR SERVICES (RFS) LETTER PB STANDARD TITLE: LETTERS DATE OF NOTE: JAN 16, 2024@15:13 ENTRY DATE: JAN 16, 2024@15:13:22 AUTHOR: SHERWIN BARCENAS COSIGNER: URGENCY: STATUS: COMPLETED Colette KASHMIR Sena [facility] [address] [place] [address] Dear Provider, [place] Information: Patient Name: Quentin Long Date of : Mar [facility] from you for services to be provided to this . A new process is in place and the consult has to be reviewed by the I team to determine the necessity of the request. Upon review, a following determination will be made: If the Muncy has been found to be eligible for care in the community, a new authorization will be issued. If found to not be eligible for care in the community, a new authorization will be denied for the VA to cover any appointments. It is recommended no further appointments be scheduled until the consult has been approved for community care, as the care may be deemed inappropriate for referral outside VA. Should you have questions, please contact us at [phone]. [phone] to speak with a patient patient service technician pst. As a reminder, if applicable, return medical records within 30 days for routine services. Sincerely, ELLA Rosales RN [facility] life [facility] As of 02/01/21, I have been advised that no RFS will be processed unless it is signed and includes medical documentation, if documentation has previously been sent please note upon RFS. Please fax all RFS's to [phone]. OLGA BARCENAS [facility] Jan 16, 2024 03:05 PM NONVA NOTE: LOCAL TITLE: COMMUNITY CARE-REQUEST FOR SERVICE NOTE PB STANDARD TITLE: NONVA NOTE DATE OF NOTE: JAN 16, 2024@15:05 ENTRY DATE: JAN 16, 2024@15:05:56 AUTHOR: SHERWIN BARCENAS COSIGNER: URGENCY: STATUS: COMPLETED COMMUNITY CARE-REQUEST FOR SERVICE NOTE PB Has ADDENDA Request for Services (RFS) documentation has been sent for scanning to [facility] Community Care Consult: COMMUNITY CARE-Cardiology Consult Number: [id number] Authorization Number: [id number] Date sent to scanning: Dec A Request for Service (RFS) form [id number] has been received which includes the following: Care Requested: RFS received from KASHMIR Mccormick, [facility] for continuation of care. ICD 10 Code: I25.10, I10 and E78.2 Scheduled appointment: 02/12/2024 @ 1100 Date VA received request: Dec Date service required (PID): Jan Requesting [facility] Provider Information: KASHMIR Mccormick [facility] [address] [place] [address] /evelia/ OLGA JARAMILLO RN Signed: 01/16/2024 15:12 01/10/2024 ADDENDUM STATUS: COMPLETED [facility] Scanned Document - Addendum. Community Care Consult: COMMUNITY CARE-Cardiology Consult Number: [id number] Authorization Number: [id number] Date sent to scanning: Dec SCANNED DOCUMENT SIGNATURE NOT REQUIRED Electronically Filed: 01/18/2024 by: JONATAN Jarquin [facility] OLGA BARCENAS [facility]
--- OUTSIDE RECORDS SUMMARY | 2024-07-28 15:54 | XMS_ITS | Encounter Summary ---
Author Name Department of [place] Organization [facility] [place] Address [address] [place] [address] Care Team Providers Care Turbine Subassembler Name Role Phone ACACIANAVIN ELLIS Primary Care [...] Reagan's Name Patient's Relationship to Policy Reagan [facility] (WNR) MEDICARE ADVANTAGE [facility] ([facility]) November 22, 2015 [id number] [phone] Arminda LONG PATIENT MEDICARE (WNR) MEDICARE (M) PART A Feb 21, 2007 PART A [id number] [phone] Arminda LONG PATIENT MEDICARE (WN) MEDICARE (M) PART B Feb 21, 2007 PART B [id number] [phone] Arminda LONG PATIENT [facility] (WNR) MEDICARE ADVANTAGE [facility] ([facility]) November 22, 2015 [id number] Arminda LONG PATIENT Selected Encounter This section includes the information on record at [place] for the Encounter. Date/Time Encounter Type Encounter Description Reason Pro vider Source Jan 18, 2024 10:27 AM Outpatient Encounter COMMUNITY CARE CONSULT IHE Encounter Template Text not used by [place] Plan of Treatment: Future Appointments (+ 6 months) and Future Tests (+/- 45 days) The Plan of Treatment section includes future care activities for the patient from all [place] treatmentfacilities. This section includes future appointments and future orders which are active, pending or scheduled. Future Appointments This section includes appointments that were scheduled to occur 6 months from the date of the Encounter, up to a maximum of 20 appointments. The data comes from all [place] treatment facilities. Appointment Date/Time Appointment Type Appointme nt Facility Name Feb 12, 2024 11:00 AM AM[facility]ATORY [place] [facility] Mar 27, 2024 08:40 AM AMBULATORY - MEDICINE [facility] Apr 04, 2024 10:30 AM AMB[facility]ATORY - MEDICINE [facility] Apr 04, 2024 11:30 AM AMB[facility]ATORY - MEDICINE [facility] May 13, 2024 10:30 AM AMBULATORY - MEDICINE [facility] May 13, 2024 11:00 AM AMBULATORY - MEDICINE [facility] Lab Results: +/- 30 days of the encounter This section includes the Chemistry and Hematology Lab Results on record with [place] for the patient. Radiology Reports and Pathology Reports are provided separately, in subsequent sections. Lab Results This section contains the Chemistry/Hematology Results that were resulted 30 days before or 30 daysafter the date of the Encounter. Date/Time Source Result Type Result - Unit Interpretation Reference Range Comment Jan 05, 2024 08:48 AM [facility] PROCALCITONIN (PB) Specimen Type: PLASMA No comment entered. Ordering Provider: DM CALVIN Report Released Date/Time: December 01, 2023 05:38 AM Reporting Lab: [place] [facility] [address] [place] [address] Performing Lab: [place] [facility] [address] [place] [address] PROCALCITONIN (PB) 0.02 ng/mL 0-0.5 Jan 05, 2024 08:48 AM [facility] IRON Specimen Type: PLASMA No comment entered. Ordering Provider: DM CALVIN Report Released Date/Time: December 01, 2023 05:38 AM Reporting Lab: [place] [facility] [address] [place] [address] Performing Lab: [place] [facility] [address] [place] [address] IRON 195 ug/dL H 65-175 Jan 05, 2024 08:48 AM [facility] CHOLESTEROL PANEL (PB) Specimen Type: PLASMA No comment entered. Ordering Provider: DM CALVIN W Report Released Date/Time: December 01, 2023 05:38 AM Reporting Lab: [place] [facility] [address] [place] [address] Performing Lab: [place] [facility] [address] [place] [address] CHOLESTEROL 178 mg/dL 0-200 TRIGLYCERIDE 90 mg/dL 0-150 CALCULATED LDL 105.3 mg/dL HDL(New) 54.7 mg/dL H >40 HDL % OF TOTAL CHOLESTEROL (PB) 30.7 >25 Jan 05, 2024 08:48 AM [facility] DIRECT LDL (MA-PB) Specimen Type: PLASMA No comment entered. Ordering Provider: DM CALVIN W Report Released Date/Time: December 01, 2023 05:38 AM Reporting Lab: [place] [facility] [address] [place] [address] Performing Lab: [place] [facility] [address] [place] [address] DIRECT LDL 121.8 mg/dL H 0-99.9 Jan 05, 2024 08:48 AM [facility] VITAMIN D, 25-HYDROXY Specimen Type: SERUM No comment entered. Ordering Provider: DM CALVIN W Report Released Date/Time: December 01, 2023 05:38 AM Reporting Lab: [place] [facility] [address] [place] [address] Performing Lab: [place] [facility] [address] [place] [address] VITAMIN D, 25-HYDROXY 27.5 ng/mL L 30-96 Jan 05, 2024 08:48 AM [facility] COMPREHENSIVE METABOLIC PANEL Specimen Type: PLASMA No comment entered. Ordering Provider: DM CALVIN W Report Released Date/Time: December 01, 2023 05:38 AM Reporting Lab: [place] [facility] [address] [place] [address] Performing Lab: [place] [facility] [address] [place] [address] CREATININE 1.05 mg/dL 0.7-1.3 UREA NITROGEN 14 [...] 2020) 71 Jan 05, 2024 08:48 AM [facility] FOLATE (PB) Specimen Type: SERUM No comment entered. Ordering Provider: DM CALVIN Report Released Date/Time: December 01, 2023 05:38 AM Reporting Lab: [place] [facility] [address] [place] [address] Performing Lab: [place] [facility] [address] [place] [address] FOLATE (PB) 10.3 ng/mL 7-20 Jan 05, 2024 08:48 AM [facility] CBC Specimen Type: BLOOD No comment entered. Ordering Provider: DM CALVIN Report Released Date/Time: December 01, 2023 05:38 AM Reporting Lab: [place] [facility] [address] [place] [address] Performing Lab: [place] [facility] [address] [place] [address] WBC 7.7 10*3/uL 3.6-11.2 RBC 6.24 10*6/uL [...] 10*3/uL 0.00-0.05 Jan 05, 2024 08:48 AM [facility] B12 Specimen Type: SERUM No comment entered. Ordering Provider: DM CALVIN Report Released Date/Time: December 01, 2023 05:38 AM Reporting Lab: [place] [facility] [address] [place] [address] Performing Lab: [place] [facility] [address] [place] [address] B12 705 pg/mL 213-816 Jan 05, 2024 08:48 AM [facility] HGA1C Specimen Type: BLOOD No comment entered. Ordering Provider: DM CALVIN Report Released Date/Time: December 01, 2023 05:38 AM Reporting Lab: [place] [facility] [address] [place] [address] Performing Lab: [place] [facility] [address] [place] [address] HGA1C 6.1 H 4.0-6.0 Encounter Notes: All associated encounter notes This section contains the clinical notes associated to the Encounter. Date/Time Encounter Note(s) Provider Source Jan 18, 2024 10:27 AM LETTERS: LOCAL TITLE: COMMUNITY CARE-REFERRAL PB (AUTO-PRINT) STANDARD TITLE: LETTERS DATE OF NOTE: JAN 18, 2024@10:27:42 ENTRY DATE: JAN 18, 2024@10:27:43 AUTHOR: KARISSA MATA COSIGNER: URGENCY: STATUS: COMPLETED Quentin Long [id number] [place], [place] [address] Dear QUENTIN LONG, Your VA provider has referred you to a provider within the community for care. Your medical care for CARDIOLOGY has been authorized with the Community Care Provider listed below. DO NOT REPORT TO THE [facility] Provider info: Colette Sena An appointment has been scheduled for you on: Feb 12, 2024 11:00 AM Office Name: [facility] Address: [address] [place] [address] Address: [facility] [address] Auth #: [id number] Referral Issue Date: 01/18/24 Expiration Date: 08/10/24 If you are unable to keep this appointment or the appointment is no longer needed, please contact the community provider above for notification/rescheduling and then call the Devendra Rice [place] Community Care Office at [phone] Ext [phone]. If you need additional care/services not mentioned [...] medication. In-network locations can be found at https://www.va.gov/find-lo cations/ Medical Devices: Your community provider may recommend [...] 72hr or ER visit and/or admission by [phone]. Thank you for the opportunity to serve you and for your service to our great nation! Devendra Rice [facility] Care in the Community [address] [place] [address] [place] [place] [facility]
--- OUTSIDE RECORDS SUMMARY | 2024-07-28 15:54 | XMS_ITS | Encounter Summary ---
Author Name [facility] [place] [facility] [place] [facility] [place] Address [address] [place] [address] Care Team Providers Care Youth Officer Name Role Phone ACACIAJAKY ELLISE Primary Care [...] Reagan's Name Patient's Relationship to Policy Reagan [facility] (WNR) MEDICARE ADVANTAGE [facility] ([facility]) November 22, 2015 [id number] [phone] [employer] LONG PATIENT MEDICARE (WNR) MEDICARE (M) PART A Feb 21, 2007 PART A [id number] [employer] LONG PATIENT MEDICARE (WN) MEDICARE (M) PART B Feb 21, 2007 PART B [id number] [phone] Arminda LONG PATIENT [facility] (WNR) MEDICARE ADVANTAGE [facility] ([facility]) November 22, 2015 [id number] [phone] Arminda LONG PATIENT Selected Encounter This section includes the information on record at [place] for the Encounter. Date/Time Encounter Type Encounter Description Reason Provider Source December 01, 2023 10:00 AM Outpatient Encounter TELEPHONE PRIMARY CARE ICD-10-CM J44.9 Chronic obstructive pulmonary disease, unspecified MICHAEL CALVIN Regla Encounter Template Text not used by [place] Assessments - Encounter Diagnoses This section includes the primary and secondary diagnoses documented for the Encounter. Date/Time Primary/Secondary Diagnosis Diagnosis Name Provider Source December 01, 2023 10:00 AM PRIMARY Chronic obstructive pulmonary disease, unspecified QUENTIN CALVIN [facility] Plan of Treatment: Future Appointments (+ 6 months) and Future Tests (+/- 45 days) The Plan of Treatment section includes future care activities for the patient from [facility] [place] [facility] This section includes future appointments and future orders which are active, pending or scheduled. Future Appointments This section includes appointments that were scheduled to occur 6 months from the date of the Encounter, up to a maximum of 20 appointments. The data comes from all [place] treatment facilities. Appointment Date/Time Appointment Type Appointme nt Facility Name Jan 05, 2024 09:20 AM AMBULATORY - MEDICINE [facility] Jan 12, 2024 11:30 AM AMBULATORY - MEDICINE [facility] Feb 12, 2024 11:00 AM AMBULATORY - MEDICINE [facility] Mar 27, 2024 08:40 AM AMBULATORY - MEDICINE [facility] Apr 04, 2024 10:30 AM AMBULATORY - MEDICINE [facility] Apr 04, 2024 11:30 AM AMBULATORY - MEDICINE [facility] May 13, 2024 10:30 AM AMBULATORY - MEDICINE [facility] May 13, 2024 11:00 AM AMBULATORY - MEDICINE [facility] Social History: Smoking Status (Most current) and Tobacco Use (All prior to encounter date) This section includes the most current, and the historical, smoking and tobacco- related health factors from the [place] facility where the Encounter took place. Current Smoking Status This section includes the most current smoking, or tobacco-related health factor, from the [place] facility where the Encounter took place. Date/Time Current Smoking Status Christopher montgomery Apr 06, 2023 08:30 AM VA-TOBACCO USER SOME DAYS [facility] Tobacco Use History This section includes a history of the smoking, or tobacco-related health factors, that were collected on or before the date of the Encounter. The data comes from the [place] facility where the Encounter took place. 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 [facility] Apr 06, 2023 08:30 AM VA-TOBACCO USE MED NO [facility] Apr 06, 2023 08:30 AM VA-TOBACCO USER SOME DAYS [facility] Apr 12, 2022 02:30 PM VA-TOBACCO DOESNT USE WI 30 MIN [facility]UP [facility] Apr 12, 2022 02:30 PM VA-TOBACCO USE 30 YEARS OR MORE [facility] Apr 12, 2022 02:30 PM VA-TOBACCO USE ADVICE [facility] Apr 12, 2022 02:30 PM VA-TOBACCO USE 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 [facility] Apr 12, 2022 02:30 PM VA-TOBACCO USE MED NO [facility] Apr 12, 2022 02:30 PM VA-TOBACCO USER EVERY DAY [facility] Oct 12, 2009 10:39 AM CURRENT TOBACCO USER [facility] Oct 12, 2009 10:39 AM TOBACCO OFFERED STOP SMOKING CLI [facility]I [facility] Aug 07, 2008 11:49 AM CURRENT TOBACCO USER [facility] Aug 07, 2008 11:49 AM TOBACCO OFFERED STOP SMOKING CLI [facility]I [facility] Aug 07, 2008 11:49 [facility] Jun 12, 2007 10:21 AM QUIT TOBACCO >7 YEARS AGO [facility] Aug 31, 2005 01:59 PM CURRENT TOBACCO USER [facility] Jun 21, 2005 08:52 AM CURRENT TOBACCO USER [facility] December 14, 2004 09:52 AM CURRENT TOBACCO USER [facility] December 09, 2003 01:01 PM CURRENT TOBACCO USER [facility] Encounter Notes: All associated encounter notes This section contains the clinical notes associated to the Encounter. Date/Time Encounter Note(s) Provider Source December 01, 2023 05:26 AM PHARMACY NOTE: LOCAL TITLE: PHARMACY CHRONIC DISEASE STATE MANAGEMENT PB STANDARD TITLE: PHARMACY NOTE DATE OF NOTE: DECEMBER 01, 2023@05:26 ENTRY DATE: DECEMBER 01, 2023@05:26:28 AUTHOR: QUENTIN CALVIN EXP COSIGNER: URGENCY: STATUS: COMPLETED REPORT FOLLOW-UP TO RECENT EMERGENCY DEPARTMENT DISMISSAL This clinician received a report that patient was again in the local ER recently with problems of exacerbation of chronic obstructive airways disease Quentin Long - [id number] 83-year-old male with a history of COPD on multiple medications Chief Complaint: Shortness of Breath/Dyspnea and COPD exacerbation Pertinent past history: COPD, cardiology pt. has several ED visits for SOB thisyear Allergies: Patient has answered NKA - verified phone appointment; identified pt. 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 to follow up with nursing for dressing changes; pt. consulted to derm. SUBJECTIVE: states SOB worsening over about 2 days with greatly increased tachycardia; while at ER pt. was breathing about 40 times a minute with heart rate of 104 bpm, but 02 sats were 92%; had increased anxiety used his albuterol/ipratropium nebs, per neblizer and ipratropium MDI and also albuterol MDI for rescue breathing at home with minimal improvement, but also had increased wheezing along with shortness of breath, also had productive cough with white sputum production; and proceeded to the ED for follow-up; denies fever, leg swelling, or significant chest pain -Pt. stated process feels like his COPD exacerbation; he took breathing treatments at home and states he had not much relief; He denies any chest pain denies any vomiting or diarrhea. NO Associated Symptoms: Denies abdominal pain, chest pain, fever(s), nausea or vomiting Related Data: home oxygen amount: none OTHER COMORBITY: HA1c was controlled, lipids were controlled and B/P was acceptable at last labs ED COURSE OF TREATMENT: -Cardiac enzymes negative chest x-ray unremarkable shows no changes in COPD -- -Discharged patient home with 2 puffs once daily of albuterol as needed steroid taper and doxycycline -Chest x-ray was nonacute, labs were not remarkable, Appears as stated to be an exacerbation of COPD; ABG showed mild hypoxia, although O2 saturations were above 94% on room air -Reports he was given some type of steroid injection in ER. -Chapman reports he is doing alright at this time OBJECTIVE: Followed-up on patient issues and advised on these issues as follows: of note, pt. did complete prednisone course; reports he is using all ordered meds. and inhalers; advised to continue this and entered refill of both inhalers per request; advised to rinse mouth out before and after inhaler and neb use; no new addition of MDIs or neb. treatment, but did et consult to order new neb. unit, that patient keeps on hand is purely a rescue device and has albuterol/ipratropium nebs for use in device, but very rarely uses it only and wintertime ASSESSMENT/IMPRESSION: Pt. needs to make better use of albuterol rescue MDI before exacerbation gets out of control and must remember to use his tiotropium and fluticasone/salmeterol MDIs continually COPD GOALS: -Check for family history; access [...] eosinophil counts if pt. is using ICS parakeet raiser COPD PLAN: -Pt is not monitored by non-[place] bus info consultant -Pt is now somewhat interested in making changes at this time -Pt states he does not have a scheduled appt. with any bus info consultant, and can usually manage condition, but will go to ED, when needed -Pt. will continue to follow [...] inhalations as described -Pt. will not consult bus info consultant, due to non-effectiveness from prior visits -Pt. [...] within asseptable range at last labs of 8.0 -Patient is current on all vaccines, except RSV vacc.-offered -Patient was educated about condition management and side effects and precautions of all meds -Patient is satisfied with current therapy and recent improvement of condition --Future Appointments: 12/01/2023 10:00 -[facility] PHONE [facility] PH[facility] 01/05/2024 09:20 [facility] ( 03/27/2024 08:40 -[facility] ( 04/04/2024 10:30 [facility] PCP --Precautions: patient was instructed [...] be placed to: derm, f/u to nursing --Medications reviewed and reconciled; discussed diet and exercise as relevant to patient condition --All questions answered; pt. agrees to plan of care. Follow up as listed above --Next lab date: JAN 05, 2024; the patient repeat labs will be scheduled; pt understands labs are fasting; will alert human resources records clerk to schedule next lab and appointment --PID: Next follow up date: JAN 12, 2024; f/u to labs form Dec and check MDIs; will alert human resources records clerk to schedule this check status appt --Thanked for their time and expressed my pleasure to serve them I have communicated previous lab results to patient and the voiced understanding ---Please note that this dictation was completed with computer recognition software, often unanticipated grammatical, syntax and other interpretive errors are inadvertently transcribed by the computer software. Please disregard these errors--- Time spent: 28 minutes TELEPHONE CONTACT: YES - FACE TO FACE: NO PBM PharmD Pharmacotherapy Rem V12: PHARMACIST INTERVENTIONS: CHRONIC OBSTRUCTIVE PULMONARY DISEASE (COPD) Medication monitoring, no dosage change required, continue to monitor and assess Plan: patient had f/u to ED admission for chronic lung condition; patient to continue tiotropium MDI, continually / pt. to not wait for using rescue inhaler, albuterol MDI and/or as soon as he feels exacerbation starting / patient did complete prophylactic prednisone course and anti-biotics / patient could use pulmonology consult, but declined / did request dermatology consult and advised RSV vacc. /evelia/ Donnell [facility] [employer] WALL [employer]PLIER [employer] Signed: 12/01/2023 12:45 Receipt Acknowledged By: 12/04/2023 09:20 /evelia/ JESSE JUAN [facility]
--- OUTSIDE RECORDS SUMMARY | 2024-07-28 15:54 | XMS_ITS | Encounter Summary ---
Author Name [facility] [place] [facility] [place] Address [address] [place] [address] Care Team Providers Care Transaction Advisory Services Manager Name Role Phone ACACIANAVIN ELLIS Primary [...] Reagan's Name Patient's Relationship to Policy Reagan [facility] (WNR) MEDICARE ADVANTAGE [facility]) November 22, 2015 [id number] Arminda LONG PATIENT MEDICARE (WNR) MEDICARE (M) PART A Feb 21, 2007 PART A [id number] Arminda LONG PATIENT MEDICARE (WN) MEDICARE (M) PART B Feb 21, 2007 PART B [id number] Arminda LONG PATIENT [facility] (WNR) MEDICARE ADVANTAGE [facility] ([facility]) November 22, 2015 [id number] Arminda LONG PATIENT Selected Encounter This section includes the information on record at [place] for the Encounter. Date/Time Encounter Type Encounter Description Reason Provider Source Aug 28, 2023 07:06 AM Outpatient Encounter [facility] Encounter Template Text not used by [facility] Plan of Treatment: Future Appointments (+ 6 months) and Future Tests (+/- 45 days) The Plan of Treatment section includes future care activities for the patient from [facility] [place] [facility] This section includes future appointments and future orders which are active, pending or scheduled. Future Appointments This section includes appointments that were scheduled to occur 6 months from the date of the Encounter, up to a maximum of 20 appointments. The data comes from all [facility]. Appointment Date/Time Appointment Type Appointme nt Facility Name Sep 06, 2023 11:30 AM AMBULATORY - MEDICINE [facility] Sep 06, 2023 11:31 AM AMBULATORY - MEDICINE [facility] Oct 03, 2023 12:30 PM AMBULATORY - MEDICINE [facility] Oct 05, 2023 01:45 PM AMBULATORY - MEDICINE [facility] Nov 02, 2023 09:30 AM AMBULATORY - MEDICINE [facility] December 01, 2023 10:00 AM AMBULATORY - MEDICINE [facility] Jan 05, 2024 09:20 AM AMBULATORY - MEDICINE [facility] Jan 12, 2024 11:30 AM AMBULATORY - MEDICINE [facility] Feb 12, 2024 11:00 AM AMBULATORY - MEDICINE [facility] Active, Pending, and Scheduled Orders This section includes a listing of several types of active, pending, and scheduled orders, including clinic medications orders, diagnostic test orders, procedure orders and consult orders; where the start date of the order is 45 days before the date of the Encounter or 45 days after the date of theEncounter. The data comes from all [facility]. Test Date/Time Test Type Test Details Facility Name Sep 06, 2023 12:15 PM Laboratory - Chemi stry Order CK-MB GREEN LI/HEP BLD/PLAS PLASMA SP [facility] Lab Results: +/- 30 days of the encounter This section includes the Chemistry and Hematology Lab Results on record with [place] for the patient. Radiology Reports and Pathology Reports are provided separately, in subsequent sections. Lab Results This section contains the Chemistry/Hematology Results that were resulted 30 days before or 30 daysafter the date of the Encounter. Date/Time Source Result Type Result - Unit Interpretation Reference Range Comment Sep 06, 2023 12:15 PM [facility] BRAIN NATRIURETIC PEPTIDE Specimen Type: PLASMA No comment entered. Ordering Provider: NAVIN EUBANKS Report Released Date/Time: Sep 06, 2023 12:14 PM Reporting Lab: [place] [facility] [address] [place] [address] Performing Lab: [place] [facility] [address] [place] [address] BRAIN NATRIURETIC PEPTIDE 19 pg/mL 0-100 Sep 06, 2023 12:15 PM [facility] CPK PROFILE (PB) Specimen Type: PLASMA No comment entered. Ordering Provider: NAVIN EUBANKS Report Released Date/Time: Sep 06, 2023 12:14 PM Reporting Lab: [place] [facility] [address] [place] [address] Performing Lab: [place] [facility] [address] [place] [address] CPK 25 U/L L 30-200 Sep 06, 2023 12:15 PM [facility] LDH Specimen Type: PLASMA No comment entered. Ordering Provider: NAVIN EUBANKS Report Released Date/Time: Sep 06, 2023 12:14 PM Reporting Lab: [place] [facility] [address] [place] [address] Performing Lab: [place] [facility] [address] [place] [address] LDH 175 U/L 125-243 Sep 06, 2023 12:15 PM [facility] HGA1C Specimen Type: BLOOD No comment entered. Ordering Provider: NAVIN EUBANKS Report Released Date/Time: Sep 06, 2023 12:14 PM Reporting Lab: [place] [facility] [address] [place] [address] Performing Lab: [place] [facility] [address] [place] [address] HGA1C 6.8 H 4.0-6.0 Sep 06, 2023 12:15 PM [facility] B12 Specimen Type: SERUM No comment entered. Ordering Provider: NAVIN EUBANKS Report Released Date/Time: Sep 06, 2023 12:14 PM Reporting Lab: [place] [facility] [address] [place] [address] Performing Lab: [place] [facility] [address] [place] [address] B12 556 pg/mL 213-816 Sep 06, 2023 12:15 PM [facility] VITAMIN D, 25-HYDROXY Specimen Type: SERUM No comment entered. Ordering Provider: NAVIN EUBANKS Report Released Date/Time: Sep 06, 2023 12:14 PM Reporting Lab: [place] [facility] [address] [place] [address] Performing Lab: [place] [facility] [address] [place] [address] VITAMIN D, 25-HYDROXY 26.4 ng/mL L 30-96 Sep 06, 2023 12:15 PM [facility] BASIC METABOLIC PANEL Specimen Type: PLASMA No comment entered. Ordering Provider: NAVIN EUBANKS Report Released Date/Time: Sep 06, 2023 12:14 PM Reporting Lab: [place] [facility] [address] [place] [address] Performing Lab: [place] [facility] [address] [place] [address] CREATININE 0.98 mg/dL 0.7-1.3 UREA NITROGEN 17 mg/dL 9-25 GLUCOSE 96 mg/dL 72-99 SODIUM 142 meq/L 136-145 POTASSIUM 4.3 meq/L 3.5-5 CHLORIDE 102 meq/L 98-107 CARBON DIOXIDE 31 meq/L 22-31 CALCIUM 8.9 mg/dL 8.4-10.4 EGFR (CKD-EPI 2020) 77 Sep 06, 2023 12:15 PM [facility] CBC Specimen Type: BLOOD Comment: ~Pre-Operat ermias Pre-Operati ve Ordering Provider: NAVIN EUBANKS Report Released Date/Time: Sep 06, 2023 12:14 PM Reporting Lab: [place] [facility] [address] [place] [address] Performing Lab: [place] [facility] [address] [place] [address] WBC 11.2 10*3/uL 3.6-11.2 RBC 6.65 10*6/uL [...] H 0.00-0.05 Sep 06, 2023 12:15 PM [facility] CHOLESTEROL PANEL (PB) Specimen Type: PLASMA No comment entered. Ordering Provider: NAVIN EUBANKS Report Released Date/Time: Sep 06, 2023 12:14 PM Reporting Lab: [place] [facility] [address] [place] [address] Performing Lab: [place] [facility] [address] [place] [address] CHOLESTEROL 169 mg/dL 0-200 TRIGLYCERIDE 100 mg/dL 0-150 CALCULATED LDL 92.4 mg/dL HDL(New) 56.6 mg/dL H >40 HDL % OF TOTAL CHOLESTEROL (PB) 33.5 >25 Sep 06, 2023 12:15 PM [facility] TSH (MA-PB-STL) Specimen Type: SERUM No comment entered. Ordering Provider: NAVIN EUBANKS Report Released Date/Time: Sep 06, 2023 12:14 PM Reporting Lab: [place] [facility] [address] [place] [address] Performing Lab: [place] [facility] [address] [place] [address] TSH 1.401 u[IU]/mL 0.47-5 Sep 06, 2023 12:15 PM [facility] HEPATIC FUNCTION PROFILE (PB) Specimen Type: PLASMA No comment entered. Ordering Provider: NAVIN EUBANKS Report Released Date/Time: Sep 06, 2023 12:14 PM Reporting Lab: [place] [facility] [address] [place] [address] Performing Lab: [place] [facility] [address] [place] [address] PROTEIN 6.6 g/dL 6-8.6 ALBUMIN 4.0 g/dL 3.4-5 TOTAL BILIRUBIN 0.6 mg/dL 0.2-1.2 ALKALINE PHOSPHATASE 80 U/L 40-150 AST/SGOT 10 U/L 5-34 ALT/SGPT 16 U/L 8-40 CONJ. BILIRUBIN 0.3 mg/dL 0-0.5 Encounter Notes: All associated encounter notes This section contains the clinical notes associated to the Encounter. Date/Time Encounter Note(s) Provider Source Aug 28, 2023 03:17 PM ADDENDUM: LOCAL TITLE: Addendum STANDARD TITLE: ADDENDUM DATE OF NOTE: AUG 28, 2023@15:17:19 ENTRY DATE: AUG 28, 2023@15:17:21 AUTHOR: ROSEMARIE ISAACS EXP COSIGNER: URGENCY: STATUS: COMPLETED Information below is brief summary extracted by this freelance writer from [facility] record [address] [address] Emergency Department Note Time Seen by Provider: 08/25/23 11:10 Medical Decision Making Improved. Cardiac enzymes negative chest x-ray unremarkable shows changes COPD. Discharge patient home once. With 2 puffs once daily albuterol as needed steroid taper and doxycycline follow-up with primary care within the next 7 to 10 days. Patient Disposition: Home Clinical Impression: Acute exacerbation of chronic obstructive airways disease Condition: Stable Prescriptions: New doxycycline hyclate 100 mg capsule 100 mg PO BID 10 Days Qty: 20 0RF prednisone 20 mg tablet 20 mg PO TID Qty: 15 0RF Rx Instructions: 1 p.o. 3 times daily x3 days, 1 p.o. twice daily x2 days, 1 p.o. daily x2 days albuterol sulfate 90 mcg/actuation HFA aerosol inhaler 2 inh INHALATION Q4H PRN (Reason: shortness of breath or wheezing) Qty: 18 0RF Spiriva Respimat 1.25 mcg/actuation mist 2 inh inhalation DAILY Qty: 4 0RF Activity Restrictions/Additional Instructions: Thank you for choosing [facility] for your healthcare needs today. Please realize this is an emergency room and that we are providing you with a medical screening exam and this may not be complete and all inclusive of all the testing and or work up that you may need to determine your ailment or severity of your illness. It is very important that you follow up as instructed or that you return to the Emergency Department should you have concerns or if your condition changes or worsens in any way. Follow-up with primary care doctor in the next 7 to 10 days (ED Provider: DREW Back /es/ ROSEMARIE JARAMILLO RN Signed: 08/28/2023 15:20 Receipt Acknowledged By: 08/30/2023 11:06 /evelia/ DIANA JARAMILLO RN [facility] 08/29/2023 14:37 /es/ NAVIN EUBANKS MD 08/28/2023 16:26 /es/ [facility] [employer] 08/31/2023 12:04 /es/ JESSE JUAN [facility] --- Original Document --- 08/25/23 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 Referral #: [id number] Clinical Review [facility] Name: [facility]: [facility] Address: City: [facility]: [place] Zip Code: Phone : [facility] Point of Contact: Name: Phone: Chief complaint: Chest Pain, shortness of breath Primary Diagnosis: Disposition: Unknown at time of intake note entry [facility] Neli JARAMILLORN Signed: 08/28/2023 07:08 ROSEMARIE ISAACS CRISTIN [facility] Aug 25, 2023 10:05 AM NONVA NOTE: LOCAL TITLE: COMMUNITY CARE-LEIGH SELF PRESENTING CARE COORD PLAN STANDARD TITLE: NONVA NOTE DATE OF NOTE: AUG 25, 2023@10:05 ENTRY DATE: AUG 28, 2023@07:07:01 AUTHOR: ROSEMARIE ISAACS EXP COSIGNER: URGENCY: STATUS: COMPLETED COMMUNITY CARE-LEIGH SELF PRESENTING CARE COORD PLAN 657A4 PB Has ADDENDA Emergency Notification Intake Date Presenting to the Facility: 08/25/2023 9:52 AM 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 Referral #: [id number] Clinical Review [facility] Name: [facility]: [facility] Address: City: [facility]: [place] Zip Code: Phone : [facility] Facility Point of Contact: Name: Phone: Chief complaint: Chest Pain, shortness of breath Primary Diagnosis: Disposition: Unknown at time of intake note entry [facility] Neli JARAMILLO RN Signed: 08/28/2023 07:08 08/28/2023 ADDENDUM STATUS: COMPLETED Information below is brief summary extracted by this freelance writer from [facility] record [address] [address] Emergency Department Note Time Seen by Provider: 08/25/23 11:10 Medical Decision Making Improved. Cardiac enzymes negative chest x-ray unremarkable shows changes COPD. Discharge patient home once. With 2 puffs once daily albuterol as needed steroid taper and doxycycline follow-up with primary care within the next 7 to 10 days. Patient Disposition: Home Clinical Impression: Acute exacerbation of chronic obstructive airways disease Condition: Stable Prescriptions: New doxycycline hyclate 100 mg capsule 100 mg PO BID 10 Days Qty: 20 0RF prednisone 20 mg tablet 20 mg PO TID Qty: 15 0RF Rx Instructions: 1 p.o. 3 times daily x3 days, 1 p.o. twice daily x2 days, 1 p.o. daily x2 days albuterol sulfate 90 mcg/actuation HFA aerosol inhaler 2 inh INHALATION Q4H PRN (Reason: shortness of breath or wheezing) Qty: 18 0RF Spiriva Respimat 1.25 mcg/actuation mist 2 inh inhalation DAILY Qty: 4 0RF Activity Restrictions/Additional Instructions: Thank you for choosing [facility] for your healthcare needs today. Please realize this is an emergency room and that we are providing you with a medical screening exam and this may not be complete and all inclusive of all the testing and or work up that you may need to determine your ailment or severity of your illness. It is very important that you follow up as instructed or that you return to the Emergency Department should you have concerns or if your condition changes or worsens in any way. Follow-up with primary care doctor in the next 7 to 10 days (ED Provider: DREW Back /evelia/ ROSEMARIE JARAMILLO,JOHN Signed: 08/28/2023 15:20 Receipt Acknowledged By: 08/30/2023 11:06 /evelia/ DIANA JARAMILLO RN [facility] 08/29/2023 14:37 /es/ NAVIN EUBANKS MD 08/28/2023 16:26 /es/ Donnell [facility] [employer] 08/31/2023 12:04 /es/ JESSE JUAN [facility] 08/25/2023 ADDENDUM STATUS: COMPLETED [employer] Imaging Scanned Document - Addendum. SCANNED DOCUMENT SIGNATURE NOT REQUIRED Electronically Filed: 10/12/2023 by: Devendra Poe [facility] ROSEMARIE ISAACS [facility]
--- OUTSIDE RECORDS SUMMARY | 2024-07-28 15:54 | XMS_ITS | Encounter Summary ---
Author Name [facility] [facility] [place] Address [address] [place] [address] Care Team Providers Care Account Installation Specialist Name Role Phone NAVIN EUBANKS Primary Care [...] Reagan's Name Patient's Relationship to Policy Reagan [facility] (WNR) MEDICARE ADVANTAGE [facility] ([facility]) November 22, 2015 [id number] Arminda LONG PATIENT MEDICARE (WN) MEDICARE (M) PART A Feb 21, 2007 PART A [id number] Arminda LONG PATIENT MEDICARE (WN) MEDICARE (M) PART B Feb 21, 2007 PART B [id number] Arminda LONG PATIENT [facility] (WNR) MEDICARE ADVANTAGE [facility] ([facility]) November 22, 2015 [id number] [phone] Arminda LONG PATIENT Selected Encounter This section includes the information on record at NH for the Encounter. Date/Time Encounter Type Encounter Description Reason Provider Source Oct 03, 2023 01:51 PM OFFICE O/P EST MOD 30 MIN PRIMARY CARE/MEDICINE ICD-10-CM L08.9 Local infection of the skin and subcutaneous tissue, EDDIE Bartholomew [facility] Encounter Template Text not used by [place] Assessments - Encounter Diagnoses This section includes the primary and secondary diagnoses documented for the Encounter. Date/Time Primary/Secondary Diagnosis Diagnosis Name Provider Source Oct 03, 2023 02:10 PM PRIMARY Local infection of the skin and subcutaneous tissue, DEBBIE Bartholomew [facility] Oct 03, 2023 02:10 PM SECONDARY Sebaceous cyst DEBBIE HAMPTON [facility] Plan of Treatment: Future Appointments (+ 6 months) and Future Tests (+/- 45 days) The Plan of Treatment section includes future care activities for the [facility] This section includes future appointments and future orders which are active, pending or scheduled. Future Appointments This section includes appointments that were scheduled to occur 6 months from the date of the Encounter, up to a maximum of 20 appointments. The data comes from all [place] treatment [facility]. Appointment Date/Time Appointment Type Appointme nt Facility Name Oct 05, 2023 01:45 PM AMBULATORY - MEDICINE [facility] Nov 02, 2023 09:30 AM AMBULATORY - MEDICINE [facility] December 01, 2023 10:00 AM AMBULATORY - MEDICINE [facility] Jan 05, 2024 09:20 AM AMBULATORY - MEDICINE [facility] Jan 12, 2024 11:30 AM AMBULATORY - MEDICINE [facility] Feb 12, 2024 11:00 AM AM[facility]UL[facility]ORY - [place]IC[facility] [place] [facility] Mar 27, 2024 08:40 AM AMBULATORY - MEDICINE [facility] Apr 04, 2024 10:30 AM AMBULATORY - MEDICINE [facility] Apr 04, 2024 11:30 AM AMBULATORY - MEDICINE [facility] Active, Pending, and Scheduled Orders This section includes a listing of several types of active, pending, and scheduled orders, including clinic medications orders, diagnostic test orders, procedure orders and consult orders; where the start date of the order is 45 days before the date of the Encounter or 45 days after the date of theEncounter. The data comes from all [facility] treatment facilities. Test Date/Time Test Type Test Details Facility Name Sep 06, 2023 12:15 PM Laboratory - Chemi stry Order CK-MB GREEN LI/HEP BLD/PLAS PLASMA SP [facility] [place] [facility] Lab Results: +/- 30 days [...] Range Comment Sep 06, 2023 12:15 PM [facility] BRAIN NATRIURETIC PEPTIDE Specimen Type: PLASMA No comment entered. Ordering Provider: NAVIN EUBANKS Report Released Date/Time: Sep 06, 2023 12:14 PM Reporting Lab: [place] [facility] [address] [place] [address] Performing Lab: [place] [facility] [address] [place] [address] BRAIN NATRIURETIC PEPTIDE 19 pg/mL 0-100 Sep 06, 2023 12:15 PM [facility] CPK PROFILE (PB) Specimen Type: PLASMA No comment entered. Ordering Provider: NAVIN EUBANKS Report Released Date/Time: Sep 06, 2023 12:14 PM Reporting Lab: [place] [facility] [address] [place] [address] Performing Lab: [place] [facility] [address] [place] [address] CPK 25 U/L L 30-200 Sep 06, 2023 12:15 PM [facility] LDH Specimen Type: PLASMA No comment entered. Ordering Provider: NAVIN EUBANKS Report Released Date/Time: Sep 06, 2023 12:14 PM Reporting Lab: [place] [facility] [address] [place] [address] Performing Lab: [place] [facility] [address] [place] [address] LDH 175 U/L 125-243 Sep 06, 2023 12:15 PM [facility] HGA1C Specimen Type: BLOOD No comment entered. Ordering Provider: NAVIN EUBANKS Report Released Date/Time: Sep 06, 2023 12:14 PM Reporting Lab: [place] [facility] [address] [place] [address] Performing Lab: [place] [facility] [address] [place] [address] HGA1C 6.8 H 4.0-6.0 Sep 06, 2023 12:15 PM [facility] B12 Specimen Type: SERUM No comment entered. Ordering Provider: NAVIN EUBANKS Report Released Date/Time: Sep 06, 2023 12:14 PM Reporting Lab: [place] [facility] [address] [place] [address] Performing Lab: [place] [facility] [address] [place] [address] B12 556 pg/mL 213-816 Sep 06, 2023 12:15 PM [facility] VITAMIN D, 25-HYDROXY Specimen Type: SERUM No comment entered. Ordering Provider: NAVIN EUBANKS Report Released Date/Time: Sep 06, 2023 12:14 PM Reporting Lab: [place] [facility] [address] [place] [address] Performing Lab: [place] [facility] [address] [place] [address] VITAMIN D, 25-HYDROXY 26.4 ng/mL L 30-96 Sep 06, 2023 12:15 PM [facility] BASIC METABOLIC PANEL Specimen Type: PLASMA No comment entered. Ordering Provider: NAVIN EUBANKS Report Released Date/Time: Sep 06, 2023 12:14 PM Reporting Lab: [place] [facility] [address] [place] [address] Performing Lab: [place] [facility] [address] [place] [address] CREATININE 0.98 mg/dL 0.7-1.3 UREA NITROGEN 17 mg/dL 9-25 GLUCOSE 96 mg/dL 72-99 SODIUM 142 meq/L 136-145 POTASSIUM 4.3 meq/L 3.5-5 CHLORIDE 102 meq/L 98-107 CARBON DIOXIDE 31 meq/L 22-31 CALCIUM 8.9 mg/dL 8.4-10.4 EGFR (CKD-EPI 2020) 77 Sep 06, 2023 12:15 PM [facility] CBC Specimen Type: BLOOD Comment: ~Pre-Operat ermias Pre-Operati ve Ordering Provider: NAVIN EUBANKS Report Released Date/Time: Sep 06, 2023 12:14 PM Reporting Lab: [place] [facility] [address] [place] [address] Performing Lab: [place] [facility] [address] [place] [address] WBC 11.2 10*3/uL 3.6-11.2 RBC 6.65 10*6/uL [...] H 0.00-0.05 Sep 06, 2023 12:15 PM [facility] CHOLESTEROL PANEL (PB) Specimen Type: PLASMA No comment entered. Ordering Provider: NAVIN EUBANKS Report Released Date/Time: Sep 06, 2023 12:14 PM Reporting Lab: [place] [facility] [address] [place] [address] Performing Lab: [place] [facility] [address] [place] [address] CHOLESTEROL 169 mg/dL 0-200 TRIGLYCERIDE 100 mg/dL 0-150 CALCULATED LDL 92.4 mg/dL HDL(New) 56.6 mg/dL H >40 HDL % OF TOTAL CHOLESTEROL (PB) 33.5 >25 Sep 06, 2023 12:15 PM [facility] HEPATIC FUNCTION PROFILE (PB) Specimen Type: PLASMA No comment entered. Ordering Provider: NAVIN EUBANKS Report Released Date/Time: Sep 06, 2023 12:14 PM Reporting Lab: [place] [facility] [address] [place] [address] Performing Lab: [place] [facility] [address] [place] [address] PROTEIN 6.6 g/dL 6-8.6 ALBUMIN 4.0 g/dL 3.4-5 TOTAL BILIRUBIN 0.6 mg/dL 0.2-1.2 ALKALINE PHOSPHATASE 80 U/L 40-150 AST/SGOT 10 U/L 5-34 ALT/SGPT 16 U/L 8-40 CONJ. BILIRUBIN 0.3 mg/dL 0-0.5 Sep 06, 2023 12:15 PM [facility] TSH (MA-PB-STL) Specimen Type: SERUM No comment entered. Ordering Provider: NAVIN EUBANKS Report Released Date/Time: Sep 06, 2023 12:14 PM Reporting Lab: [place] [facility] [address] [place] [address] Performing Lab: [place] [facility] [address] [place] [address] TSH 1.401 u[IU]/mL 0.47-5 Social History: Smoking [...] place. Date/Time Current Smoking Status Comment [facility] Apr 06, 2023 08:30 AM VA-TOBACCO USER SOME DAYS [facility] [facility] Tobacco Use History This section includes a history of the smoking, or tobacco-related health factors, that were collected on or before the date of the Encounter. The data comes from the [place] facility where the Encounter took place. 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 [facility] Apr 06, 2023 08:30 AM VA-TOBACCO USE MED NO [facility] Apr 06, 2023 08:30 AM VA-TOBACCO USER SOME DAYS [facility] Apr 12, 2022 02:30 PM VA-TOBACCO DOESNT USE WI 30 MIN [place]UP [facility] Apr 12, 2022 02:30 PM VA-TOBACCO USE 30 YEARS OR MORE [facility] Apr 12, 2022 02:30 PM VA-TOBACCO USE ADVICE [facility] Apr 12, 2022 02:30 PM 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 [facility] Apr 12, 2022 02:30 PM VA-TOBACCO USE MED NO [facility] Apr 12, 2022 02:30 PM VA-TOBACCO USER EVERY DAY [facility] Oct 12, 2009 10:39 AM CURRENT TOBACCO USER [facility] Oct 12, 2009 10:39 AM TOBACCO OFFERED STOP SMOKING CLI FABI [facility] Aug 07, 2008 11:49 AM CURRENT TOBACCO USER [facility] Aug 07, 2008 11:49 AM TOBACCO OFFERED STOP SMOKING CLI FABI [facility] Aug 07, 2008 11:49 [facility] Jun 12, 2007 10:21 AM QUIT TOBACCO >7 YEARS AGO [facility] Aug 31, 2005 01:59 PM CURRENT TOBACCO USER [facility] Jun 21, 2005 08:52 AM CURRENT TOBACCO USER [facility] December 14, 2004 09:52 AM CURRENT TOBACCO USER [facility] December 09, 2003 01:01 PM CURRENT TOBACCO USER [facility] Pathology Reports: +/- 30 days [...] RE PORT: Accession [UID]: [id number] [[id number]] Received: Oct 03, 2023@16:31 Collection sample: SWAB Collection date: Oct 03, 2023 16:31 Site/Specimen: SKIN OF BACK Provider: DEBBIE HAMPTON Comment on specimen: right upper back Test(s) ordered: C&S WOUND CULTURE (PB)........ completed: Oct 09, 2023 * BACTERIOLOGY FINAL REPORT => Oct 09, 2023 11:19 TECH CODE: [id number] GRAM STAIN: RARE GRAM POSITIVE COCCI Bacteriology Remark(s): NO GROWTH AT 72 HOURS Test(s) Performed By: BLF =--=--=--=--=--=--=--=--=--=--=--= --=--=--=--=--=--=--=--=--=--=--=- -=--=--=-- Performing Laboratory: Bacteriology Report Performed By: ISAIAH RICE [facility] [CLIA# [id number]] [address] [place] [address] [facility] Encounter Notes: All associated encounter notes This section contains the clinical notes associated to the Encounter. Date/Time Encounter Note(s) Provider Source Oct 03, 2023 01:51 PM PRIMARY CARE PROGR ESS NOTE: LOCAL TITLE: PRIMARY CARE CLINIC PROGRESS NOTE PB STANDARD TITLE: PRIMARY CARE PROGRESS NOTE DATE OF NOTE: OCT 03, 2023@13:51 ENTRY DATE: OCT 03, 2023@13:51:23 AUTHOR: DEBBIE HAMPTON EXP COSIGNER: URGENCY: STATUS: COMPLETED This is an 83-year-old MALE with known Allergies as noted: Patient has answered NKA. Temperature: 98.2 F [36.8 C] (09/06/2023 11:51) Respiratory Rate: 16 (09/06/2023 11:51) Pulse Rate: 85 (09/06/2023 11:51) Blood Pressure: 117/80 (09/06/2023 11:51) HT: 72 in [182.9 cm] (09/06/2023 11:51) WT: 192 lb. [87.09 kg] (09/06/2023 11:51) BMI: 26.1 94% (09/06/2023 11:51) C/C: spot on his back that is burning. HPI: [place] presented today for spot on back that is burning bad and has seen Dr. Larios for in the past but cannot see her till the 16 of October. [place] states that it has been on his back for a while states it has opened and drained several times but last night it was hurting so bad could not sleep. Area to the right side of the upper back, approximately the size of a baseball erythematous, swollen hard and hard. states that he has had this thing before and just needs it removed. Explained to that it was infected and needed to be healed first requested it to be drained. [place] denies any fever, fatigue, or weakness. REVIEW OF SYSTEMS: HEENT: No headache. No blurry vision, vision loss, eye pain, red eyes, or foreign body. No runny nose, congestion, or nosebleed. No hearing loss, ringing in the ears, or vertigo. No sore throat or dental pain. RESPIRATORY: No cough, SOA, wheezing, or sputum production. CARDIOVASCULAR: No chest pain, palpitations, tachycardia, PND, or orthopnea. GI: No abdominal pain, nausea, vomiting, diarrhea, constipation, melena, or hematochezia. : No dysuria, hematuria, urinary frequency, weak stream, or post-void dribbling. MUSCULOSKELETAL: No muscle or joint pain. SKIN: Right side of upper back burning and hurting. PSYCH: No depressed and anxious currently. Not suicidal. On the following Active Medications: Active Outpatient [...] ONLY ONCE; MAY INHALE TWICE TO COMPLETE DOSE: CLOSE WHEN FINISHED) RINSE MOUTH AND SPIT AFTER EACH USE. 9) HCTZ 12.5/LISINOPRIL 10MG TAB TAKE 1 TABLET BY MOUTH ACTIVE TWICE A DAY 10) TIOTROPIUM 2.5MCG/ACTUAT 60D ORAL INHL INHALE 2 ACTIVE INHALATIONS ORAL INHALATION ONCE A DAY FOR COPD (ADMINISTER AT SAME TIME EACH DAY) Pending Outpatient Medications Status 1) MUPIROCIN 2% OINT APPLY SPARINGLY TO AFFECTED AREA(S) PENDING TWICE A DAY EXTERNAL USE ONLY. 11 Total Medications 1) BPH W/O URINARY OBSTRUCT 2) Arthritis * (ICD-9-CM 716.90) 3) Neck Pain (ICD-9-CM 723.1) 4) Essential hypertension (SNOMED CT 46685823) 5) Chest Pain (SCT 98432526) 6) CAD - coronary artery disease (SCT 60714299) 7) Mixed Hyperlipidemia (SCT 529952212) 8) Diabetes Mellitus Type 2 (SCT 23499500) 9) COPD - Chronic Obstructive Pulmonary Disease (SCT 55262695) 10) Polyp Colon (SCT 44255849) 11) elevated hemoglobin & hematocrit Physical Exam General: NAD noted, A&Ox3, pleasant, appears stated age HEENT: NCAT, TM's clear, nares and oropharynx clear Neck: Supple with normal active ROM, without any lymphadenopathy Heart: RRR, no murmur, clicks, or rub Resp: Lungs CTA bilaterally, respirations even and unlabored Abdomen: Soft, non-distended, non-tender Ext: No clubbing, cyanosis, edema, or obvious deformity Neuro: Grossly intact Psych: Affect normal, answers questions appropriately throughout visit Impression: Infection to the right side of upper back -current sebaceous cyst-current Plan: I&D of sebaceous cyst- complete Called antibiotics to [facility] @[phone]. take prescriptions as ordered. increase water intake. wash hands and precautions with good hand washing for the family members that assist with dressing changes. Follow-up: as needed and keep regularly scheduled appointment. Medications reviewed and reconciled. Discussed diet and exercise as relevant to patient conditions. Patient is advised this primary care clinic has open access and he can make a same day appointment anytime a problem/concern arises. Patient further advised. he can be seen on a walk-in basis as needed. Patient is provided clinic contact. information. Treatment plan as noted above and the After Visit Summary was reviewed with. [place]: opportunity provided to report concerns and ask question regarding aspects of care or treatment or services; concurrence reached and . verbalized understanding. Discussed with patient that in the event of community imaging/testing being. ordered in the future, once the imaging testing has been completed, please. notify PACT of within 1 week by a [facility] PACT member; this is due to intermittent. lapses in notification of imaging completion within CPRS. All questions answered, agrees to plan of care. Follow up as listed above, annually, and as needed. Keep all completion at outside facility if not called. with results appointments. Medications Reconciled. Time spent 30 minutes. Time of Timeout: Sep@13:10 Has a valid consent form been obtained? Yes PATIENT IDENTIFICATION: (The patient is identified by at least two of the following (check all that apply)) Full Name, Full SSN, Method of Identification: (no less than two of the following) Patient verbalized name, Patient verbalized social security number, Patient. verbalized date of , Patient verbalized address, Patient verbalized phone number, Patient's family member verbalized patient PROCEDURE: I & D SITE (including laterality if applicable): upper right side of back. VERIFICATION OF SITE MARKING: (Required for procedures involving left/right distinction, multiple structures (Fingers, toes, kidneys, etc.), or multiple levels (as in spinal procedures)) Location of site marked. Obvious wound or lesion, single organ, mucous membranes, interventional case for which insertion site is not pre-determined (cardiac catheterization, central line, etc.) PATIENT POSITION: sitting If applicable, pertinent medical images have been confirmed? N/A If applicable, appropriate antibiotic prophylaxis has been ordered? N/A TIME OUT PARTICIPANTS (list all members present): MD, [employer]ORC[employer] BUILDUP ASSISTANT, PA (s): Debbie CARIAS, RN/Nurse: Julienne Marquez RN Once site prepped with betadine and site started draining large amounts of green purulent chunky drainage with very foul odor from wound, a small extension to the open area to facilitate exit of additional drainage. Site slightly packed with iodoform gauze and [place] so his will care for it tomorrow and return to clinic on for a recheck. Cipro and Bacterium DS called to [facility] and Mupirocin mailed to for future infected wounds. Debbie MARLOW-[facility] APR Float /es/ KASHMIR Wright, MSN, Isaiah Rice [facility] Signed: 10/03/2023 14:26 [facility]
--- OUTSIDE RECORDS SUMMARY | 2024-07-28 15:54 | XMS_ITS | Encounter Summary ---
Author Name [facility] [place] [facility] [place] [facility] [place] [facility] [place] Address [address] [place] [address] Care Team Providers Care Oil Well Shooter Name Role Phone NAVIN EUBANKS Primary Care [...] Reagan's Name Patient's Relationship to Policy Reagan [facility] (WNR) MEDICARE ADVANTAGE [facility] ([facility]) November 22, 2015 [id number] Arminda LONG PATIENT MEDICARE (WN) MEDICARE (M) PART A Feb 21, 2007 PART A [id number] [phone] Arminda LONG PATIENT MEDICARE (WN) MEDICARE (M) PART B Feb 21, 2007 PART B [id number] [phone] Arminda LONG PATIENT [facility] (WNR) MEDICARE ADVANTAGE [facility] ([facility]) November 22, 2015 [id number] [phone] Arminda LONG PATIENT Selected Encounter This section includes the information on record at [place] for the Encounter. Date/Time Encounter Type Encounter Description Reason Provider Source Sep 06, 2023 11:30 AM OFFICE O/P EST MOD 30 MIN PRIMARY CARE/MEDICINE ICD-10-CM J44.9 Chronic obstructive pulmonary disease, unspecified NAVIN EUBANKS Encounter Template Text not used by [place] Assessments - Encounter Diagnoses This section includes the primary and secondary diagnoses documented for the Encounter. Date/Time Primary/Secondary Diagnosis Diagnosis Name Provider Source Sep 06, 2023 12:25 PM PRIMARY Chronic obstructive pulmonary disease, unspecified NAVIN EUBANKS [facility] Sep 06, 2023 12:25 PM SECONDARY Athscl heart disease of [place] coronary artery w/o ang pctrs NAVIN EUBANKS [place] [facility] Sep 06, 2023 12:25 PM SECONDARY Essential (primary) hypertension NAVIN EUBANKS [facility] Sep 06, 2023 12:25 PM SECONDARY Mixed hyperlipidemia NAVIN EUBANKS [place] [facility] Sep 06, 2023 12:25 PM SECONDARY Type 2 diabetes mellitus without complications NAVIN EUBANKS [facility] Plan of Treatment: Future Appointments (+ 6 months) and Future Tests (+/- 45 days) The Plan of Treatment section includes future care activities for the patient from all [place] [facility]. This section includes future appointments and future orders which are active, pending or scheduled. Future Appointments This section includes appointments that were scheduled to occur 6 months from the date of the Encounter, up to a maximum of 20 appointments. The data comes from all [place] treatment facilities. Appointment Date/Time Appointment Type Appointme nt Facility Name Oct 03, 2023 12:30 PM AMBULATORY - MEDICINE [facility] Oct 05, 2023 01:45 PM AMBULATORY - MEDICINE [facility] Nov 02, 2023 09:30 AM [facility]ORY - MEDIC[facility] [facility] December 01, 2023 10:00 AM AMBULATORY - MEDICINE [facility] Jan 05, 2024 09:20 AM AMBULATORY - MEDICINE [facility] Jan 12, 2024 11:30 AM AMBULATORY - MEDICINE [facility] Feb 12, 2024 11:00 AM AMBULATORY - MEDICINE [place] [facility] Active, Pending, and Scheduled Orders This section includes a listing of several types of active, pending, and scheduled orders, including clinic medications orders, diagnostic test orders, procedure orders and consult orders; where the start date of the order is 45 days before the date of the Encounter or 45 days after the date of theEncounter. The data comes from all [place] treatment facilities. Test Date/Time Test Type Test Details Facility Name Sep 06, 2023 12:15 PM Laboratory - Chemi stry Order CK-MB GREEN LI/HEP BLD/PLAS PLASMA SP [facility] Lab Results: +/- 30 days of the encounter This section includes the Chemistry and Hematology Lab Results on record with [place] for the patient. Radiology Reports and Pathology Reports are provided separately, in subsequent sections. Lab Results This section contains the Chemistry/Hematology Results that were resulted 30 days before or 30 daysafter the date of the Encounter. Date/Time Source Result Type Result - Unit Interpretation Reference Range Comment Sep 06, 2023 12:15 PM [facility] BRAIN NATRIURETIC PEPTIDE Specimen Type: PLASMA No comment entered. Ordering Provider: NAVIN EUBANKS Report Released Date/Time: Sep 06, 2023 12:14 PM Reporting Lab: [place] [facility] [address] [place] [address] Performing Lab: [place] [facility] [address] [place] [address] BRAIN NATRIURETIC PEPTIDE 19 pg/mL 0-100 Sep 06, 2023 12:15 PM [facility] CPK PROFILE (PB) Specimen Type: PLASMA No comment entered. Ordering Provider: NAVIN EUBANKS Report Released Date/Time: Sep 06, 2023 12:14 PM Reporting Lab: [place] [facility] [address] [place] [address] Performing Lab: [place] [facility] [address] [place] [address] CPK 25 U/L L 30-200 Sep 06, 2023 12:15 PM [facility] LDH Specimen Type: PLASMA No comment entered. Ordering Provider: NAVIN EUBANKS Report Released Date/Time: Sep 06, 2023 12:14 PM Reporting Lab: [place] [facility] [address] [place] [address] Performing Lab: [place] [facility] [address] [place] [address] LDH 175 U/L 125-243 Sep 06, 2023 12:15 PM [facility] HGA1C Specimen Type: BLOOD No comment entered. Ordering Provider: NAVIN EUBANKS Report Released Date/Time: Sep 06, 2023 12:14 PM Reporting Lab: [place] [facility] [address] [place] [address] Performing Lab: [place] [facility] [address] [place] [address] HGA1C 6.8 H 4.0-6.0 Sep 06, 2023 12:15 PM [facility] B12 Specimen Type: SERUM No comment entered. Ordering Provider: NAVIN EUBANKS Report Released Date/Time: Sep 06, 2023 12:14 PM Reporting Lab: [place] [facility] [address] [place] [address] Performing Lab: [place] [facility] [address] [place] [address] B12 556 pg/mL 213-816 Sep 06, 2023 12:15 PM [facility] VITAMIN D, 25-HYDROXY Specimen Type: SERUM No comment entered. Ordering Provider: NAVIN EUBANKS Report Released Date/Time: Sep 06, 2023 12:14 PM Reporting Lab: [place] [facility] [address] [place] [address] Performing Lab: [place] [facility] [address] [place] [address] VITAMIN D, 25-HYDROXY 26.4 ng/mL L 30-96 Sep 06, 2023 12:[address] [facility] BASIC METABOLIC PANEL Specimen Type: PLASMA No comment entered. Ordering Provider: NAVIN EUBANKS Report Released Date/Time: Sep 06, 2023 12:14 PM Reporting Lab: [place] [facility] [address] [place] [address] Performing Lab: [place] [facility] [address] [place] [address] CREATININE 0.98 mg/dL 0.7-1.3 UREA NITROGEN 17 mg/dL 9-25 GLUCOSE 96 mg/dL 72-99 SODIUM 142 meq/L 136-145 POTASSIUM 4.3 meq/L 3.5-5 CHLORIDE 102 meq/L 98-107 CARBON DIOXIDE 31 meq/L 22-31 CALCIUM 8.9 mg/dL 8.4-10.4 EGFR (CKD-EPI 2020) 77 Sep 06, 2023 12:15 PM [facility] CBC Specimen Type: BLOOD Comment: ~Pre-Operat ermias Pre-Operati ve Ordering Provider: NAVIN EUBANKS Report Released Date/Time: Sep 06, 2023 12:14 PM Reporting Lab: [place] [facility] [address] [place] [facility] [address] Performing Lab: [place] [facility] [address] [facility] [place] [facility] [address] WBC 11.2 10*3/uL 3.6-11.2 RBC 6.65 10*6/uL [...] H 0.00-0.05 Sep 06, 2023 12:15 PM [facility] CHOLESTEROL PANEL (PB) Specimen Type: PLASMA No comment entered. Ordering Provider: NAVIN EUBANKS Report Released Date/Time: Sep 06, 2023 12:14 PM Reporting Lab: [place] [facility] [address] [place] [address] Performing Lab: [place] [facility] [address] [place] [address] CHOLESTEROL 169 mg/dL 0-200 TRIGLYCERIDE 100 mg/dL 0-150 CALCULATED LDL 92.4 mg/dL HDL(New) 56.6 mg/dL H >40 HDL % OF TOTAL CHOLESTEROL (PB) 33.5 >25 Sep 06, 2023 12:15 PM [facility] TSH (MA-PB-STL) Specimen Type: SERUM No comment entered. Ordering Provider: NAVIN EUBANKS Report Released Date/Time: Sep 06, 2023 12:14 PM Reporting Lab: [place] [facility] [address] [place] [address] Performing Lab: [place] [facility] [address] [place] [address] TSH 1.401 u[IU]/mL 0.47-5 Sep 06, 2023 12:15 PM [facility] HEPATIC FUNCTION PROFILE (PB) Specimen Type: PLASMA No comment entered. Ordering Provider: NAVIN EUBANKS Report Released Date/Time: Sep 06, 2023 12:14 PM Reporting Lab: [place] [facility] [address] [place] [address] Performing Lab: [place] [facility] [address] [place] [address] PROTEIN 6.6 g/dL 6-8.6 ALBUMIN 4.0 g/dL 3.4-5 TOTAL BILIRUBIN 0.6 mg/dL 0.2-1.2 ALKALINE PHOSPHATASE 80 U/L 40-150 AST/SGOT 10 U/L 5-34 ALT/SGPT 16 U/L 8-40 CONJ. BILIRUBIN 0.3 mg/dL 0-0.5 Vital Signs: All taken on the encounter date This section contains inpatient and outpatient Vital Signs collected on the date of the Encounter. Date/Time Temperature Pulse Blood Pressure Respiratory Rate SP02 Pain Height Weight Body Mass Index Source Sep 06, 2023 11:51 AM 98.2 85 117/80 16 94 0 72 192 26 [facility] Social History: Smoking Status (Most current) and Tobacco Use (All prior to encounter date) This section includes the most current, and the historical, smoking and tobacco- related health factors from the [place] facility where the Encounter took place. Current Smoking Status This section includes the most current smoking, or tobacco-related health factor, from the [place] facility where the Encounter took place. Date/Time Current Smoking Status Comment Facil ity Apr 06, 2023 08:30 AM VA-TOBACCO DOESNT USE WI 30 MIN WAKEUP [facility] Tobacco Use History This section includes a history of the smoking, or tobacco-related health factors, that were collected on or before the date of the Encounter. The data comes from the [place] facility where the Encounter took place. Date/Time Smoking Status/Tobacco Use Comment F acility Apr 06, 2023 08:30 AM VA-TOBACCO USE 30 YEARS OR MORE [facility] Apr 06, 2023 08:30 AM VA-TOBACCO USE ADVICE [facility] Apr 06, 2023 08:30 AM VA-TOBACCO USE SUPERVISOR FORCE ADJUSTMENT NO [facility] Apr 06, 2023 08:30 AM VA-TOBACCO USE MED NO [facility] Apr 06, 2023 08:30 AM VA-TOBACCO USER SOME DAYS [place] [facility] Apr 12, 2022 02:30 PM VA-TOBACCO DOESNT USE WI 30 MIN WAKEUP [facility] Apr 12, 2022 02:30 PM VA-TOBACCO USE 30 YEARS OR MORE [facility] Apr 12, 2022 02:30 PM VA-TOBACCO USE ADVICE [facility] Apr 12, 2022 02:30 PM VA-TOBACCO USE SUPERVISOR FORCE ADJUSTMENT NO [facility] Apr 12, 2022 02:30 PM VA-TOBACCO USE MED NO [facility] Apr 12, 2022 02:30 PM VA-TOBACCO USER EVERY DAY [facility] Oct 12, 2009 10:39 AM CURRENT TOBACCO USER [facility] Oct 12, 2009 10:39 AM TOBACCO OFFERED STOP SMOKING CLI [facility] Aug 07, 2008 11:49 AM CURRENT TOBACCO USER [facility] Aug 07, 2008 11:49 AM TOBACCO OFFERED STOP SMOKING CLI FABI [facility] Aug 07, 2008 11:49 AM TOBACCO OFFERRED S TOP SMOKING CLINIC [facility] Jun 12, 2007 10:21 AM QUIT TOBACCO >7 YEARS AGO [facility] Aug 31, 2005 01:59 PM CURRENT TOBACCO USER [facility] Jun 21, 2005 08:52 AM CURRENT TOBACCO USER [facility] December 14, 2004 09:52 AM CURRENT TOBACCO USER [facility] December 09, 2003 01:01 PM CURRENT TOBACCO USER [facility] Pathology Reports: +/- 30 days of the [...] the Encounter. The data comes from all [place] treatment facilities. Date/Time Pathology Report Provider Source Oct 03, 2023 04:31 PM LR MICROBIOLOGY RE PORT: Accession [UID]: [id number] [[id number]] Received: Oct 03, 2023@16:31 Collection sample: SWAB Collection date: Oct 03, 2023 16:31 Site/Specimen: SKIN OF BACK Provider: SHOSHANA HAMPTON Comment on specimen: right upper back Test(s) ordered: C&S WOUND CULTURE (PB)........ completed: Oct 09, 2023 * BACTERIOLOGY FINAL REPORT => Oct 09, 2023 11:19 TECH CODE: [id number] GRAM STAIN: RARE GRAM POSITIVE COCCI Bacteriology Remark(s): NO GROWTH AT 72 HOURS Test(s) Performed By: DANIELF =--=--=--=--=--=--=--=--=--=--=--= --=--=--=--=--=--=--=--=--=--=--=- -=--=--=-- Performing Laboratory: Bacteriology Report Performed By: ISAIAH MCADAMS [facility] [CLIA# [id number]] [address] [place] [address] [facility] Encounter Notes: All associated encounter notes This section contains the clinical notes associated to the Encounter. Date/Time Encounter Note(s) Provider Source Sep 06, 2023 11:56 AM PRIMARY CARE PROGR ESS NOTE: LOCAL TITLE: PRIMARY CARE CLINIC PROGRESS NOTE PB STANDARD TITLE: PRIMARY CARE PROGRESS NOTE DATE OF NOTE: SEP 06, 2023@11:56 ENTRY DATE: SEP 06, 2023@11:56:38 AUTHOR: NAVIN EUBANKS COSIGNER: URGENCY: STATUS: COMPLETED is presenting to the clinic today for his/her Telehealth appointment as scheduled. [place] was assured that the Telehealth visit is a private, confidential clinical encounter and will not be recorded. The Telehealth process, procedures and expectations were explained to the patient, allowing [place] time to voice any concerns. [place] voiced understanding and consented to the Clinic visit. The visit proceeded without difficulty. DATE & TIME:Aug@11:56 CHIEF COMPLAINT: ed follow up HISTORY OF PRESENT ILLNESS: shortness of breath fu ED, doxycycline , prednisone taper, spiriva finshed with antibiotics, and steroids lost 4 # since mar 2023 94 % room air iv contrast dye = swells in throat , had to get a shot in past oxycodone or hydrocodone = throat swelling, and in crawl declines colonoscopy shingl;es vaccine wanted PAST MEDICAL HISTORY: 1) BPH W/O URINARY OBSTRUCT 2) Arthritis * (ICD-9-CM 716.90) 3) Neck Pain (ICD-9-CM 723.1) 4) Essential hypertension (SNOMED CT 96328084) 5) Chest Pain (SCT 62989864) 6) CAD - Coronary Artery Disease (SCT 59606294) 7) Mixed Hyperlipidemia (SCT 155053295) 8) Diabetes Mellitus Type 2 (SCT 81556389) 9) COPD - Chronic Obstructive Pulmonary Disease (SCT 57439223) SOCIAL HISTORY: Tobacco: Alcohol: Other: FAMILY HISTORY: Allergies: Patient has answered NKA MEDIACTIONS: Active Outpatient Medications (including Supplies): Active Outpatient [...] BLOCKAGE 6) CHOLECALCIF 50MCG (D3-2,000UNIT) TAB TAKE ONE TABLET ACTIVE BY MOUTH ONCE A DAY FOR VITAMIN D DEFICIENCY. 7) CLOPIDOGREL BISULFATE 75MG TAB TAKE ONE TABLET BY ACTIVE MOUTH ONCE A DAY TO THIN BLOOD 8) HCTZ 12.5/LISINOPRIL 10MG TAB TAKE 1 TABLET BY MOUTH ACTIVE TWICE A DAY 9) TIOTROPIUM 2.5MCG/ACTUAT 60D ORAL INHL INHALE 2 ACTIVE INHALATIONS ORAL INHALATION ONCE A DAY FOR COPD (ADMINISTER AT SAME TIME EACH DAY) REVIEW OF SYSTEMS: Review of Systems Systemic: Denies fatique, fever, chills, or weight loss CV: Denies chest pain, palpitations Pulm: Denies hemoptysis, wheezing GI: Denies constipation, bloody stools. Musculoskeletal: Denies swelling Neuro: Denies slurred speech Skin: Denies abnormal lesions, denies any new rashes PSYCH: Denies SI/HI PHYSICAL ASSESSMENT: VITAL SIGNS Pulse: 85 (09/06/2023 11:51) Blood Pressure: 117/80 (09/06/2023 11:51) Respiratory Rate: 16 (09/06/2023 11:51) Temperature: 98.2 F [36.8 C] (09/06/2023 11:51) Weight: 192 lb [87.09 kg] (09/06/2023 11:51) Height: 72 in [182.9 cm] (09/06/2023 11:51) Pain: 0 (09/06/2023 11:51) GENERAL: Appears in no acute distress. HEENT: Conjunctiva are clear NECK: appearance is normal and without gross masses CARDIAC: Regular rate and rhythm. No JVD, no lower extremity edema RESPIRATORY: CTA bilaterally no rhonchi wheezing or rails. Nonlabored respirations MUSCULOSKELETAL: No joint effusions, moving extremiteis without difficulty SKIN: Appropriate color for ethnicity. NEUROLOGICAL: The [place] is alert and oriented without distress. Gait is at baseline PSYCHOLOGICAL: Appropriate mood and affect. No suicidal or homicidal ideation. A/P: ASSESSMENT and PLAN 1) BPH W/O URINARY OBSTRUCT 2) Arthritis * (ICD-9-CM 716.90) 3) Neck Pain (ICD-9-CM 723.1) 4) Essential hypertension (SNOMED CT 97005715) 5) Chest Pain (SCT 15935490) 6) CAD - Coronary Artery Disease (SCT 71434026) 7) Mixed Hyperlipidemia (SCT 690345351) 8) Diabetes Mellitus Type 2 (SCT 00676007) 9) COPD - Chronic Obstructive Pulmonary Disease (SCT 19102219) ED follow-up for shortness of breath discharge diagnoses COPD exacerbation Patient completed doxycycline, prednisone taper, and is still taking inhalers. will adjusting and add wixela inhaler, and later may be getting some pulmonary function tests. But for now seems stable says his breathing is better but he is still very winded with any exertion. Denies any lower extremity edema Secondary to coronary artery disease history with stents placed in 2016. Will send to cardiology to further evaluate and treat and rule out cardiac etiology as cause or contributing to dyspnea on exertion/shortness of breath. DR Mili rooney, has active consult, I am requesting that patine call and schedule a sooner appt than 03/2024 [facility] [address] [place] [address] [id number] 05/16/23 - 11/12/23 PSP Patient told to call cardiology office and schedule an appointment sooner. Also he had placed an additional comment to be current active cardiology consult above. Stable. Discussed medications with patient; med rec completed. Continue current regimen as prescribed by PCP and specialists. RTC as needed if developing any new or worsening symptoms. Please notify PACT with medication changes or for orders coordination as needed if seen by a specialist in the future. -Follow-up with me every March for annual labs and annual exam -Follow-up every September for 6-month labs -Follow-up with me as needed. All questions answered; agrees to plan of care. Follow up as listed above, annually, and as needed. Keep all appointments. Medications Reconciled. *ELEVATED LDL DIABETIC: No lipid treatment change is needed based on patient's current status. Comment: . The benefits of maintaining a healthy weight range were explained to the patient. /evelia/ NAVIN EUBANKS MD Signed: 09/06/2023 12:24 NAVIN EUBANKS [facility]
--- OUTSIDE RECORDS SUMMARY | 2024-07-28 15:54 | XMS_ITS | Encounter Summary ---
Author Name [facility] Organization [facility] Address [address] [place] [address] Care Team Providers Care Surveyor'S Assistant Name Role Phone NAVIN EUBANKS Primary Care [...] Reagan's Name Patient's Relationship to Policy Reagan [facility] [place]) MEDICARE ADVANTAGE [facility] ([facility]) November 22, 2015 [id number] Arminda LONG PATIENT MEDICARE (WNR) MEDICARE (M) PART A Feb 21, 2007 PART A [id number] Arminda LONG PATIENT MEDICARE (WN) MEDICARE (M) PART B Feb 21, 2007 PART B [id number] [phone] Arminda LONG PATIENT [facility] (WNR) MEDICARE ADVANTAGE [facility] ([facility]) November 22, 2015 [id number] Arminda LONG PATIENT Selected Encounter This section includes the information on record at ID for the Encounter. Date/Time Encounter Type Encounter Description Reason Provider Source Jan 12, 2024 11:30 AM MTMS BY PHARM ADDL 15 MIN TELEPHONE PRIMARY CARE ICD-10-CM J44.9 Chronic obstructive pulmonary disease, unspecified QUENTIN CALVIN [facility] Encounter Template Text not used by ID Assessments - Encounter Diagnoses This section includes the primary and secondary diagnoses documented for the Encounter. Date/Time Primary/Secondary Diagnosis Diagnosis Name Provider Source Jan 12, 2024 11:30 AM PRIMARY Chronic obstructive pulmonary disease, unspecified QUENTIN CALVIN [facility] Plan of Treatment: Future Appointments (+ 6 months) and Future Tests (+/- 45 days) The Plan of Treatment section includes future care activities for the patient from all ID treatmentfaselect specialty hospitalities. This section includes future appointments and future orders which are active, pending or scheduled. Future Appointments This section includes appointments that were scheduled to occur 6 months from the date of the Encounter, up to a maximum of 20 appointments. The data comes from all ID treatment facilities. Appointment Date/Time Appointment Type Appointme nt Facility Name Feb 12, 2024 11:00 AM AMBULATORY - [place]ICINE [place] [facility] Mar 27, 2024 08:40 AM AMBULATORY - MEDICINE [facility] Apr 04, 2024 10:30 AM AMBULATORY MEDICINE [facility] Apr 04, 2024 11:30 AM AMBULATORY - MEDICINE [facility] May 13, 2024 10:30 AM AMBULATORY - MEDICINE [facility] May 13, 2024 11:00 AM AMBULATORY [facility] Lab Results: +/- 30 days of the encounter This section includes the Chemistry and Hematology Lab Results on record with ID for the patient. Radiology Reports and Pathology Reports are provided separately, in subsequent sections. Lab Results This section contains the Chemistry/Hematology Results that were resulted 30 days before or 30 daysafter the date of the Encounter. Date/Time Source Result Type Result - Unit Interpretation Reference Range Comment Jan 05, 2024 08:48 AM [facility] PROCALCITONIN (PB) Specimen Type: PLASMA No comment entered. Ordering Provider: DM CALVIN Report Released Date/Time: December 01, 2023 05:38 AM Reporting Lab: [place] [facility] [address] [place] [address] Performing Lab: [place] [facility] [address] [place] [address] PROCALCITONIN (PB) 0.02 ng/mL 0-0.5 Jan 05, 2024 08:48 AM [facility] IRON Specimen Type: PLASMA No comment entered. Ordering Provider: DM CALVIN W Report Released Date/Time: December 01, 2023 05:38 AM Reporting Lab: [place] [facility] [address] [place] [address] Performing Lab: [place] [facility] [address] [place] [address] IRON 195 ug/dL H 65-175 Jan 05, 2024 08:48 AM [facility] CHOLESTEROL PANEL (PB) Specimen Type: PLASMA No comment entered. Ordering Provider: DM CALVIN W Report Released Date/Time: December 01, 2023 05:38 AM Reporting Lab: [place] [facility] [address] [place] [address] Performing Lab: [place] [facility] [address] [place] [address] CHOLESTEROL 178 mg/dL 0-200 TRIGLYCERIDE 90 mg/dL 0-150 CALCULATED LDL 105.3 mg/dL HDL(New) 54.7 mg/dL H >40 HDL % OF TOTAL CHOLESTEROL (PB) 30.7 >25 Jan 05, 2024 08:48 AM [facility] DIRECT LDL (MA-PB) Specimen Type: PLASMA No comment entered. Ordering Provider: DM CALVIN W Report Released Date/Time: December 01, 2023 05:38 AM Reporting Lab: [place] [facility] [address] [place] [address] Performing Lab: [place] [facility] [address] [place] [address] DIRECT LDL 121.8 mg/dL H 0-99.9 Jan 05, 2024 08:48 AM [facility] VITAMIN D, 25-HYDROXY Specimen Type: SERUM No comment entered. Ordering Provider: DM CALVIN W Report Released Date/Time: December 01, 2023 05:38 AM Reporting Lab: [place] [facility] [address] [place] [address] Performing Lab: [place] [facility] [address] [place] [address] VITAMIN D, 25-HYDROXY 27.5 ng/mL L 30-96 Jan 05, 2024 08:48 AM [facility] COMPREHENSIVE METABOLIC PANEL Specimen Type: PLASMA No comment entered. Ordering Provider: DM CALVIN W Report Released Date/Time: December 01, 2023 05:38 AM Reporting Lab: [place] [facility] [address] [place] [address] Performing Lab: [place] [facility] [address] [place] [address] CREATININE 1.05 mg/dL 0.7-1.3 UREA NITROGEN 14 [...] 2020) 71 Jan 05, 2024 08:48 AM [facility] FOLATE (PB) Specimen Type: SERUM No comment entered. Ordering Provider: DM CALVIN W Report Released Date/Time: December 01, 2023 05:38 AM Reporting Lab: [place] [facility] [address] [place] [address] Performing Lab: [place] [facility] [address] [place] [address] FOLATE (PB) 10.3 ng/mL 7-20 Jan 05, 2024 08:48 AM [facility] HGA1C Specimen Type: BLOOD No comment entered. Ordering Provider: DM CALVIN W Report Released Date/Time: December 01, 2023 05:38 AM Reporting Lab: [place] [facility] [address] [place] [address] Performing Lab: [place] [facility] [address] [place] [address] HGA1C 6.1 H 4.0-6.0 Jan 05, 2024 08:48 AM [facility] B12 Specimen Type: SERUM No comment entered. Ordering Provider: DM CALVIN Report Released Date/Time: December 01, 2023 05:38 AM Reporting Lab: [place] [facility] [address] [place] [address] Performing Lab: [place] [facility] [address] [place] [address] B12 705 pg/mL 213-816 Jan 05, 2024 08:48 AM [facility] CBC Specimen Type: BLOOD No comment entered. Ordering Provider: DM CALVIN Report Released Date/Time: December 01, 2023 05:38 AM Reporting Lab: [place] [facility] [address] [place] [address] Performing Lab: [place] [facility] [address] [place] [address] WBC 7.7 10*3/uL 3.6-11.2 RBC 6.24 10*6/uL [...] IMMATURE GRANS, AUTO ABS 0.04 10*3/uL 0.00-0.05 Social History: Smoking Status (Most current) and Tobacco Use (All prior to encounter date) This section includes the most current, and the historical, smoking and tobacco- related health factors from the ID facility where the Encounter took place. Current Smoking Status This section includes the most current smoking, or tobacco-related health factor, from the ID facility where the Encounter took place. Date/Time Current Smoking Status Comment Facil ity Apr 06, 2023 08:30 AM VA-TOBACCO DOESNT USE WI 30 MIN WAKEUP [facility] Tobacco Use History This section includes a history of the smoking, or tobacco-related health factors, that were collected on or before the date of the Encounter. The data comes from the ID facility where the Encounter took place. Date/Time Smoking Status/Tobacco Use Comment F acility Apr 06, 2023 08:30 AM VA-TOBACCO USE 30 YEARS OR MORE [facility] Apr 06, 2023 08:30 AM VA-TOBACCO USE ADVICE [facility] Apr 06, 2023 08:30 AM VA-TOBACCO USE OUTSOLE CASER NO [facility] Apr 06, 2023 08:30 AM VA-TOBACCO USE MED NO [facility] Apr 06, 2023 08:30 AM VA-TOBACCO USER SOME DAYS [facility] Apr 12, 2022 02:30 PM VA-TOBACCO DOESNT USE WI 30 MIN WAKEUP [facility] Apr 12, 2022 02:30 PM VA-TOBACCO USE 30 YEARS OR MORE [facility] Apr 12, 2022 02:30 PM VA-TOBACCO USE ADVICE [facility] Apr 12, 2022 02:30 PM VA-TOBACCO USE OUTSOLE CASER NO [facility] Apr 12, 2022 02:30 PM VA-TOBACCO USE MED NO [facility] Apr 12, 2022 02:30 PM VA-TOBACCO USER EVERY DAY [place] [facility] Oct 12, 2009 10:39 AM CURRENT TOBACCO USER [facility] Oct 12, 2009 10:39 AM TOBACCO OFFERED STOP SMOKING CLI [facility] Aug 07, 2008 11:49 AM CURRENT [facility]ACCO USER [facility] Aug 07, 2008 11:49 AM TOBACCO OFFERED STOP SMOKING CLI [facility] Aug 07, 2008 11:49 AM TOBACCO OFFERRED S TOP SMOKING CLINIC [facility] Jun 12, 2007 10:21 AM QUIT TOBACCO >7 YEARS AGO [facility] Aug 31, 2005 01:59 PM [facility] Jun 21, 2005 08:52 AM [facility] December 14, 2004 09:52 AM [facility] December 09, 2003 01:01 PM [facility] Encounter Notes: All associated encounter notes This section contains the clinical notes associated to the Encounter. Date/Time Encounter Note(s) Provider Source Jan 12, 2024 07:28 AM PHARMACY NOTE: LOCAL TITLE: PHARMACY CHRONIC DISEASE STATE MANAGEMENT PB STANDARD TITLE: PHARMACY NOTE DATE OF NOTE: JAN 12, 2024@07:28 ENTRY DATE: JAN 12, 2024@07:28:36 AUTHOR: QUENTIN CALVIN EXP COSIGNER: URGENCY: STATUS: COMPLETED QUENTIN LONG CHRISTIANO is a 83 year old MALE monitored [...] visit directly with the patient or immediate day care teacher: YES-patient Subjective: 1. Missed doses or extra doses or pt. stopping any medications: NO called to follow-up on recent labs and discuss necessity for cholesterol and LDL lowering medication due to increased values at these labs; also discussed the use of patient's 3 metered-dose inhalers and reviewed technique and overall use of these devices; vitamin D3 required increase from 50 mcg to 100 mcg daily; patient's hemoglobin A1c was still well controlled; patient did get dermatology consult for sebaceous cysts; patient has not had any further emergency room admissions for shortness of breath or COPD exacerbations 2. [-] med. compliance- [-} weight gain- [...] 94 TEMP:97.6 F [36.4 C] (10/05/2023 13:55) B/P-Latest:115/68 (10/05/2023 13:55) Pertinent Labs: HGA1C 6.1 H % 01/05/2024 08:48 HGA1C 6.8 H % 09/06/2023 12:15 HGA1C 6.7 H % 04/06/2023 09:11 HGA1C 6.7 H % 03/07/2022 11:30 HGA1C 6.8 H % 09/22/2021 11:37 Renal function: values are within acceptable limit Creatinine Clearance: 60.6mL/min CREATININE 1.05 mg/dL 01/05/2024 08:48 EGFR (CKD-EPI 2020) 71 01/05/2024 08:48 Liver Function Tests: values are within acceptable limit AST/SGOT 14 U/L 01/05/2024 08:48 ALT/SGPT 15 U/L 01/05/2024 08:48 Lipid profile: values are high TRIGLYCERIDE 90 mg/dL 01/05/2024 08:48 CHOLESTEROL 178 mg/dL 01/05/2024 08:48 HDL(New) 54.7 H mg/dL 01/05/2024 08:48 DIRECT LDL 121.8 H mg/dL 01/05/2024 08:48 CALCULATED LDL 105.3 mg/dL 01/05/2024 08:48 HDL % OF TOTAL CHOLESTEROL (PB) 30.7 % 01/05/2024 08:48 Creatine phosphokinase test: not evaluated 25 U/L [...] routinely -Pt. most recent blood pressure evaluation: 115/68 on 04 October in clinic, 102/65 [...] counter occurrences -Pt. most recent HA1c was 6.1[best ever] with blood glucose of 148 on 04 January, decreased from prior 6.8 with blood glucose of 167 on Aug, increased from 6.7 with blood glucose of 178 on 06 April 2023 -Pt. is on: no medications, but cautioned about dietary planning -Patient states B/G values have ranged from the 120s to 150s in the last several weeks -Non-medication therapy: is not keeping B/G log to georgina glycemic progress, but will send BG monitoring supplies and asked patient to monitor weekly to keep BG's in the 120s to 140s range -Pt.'s support system in the event of hypoglycemia or hyperglycemia: Yes- spouse/caregiver -Patient was also told to check feet monthly -Pritie Foot Check-foot exam (including monofilament test for sensation) has never been performed in the past 3 years in the private sector or at ID -Confirmed patient has had optometry appointment within the last year for prior cataracts -Patient to drink more water and avoid sweetened beverages and less coffee and tea -Patient's diabetic situation is adequately controlled to less than 6.5, but will follow in future COPD GOALS: -Check [...] eosinophil counts if pt. is using ICS terminal system operator COPD PLAN: -Pt is not monitored by non-va methods analyst -Pt is now somewhat interested in making changes at this time -Pt states he does not have a scheduled appt. with any methods analyst, and can usually manage condition, but will [...] inhalations as described -Pt. will not consult methods analyst, due to non-effectiveness from prior visits -Pt. [...] inhalers, increase vitamin D3 from 50 mcg 200 mcg daily continue hydrochlorothiazide/lisinopril , added OTC apple cider vinegar daily, Active and Recently Outpatient Medications (excluding Supplies): [...] shared decision making is a goal: lipids not controlled [low intensity statin]- started rosuvastatin 2.5 mg with evening meal and also added OTC apple cider vinegar daily --Pt. instructed to contact Lipid clinic if they have medication changes (new medications or stopped medications) --Overall Plan: patient to continue lipid meds. as above, continue fluticasone/salmeterol, tiotropium, and albuterol metered-dose inhalers, hydrochlorothiazide 12.5/lisinopril 10 mg daily, increased vitamin D3 to 100 mcg daily, continue aspirin 81 mg chewable daily, carbamide peroxide ear solution, and continue to use mupirocin ointment for subcutaneous cystic excision area --Specific information about medication(s): Necessity to start very low-dose statin --Diet Interventions: discussed minimizing the intake of trans fats, processed meats, refined carbohydrates, and sweetened beverages as part of a heart healthy diet -Discussed with pt. the Nutrient basic Composition of the [facility] Diet and pt. to choose a low [...] maintained if at all possible --Future Appointments: 01/12/2024 11:30 -[facility] PHONE PACT PHARM 03/27/2024 08:40 [facility] ( 04/04/2024 10:30 -[facility]CP --Precautions: patient was [...] be placed to: derm, f/u to nursing --[place] in agreement with plan and voices understanding: yes --Next lab date: Apr; the patient repeat labs will be scheduled; pt understands labs are fasting; will alert deputy court clerk to schedule next lab and appointment --PID: Next follow up date: Apr; follow-up to labs from 01 May and check MDIs and newly added rosuvastatin; will alert deputy court clerk to schedule this check status appt --Thanked for their time and expressed my pleasure to serve them I have communicated previous lab results to patient and the voiced understanding ---Please note that this dictation was completed with computer recognition software, often unanticipated grammatical, syntax and other interpretive errors are inadvertently transcribed by the computer software. Please disregard these errors--- Time spent: 32 minute(s)- TELEPHONE CONTACT YES - FACE TO FACE NO PBM PharmD Pharmacotherapy Rem V12: PHARMACIST [...] that was excised and check for any recurrence; also to continue follow-up for nurses dressing changes / advised RSV vacc. /evelia/ Donnell ALBERTS PACT CLINICAL CAR SCRUBBER Signed: 01/12/2024 16:17 Receipt Acknowledged By: 01/15/2024 09:06 /evelia/ JESSE JUAN [facility] [place] [facility]
--- OUTSIDE RECORDS SUMMARY | 2024-07-28 15:54 | XMS_ITS | Encounter Summary ---
Author Name [facility] [place] [facility] [place] Address [address] [place] [address] Care Team Providers Care Commercial Internship Name Role Phone KOLEJAKY RiceE Primary Care Provider Unavailabl e Insurance Providers: [...] Reagan's Name Patient's Relationship to Policy Reagan [facility] (WNR) MEDICARE ADVANTAGE [facility] ([facility]) November 22, 2015 [id number] Arminda LONG PATIENT MEDICARE (WNR) MEDICARE (M) PART A Feb 21, 2007 PART A [id number] Arminda LONG PATIENT MEDICARE (WNR) MEDICARE (M) PART B Feb 21, 2007 PART B [id number] [phone] Arminda LONG PATIENT [facility] (WNR) MEDICARE ADVANTAGE [facility] ([facility]) November 22, 2015 [id number] [phone] Arminda LONG PATIENT Selected Encounter This section includes the information on record at [place] for the Encounter. Date/Time Encounter Type Encounter Description Reason Provider Source Aug 28, 2023 10:36 AM Outpatient Encounter TELEPHONE TRIAGE KELLY PRIEST Encounter Template Text not used by PA Plan of Treatment: Future Appointments (+ 6 months) and Future Tests (+/- 45 days) The Plan of Treatment section includes future care activities for the patient [facility] This section includes future appointments and future orders which are active, pending or scheduled. Future Appointments This section includes appointments that were scheduled to occur 6 months from the date of the Encounter, up to a maximum of 20 appointments. The data comes from all [facility]. Appointment Date/Time Appointment Type Appointme nt Facility Name Sep 06, 2023 11:30 AM AMBULATORY - MEDICINE [facility] Sep 06, 2023 11:31 AM AMBULATORY - MEDICINE [facility] Oct 03, 2023 12:30 PM AMBULATORY - MEDICINE [facility] Oct 05, 2023 01:45 PM AMBULATORY - MEDICINE [facility] Nov 02, 2023 09:30 AM [facility]ORY - [facility]IC[facility] December 01, 2023 10:00 AM AMBULATORY - MEDICINE [facility] Jan 05, 2024 09:20 AM AMBULATORY - MEDICINE [facility] Jan 12, 2024 11:30 AM AMBULATORY - MEDICINE [facility] Feb 12, 2024 11:00 AM AMBULATORY - MEDICINE [facility] Active, Pending, and Scheduled Orders This [...] Order CK-MB GREEN LI/HEP BLD/PLAS PLASMA SP [facility] Lab Results: +/- 30 days of the encounter This section includes the Chemistry and Hematology Lab Results on record with PA for the patient. Radiology Reports and Pathology Reports are provided separately, in subsequent sections. Lab Results This section contains the Chemistry/Hematology Results that were resulted 30 days before or 30 daysafter the date of the Encounter. Date/Time Source Result Type Result - Unit Interpretation Reference Range Comment Sep 06, 2023 12:15 PM [facility] BRAIN NATRIURETIC PEPTIDE Specimen Type: PLASMA No comment entered. Ordering Provider: NAVIN EUBANKS Report Released Date/Time: Sep 06, 2023 12:14 PM Reporting Lab: [place] [facility] [address] [place] [address] Performing Lab: [place] [facility] [address] [place] [address] BRAIN NATRIURETIC PEPTIDE 19 pg/mL 0-100 Sep 06, 2023 12:15 PM [facility] CPK PROFILE (PB) Specimen Type: PLASMA No comment entered. Ordering Provider: NAVIN EUBANKS Report Released Date/Time: Sep 06, 2023 12:14 PM Reporting Lab: [place] [facility] [address] [place] [address] Performing Lab: [place] [facility] [address] [place] [address] CPK 25 U/L L 30-200 Sep 06, 2023 12:15 PM [facility] [place] [facility] LDH Specimen Type: PLASMA No comment entered. Ordering Provider: NAVIN EUBANKS Report Released Date/Time: Sep 06, 2023 12:14 PM Reporting Lab: [place] [facility] [address] [place] [address] Performing Lab: [place] [facility] [address] [place] [address] LDH 175 U/L 125-243 Sep 06, 2023 12:15 PM [facility] HGA1C Specimen Type: BLOOD No comment entered. Ordering Provider: NAVIN EUBANKS Report Released Date/Time: Sep 06, 2023 12:14 PM Reporting Lab: [place] [facility] [address] [place] [address] Performing Lab: [place] [facility] [address] [place] [address] HGA1C 6.8 H 4.0-6.0 Sep 06, 2023 12:15 PM [facility] B12 Specimen Type: SERUM No comment entered. Ordering Provider: NAVIN EUBANKS Report Released Date/Time: Sep 06, 2023 12:14 PM Reporting Lab: [place] [facility] [address] [place] [address] Performing Lab: [place] [facility] [address] [place] [address] B12 556 pg/mL 213-816 Sep 06, 2023 12:15 PM [facility] VITAMIN D, 25-HYDROXY Specimen Type: SERUM No comment entered. Ordering Provider: NAVIN EUBANKS Report Released Date/Time: Sep 06, 2023 12:14 PM Reporting Lab: [place] [facility] [address] [place] [address] Performing Lab: [place] [facility] [address] [place] [address] VITAMIN D, 25-HYDROXY 26.4 ng/mL L 30-96 Sep 06, 2023 12:15 PM [facility] BASIC METABOLIC PANEL Specimen Type: PLASMA No comment entered. Ordering Provider: NAVIN EUBANKS Report Released Date/Time: Sep 06, 2023 12:14 PM Reporting Lab: [place] [facility] [address] [place] [address] Performing Lab: [place] [facility] [address] [place] [address] CREATININE 0.98 mg/dL 0.7-1.3 UREA NITROGEN 17 mg/dL 9-25 GLUCOSE 96 mg/dL 72-99 SODIUM 142 meq/L 136-145 POTASSIUM 4.3 meq/L 3.5-5 CHLORIDE 102 meq/L 98-107 CARBON DIOXIDE 31 meq/L 22-31 CALCIUM 8.9 mg/dL 8.4-10.4 EGFR (CKD-EPI 2020) 77 Sep 06, 2023 12:15 PM [facility] [place] [facility] CBC Specimen Type: BLOOD Comment: ~Pre-Operat ermias Pre-Operati ve Ordering Provider: NAVIN EUBANKS Report Released Date/Time: Sep 06, 2023 12:14 PM Reporting Lab: [place] [facility] [address] [place] [address] Performing Lab: [place] [facility] [address] [place] [address] WBC 11.2 10*3/uL 3.6-11.2 RBC 6.65 10*6/uL [...] H 0.00-0.05 Sep 06, 2023 12:15 PM [facility] CHOLESTEROL PANEL (PB) Specimen Type: PLASMA No comment entered. Ordering Provider: NAVIN EUBANKS Report Released Date/Time: Sep 06, 2023 12:14 PM Reporting Lab: [place] [facility] [address] [place] [address] Performing Lab: [place] [facility] [address] [place] [address] CHOLESTEROL 169 mg/dL 0-200 TRIGLYCERIDE 100 mg/dL 0-150 CALCULATED LDL 92.4 mg/dL HDL(New) 56.6 mg/dL H >40 HDL % OF TOTAL CHOLESTEROL (PB) 33.5 >25 Sep 06, 2023 12:15 PM [facility] TSH (MA-PB-STL) Specimen Type: SERUM No comment entered. Ordering Provider: NAVIN EUBANKS Report Released Date/Time: Sep 06, 2023 12:14 PM Reporting Lab: [place] [facility] [address] [place] [address] Performing Lab: [place] [facility] [address] [place] [address] TSH 1.401 u[IU]/mL 0.47-5 Sep 06, 2023 12:15 PM [facility] HEPATIC FUNCTION PROFILE (PB) Specimen Type: PLASMA No comment entered. Ordering Provider: NAVIN EUBANKS Report Released Date/Time: Sep 06, 2023 12:14 PM Reporting Lab: [place] [facility] [address] [place] [address] Performing Lab: [place] [facility] [address] [place] [address] PROTEIN 6.6 g/dL 6-8.6 ALBUMIN 4.0 g/dL 3.4-5 TOTAL BILIRUBIN 0.6 mg/dL 0.2-1.2 ALKALINE PHOSPHATASE 80 U/L 40-150 AST/SGOT 10 U/L 5-34 ALT/SGPT 16 U/L 8-40 CONJ. BILIRUBIN 0.3 mg/dL 0-0.5 Encounter Notes: All associated encounter notes This section contains the clinical notes associated to the Encounter. Date/Time Encounter Note(s) Provider Source Aug 28, 2023 10:36 AM RN PROGRESS NOTE: LOCAL TITLE: CCC: CLINICAL TRIAGE STANDARD TITLE: RN PROGRESS NOTE DATE OF NOTE: AUG 28, 2023@10:36:27 ENTRY DATE: AUG 28, 2023@10:36:27 AUTHOR: KELLY PRIEST COSIGNER: URGENCY: STATUS: COMPLETED CCC: CLINICAL TRIAGE Has ADDENDA Patient Demographics Patient Name: QUENTIN LONG Patient Primary [address]: [address] [place] [id number] Patient Primary Phone: [phone] Patient : 1940 Patient Age: 83 Call Back Number: Caller/Recipient Relation to Patient: Self Emergency Contact: JUAN JOSÉ LONG Triage Summary Conducted triage/discussed symptoms Utilized the Triage Tool: No Chief Complaint: ER F/U Nurse's Recommendation / WHEN: Other Nurse's Other / WHEN: 7 days per ER discharge Nurse's Recommendation / WHERE: Clinic/[facility] Patient Disposition Patient/Caregiver agrees to plan of care: Yes Patient WHERE: Clinic/[facility] Patient WHEN: Other Other - Patient When Disposition: 7 days per ER discharge Nursing Plan and Disposition Referred Patient for In-Person Appt Transferred patient to Sched & Admin-Apt Generated msg to PACT/Provider Provided guidance for worsening symptoms: *Caller/Patient* advised to call facilities [place] Clinical Contact Center or seek immediate medical attention for new or worsening symptoms Nurse Summary Nurse Summary: Crane calling to note that he was seen in ER at [place] on 08/26/23 for shortness of breath. He states he had lab, CXR, and breathing TX. States discharged home on Doxycycline 100mg BID x 10 days, prednisone 20 mg tid x 3 days, 20 mg BID x 2 days, then 20 mg 1 day x 2 days, Albuterol inhaler and Spiriva inhaler. He states his shortness of breath is slightly better but if he gets up to walk even a short distance he is short of breath. He notes his D/C instructions say to follow up with his PCP within 7 days. Plan: Please see note---recommending ER F/U within 7 days Warm Handoff given to [facility] for scheduling with PCP provider Will co-sign PACT as FYI, for review and follow up. Clinical Contact Center Codes Clinic/Location: V15 PB PHONE [facility] JHON /evelia/ KELLY PRIEST RN,MSN Signed: 08/28/2023 10:36 Receipt Acknowledged By: 08/30/2023 11:23 /evelia/ DIANA JARAMILLO RN [facility] 08/31/2023 12:05 /evelia/ JESSE JUAN [facility] 08/30/2023 ADDENDUM STATUS: COMPLETED I have alerted [facility] that a follow up is needed with PACT PCP as requested. /jamari JARAMILLO RN [facility] Signed: 08/30/2023 11:22 KELLY PRIEST [facility]
--- OUTSIDE RECORDS SUMMARY | 2024-07-28 15:54 | XMS_ITS | Encounter Summary ---
Author Name [facility] [place] [facility] [place] Address [address] [place] [address] Care Team Providers Care Laboratory Tech Name Role Phone CHA CHRISTA Primary Care Provider Unavailabl e Insurance Providers: [...] Name Patient's Relationship to Policy Reagan [facility] (WNR) MEDICARE ADVANTAGE [facility] ([facility]) November 22, 2015 [id number] Arminda LONG PATIENT MEDICARE (WNR) MEDICARE (M) PART A Feb 21, 2007 PART A [id number] Arminda LONG PATIENT MEDICARE (WN) MEDICARE (M) PART B Feb 21, 2007 PART B [id number] Arminda LONG PATIENT [facility] (WNR) MEDICARE ADVANTAGE [facility] ([facility]) November 22, 2015 [id number] [phone] Arminda LONG PATIENT Selected Encounter This section includes the information on record at [place] for the Encounter. Date/Time Encounter Type Encounter Description Reason Provider Source Sep 06, 2023 11:31 AM TELEHEALTH FACILITY FEE PRIMARY CARE/MEDICINE ICD-10-CM J44.9 Chronic obstructive pulmonary disease, unspecified JOYA GROVER E Encounter Template Text not used by [place] Assessments - Encounter Diagnoses This section includes the primary and secondary diagnoses documented for the Encounter. Date/Time Primary/Secondary Diagnosis Diagnosis Name Provider Source Sep 06, 2023 01:11 PM PRIMARY Chronic obstructive pulmonary disease, unspecified [facility] Sep 06, 2023 01:11 PM SECONDARY Encounter for immunization JOYA GROVER [place] [facility] Plan of Treatment: Future Appointments (+ 6 months) and Future Tests (+/- 45 days) The Plan of Treatment section includes future care activities for the patient [facility] [place] [facility] This section includes future appointments and future orders which are active, pending or scheduled. Future Appointments This section includes appointments that were scheduled to occur 6 months from the date of the Encounter, up to a maximum of 20 appointments. The data comes from all [facility]. Appointment Date/Time Appointment Type Appointme nt Facility Name Oct 03, 2023 12:30 PM AMBULATORY - MEDICINE [facility] Oct 05, 2023 01:45 PM AMBULATORY - MEDICINE [facility] Nov 02, 2023 09:30 AM AMBULATORY - MEDICINE [facility] December 01, 2023 10:00 AM AMBULATORY - MEDICINE [facility] Jan 05, 2024 09:20 AM AMBULATORY - MEDICINE [facility] Jan 12, 2024 11:30 AM AMBULATORY - MEDICINE [facility] Feb 12, 2024 11:00 AM AMBULATORY - MEDICINE [facility] Active, Pending, and Scheduled Orders This section includes a listing of several types of active, pending, and scheduled orders, including clinic medications orders, diagnostic test orders, procedure orders and consult orders; where the start date of the order is 45 days before the date of the Encounter or 45 days after the date of theEncounter. The data comes from all [facility]. Test Date/Time Test Type Test Details Facility Name Sep 06, 2023 12:15 PM Laboratory - Chemi stry Order CK-MB GREEN LI/HEP BLD/PLAS PLASMA SP [facility] Lab Results: +/- 30 days of the encounter This section includes the Chemistry and Hematology Lab Results on record with [place] for the patient. Radiology Reports and Pathology Reports are provided separately, in subsequent sections. Lab Results This section contains the Chemistry/Hematology Results that were resulted 30 days before or 30 daysafter the date of the Encounter. Date/Time Source Result Type Result - Unit Interpretation Reference Range Comment Sep 06, 2023 12:15 PM [facility] BRAIN NATRIURETIC PEPTIDE Specimen Type: PLASMA No comment entered. Ordering Provider: CHRISTA EUBANKS Report Released Date/Time: Sep 06, 2023 12:14 PM Reporting Lab: [place] [facility] [address] [place] [address] Performing Lab: [place] [facility] [address] [place] [address] BRAIN NATRIURETIC PEPTIDE 19 pg/mL 0-100 Sep 06, 2023 12:15 PM [facility] CPK PROFILE (PB) Specimen Type: PLASMA No comment entered. Ordering Provider: CHRISTA EUBANKS Report Released Date/Time: Sep 06, 2023 12:14 PM Reporting Lab: [place] [facility] [address] [place] [address] Performing Lab: [place] [facility] [address] [place] [address] CPK 25 U/L L 30-200 Sep 06, 2023 12:15 PM [facility] LDH Specimen Type: PLASMA No comment entered. Ordering Provider: CHRISTA EUBANKS Report Released Date/Time: Sep 06, 2023 12:14 PM Reporting Lab: [place] [facility] [address] [place] [address] Performing Lab: [place] [facility] [address] [place] [address] LDH 175 U/L 125-243 Sep 06, 2023 12:15 PM [facility] HGA1C Specimen Type: BLOOD No comment entered. Ordering Provider: CHRISTA EUBANKS Report Released Date/Time: Sep 06, 2023 12:14 PM Reporting Lab: [place] [facility] [address] [place] [address] Performing Lab: [place] [facility] [address] [place] [address] HGA1C 6.8 H 4.0-6.0 Sep 06, 2023 12:15 PM [facility] B12 Specimen Type: SERUM No comment entered. Ordering Provider: CHRISTA EUBANKS Report Released Date/Time: Sep 06, 2023 12:14 PM Reporting Lab: [place] [facility] [address] [place] [address] Performing Lab: [place] [facility] [address] [place] [address] B12 556 pg/mL 213-816 Sep 06, 2023 12:15 PM [facility] VITAMIN D, 25-HYDROXY Specimen Type: SERUM No comment entered. Ordering Provider: CHRISTA EUBANKS Report Released Date/Time: Sep 06, 2023 12:14 PM Reporting Lab: [place] [facility] [address] [place] [address] Performing Lab: [place] [facility] [address] [place] [address] VITAMIN D, 25-HYDROXY 26.4 ng/mL L 30-96 Sep 06, 2023 12:15 PM [facility] BASIC METABOLIC PANEL Specimen Type: PLASMA No comment entered. Ordering Provider: CHRISTA EUBANKS Report Released Date/Time: Sep 06, 2023 12:14 PM Reporting Lab: [place] [facility] [address] [place] [address] Performing Lab: [place] [facility] [address] [place] [address] CREATININE 0.98 mg/dL 0.7-1.3 UREA NITROGEN 17 mg/dL 9-25 GLUCOSE 96 mg/dL 72-99 SODIUM 142 meq/L 136-145 POTASSIUM 4.3 meq/L 3.5-5 CHLORIDE 102 meq/L 98-107 CARBON DIOXIDE 31 meq/L 22-31 CALCIUM 8.9 mg/dL 8.4-10.4 EGFR (CKD-EPI 2020) 77 Sep 06, 2023 12:15 PM [facility] CHOLESTEROL PANEL (PB) Specimen Type: PLASMA No comment entered. Ordering Provider: CHRISTA EUBANKS Report Released Date/Time: Sep 06, 2023 12:14 PM Reporting Lab: [place] [facility] [address] [place] [address] Performing Lab: [place] [facility] [address] [place] [address] CHOLESTEROL 169 mg/dL 0-200 TRIGLYCERIDE 100 mg/dL 0-150 CALCULATED LDL 92.4 mg/dL HDL(New) 56.6 mg/dL H >40 HDL % OF TOTAL CHOLESTEROL (PB) 33.5 >25 Sep 06, 2023 12:15 PM [facility] CBC Specimen Type: BLOOD Comment: ~Pre-Operat ermias Pre-Operati ve Ordering Provider: CHRISTA EUBANKS Report Released Date/Time: Sep 06, 2023 12:14 PM Reporting Lab: [place] [facility] [address] [place] [facility] Performing Lab: [place] [facility] [address] [place] [address] WBC 11.2 10*3/uL 3.6-11.2 RBC 6.65 10*6/uL [...] H 0.00-0.05 Sep 06, 2023 12:15 PM [facility] TSH (MA-PB-STL) Specimen Type: SERUM No comment entered. Ordering Provider: CHRISTA EUBANKS Report Released Date/Time: Sep 06, 2023 12:14 PM Reporting Lab: [place] [facility] [address] [place] [address] Performing Lab: [place] [facility] [address] [place] [address] TSH 1.401 u[IU]/mL 0.47-5 Sep 06, 2023 12:15 PM [facility] HEPATIC FUNCTION PROFILE (PB) Specimen Type: PLASMA No comment entered. Ordering Provider: CHRISTA EUBANKS Report Released Date/Time: Sep 06, 2023 12:14 PM Reporting Lab: [place] [facility] [address] [place] [facility] Performing Lab: [place] [facility] [address] [place] [facility] PROTEIN 6.6 g/dL 6-8.6 ALBUMIN 4.0 g/dL [...] 117/80 16 94 0 72 192 26 [facility] Immunizations: All administered on the encounter date This section contains immunizations associated to the Encounter. Immunization Series Date Issued Reaction Comments ZOSTER RECOMBINANT Sep 06, 2023 Social History: Smoking Status (Most current) and Tobacco Use (All prior to encounter date) This section includes the most current, and the historical, smoking and tobacco- related health factors from the [place] facility where the Encounter took place. Current Smoking Status This section includes the most current smoking, or tobacco-related health factor, from the [place] facility where the Encounter took place. Date/Time Current Smoking Status Comment Facil ity Apr 06, 2023 08:30 AM VA-TOBACCO USER SOME DAYS [facility] Tobacco Use History This section includes a history of the smoking, or tobacco-related health factors, that were collected on or before the date of the Encounter. The data comes from the [place] facility where the Encounter took place. 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 [facility] Apr 06, 2023 08:30 AM VA-TOBACCO USE MED NO [facility] Apr 06, 2023 08:30 AM VA-TOBACCO USER SOME DAYS [facility] Apr 12, 2022 02:30 PM VA-TOBACCO DOESNT USE WI 30 MIN WAKEUP [facility] Apr 12, 2022 02:30 PM VA-TOBACCO USE 30 YEARS OR MORE [facility] Apr 12, 2022 02:30 PM VA-TOBACCO USE ADVICE [facility] Apr 12, 2022 02:30 PM 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 [facility] Apr 12, 2022 02:30 PM VA-TOBACCO USE MED NO [facility] Apr 12, 2022 02:30 PM VA-TOBACCO USER EVERY DAY [facility] Oct 12, 2009 10:39 AM CURRENT TOBACCO USER [facility] Oct 12, 2009 10:39 AM TOBACCO OFFERED STOP SMOKING CLI FABI [facility] Aug 07, 2008 11:49 AM CURRENT TOBACCO USER [facility] [place] Aug 07, 2008 11:49 AM TOBACCO OFFERED STOP SMOKING CLI [facility] Aug 07, 2008 11:49 [facility] Jun 12, 2007 10:21 AM QUIT TOBACCO >7 YEARS AGO [facility] Aug 31, 2005 01:59 PM CURRENT TOBACCO USER [facility] [place] Jun 21, 2005 08:52 AM CURRENT TOBACCO USER [facility] December 14, 2004 09:52 AM CURRENT TOBACCO USER [facility] December 09, 2003 01:01 PM CURRENT TOBACCO USER [facility] Pathology Reports: +/- 30 days of [...] the Encounter. The data comes from all [place] treatment facilities. Date/Time Pathology Report Provider Source Oct 03, 2023 04:31 PM LR MICROBIOLOGY RE PORT: Accession [UID]: [id number] [[id number]] Received: Oct 03, 2023@16:31 Collection sample: SWAB Collection date: Oct 03, 2023 16:31 Site/Specimen: SKIN OF BACK Provider: SHOSHANA HAMPTON Comment on specimen: right upper back Test(s) ordered: C&S WOUND CULTURE (PB)........ completed: Oct 09, 2023 * BACTERIOLOGY FINAL REPORT => Oct 09, 2023 11:19 TECH CODE: [id number] GRAM STAIN: RARE GRAM POSITIVE COCCI Bacteriology Remark(s): NO GROWTH AT 72 HOURS Test(s) Performed By: BHARATH =--=--=--=--=--=--=--=--=--=--=--= --=--=--=--=--=--=--=--=--=--=--=- -=--=--=-- Performing Laboratory: Bacteriology Report Performed By: ISAIAH [facility] [CLIA# [id number]] [address] [facility] [place] [address] [facility] Encounter Notes: All associated encounter notes This section contains the clinical notes associated to the Encounter. Date/Time Encounter Note(s) Provider Source Sep 22, 2023 09:26 AM PHYSICIAN LETTERS: LOCAL TITLE: TEST RESULT GENERAL LETTER STL STANDARD TITLE: PHYSICIAN LETTERS DATE OF NOTE: SEP 22, 2023@09:26 ENTRY DATE: SEP 22, 2023@09:30:04 AUTHOR: CHRISTA EUBANKS COSIGNER: URGENCY: STATUS: COMPLETED [facility] [address] [place] [address] SEP 22, 2023 QUENTIN LONG [id number] [place], [place] [address] Dear Quentin Long, I would like to update you on your recent test results. FUTURE APPOINTMENTS: 12/01/2023 10:00 [facility] 01/05/2024 09:20 [facility] ( 03/27/2024 08:40 [facility] ( 04/04/2024 10:30 [facility] PACT DEL[facility] PCP Sep 22, 2023 Mr. Quentin Long [id number] [place], [place] [address] Dear Mr. Long: The following Health Care Report is based on the most recent data we have at this time. We hope this information will help you make necessary life-style changes to improve your health. If you have any questions, please feel free to contact our clinic. BMI (Body Mass Index): Normal range - 21 to 25. 25.1 to 29.9 = Overweight. BMI of 30 or greater: Obese. 09/06/2023 BMI 26.00 Blood Pressure: Goal: 135/85 (or less). 09/06/2023 117/80 Glucose: Normal fasting glucose: 70 to 100 mg%. 09/06/2023 Glucose 96 Hemoglobin A1c: This shows how well your diabetes is controlled. Less than 7: good control. 7 to 8: fair control. 8 to 9: poor control. Over 9: very poor control (please contact your provider). 09/06/2023 A1c 6.8 Cholesterol: LDL ( bad ) Cholesterol should be less than 100 and Triglyceride should be less than 150. 09/06/2023 Cholesterol 169 09/06/2023 LDL-CHOL 92.4 09/06/2023 HDL-CHOL 56.6 09/06/2023 Triglyceride 100 Your recent lab test reports are printed on the attached page(s). Your provider has reviewed these tests reports. Any necessary follow up actions will be planned as necessary, including addressing the abnormal findings on or before your next scheduled clinic visit(s). If you have any questions about the above report, please feel free to contact our clinic. Sincerely, Christa Eubanks MD Department of [facility] Date Lab Test Result H/L Unit Range 09/06/2023 TSH 1.401 uIU/mL 0.47 - 5 09/06/2023 VITAMIN B12 LEVEL 556 pg/mL 213 - 816 09/06/2023 VITAMIN D LEVEL 26.4 L ng/mL 30 - 96 09/06/2023 HEMOGLOBIN A1C 6.8 H % 4.0 - 6.0 09/06/2023 WBC 11.2 10*3/uL 3.6 - 11.2 09/06/2023 RBC 6.65 H 10*6/uL 4.10 - 5.70 09/06/2023 HEMOGLOBIN 18.8 H g/dL 13.1 - 16.8 09/06/2023 HEMATOCRIT 59.1 H % 38.2 - 48.4 09/06/2023 MCV 88.9 fL 80.0 - 100.0 09/06/2023 MCH 28.3 pg 27.0 - 34.0 09/06/2023 MCHC 31.8 L g/dL 33.0 - 36.0 09/06/2023 RDW 13.8 % 11.8 - 15.1 09/06/2023 PLATELETS 272 10*3/uL 150 - 400 09/06/2023 MPV 10.7 fL 7.5 - 11.2 09/06/2023 NEUTROPHIL % 69.8 % - 09/06/2023 LYMPHOCYTE % 19.7 % - 09/06/2023 MONOCYTES, AUTO % 8.1 % - 09/06/2023 EO% 0.9 % - 09/06/2023 BASOPHILS, AUTO % 0.6 % - 09/06/2023 IG% 0.9 % - 09/06/2023 NEUT ABS 7.83 10*3/uL 2.10 - 8.00 09/06/2023 LYMPH ABS 2.21 10*3/uL 0.77 - 4.50 09/06/2023 MONO ABS 0.91 H 10*3/uL 0.19 - 0.8 09/06/2023 EO ABS 0.10 10*3/uL 0.00 - 0.60 09/06/2023 BASO ABS 0.07 10*3/uL 0.00 - 0.20 09/06/2023 IG ABS 0.10 H 10*3/uL 0.00 - 0.05 09/06/2023 BNP 19 pg/mL 0 - 100 09/06/2023 eGFR 77 - 09/06/2023 SODIUM 142 mEq/L 136 - 145 09/06/2023 POTASSIUM 4.3 mEq/L 3.5 - 5 09/06/2023 CHLORIDE 102 mEq/L 98 - 107 09/06/2023 UREA NITROGEN 17 mg/dL 9 - 25 09/06/2023 CREATININE, SERUM 0.98 mg/dL 0.7 - 1.3 09/06/2023 CALCIUM, SERUM 8.9 mg/dL 8.4 - 10.4 09/06/2023 PROTEIN, TOTAL 6.6 g/dL 6 - 8.6 09/06/2023 ALBUMIN, SERUM 4.0 g/dL 3.4 - 5 09/06/2023 TRIGLYCERIDE 100 mg/dL 0 - 150 09/06/2023 CHOLESTEROL 169 mg/dL 0 - 200 09/06/2023 ALKALINE PHOSPHAT 80 U/L 40 - 150 09/06/2023 ALT (SGPT) 16 U/L 8 - 40 09/06/2023 AST (SGOT) 10 U/L 5 - 34 09/06/2023 CPK 25 L U/L 30 - 200 09/06/2023 BILIRUBIN, TOTAL 0.6 mg/dL 0.2 - 1.2 09/06/2023 CONJ. BILIRUBIN 0.3 mg/dL 0 - 0.5 09/06/2023 CO2 31 mEq/L 22 - 31 09/06/2023 GLUCOSE 96 mg/dL 72 - 99 09/06/2023 HDL-CHOL 56.6 H mg/dL 40 - 09/06/2023 LDL-CHOL 92.4 mg/dL - 09/06/2023 HDL%CHO 33.5 % 25 - 09/06/2023 LDH 175 U/L 125 - 243 vitamin D level is still low. I am increasing your vitamin D supplementation. Also your hemoglobin and hematocrit are elevated we will check iron studies at next blood draw Sincerely, CHRISTA EUBANKS MD QUENTIN LONG CHA,CHRISTA Katz [facility] Sep 06, 2023 11:38 AM PRIMARY CARE NURSI NG NOTE: LOCAL TITLE: PRIMARY CARE NURSING PROGRESS NOTE (TEXT) NURSING P STANDARD TITLE: PRIMARY CARE NURSING NOTE DATE OF NOTE: SEP 06, 2023@11:38 ENTRY DATE: SEP 06, 2023@11:39:05 AUTHOR: JOYA GROVER COSIGNER: URGENCY: STATUS: COMPLETED PRIMARY CARE NURSING PROGRESS NOTE (TEXT) NURSING PB Has ADDENDA Established Patient QUENTIN LONG IS A 83 YEAR OLD MALE BEING SEEN IN CLINIC SEP 06, 2023. = = REASON FOR VISIT: Follow up from ED for Shortness of breath. Are you receiving care any where other than the [facility]? 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 HEALTH AND SURGICAL HISTORY: No new surgeries since last visit. Does patient report using home oxygen? No CURRENT ACTIVE MEDICATIONS FOR REVIEW: Allergies/ADRs (Tool #5) FACILITY ALLERGY/ADR -------- [facility] No Known Allergies Med. Reconciliation (Tool #1) INCLUDED IN THIS LIST: Alphabetical list of active outpatient prescriptions dispensed from this [place] (local) and dispensed from another [place] or [facility] facility (remote) as well as inpatient orders (local pending and active), local clinic medications, locally documented non-VA medications, and local prescriptions that have or been discontinued in the past 90 days. Non-VA Meds Last Documented On: Data not found NOTE The display of VA prescriptions dispensed from another [place] or [facility] facility (remote) is limited to active outpatient prescription entries matched to National Drug File at the originating site and may not include some items such as investigational drugs, compounds, etc. NOT INCLUDED IN THIS LIST: Medications self-entered by the patient into personal health records (i.e. [address]) are NOT included in this list. Non-VA medications documented outside this [place], remote inpatient orders (regardless of status) and remote clinic medications are NOT included in this list. The patient and provider must always discuss medications the patient is taking, regardless of where the medication was dispensed or obtained. OUTPT ALBUTEROL 90MCG (CFC-F) 200D ORAL INHL (Status = Discontinued) INHALE 2 PUFFS BY ORAL INHALATION FOUR TIMES A DAY NEEDED FOR BREATHING. SHAKE WELL. RINSE MOUTHPIECE FREQUENTLY TO PREVENT CLOGGING. Rx# [id number] Last Released: 04/17/23 Qty/Days Supply: Rx Expiration Date: 10/29/23 Refills Remainin OUTPT ALBUTEROL 90MCG (CFC-F) 200D ORAL INHL (Status = Active) INHALE 2 PUFFS ORAL INHALATION EVERY 4 HOURS NEEDED FOR SHORTNESS OF BREATH SHAKE WELL. RINSE MOUTHPIECE FREQUENTLY TO PREVENT CLOGGING. Rx# [id number] Last Released: 08/10/23 Qty/Days Supply: 08/22 Rx Expiration Date: 06/12/24 Refills Remainin Indication: FOR SHORTNESS OF BREATH OUTPT AMLODIPINE BESYLATE 5MG TAB (Status = Active) TAKE ONE TABLET BY MOUTH ONCE A DAY FOR HEART/BLOOD PRESSURE Rx# [id number] Last Released: 04/08/23 Qty/Days Supply: 90/ Rx Expiration Date: 10/29/23 Refills Remainin OUTPT ASPIRIN 81MG CHEW TAB (Status = Active) CHEW AND SWALLOW ONE TABLET BY MOUTH ONCE A DAY FOR CARDIOVASCULAR DISEASE (TAKE WITH FOOD) Rx# [id number] Last Released: 04/08/23 Qty/Days Supply: 90 Rx Expiration Date: 04/06/24 Refills Remainin Indication: FOR CARDIOVASCULAR DISEASE OUTPT ATORVASTATIN CALCIUM 80MG TAB (Status = Active) TAKE ONE-HALF TABLET BY MOUTH EVERY EVENING TO LOWER CHOLESTEROL Rx# [id number] Last Released: 04/07/23 Qty/Days Supply: 45 Rx Expiration Date: 10/29/23 Refills Remainin OUTPT CARBAMIDE PEROXIDE 6.5% OTIC SOLN (Status = Active) INSTILL 4 DROPS IN BOTH EARS EVERY 4 WEEKS NEEDED FOR EAR WAX BLOCKAGE Rx# [id number] Last Released: 04/08/23 Qty/Days Supply: Rx Expiration Date: 04/06/24 Refills Remainin Indication: FOR EAR WAX BLOCKAGE OUTPT CHOLECALCIF 50MCG (D3-2,000UNIT) TAB (Status = Active) TAKE ONE TABLET BY MOUTH ONCE A DAY FOR VITAMIN D DEFICIENCY. Rx# [id number] Last Released: 04/08/23 Qty/Days Supply: 100/90 Rx Expiration Date: 10/22/23 Refills Remainin OUTPT CLOPIDOGREL BISULFATE 75MG TAB (Status = Active) TAKE ONE TABLET BY MOUTH ONCE A DAY TO THIN BLOOD Rx# [id number] Last Released: 04/08/23 Qty/Days Supply: 90 Rx Expiration Date: 10/29/23 Refills Remainin OUTPT HCTZ 12.5/LISINOPRIL 10MG TAB (Status = Discontinued) TAKE 1 TABLET BY MOUTH EVERY MORNING FOR HEART OR BLOOD PRESSURE Rx# [id number] Last Released: 04/08/23 Qty/Days Supply: 90 Rx Expiration Date: 10/29/23 Refills Remainin OUTPT HCTZ 12.5/LISINOPRIL 10MG TAB (Status = Active) TAKE 1 TABLET BY MOUTH TWICE A DAY Rx# [id number] Last Released: 06/14/23 Qty/Days Supply: 180/90 Rx Expiration Date: 06/12/24 Refills Remainin OUTPT TIOTROPIUM 2.5MCG/ACTUAT 60D ORAL INHL (Status = Active) INHALE 2 INHALATIONS ORAL INHALATION ONCE A DAY FOR COPD (ADMINISTER AT SAME TIME EACH DAY) Rx# [id number] Last Released: 08/29/23 Qty/Days Supply: Rx Expiration Date: 08/28/24 Refills Remainin Indication: FOR COPD SUPPLIES PHARMACY TERMS AND POSSIBLE PATIENT ACTIONS [place]PT = [place] inpatient [place] = [place] intravenous medication [place]PT = [place] outpatient prescription PHARMACY POSSIBLE PATIENT TERMS EXPLANATION ACTIONS -------- ---- ACTIVE A prescription that can be If you have refills, filled at the local [place] pharmacy. you may request a refill of this prescription from your [place] pharmacy. CLINIC A medication you received during If you have questions a visit to a [place] clinic or about this medication emergency department. contact your [facility] healthcare team. DISCONTINUED A prescription your provider has Contact your VA stopped. It is no longer healthcare team if you available to be sent to you or need more of this picked up at the [place] pharmacy medication. window. A prescription which is [...] the [facility]. Or, it may be an vryq-ikt-hrftxah (OTC), herbal, dietary supplements or sample medication. [...] new allergies to report since last visit? NO VITALS: TEMPERATURE: 98.1 F [36.7 C] (04/06/2023 08:46) BP: 102/65 (04/06/2023 08:46) RESP: 16 (04/06/2023 08:46) PULSE: 85 (04/06/2023 08:46) HT: 72 in [182.9 cm] (04/06/2023 08:46) WT: 196 lb [88.90 kg] (04/06/2023 08:46) BMI: 26.6 PAIN ASSESSMENT: (Most Recent Pain Score in Vitals Package: 0 (04/06/2023 08:46) ) The patient indicated that they and [...] Now let us serve you. At the [facility], we strive to provide you with exceptional [...] Not At All SPIRITUAL ASSESSMENT: Are there catholic practices or spiritual concerns you want the small parts assembler, your physician, and other health care team members to immediately know about? No Patient advised to call the clinic for any concerns, questions, or symptoms. Patient and/or caregiver verbalized understanding of plan of care. COVID-19 Immunization: Refused Moderna Monovalent COVID-19 vaccine Immunization: COVID-19 (MODERNA), MRNA, LNP-S, PF, 50 MCG/0.5 ML (AGES 12+ YEARS) Refusal Reason: PATIENT DECISION Patient refuses all immunization(s) in the COVID-19 group Date Documented: 09/06/23 11:46 Frail/Elderly Screen: Falls Screen: No falls within the past 12 months. Tdap Immunization: The patient declines to receive the recommended dose of Tdap vaccine. Immunization: TDAP Refusal Reason: PATIENT DECISION Patient refuses all immunization(s) in the TDAP group Date Documented: 09/06/23 11:46 Pain Assessment: - PAIN ASSESSMENT: .. Patient reports no pain at this visit. Pain Score = 0. Patient's self identified pain goal: 0 Homelessness/Food Insecurity Screen: In the past 2 months, have you been living in stable housing that you own, rent, or stay in as part of a household? Yes - Living in stable housing. Are you worried or concerned that in the next 2 months you may NOT have stable housing that you own, rent, or stay in as part of a household? No - Not worried about housing near future [employer] reports the following: Within the past 12 months, you worried whether your food would run out before you got money to buy more. Never true Within the past 12 months, the food you bought just didn't last and you didn't have money to get more. 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 /evelia/ JOYA GROVER LPN [facility] Signed: 09/06/2023 13:11 JOYA GROVER [facility]
--- OUTSIDE RECORDS SUMMARY | 2024-07-28 15:54 | XMS_ITS | Encounter Summary ---
Author Name [place] Organization [place] Address [address] [place] [address] Care Team Providers Care Superintendent Meter Tests Name Role Phone ACACIANAVIN ELLIS Primary Care [...] Name Patient's Relationship to Policy Reagan AARP [facility] (WNR) MEDICARE ADVANTAGE [facility] ([facility]) November 22, 2015 [id number] Arminda LONG PATIENT MEDICARE (WNR) MEDICARE (M) PART A Feb 21, 2007 PART A [id number] Arminda LONG PATIENT MEDICARE (WNR) MEDICARE (M) PART B Feb 21, 2007 PART B [id number] Arminda LONG PATIENT [facility] (WNR) MEDICARE ADVANTAGE [facility] (WN) November 22, 2015 [id number] Arminda LONG PATIENT Selected Encounter This section includes the information on record at [place] for the Encounter. Date/Time Encounter Type Encounter Description Reason Pro vider Source Oct 03, 2023 01:50 PM Outpatient Encounter EVENT (HISTORICAL) IHE Encounter Template Text not used by VA Plan of Treatment: Future Appointments (+ 6 months) and Future Tests (+/- 45 days) The Plan of Treatment section includes future care activities for the patient from all [facility] This section includes future appointments and future orders which are active, pending or scheduled. Future Appointments This section includes appointments that were scheduled to occur 6 months from the date of the Encounter, up to a maximum of 20 appointments. The data comes from all [place] treatment [facility]. Appointment Date/Time Appointment Type Appointme nt Facility Name Oct 05, 2023 01:45 PM AMBULATORY - MEDICINE [facility] Nov 02, 2023 09:30 AM [facility]ULATORY - [facility]IC[facility] December 01, 2023 10:00 AM AMBULATORY - MEDICINE [facility] Jan 05, 2024 09:20 AM AMBULATORY - MEDICINE [facility] Jan 12, 2024 11:30 AM AMBULATORY - MEDICINE [facility] Feb 12, 2024 11:00 AM AM[facility]IC[facility] [place] [facility] Mar 27, 2024 08:40 AM AMBULATORY - MEDICINE [facility] Apr 04, 2024 10:30 AM AMBULATORY - MEDICINE [facility] Apr 04, 2024 11:30 AM AMBULATORY - MEDICINE [facility] Active, Pending, and Scheduled Orders This [...] comes from all [facility]. Test Date/Time Test Type Test Details Facility Name Sep 06, 2023 12:15 PM Laboratory - Chemi stry Order CK-MB GREEN LI/HEP BLD/PLAS PLASMA SP [facility] Lab Results: +/- 30 days of the encounter This section includes the Chemistry and Hematology Lab Results on record with [place] for the patient. Radiology Reports and Pathology Reports are provided separately, in subsequent sections. Lab Results This section contains the Chemistry/Hematology Results that were resulted 30 days before or 30 daysafter the date of the Encounter. Date/Time Source Result Type Result - Unit Interpretation Reference Range Comment Sep 06, 2023 12:15 PM [place] [facility] BRAIN NATRIURETIC PEPTIDE Specimen Type: PLASMA No comment entered. Ordering Provider: NAVIN EUBANKS Report Released Date/Time: Sep 06, 2023 12:14 PM Reporting Lab: [place] [facility] [address] [place] [address] Performing Lab: [place] [facility] [address] [place] [address] BRAIN NATRIURETIC PEPTIDE 19 pg/mL 0-100 Sep 06, 2023 12:15 PM [facility] [facility] CPK PROFILE (PB) Specimen Type: PLASMA No comment entered. Ordering Provider: NAVIN EUBANKS Report Released Date/Time: Sep 06, 2023 12:14 PM Reporting Lab: [place] [facility] [address] [place] [address] Performing Lab: [place] [facility] [address] [place] [address] CPK 25 U/L L 30-200 Sep 06, 2023 12:15 PM [facility] [place] [facility] LDH Specimen Type: PLASMA No comment entered. Ordering Provider: NAVIN EUBANKS Report Released Date/Time: Sep 06, 2023 12:14 PM Reporting Lab: [place] [facility] [address] [place] [address] Performing Lab: [place] [facility] [address] [place] [address] LDH 175 U/L 125-243 Sep 06, 2023 12:15 PM [facility] HGA1C Specimen Type: BLOOD No comment entered. Ordering Provider: NAVIN EUBANKS Report Released Date/Time: Sep 06, 2023 12:14 PM Reporting Lab: [place] [facility] [address] [place] [address] Performing Lab: [place] [facility] [address] [place] [address] HGA1C 6.8 H 4.0-6.0 Sep 06, 2023 12:15 PM [facility] [place] [facility] B12 Specimen Type: SERUM No comment entered. Ordering Provider: NAVIN EUBANKS Report Released Date/Time: Sep 06, 2023 12:14 PM Reporting Lab: [place] [facility] [address] [place] [address] Performing Lab: [place] [facility] [address] [place] [address] B12 556 pg/mL 213-816 Sep 06, 2023 12:15 PM [facility] [place] VITAMIN D, 25-HYDROXY Specimen Type: SERUM No comment entered. Ordering Provider: NAVIN EUBANKS Report Released Date/Time: Sep 06, 2023 12:14 PM Reporting Lab: [place] [facility] [address] [place] [address] Performing Lab: [place] [facility] [address] [place] [address] VITAMIN D, 25-HYDROXY 26.4 ng/mL L 30-96 Sep 06, 2023 12:15 PM [facility] BASIC METABOLIC PANEL Specimen Type: PLASMA No comment entered. Ordering Provider: NAVIN EUBANKS Report Released Date/Time: Sep 06, 2023 12:14 PM Reporting Lab: [place] [facility] [address] [place] [address] Performing Lab: [place] [facility] [address] [place] [address] CREATININE 0.98 mg/dL 0.7-1.3 UREA NITROGEN 17 mg/dL 9-25 GLUCOSE 96 mg/dL 72-99 SODIUM 142 meq/L 136-145 POTASSIUM 4.3 meq/L 3.5-5 CHLORIDE 102 meq/L 98-107 CARBON DIOXIDE 31 meq/L 22-31 CALCIUM 8.9 mg/dL 8.4-10.4 EGFR (CKD-EPI 2020) 77 Sep 06, 2023 12:15 PM [facility] CHOLESTEROL PANEL (PB) Specimen Type: PLASMA No comment entered. Ordering Provider: NAVIN EUBANKS Report Released Date/Time: Sep 06, 2023 12:14 PM Reporting Lab: [place] [facility] [address] [place] [address] Performing Lab: [place] [facility] [address] [place] [address] CHOLESTEROL 169 mg/dL 0-200 TRIGLYCERIDE 100 mg/dL 0-150 CALCULATED LDL 92.4 mg/dL HDL(New) 56.6 mg/dL H >40 HDL % OF TOTAL CHOLESTEROL (PB) 33.5 >25 Sep 06, 2023 12:15 PM [facility] CBC Specimen Type: BLOOD Comment: ~Pre-Operat ermias Pre-Operati ve Ordering Provider: NAVIN EUBANKS Report Released Date/Time: Sep 06, 2023 12:14 PM Reporting Lab: [place] [facility] [address] [place] [address] Performing Lab: [place] [facility] [address] [place] [address] WBC 11.2 10*3/uL 3.6-11.2 RBC 6.65 10*6/uL [...] H 0.00-0.05 Sep 06, 2023 12:15 PM [facility] TSH (MA-PB-STL) Specimen Type: SERUM No comment entered. Ordering Provider: NAVIN EUBANKS Report Released Date/Time: Sep 06, 2023 12:14 PM Reporting Lab: [place] [facility] [address] [place] [address] Performing Lab: [place] [facility] [address] [place] [address] TSH 1.401 u[IU]/mL 0.47-5 Sep 06, 2023 12:15 PM [facility] HEPATIC FUNCTION PROFILE (PB) Specimen Type: PLASMA No comment entered. Ordering Provider: NAVIN EUBANKS Report Released Date/Time: Sep 06, 2023 12:14 PM Reporting Lab: [place] [facility] [address] [place] [address] Performing Lab: [place] [facility] [address] [place] [address] PROTEIN 6.6 g/dL 6-8.6 ALBUMIN 4.0 g/dL 3.4-5 TOTAL BILIRUBIN 0.6 mg/dL 0.2-1.2 ALKALINE PHOSPHATASE 80 U/L 40-150 AST/SGOT 10 U/L 5-34 ALT/SGPT 16 U/L 8-40 CONJ. BILIRUBIN 0.3 mg/dL 0-0.5 Pathology Reports: +/- 30 days of the [...] the Encounter. The data comes from all [facility] facilities. Date/Time Pathology Report Provider Source Oct 03, 2023 04:31 PM LR MICROBIOLOGY RE PORT: Accession [UID]: [id number] [[id number]] Received: Oct 03, 2023@16:31 Collection sample: SWAB Collection date: Oct 03, 2023 16:31 Site/Specimen: SKIN OF BACK Provider: SHOSHANA HAMPTON Comment on specimen: right upper back Test(s) ordered: C&S WOUND CULTURE (PB)........ completed: Oct 09, 2023 * BACTERIOLOGY FINAL REPORT => Oct 09, 2023 11:19 TECH CODE: [id number] GRAM STAIN: RARE GRAM POSITIVE COCCI Bacteriology Remark(s): NO GROWTH AT 72 HOURS Test(s) Performed By: BHARATH =--=--=--=--=--=--=--=--=--=--=--= --=--=--=--=--=--=--=--=--=--=--=- -=--=--=-- Performing Laboratory: Bacteriology Report Performed By: ISAIAH MCADAMS [facility] [CLIA# [id number]] [address] [facility] [place] [address] [facility]
--- OUTSIDE RECORDS SUMMARY | 2024-07-28 15:54 | XMS_ITS | Encounter Summary ---
Author Name Department of [place]a [place] Organization [place] Address [address] [place] [address] Care Team Providers Care Rn Palliative Name Role Phone ACACIAJAKY ELLISE Primary Care [...] Reagan's Name Patient's Relationship to Policy Reagan [facility] (WNR) MEDICARE ADVANTAGE [facility] (WN) November 22, 2015 [id number] Arminda LONG PATIENT MEDICARE (WNR) MEDICARE (M) PART A Feb 21, 2007 PART A [id number] Arminda LONG PATIENT MEDICARE (WNR) MEDICARE (M) PART B Feb 21, 2007 PART B [id number] Arminda LONG PATIENT [facility] (WNR) MEDICARE ADVANTAGE [facility] (WNR) November 22, 2015 [id number] [phone] Arminda LONG PATIENT Selected Encounter This section includes the information on record at [place] for the Encounter. Date/Time Encounter Type Encounter Description Reason Pro vider Source Aug 30, 2023 11:30 AM Outpatient Encounter ADMIN PAT ACTIVTIES (MASNONCT) IHE Encounter Template Text not used by VA Plan of Treatment: Future Appointments (+ 6 months) and Future Tests (+/- 45 days) The Plan of Treatment section includes future care activities for the patient from all [place] [facility]. This section includes future appointments and future orders which are active, pending or scheduled. Future Appointments This section includes appointments that were scheduled to occur 6 months from the date of the Encounter, up to a maximum of 20 appointments. The data comes from all [facility]. Appointment Date/Time Appointment Type Appointme nt Facility Name Sep 06, 2023 11:30 AM AMBULATORY - MEDICINE [facility] Sep 06, 2023 11:31 AM AMBULATORY - MEDICINE [facility] Oct 03, 2023 12:30 PM AMBULATORY - MEDICINE [facility] Oct 05, 2023 01:45 PM AMBULATORY - MEDICINE [facility] Nov 02, 2023 09:30 AM AMBULATORY - MEDICINE [facility] December 01, 2023 10:00 AM AMBULATORY - MEDICINE [facility] Jan 05, 2024 09:20 AM AMBULATORY - MEDICINE [facility] Jan 12, 2024 11:30 AM AMBULATORY - MEDICINE [facility] Feb 12, 2024 11:00 AM AM[facility]ULATORY [facility] MEDICINE [facility] Active, Pending, and Scheduled Orders This section includes a listing of several types of active, pending, and scheduled orders, including clinic medications orders, diagnostic test orders, procedure orders and consult orders; where the start date of the order is 45 days before the date of the Encounter or 45 days after the date of theEncounter. The data comes from all [facility]. Test Date/Time Test Type Test Details Facility Name Sep 06, 2023 12:15 PM Laboratory - Chemi stry Order CK-MB GREEN LI/HEP BLD/PLAS PLASMA SP [facility] Lab Results: +/- 30 days of the encounter This section includes the Chemistry and Hematology Lab Results on record with [place] for the patient. Radiology Reports and Pathology Reports are provided separately, in subsequent sections. Lab Results This section contains the Chemistry/Hematology Results that were resulted 30 days before or 30 daysafter the date of the Encounter. Date/Time Source Result Type Result - Unit Interpretation Reference Range Comment Sep 06, 2023 12:15 PM [place] [facility] BRAIN NATRIURETIC PEPTIDE Specimen Type: PLASMA No comment entered. Ordering Provider: NAVIN EUBANKS Report Released Date/Time: Sep 06, 2023 12:14 PM Reporting Lab: [place] [facility] [address] [place] [address] Performing Lab[place] [facility] [address] [place] [address] BRAIN NATRIURETIC PEPTIDE 19 pg/mL 0-100 Sep 06, 2023 12:15 PM [place] [place] [facility] CPK PROFILE (PB) Specimen Type: PLASMA No comment entered. Ordering Provider: NAVIN EUBANKS Report Released Date/Time: Sep 06, 2023 12:14 PM Reporting Lab: [place] [facility] [address] [place] [address] Performing Lab: [place] [facility] [address] [place] [address] CPK 25 U/L L 30-200 Sep 06, 2023 12:15 PM [facility] [place] [facility] LDH Specimen Type: PLASMA No comment entered. Ordering Provider: NAVIN EUBANKS Report Released Date/Time: Sep 06, 2023 12:14 PM Reporting Lab: [place] [facility] [address] [place] [address] Performing Lab: [place] [facility] [address] [place] [address] LDH 175 U/L 125-243 Sep 06, 2023 12:15 PM [facility] HGA1C Specimen Type: BLOOD No comment entered. Ordering Provider: NAVIN EUBANKS Report Released Date/Time: Sep 06, 2023 12:14 PM Reporting Lab: [place] [facility] [address] [place] [address] Performing Lab: [place] [facility] [address] [place] [address] HGA1C 6.8 H 4.0-6.0 Sep 06, 2023 12:15 PM [place] [facility] B12 Specimen Type: SERUM No comment entered. Ordering Provider: NAVIN EUBANKS Report Released Date/Time: Sep 06, 2023 12:14 PM Reporting Lab: [place] [facility] [address] [place] [address] Performing Lab: [place] [facility] [address] [place] [address] B12 556 pg/mL 213-816 Sep 06, 2023 12:15 PM [facility] BASIC METABOLIC PANEL Specimen Type: PLASMA No comment entered. Ordering Provider: NAVIN EUBANKS Report Released Date/Time: Sep 06, 2023 12:14 PM Reporting Lab: [place] [facility] [address] [place] [address] Performing Lab[place] [facility] [address] [place] [address] CREATININE 0.98 mg/dL 0.7-1.3 UREA NITROGEN 17 mg/dL 9-25 GLUCOSE 96 mg/dL 72-99 SODIUM 142 meq/L 136-145 POTASSIUM 4.3 meq/L 3.5-5 CHLORIDE 102 meq/L 98-107 CARBON DIOXIDE 31 meq/L 22-31 CALCIUM 8.9 mg/dL 8.4-10.4 EGFR (CKD-EPI 2020) 77 Sep 06, 2023 12:15 PM [facility] VITAMIN D, 25-HYDROXY Specimen Type: SERUM No comment entered. Ordering Provider: NAVIN EUBANKS Report Released Date/Time: Sep 06, 2023 12:14 PM Reporting Lab: [place] [facility] [address] [place] [address] Performing Lab: [place] [facility] [address] [place] [address] VITAMIN D, 25-HYDROXY 26.4 ng/mL L 30-96 Sep 06, 2023 12:15 PM [facility] CHOLESTEROL PANEL (PB) Specimen Type: PLASMA No comment entered. Ordering Provider: NAVIN EUBANKS Report Released Date/Time: Sep 06, 2023 12:14 PM Reporting Lab: [place] [facility] [address] [place] [address] Performing Lab: [place] [facility] [address] [place] [address] CHOLESTEROL 169 mg/dL 0-200 TRIGLYCERIDE 100 mg/dL 0-150 CALCULATED LDL 92.4 mg/dL HDL(New) 56.6 mg/dL H >40 HDL % OF TOTAL CHOLESTEROL (PB) 33.5 >25 Sep 06, 2023 12:15 PM [facility] CBC Specimen Type: BLOOD Comment: ~Pre-Operat ermias Pre-Operati ve Ordering Provider: NAVIN EUBANKS Report Released Date/Time: Sep 06, 2023 12:14 PM Reporting Lab: [place] [facility] [address] [place] [address] Performing Lab: [place] [facility] [address] [place] [address] WBC 11.2 10*3/uL 3.6-11.2 RBC 6.65 10*6/uL [...] H 0.00-0.05 Sep 06, 2023 12:15 PM [facility] HEPATIC FUNCTION PROFILE (PB) Specimen Type: PLASMA No comment entered. Ordering Provider: NAVIN EUBANKS Report Released Date/Time: Sep 06, 2023 12:14 PM Reporting Lab: [place] [facility] [address] [place] [address] Performing Lab: [place] [facility] [address] [place] [address] PROTEIN 6.6 g/dL 6-8.6 ALBUMIN 4.0 g/dL 3.4-5 TOTAL BILIRUBIN 0.6 mg/dL 0.2-1.2 ALKALINE PHOSPHATASE 80 U/L 40-150 AST/SGOT 10 U/L 5-34 ALT/SGPT 16 U/L 8-40 CONJ. BILIRUBIN 0.3 mg/dL 0-0.5 Sep 06, 2023 12:15 PM [facility] TSH (MA-PB-STL) Specimen Type: SERUM No comment entered. Ordering Provider: NAVIN EUBANKS Report Released Date/Time: Sep 06, 2023 12:14 PM Reporting Lab: [place] [facility] [address] [place] [address] Performing Lab: [place] [facility] [address] [place] [address] TSH 1.401 u[IU]/mL 0.47-5 Encounter Notes: All associated encounter notes This section contains the clinical notes associated to the Encounter. Date/Time Encounter Note(s) Provider Source Aug 31, 2023 09:09 AM ADDENDUM: LOCAL TITLE: Addendum STANDARD TITLE: ADDENDUM DATE OF NOTE: AUG 31, 2023@09:09:03 ENTRY DATE: AUG 31, 2023@09:09:04 AUTHOR: DIANA NOLASCO EXP COSIGNER: URGENCY: STATUS: COMPLETED AMSA attempting to schedule appointment for follow up will alert her called back. /evelia/ DIANA JARAMILLO, RN [facility] Signed: 08/31/2023 09:09 Receipt Acknowledged By: 09/04/2023 08:18 /evelia/ JESSE JUAN [facility] --- Original Document --- 08/30/23 CCC: SCHEDULING ADMINISTRATION: Patient Demographics Patient Name: QUENTIN LONG Patient Primary Phone: [phone] Patient Primary Address: [address] [place] [address] [address] Patient : 1940 Patient Age: 83 Caller/Recipient Relation to Patient: Self Administrative Administrative Note Comments: maxi [phone] called regarding a follow up apt with pcp, per note in cprs dated 08/30/2023 nurse call to scheduled apt, requesting a call back note to nurse /[facility] Signed: 08/30/2023 11:31 Receipt Acknowledged By: 08/31/2023 09:08 /jamari JARAMILLO RN [facility] 08/30/2023 14:09 /evelia/ [facility] Aug 30, 2023 11:31 AM ADMINISTRATIVE NOT E: LOCAL TITLE: CCC: SCHEDULING ADMINISTRATION STANDARD TITLE: ADMINISTRATIVE NOTE DATE OF NOTE: AUG 30, 2023@11:31:05 ENTRY DATE: AUG 30, 2023@11:31:05 AUTHOR: SANDRA HUTCHISON EXP COSIGNER: URGENCY: STATUS: COMPLETED CCC: SCHEDULING ADMINISTRATION Has ADDENDA Patient Demographics Patient Name: QUENTIN LONG Patient Primary Phone: [phone] Patient Primary Address: [facility] [address] [place] [id number] Patient : 1940 Patient Age: 83 Caller/Recipient Relation to Patient: Self Administrative Administrative Note Comments: [phone] called regarding a follow up apt with pcp, per note in cprs dated 08/30/2023 nurse call to scheduled apt, requesting a call back note to /jamari [facility] Signed: 08/30/2023 11:31 Receipt Acknowledged By: 08/31/2023 09:08 /jamari JARAMILLO, JOHN [facility] 08/30/2023 14:09 /es/ JESSE JUAN [facility] 08/31/2023 ADDENDUM STATUS: COMPLETED AMSA attempting to schedule appointment for follow up will alert her called back. /evelia/ DIANA JARAMILLO RN [facility] Signed: 08/31/2023 09:09 Receipt Acknowledged By: * AWAITING SIGNATURE * JESSE JUAN TONI J [place] [facility]
--- OUTSIDE RECORDS SUMMARY | 2024-07-28 15:55 | XMS_ITS | Encounter Summary ---
Author Name [facility] [place] [facility] [place] Address [address] [place] [address] Care Team Providers Care Shoulder Joiner Name Role Phone ACACIAJAKY ELLISE Primary Care [...] Name Patient's Relationship to Policy Reagan [facility] (WNR) MEDICARE ADVANTAGE [facility] November 22, 2015 [id number] Arminda LONG PATIENT MEDICARE (WNR) MEDICARE (M) PART A Feb 21, 2007 PART A [id number] [phone] Arminda LONG PATIENT MEDICARE (WN) MEDICARE (M) PART B Feb 21, 2007 PART B [id number] [phone] Arminda LONG PATIENT [facility] (WNR) MEDICARE ADVANTAGE [facility] ([place] November 22, 2015 [id number] [phone] Arminda LONG PATIENT Selected Encounter This section includes the information on record at [place] for the Encounter. Date/Time Encounter Type Encounter Description Reason Provider Source Aug 28, 2023 03:45 PM Outpatient Encounter TELEPHONE PRIMARY CARE ICD-10-CM J44.1 Chronic obstructive pulmonary disease w (acute) exacerbation MICHAEL CALVIN E Encounter Template Text not used by [place] Assessments - Encounter Diagnoses This section includes the primary and secondary diagnoses documented for the Encounter. Date/Time Primary/Secondary Diagnosis Diagnosis Name Provider Source Aug 28, 2023 03:45 PM PRIMARY Chronic obstructive pulmonary disease w (acute) exacerbation QUENTIN CALVIN [facility] Plan of Treatment: Future Appointments (+ 6 months) and Future Tests (+/- 45 days) The Plan of Treatment section includes future care activities for the [facility] [place] [facility] This section includes future appointments and future orders which are active, pending or scheduled. Future Appointments This section includes appointments that were scheduled to occur 6 months from the date of the Encounter, up to a maximum of 20 appointments. The data comes from all [facility]. Appointment Date/Time Appointment Type Appointme nt Facility Name Sep 06, 2023 11:30 AM AMBULATORY - MEDICINE [facility] Sep 06, 2023 11:31 AM AMBULATORY - MEDICINE [facility] Oct 03, 2023 12:30 PM AMBULATORY - MEDICINE [facility] Oct 05, 2023 01:45 PM AMBULATORY - MEDICINE [facility] Nov 02, 2023 09:30 AM AMBULATORY - MEDICINE [facility] December 01, 2023 10:00 AM AMBULATORY - MEDICINE [facility] Jan 05, 2024 09:20 AM AMBULATORY - MEDICINE [facility] Jan 12, 2024 11:30 AM AMBULATORY - MEDICINE [facility] Feb 12, 2024 11:00 [...] of theEncounter. The data comes from all [facility]. Test Date/Time Test Type Test Details Facility Name Sep 06, 2023 12:15 PM Laboratory - Chemi stry Order CK-MB GREEN LI/HEP BLD/PLAS PLASMA SP [facility] Lab Results: +/- 30 days of the encounter This section includes the Chemistry and Hematology Lab Results on record with [place] for the patient. Radiology Reports and Pathology Reports are provided separately, in subsequent sections. Lab Results This section contains the Chemistry/Hematology Results that were resulted 30 days before or 30 daysafter the date of the Encounter. Date/Time Source Result Type Result - Unit Interpretation Reference Range Comment Sep 06, 2023 12:15 PM [facility] BRAIN NATRIURETIC PEPTIDE Specimen Type: PLASMA No comment entered. Ordering Provider: NAVIN EUBANKS Report Released Date/Time: Sep 06, 2023 12:14 PM Reporting Lab: [place] [facility] [address] [place] [address] Performing Lab: [place] [facility] [address] [place] [address] BRAIN NATRIURETIC PEPTIDE 19 pg/mL 0-100 Sep 06, 2023 12:15 PM [facility] CPK PROFILE (PB) Specimen Type: PLASMA No comment entered. Ordering Provider: NAVIN EUBANKS Report Released Date/Time: Sep 06, 2023 12:14 PM Reporting Lab: [place] [facility] [address] [place] [address] Performing Lab: [place] [facility] [address] [place] [address] CPK 25 U/L L 30-200 Sep 06, 2023 12:15 PM [facility] LDH Specimen Type: PLASMA No comment entered. Ordering Provider: NAVIN EUBANKS Report Released Date/Time: Sep 06, 2023 12:14 PM Reporting Lab: [place] [facility] [address] [place] [address] Performing Lab: [place] [facility] [address] [place] [address] LDH 175 U/L 125-243 Sep 06, 2023 12:15 PM [facility] HGA1C Specimen Type: BLOOD No comment entered. Ordering Provider: NAVIN EUBANKS Report Released Date/Time: Sep 06, 2023 12:14 PM Reporting Lab: [place] [facility] [address] [place] [address] Performing Lab: [place] [facility] [address] [place] [address] HGA1C 6.8 H 4.0-6.0 Sep 06, 2023 12:15 PM [facility] B12 Specimen Type: SERUM No comment entered. Ordering Provider: NAVIN EUBANKS Report Released Date/Time: Sep 06, 2023 12:14 PM Reporting Lab: [place] [facility] [address] [place] [address] Performing Lab: [place] [facility] [address] [place] [address] B12 556 pg/mL 213-816 Sep 06, 2023 12:15 PM [facility] BASIC METABOLIC PANEL Specimen Type: PLASMA No comment entered. Ordering Provider: NAVIN EUBANKS Report Released Date/Time: Sep 06, 2023 12:14 PM Reporting Lab: [place] [facility] [address] [place] [address] Performing Lab: [place] [facility] [address] [place] [address] CREATININE 0.98 mg/dL 0.7-1.3 UREA NITROGEN 17 mg/dL 9-25 GLUCOSE 96 mg/dL 72-99 SODIUM 142 meq/L 136-145 POTASSIUM 4.3 meq/L 3.5-5 CHLORIDE 102 meq/L 98-107 CARBON DIOXIDE 31 meq/L 22-31 CALCIUM 8.9 mg/dL 8.4-10.4 EGFR (CKD-EPI 2020) 77 Sep 06, 2023 12:15 PM [facility] VITAMIN D, 25-HYDROXY Specimen Type: SERUM No comment entered. Ordering Provider: NAVIN EUBANKS Report Released Date/Time: Sep 06, 2023 12:14 PM Reporting Lab: [place] [facility] [address] [place] [address] Performing Lab: [place] [facility] [address] [place] [address] VITAMIN D, 25-HYDROXY 26.4 ng/mL L 30-96 Sep 06, 2023 12:15 PM [place] [facility] CHOLESTEROL PANEL (PB) Specimen Type: PLASMA No comment entered. Ordering Provider: NAVIN EUBANKS Report Released Date/Time: Sep 06, 2023 12:14 PM Reporting Lab: [place] [facility] [address] [place] [address] Performing Lab: [place] [facility] [address] [place] [address] CHOLESTEROL 169 mg/dL 0-200 TRIGLYCERIDE 100 mg/dL 0-150 CALCULATED LDL 92.4 mg/dL HDL(New) 56.6 mg/dL H >40 HDL % OF TOTAL CHOLESTEROL (PB) 33.5 >25 Sep 06, 2023 12:15 PM [facility] CBC Specimen Type: BLOOD Comment: ~Pre-Operat ermias Pre-Operati ve Ordering Provider: NAVIN EUBANKS Report Released Date/Time: Sep 06, 2023 12:14 PM Reporting Lab: [place] [facility] [address] [place] [address] Performing Lab: [place] [facility] [address] [place] [address] WBC 11.2 10*3/uL 3.6-11.2 RBC 6.65 10*6/uL [...] H 0.00-0.05 Sep 06, 2023 12:15 PM [facility] HEPATIC FUNCTION PROFILE (PB) Specimen Type: PLASMA No comment entered. Ordering Provider: NAVIN EUBANKS Report Released Date/Time: Sep 06, 2023 12:14 PM Reporting Lab: [place] [facility] [address] [place] [id number] Performing Lab: [place] [facility] [address] [place] [id number] PROTEIN 6.6 g/dL 6-8.6 ALBUMIN 4.0 g/dL 3.4-5 TOTAL BILIRUBIN 0.6 mg/dL 0.2-1.2 ALKALINE PHOSPHATASE 80 U/L 40-150 AST/SGOT 10 U/L 5-34 ALT/SGPT 16 U/L 8-40 CONJ. BILIRUBIN 0.3 mg/dL 0-0.5 Sep 06, 2023 12:15 PM [facility] TSH (MA-PB-STL) Specimen Type: SERUM No comment entered. Ordering Provider: NAVIN EUBANKS Report Released Date/Time: Sep 06, 2023 12:14 PM Reporting Lab: [place] [facility] [address] [place] [facility] Performing Lab: [place] [facility] [address] [place] [id number] TSH 1.401 u[IU]/mL 0.47-5 Social History: Smoking Status (Most current) and Tobacco Use (All prior to encounter date) This section includes the most current, and the historical, smoking and tobacco- related health factors from the [place] facility where the Encounter took place. Current Smoking Status This section includes the most current smoking, or tobacco-related health factor, from the [place] facility where the Encounter took place. Date/Time Current Smoking Status Comment Facil ity Apr 06, 2023 08:30 AM [place]-TOBACCO DOESNT USE WI 30 MIN WAKEUP [facility] Tobacco Use History This section includes a history of the smoking, or tobacco-related health factors, that were collected on or before the date of the Encounter. The data comes from the [place] facility where the Encounter took place. 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 [facility] [facility] Apr 06, 2023 08:30 AM VA-TOBACCO USE MED NO [facility] [facility] Apr 06, 2023 08:30 AM VA-TOBACCO USER SOME DAYS [place] [facility] Apr 12, 2022 02:30 PM VA-TOBACCO DOESNT USE WI 30 MIN WAKEUP [place] [facility] Apr 12, 2022 02:30 PM VA-TOBACCO USE 30 YEARS OR MORE [place] [facility] Apr 12, 2022 02:30 PM VA-TOBACCO USE ADVICE [facility] [facility] Apr 12, 2022 02:30 PM VA-TOBACCO USE 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 DESIGNER NO [place] [facility] Apr 12, 2022 02:30 PM VA-TOBACCO USE MED NO [place] [facility] Apr 12, 2022 02:30 PM VA-TOBACCO USER EVERY DAY [place] [facility] Oct 12, 2009 10:39 AM CURRENT TOBACCO USER [facility] Oct 12, 2009 10:39 AM TOBACCO OFFERED STOP SMOKING CLI FABI [facility] Aug 07, 2008 11:49 AM CURRENT TOBACCO USER [facility] Aug 07, 2008 11:49 AM TOBACCO OFFERED STOP SMOKING CLI [place] [facility] [facility] Aug 07, 2008 11:49 [facility] [place] [facility] Jun 12, 2007 10:21 AM QUIT TOBACCO >7 YEARS AGO [place] [facility] Aug 31, 2005 01:59 PM CURRENT TOBACCO USER [facility] [place] [facility] Jun 21, 2005 08:52 AM CURRENT TOBACCO USER [facility] [place] [facility] December 14, 2004 09:52 AM CURRENT TOBACCO USER [place] [facility] December 09, 2003 01:01 PM CURRENT TOBACCO USER [facility] Encounter Notes: All associated encounter notes This section contains the clinical notes associated to the Encounter. Date/Time Encounter Note(s) Provider Source Aug 28, 2023 04:12 PM PHARMACY NOTE: LOCAL TITLE: PHARMACY CHRONIC DISEASE STATE MANAGEMENT PB STANDARD TITLE: PHARMACY NOTE DATE OF NOTE: AUG 28, 2023@16:12 ENTRY DATE: AUG 28, 2023@16:12:50 AUTHOR: QUENTIN CALVIN COSIGNER: URGENCY: STATUS: COMPLETED REPORT FOLLOW-UP TO RECENT EMERGENCY DEPARTMENT DISMISSAL This clinician received a report that patient was in the local ER in the last day or so, with problems of exacerbation of chronic obstructive airways disease Quentin Long - [id number] 83-year-old male with a history of COPD on multiple medications Chief Complaint: Shortness of Breath/Dyspnea and COPD exacerbation Pertinent past history: COPD, cardiology pt. has several ED visits for SOB thisyear SUBJECTIVE: states SOB worsening over about 2 days with greatly increased tachycardia; while at ER pt. was breathing about 40 times a minute glory heart rate of 104 bpm, but 02 sats were 92%; had increased anxiety used his albuterol nebs, per neblizer and ipratropium MDI and [...] saturations were above 94% on room air - reports he is doing slightly better today since they gave him the steroid injection in ER. OBJECTIVE: Followed-up on patient issues and advised on these issues as follows: of note, pt. has started prednisone; reports he is using nebulizer as ordered and inhaler when needed; advised to continue this and entered refill of both inhalers per request; advised to rinse mouth out before and after inhaler and neb use; no new addition of MDIs or neb. treatment, but will order new neb. unit ASSESSMENT/IMPRESSION: Pt. 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 with any vegetable sorter, and can usually manage condition, but will go to ED, when needed -Pt. will continue to follow the directions of the [facility] provider -Goal is to reduce exacerbations and control [...] at 1 to 2 inhalations twice daily, continually -Pt. will not consult vegetable sorter, due to non-effectiveness from prior visits -Pt. [...] within asseptable range at last labs of 8.0. indicating overuse of ICS -Patient is current on all vaccines -Patient was educated about condition management and side effects and precautions of all meds -Patient is satisfied with current therapy and recent improvement of condition Medications reviewed and reconciled; discussed diet and exercise as relevant to patient condition All questions answered; pt. agrees to plan of care. Follow up as listed above, Next lab date: late DEC, 2023; the patient repeat labs will be scheduled; pt understands labs are fasting; will alert dispatcher clerk to schedule next lab and appointment PID: Next follow up date: DECEMBER 01, 2023; already johanna.; will alert dispatcher clerk to schedule this check status appt 13) Thanked for their time and expressed my pleasure to serve them I have communicated previous lab results to patient and the voiced understanding Time spent: 19 minutes TELEPHONE CONTACT: YES - FACE TO FACE: NO PBM PharmD Pharmacotherapy Rem V12: PHARMACIST INTERVENTIONS: CHRONIC OBSTRUCTIVE PULMONARY DISEASE (COPD) Medication monitoring, no dosage change required, continue to monitor and assess Plan: patient had f/u to ED admission; Plan: patient to continue albuterol MDI and tiotropium MDI, continually / pt. to not wait for using rescue inhaler and/or as soon as he feels exacerbation starting / patient to complete prophylactic prednisone course and anti-biotics / patient could use pulmonology consult /es/ Donnell ALBERTS PACT CLINICAL AIRPORT OPERATIONS OFFICER Signed: 08/28/2023 16:26 Receipt Acknowledged By: 08/30/2023 13:52 /es/ JESSE CAMARILLO WARRENSQUENTIN KIM
[2024-07-28] MEDS: iohexol 350 mg/mL 500 mL Btl (per mL) IV (16:03)
[2024-07-28] MEDS: heparin 5,000 unit/mL INJ 1 mL 5000 UNIT SUBCUT (16:41)
[2024-07-28] MEDS: cefTRIAXone 1,000 mg SDV 1000 MG IVP (16:41)
--- NOTE | 2024-07-28 16:47 | PC.NURSE ---
admitted in to room 105 from er at 1630.report received.pt is alert and oriented x 4.denies pain at present.sr on monitor.c/o a dry cough for about a week.oriented to room environment .instructed to notify staff for any sob,pain,or for any concerns at all.pt verb understanding of instructions.
--- NOTE | 2024-07-28 18:00 | ECG_ITS ---
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 Measurements Intervals [place] Rate: 109 P: 94 VA: 170 QRS: 81 QRSD: 91 T: 137 QT: 320 QTc: 431 Interpretive Statements SINUS TACHYCARDIA NONSPECIFIC T-WAVE ABNORMALITY ABNORMAL RHYTHM ECG Compared to ECG 07/28/2024 14:21:15 T-wave abnormality now present Sinus rhythm no longer present Electronically Signed On 07-29-2024 17:24:57 SKIVER MACHINE by Lucretia Tobar M.D. [email or web address]
[2024-07-28] MEDS: atorvastatin 40 mg Tablet 80 MG PO (21:19)
[2024-07-28] MEDS: methylPREDNISolone sod succ 40 mg/mL INJ IVP (21:20)
[2024-07-29] VITALS (34 sets, daily range): BP systolic 119–152; BP diastolic 43–73; PULSE 75–102; RESP 16–27; TEMP 36.4–36.9; O2SAT 85–99
[2024-07-29] MEDS: heparin 5,000 unit/mL INJ 1 mL 5000 UNIT SUBCUT ×2 (02:24→14:41)
[2024-07-29] MEDS: doxycycline 100 MG in sodium chloride 0.9% (plus) 100 ML IV (02:25)
[2024-07-29 03:50] LABS: Hematocrit 53.3 % (37-53); Lymphocytes # 0.5 10^3/uL (0.8-4.8); Lymphocytes % 11.6 %; Mean Corpuscular HGB Conc 29.8 g/dL (30-55); Mean Corpuscular Volume 90.6 fl (82-101); Mean Platelet Volume 10.4 fL (7.4-10.4); Monocytes # 0.1 10^3/uL (0.2-0.9); Monocytes % 2.9 %; Neutrophils # 3.86 10^3/uL (1.8-7.7); Neutrophils % 84.8 %; Nucleated Red Blood Cells % 0 %; Platelet Count 229 10^3/cmm (157-399); Red Blood Count 5.88 10^6/uL (3.85-5.65); Red Cell Distribution Width 14.8 % (12.1-15.1); White Blood Count 4.55 10^3/uL (3.29-11.43)
[2024-07-29 04:18] LABS: Alanine Aminotransferase 10 U/L (0-41); Albumin Level 3.5 g/dL (3.5-5.2); Alkaline Phosphatase 77 U/L (40-130); Anion Gap 12.1 (5-19); Aspartate Amino Transferase 7 U/L (0-40); Blood Urea Nitrogen 16 mg/dL (8-23); Calcium 8.8 mg/dL (8.5-10.5); Carbon Dioxide 32 mmol/L (22-29); Chloride 101 mmol/L (98-107); Creatinine Clr Calc Pharmacy 79.5861; Glucose 223 mg/dL (65-115); Magnesium 2.1 mg/dL (1.7-2.3); Osmolality Calculated 298 mOsm/kg (285-295); Potassium 5.1 mmol/L (3.5-5.1); Sodium 140 mmol/L (136-145); Total Bilirubin 0.3 mg/dL (0.15-1.2); Total Protein 6.5 g/dL (6.6-8.7)
[2024-07-29] MEDS: clopidogrel 75 mg Tablet PO (05:44)
[2024-07-29] MEDS: amlodipine 5 mg Tablet PO (05:44)
[2024-07-29] MEDS: aspirin 81 mg EC Tablet PO (05:44)
[2024-07-29] MEDS: cholecalciferol (vitamin D3) 1,000 unit Tablet 2000 UNIT PO (05:44)
[2024-07-29] MEDS: atorvastatin 40 mg Tablet 80 MG PO ×2 (08:15→20:53)
[2024-07-29] MEDS: finasteride 5 mg Tablet PO (08:15)
[2024-07-29] MEDS: ipratropium-albuterol 3 mL Neb INHALATION ×4 (08:48→21:14)
[2024-07-29] MEDS: methylPREDNISolone sod succ 40 mg/mL INJ IVP ×2 (09:58→20:53)
--- NOTE | 2024-07-29 12:32 | P.PN_ITS ---
Subjective 2 Subjective: CT of the chest completed which was negative for pulmonary embolism. Patient wore his BiPAP overnight. States he feels better this morning. Still with significant wheezing. Medications: Reviewed: Yes Vitals/I&O/Wt Last Vital Signs Temp 98.0 F 07/29/24 11:59 Pulse 85 07/29/24 12:00 Resp 19 H 07/29/24 12:00 BP 122/60 07/29/24 11:59 Pulse Ox 85 L 07/29/24 12:03 O2 Del Method Nasal Cannula 07/29/24 12:00 O2 Flow Rate 4 07/29/24 12:03 FiO2 35 07/28/24 13:46 07/28/24 07/29/24 07/29/24 22:59 06:59 14:59 Intake Total 100 / 100 100 / 200 240 / 240 Output Total 200 / 200 400 / 600 Balance -100 / -100 -300 / -400 240 / 240 Weight last 48 hrs Weight 82.055 kg Weight 81.193 kg Weight 88.451 kg Physical Exam 2 Narrative: General: No acute distress, AO x3 HEENT: PERRLA, pupils bilaterally equal and reactive, pallors not present Chest: Normal vesicular breath sounds, no added sounds, equal good air entry bilaterally CVS: S1-S2 regular, no murmurs, no tachycardia, no gallops, no rubs Abdomen: Soft, nontender, no organomegaly, bowel sounds present Neuro: No focal deficits, no facial deformity, AO x3, power 5/5 in all limbs Data 07/29/24 02:59 07/29/24 02:59 Micro: Microbiology 07/28/24 23:48 Bacterial Antigens - Final Urine,Voided 07/28/24 23:48 Legionella Urinary Antigen - Final Unknown Source 07/28/24 12:38 Blood Culture - Preliminary Blood SPECIMEN COLLECTED 07/28/24 12:38 Blood Culture - Preliminary Blood SPECIMEN COLLECTED A&P Assessment and plan (1) Essential hypertension: (2) CAD (coronary artery disease): Qualifiers: Coronary Disease-Associated Artery/Lesion type: [place] artery Lum[place] vs. transplanted heart: [place] heart Associated angina: without angina Qualified Code(s): I25.10 - Atherosclerotic heart disease of [place] coronary artery without angina pectoris (3) Mixed hyperlipidemia: (4) COPD (chronic obstructive pulmonary disease) with emphysema: (5) Acute hypoxemic respiratory failure: (6) Hypercapnia: (7) Smoker: Plan #COPD exacerbation #Chronic CO2 retainer #History of CAD status post PCI #History of CHF diastolic heart failure #Shortness of breath secondary to above ? Placed on Solu-Medrol 40 every 8 hours ? Doxycycline 100 twice daily ? Ceftriaxone 1 g daily ? Chest x-ray does not show any evidence of pneumonia ? Check lactic acid acid, procalcitonin ? BNP 975 does have a known history of diastolic heart failure ? Does not appear to be fluid overloaded at this time. Will hold off on diuretics ? Respiratory viral panel is pending ? On BiPAP at this time. ? Wean off oxygen as able ? DuoNeb every 6 hours scheduled ? Patient does seem to be a chronic retainer of CO2. May benefit from outpatient sleep study ? Check CBC CMP in a.m. ?check CTA chest to rule out PE Full code DVT prophylaxis: Heparin SQ twice daily July 29, 2024 Chart reviewed. Patient states he is typically not on any home oxygen. ABG upon arrival showed evidence of acute hypercapnic respiratory acidosis. ABG with pH of 7.34, pCO2 of 61.8, pO2 of 80.5, bicarb of 33.1, SaO2 91% on 3 L/min nasal cannula. Patient was saturating 85% on room air today, will likely need supplemental oxygen to be arranged at the time of discharge. Still with wheezing bilaterally. He wore BiPAP overnight and states this helped him breathe better. Overnight oximtery study ordered, if significant overnight hypoxia, along with hypercapnea, may need Bipap. Add budesonide inhalation 0.5 mg twice daily. continue methylprednisone 40mg iv q12h. Attestations 2 Medical Necessity Statement*: continue iv steroids, overnight oximetry study , desaturating to 85% Coding Level of Care Code Acute Code for Chg Fwd Diagnoses Essential hypertension I10 Coronary artery disease involving [place] coronary artery of [place] heart without angina pectoris I25.10 Coronary Disease-Associated Artery/Lesion type: [place] artery [place] vs. transplanted heart: [place] heart Associated angina: without angina Mixed hyperlipidemia E78.2 COPD (chronic obstructive pulmonary disease) with emphysema J43.9 Acute hypoxemic respiratory failure J96.01 Hypercapnia R06.89 Smoker F17.200
[2024-07-29] MEDS: cefTRIAXone 1,000 mg SDV 1000 MG IVP (14:41)
[2024-07-29] MEDS: budesonide 0.5 mg/2 mL Neb INHALATION (21:13)
[2024-07-30] VITALS (60 sets, daily range): BP systolic 119–148; BP diastolic 43–67; PULSE 72–100; RESP 4–31; TEMP 36.9; O2SAT 90–98; BMI 24.3
[2024-07-30] MEDS: heparin 5,000 unit/mL INJ 1 mL 5000 UNIT SUBCUT (02:38)
[2024-07-30 03:27] LABS: Basophils % 0.1 %; Lymphocytes # 0.5 10^3/uL (0.8-4.8); Lymphocytes % 4.8 %; Mean Corpuscular HGB Conc 29.4 g/dL (30-55); Mean Corpuscular Hemoglobin 26.9 pg (27-33); Mean Corpuscular Volume 91.4 fl (82-101); Mean Platelet Volume 10.3 fL (7.4-10.4); Monocytes # 0.3 10^3/uL (0.2-0.9); Monocytes % 3.2 %; Neutrophils # 9.08 10^3/uL (1.8-7.7); Neutrophils % 91.4 %; Nucleated Red Blood Cells % 0 %; Platelet Count 241 10^3/cmm (157-399); Red Blood Count 5.69 10^6/uL (3.85-5.65); Red Cell Distribution Width 14.8 % (12.1-15.1); White Blood Count 9.94 10^3/uL (3.29-11.43)
[2024-07-30 04:01] LABS: Alanine Aminotransferase 12 U/L (0-41); Albumin Level 3.3 g/dL (3.5-5.2); Alkaline Phosphatase 87 U/L (40-130); Anion Gap 13.3 (5-19); Aspartate Amino Transferase 11 U/L (0-40); Blood Urea Nitrogen 28 mg/dL (8-23); Calcium 9.1 mg/dL (8.5-10.5); Carbon Dioxide 33 mmol/L (22-29); Chloride 101 mmol/L (98-107); Creatinine Clr Calc Pharmacy 63.9466; Globulin 2.8 g/dL (1.3-4.6); Glucose 218 mg/dL (65-115); Osmolality Calculated 306 mOsm/kg (285-295); Potassium 5.3 mmol/L (3.5-5.1); Sodium 142 mmol/L (136-145); Total Bilirubin 0.2 mg/dL (0.15-1.2); Total Protein 6.1 g/dL (6.6-8.7)
[2024-07-30] MEDS: clopidogrel 75 mg Tablet PO (05:11)
[2024-07-30] MEDS: amlodipine 5 mg Tablet PO (05:11)
[2024-07-30] MEDS: aspirin 81 mg EC Tablet PO (05:11)
[2024-07-30] MEDS: cholecalciferol (vitamin D3) 1,000 unit Tablet 2000 UNIT PO (05:11)
[2024-07-30] MEDS: finasteride 5 mg Tablet PO (08:20)
[2024-07-30] MEDS: atorvastatin 40 mg Tablet 80 MG PO (08:20)
[2024-07-30] MEDS: azithromycin 250 mg Tablet 500 MG PO (08:21)
[2024-07-30] MEDS: ipratropium-albuterol 3 mL Neb INHALATION (09:13)
[2024-07-30] MEDS: budesonide 0.5 mg/2 mL Neb INHALATION (09:13)
[2024-07-30] MEDS: methylPREDNISolone sod succ 40 mg/mL INJ IVP (10:33)
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
--- NOTE | 2024-07-30 14:48 | PC.NURSE ---
Patient's discharge was delayed due to waiting for [facility].
== END 2024-07-30 14:49 | disposition home or self-care (01) | DRG 189 ==
LOC: ER 13:49 → CSU 14:01
PROVIDERS: Admitting Provider Internal Medicine; Emergency Provider Emergency Medicine; PCP Family Medicine; Visit Provider Student in an Organized Health Care Education/Training Program
DX: J96.01 Acute respiratory failure with hypoxia (principal); I50.32 Chronic diastolic (congestive) heart failure; I11.0 Hypertensive heart disease with heart failure; I25.10 Atherosclerotic heart disease of native coronary artery without angina pectoris; E78.2 Mixed hyperlipidemia; J96.92 Respiratory failure, unspecified with hypercapnia; F17.200 Nicotine dependence, unspecified, uncomplicated; Z85.828 Personal history of other malignant neoplasm of skin; Z86.018 Personal history of other benign neoplasm; Z79.82 Long term (current) use of aspirin; Z79.02 Long term (current) use of antithrombotics/antiplatelets
CPT/HCPCS: 36415; 36600; 71045; 71275; 80051; 80053; 82330; 82805; 83605; 83735; 83880; 84145; 84443; 84484; 85025; 86403; 87040; 87449; 87486; 87581; 87633; 93005; 94640; 94660; 94664; 94760; 96365; 96367; 96372; 96375; 99291; J0696; J1200; J1644; J2919; J3490; J7613; J7626; Q0144

== ENCOUNTER → 2024-08-01 15:50 | Outpatient (BNVA) | payer OTHER, SELFPAY | PROVIDERS: PCP Family Medicine; Visit Provider Internal Medicine Cardiovascular Disease | DX: I25.10 Atherosclerotic heart disease of native coronary artery without angina pectoris (principal); Z95.5 Presence of coronary angioplasty implant and graft; I10 Essential (primary) hypertension; E78.5 Hyperlipidemia, unspecified; J44.9 Chronic obstructive pulmonary disease, unspecified; F17.200 Nicotine dependence, unspecified, uncomplicated; I25.2 Old myocardial infarction | CPT/HCPCS: 99214 ==

== ENCOUNTER → 2024-08-15 13:09 | Outpatient (BNVA) | payer OTHER, SELFPAY | PROVIDERS: PCP Family Medicine; Visit Provider Nurse Practitioner Family | DX: L21.8 Other seborrheic dermatitis (principal); L57.8 Other skin changes due to chronic exposure to nonionizing radiation; L72.0 Epidermal cyst; L81.4 Other melanin hyperpigmentation; Z08 Encounter for follow-up examination after completed treatment for malignant neoplasm; Z85.828 Personal history of other malignant neoplasm of skin; D48.5 Neoplasm of uncertain behavior of skin; L57.0 Actinic keratosis | CPT/HCPCS: 11104; 17000; 99214 ==

== ENCOUNTER → 2024-08-23 08:33 | Outpatient (BNVA) | payer OTHER, SELFPAY | PROVIDERS: PCP Family Medicine; Visit Provider Nurse Practitioner Family | DX: D22.39 Melanocytic nevi of other parts of face (principal); L81.4 Other melanin hyperpigmentation | CPT/HCPCS: 99213 ==

== ENCOUNTER 2024-09-02 10:20 | Emergency (ER) | payer OTHER, MEDICARE, SELFPAY ==
[2024-09-02] VITALS (8 sets, daily range): BP systolic 91–145; BP diastolic 49–61; PULSE 70–88; RESP 15–22; O2SAT 90–100
--- NOTE | 2024-09-02 10:44 | ECG_ITS ---
[facility] 2024[facility]02 Pat Name: Jason Escobedo Department: Room: Gender: Male [employer] [place] [employer] [place]: : 1940 Requested By: Dimitrios Quinteros Order Number: [id number] Fabian MD: Lucretia Tobar M.D. 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 [id number]
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
[2024-09-02 10:55] LABS: Glucose Point of Care 173 mg/dL (70-110)
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
[2024-09-02] MEDS: aspirin 81 mg Chew Tablet 324 MG PO (11:14)
[2024-09-02 11:21] LABS: Basophils # 0.1 10^3/uL (0.0-0.1); Basophils % 0.7 %; Eosinophils # 0.1 10^3/uL (0.0-0.8); Eosinophils % 1.6 %; Hematocrit 55.2 % (37-53); Lymphocytes # 1.7 10^3/uL (0.8-4.8); Lymphocytes % 19.3 %; Mean Corpuscular HGB Conc 29.7 g/dL (30-55); Mean Corpuscular Hemoglobin 26.8 pg (27-33); Mean Platelet Volume 10.2 fL (7.4-10.4); Monocytes # 0.5 10^3/uL (0.2-0.9); Monocytes % 5.7 %; Neutrophils # 6.54 10^3/uL (1.8-7.7); Neutrophils % 72.4 %; Nucleated Red Blood Cells % 0 %; Platelet Count 205 10^3/cmm (157-399); Red Blood Count 6.13 10^6/uL (3.85-5.65); Red Cell Distribution Width 14.4 % (12.1-15.1); White Blood Count 9.02 10^3/uL (3.29-11.43)
--- NOTE | 2024-09-02 11:28 | PC.PHAR ---
Addendum entered by Zuleika Larson 09/02/24 11:30: [facility] Original Note: pts' states med list is the same as last discharged on 07/28/24, nothing has changed. She states she thinks pt did not take am meds today. [facility] when something else went wrong.
[2024-09-02] MEDS: ipratropium-albuterol 3 mL Neb INHALATION (11:38)
[2024-09-02] MEDS: dexamethasone 10 mg/mL INJ IM (11:51)
[2024-09-02 12:02] LABS: Covid PCR NEGATIVE (Negative); Influenza A NEGATIVE (Negative); Influenza B NEGATIVE (Negative); Respiratory Syncytial Virus Ce NEGATIVE (Negative)
[2024-09-02 12:38] LABS: Alanine Aminotransferase 15 U/L (0-41); Albumin Level 3.9 g/dL (3.5-5.2); Alkaline Phosphatase 74 U/L (40-130); Anion Gap 11.6 (5-19); Aspartate Amino Transferase 11 U/L (0-40); Blood Urea Nitrogen 9 mg/dL (8-23); Calcium 9.3 mg/dL (8.5-10.5); Carbon Dioxide 35 mmol/L (22-29); Chloride 100 mmol/L (98-107); Globulin 2.1 g/dL (1.3-4.6); Glucose 200 mg/dL (65-115); Osmolality Calculated 298 mOsm/kg (285-295); Potassium 4.6 mmol/L (3.5-5.1); Sodium 142 mmol/L (136-145); Total Bilirubin 0.8 mg/dL (0.15-1.2)
[2024-09-02 12:40] LABS: Troponin(5th) Baseline 28 ng/L (0-15)
--- NOTE | 2024-09-02 12:49 | ECG_ITS ---
[facility]: [facility]24[facility] Pat Name: Jason Escobedo Department: Room: Gender: Male Facilities Officer: : 1940 Requested By: Dimitrios Quinteros Order Number: [id number] Fabian MD: Lucretia Tobar M.D. Measurements Intervals [place] Rate: 77 P: 62 TN: 182 QRS: 98 QRSD: 87 T: -1 QT: 256 QTc: 290 Interpretive Statements SINUS RHYTHM WITH SINUS ARRHYTHMIA BORDERLINE RIGHT AXIS DEVIATION [QRS AXIS > 90] NONSPECIFIC T-WAVE ABNORMALITY Compared to ECG 09/02/2024 10:44:17 No significant changes Electronically Signed On 09-04-2024 18:19:14 LACE FINISHER by Lucretia Tobar M.D. [id number]
[2024-09-02 13:08] LABS: Bilirubin Urine 1+ (Negative); Blood Urine Negative (Negative); Glucose Urine UA Negative (Normal); Ketones Urine Trace (Negative); Leukocyte Esterase Urine 1+ (Negative); Nitrate Urine Negative (Negative); Protein Urine 2+ (Negative); Specific Gravity, Urine 1.018 (1.005-1.030); Urine Appearance Cloudy (CLEAR); Urine Color Dark Yellow (Yellow); pH Urine 5.5 (5-7)
[2024-09-02 13:13] LABS: Add Urine Microscopic? YES; Bacteria Urine None Seen /hpf; Hyaline Casts Urine 75.28 /lpf; RBC Urine 0-2 /hpf (0-2)
[2024-09-02 13:17] LABS: UA Slide Review UA Slide Review Perf
[2024-09-02 15:59] LABS: Troponin 5 2HR 20.41 ng/L (0-15)
[2024-09-02 16:08] LABS: Troponin 5 2HR Delta -7.59 ABS# (0-10)
--- NOTE | 2024-09-05 23:28 | DCPLANNER ---
outpatient referral to centralized scheduling -
== END 2024-09-02 16:40 | disposition home or self-care (01) ==
PROVIDERS: Emergency Provider Family Medicine; PCP Family Medicine
DX: J44.9 Chronic obstructive pulmonary disease, unspecified (principal); J43.9 Emphysema, unspecified; R09.02 Hypoxemia; Z79.82 Long term (current) use of aspirin; Z79.02 Long term (current) use of antithrombotics/antiplatelets; Z11.52 Encounter for screening for COVID-19; Z72.0 Tobacco use; E78.2 Mixed hyperlipidemia; I25.10 Atherosclerotic heart disease of native coronary artery without angina pectoris
CPT/HCPCS: 36415; 36416; 70450; 71045; 80053; 81001; 82962; 84484; 85025; 87637; 93005; 94640; 99285; J1100

== ENCOUNTER 2024-10-07 10:48 | Outpatient (CLI) | payer OTHER, SELFPAY ==
--- NOTE | 2024-10-07 10:54 | USCV_ITS ---
Jason Escobedo Age: 84 Gender: M : 1940 Exam Date: 10/07/2024 11:05 Ordering Phys: Christa Morris MD Technologist: [employer] Exam Location: [facility] – [place] Indication: syncope Risk Factors: Previous Vascular Surgery: Right Brachial BP: / Left Brachial BP: / Right Left Velocity (cm/s) Spectral Plaque Velocity (cm/s) Spectral Plaque Syst/Diast Broadening Syst/Diast Broadening 77.00/ 14.00 Prox CCA 87.00 / 11.60 87.20/ 14.00 Mid CCA 85.90 / 16.00 96.20/ 14.00 Distal CCA 80.40 / 13.80 56.30/ 13.10 Prox ICA 53.90 / 10.10 73.50/ 18.60 Mid ICA 53.00 / 14.30 69.10/ 13.10 Distal ICA 60.60 / 15.00 97.50 ECA 82.10 0.60 ICA/CCA 0.70 Antegrade Vertebral Antegrade 46.60/ 11.40 cm/s 60.80/ 13.80 cm/s Tri Subclavian Tri 121.0 86.80 0 CONCLUSIONS Right ICA stenosis <50%. Mild atheromatous plaque right carotid bulb/ICA. Left ICA stenosis <50%. Mild atheromatous plaque left carotid bulb/ICA. Intimal thickening in the common carotid arteries and internal carotid arteries bilaterally. Normal antegrade Doppler flow noted in the right vertebral artery. Normal antegrade Doppler flow noted in the left vertebral artery. Enmanuel Langford MD (Electronically Signed) Final Date: 07 October 2024 12:11 S
--- NOTE | 2024-10-07 10:56 | USCV_ITS ---
Jason Escobedo Age: 84 Gender: M : 1940 Exam Date: 10/07/2024 12:03 Ordering Phys: Dimitrios Uribe DO Technologist: Exam Location: [facility] [place] Indication: as BP: 138 / 74 HR: 91 Rhythm: Sinus Technical Quality: Adequate MEASUREMENTS (Male / Female) Normal Values 2D ECHO LV Diastolic Diameter PLAX 3.0 cm 4.2 - 5.9 / 3.9 - 5.3 cm IVS Diastolic Thickness 1.3 cm 0.6 - 1.0 / 0.6 - 0.9 cm IVS Systolic Thickness 1.4 cm LVPW Diastolic Thickness 1.4 cm 0.6 - 1.0 / 0.6 - 0.9 cm LVPW Systolic Thickness 1.6 cm LVOT Diameter 2.0 cm LV Ejection Fraction 2D Teich 64.8 % LV Ejection Fraction MOD 4C 54.6 % LV Ejection Fraction MOD 2C 59.2 % LV Ejection Fraction 2C AL 60.1 % LA Diameter 2.8 cm RA Systolic Volume 4C AL 37.5 ml RA Systolic Volume 4C MOD 34.5 ml Aorta at Sinotubular Diameter 2.7 cm M-MODE LA Ao Ratio MM 1.1 AV Cusp Separation MM 2.0 cm DOPPLER AV Peak Velocity 150.5 cm/s LVOT Peak Velocity 79.0 cm/s AV Area Cont Eq vti 2.0 cm squared AV Area Cont Eq pk 1.7 cm squared MV Peak Velocity 98.0 cm/s MV Area PHT 3.1 cm squared Mitral E to A Ratio 0.9 TV Peak Velocity 133.0 cm/s TR Peak Velocity 157.0 cm/s TR Peak Gradient 9.9 mmHg TV Peak E Velocity 74.0 cm/s PV Peak Velocity 82.0 cm/s FINDINGS Left Ventricle Normal left ventricular size and systolic function, EF 65%.. No gross wall motion abnormality.mild left ventricular hypertrophy. Grade I/IV diastolic dysfunction (abnormal relaxation filling pattern), normal to mildly elevated filling pressures. Right Ventricle The right ventricle is normal in size and function. Right Atrium The right atrium is normal in size. Left Atrium The left atrium is normal in size. Mitral Valve Mild mitral annular calcification. Aortic Valve Thickened aortic valve with no significant stenosis Tricuspid Valve No gross abnormalities noted . Pulmonic Valve No gross abnormalities noted Pericardium No pericardial effusion. Aorta Normal ascending aorta dimension. IVC Inferior vena cava not visualized. CONCLUSIONS Normal left ventricular size and systolic function, EF 65%.. No gross wall motion abnormality.mild left ventricular hypertrophy. Grade I/IV diastolic dysfunction (abnormal relaxation filling pattern), normal to mildly elevated filling pressures. Thickened aortic valve with no significant stenosis. Mild mitral annular calcification. There is no pericardial effusion. There are no intracardiac masses. Compared to the previous study from November 2020, no significant change in the LV ejection fraction Dr Lucretia Tobar MD [facility] (Electronically Signed) Final Date: 10 October 2024 21:30 S
== END 2024-10-07 10:49 | disposition home or self-care (01) ==
PROVIDERS: PCP Family Medicine; Visit Provider Family Medicine
DX: R55 Syncope and collapse (principal); R93.1 Abnormal findings on diagnostic imaging of heart and coronary circulation; I34.81 Nonrheumatic mitral (valve) annulus calcification; I51.7 Cardiomegaly
CPT/HCPCS: 93306; 93880

== ENCOUNTER 2024-11-05 11:04 | Inpatient (IN) | payer OTHER, SELFPAY ==
[2024-11-05] VITALS (29 sets, daily range): BP systolic 93–150; BP diastolic 53–87; PULSE 74–112; RESP 11–34; TEMP 36.7–36.8; O2SAT 84–100; BMI 24.7
--- NOTE | 2024-11-05 11:05 | XRR_ITS ---
PROCEDURE INFORMATION: Exam: XR Chest Exam date and time: 11/05/2024 11:08 AM Age: 84 years old Clinical indication: Pain; Chest pressure; Prior surgery; Surgery date: 6+ months; Surgery type: Coronary stent; Additional info: Cp TECHNIQUE: Imaging protocol: Radiologic exam of the chest. Views: 1 view. COMPARISON: CR XR chest 1V portable [id number] 09/02/2024 11:03 AM FINDINGS: Tubes, catheters and devices: None. Lungs: Left lung volume appears decreased. Linear density identified within left lower lung. Possible atelectasis or scarring. This appears stable. The lungs appear otherwise clear. Pleural spaces: No pleural effusion. No pneumothorax. Heart/Mediastinum: Coronary arterial stents identified. Vasculature: Mild atherosclerotic calcification demonstrated within the aorta. Diaphragm: Elevation of the left hemidiaphragm is demonstrated. Bones/joints: Diffusely decreased bone density. Generalized bony degenerative changes. Other findings: Metallic density shrapnel overlies the left chest region. This appears stable. XR/XR chest 1V portable [id number] IMPRESSION: 1. Linear left lower chest pulmonary atelectasis or scarring. Left lung volume loss. 2. Chronic findings.
--- NOTE | 2024-11-05 11:14 | ECG_ITS ---
[facility]: 2024[facility]05 Pat Name: Jason Escobedo Department: Room: Gender: Male Blood Bank Custodian: : 1940 Requested By: Denny Jeter Order Number: [id number] Fabian MD: Lucretia Tobar M.D. Measurements Intervals [place] Rate: 77 P: 73 MS: 158 QRS: 93 QRSD: 85 T: 58 QT: 368 QTc: 419 Interpretive Statements SINUS RHYTHM BORDERLINE RIGHT AXIS DEVIATION [QRS AXIS > 90] Compared to ECG 09/02/2024 12:41:55 Sinus arrhythmia no longer present T-wave abnormality no longer present Electronically Signed On 11-06-2024 21:35:12 CDT by Lucretia Tobar M.D. [id number] [id number]
[2024-11-05 11:50] LABS: Basophils # 0.1 10^3/uL (0.0-0.1); Basophils % 0.7 %; Eosinophils % 0.5 %; Hematocrit 50.2 % (37-53); Lymphocytes # 0.9 10^3/uL (0.8-4.8); Lymphocytes % 11.9 %; Mean Corpuscular HGB Conc 28.7 g/dL (30-55); Mean Corpuscular Hemoglobin 27.7 pg (27-33); Mean Corpuscular Volume 96.5 fl (82-101); Mean Platelet Volume 9.9 fL (7.4-10.4); Monocytes # 0.5 10^3/uL (0.2-0.9); Monocytes % 6.1 %; Neutrophils # 6.03 10^3/uL (1.8-7.7); Neutrophils % 80.4 %; Nucleated Red Blood Cells % 0 %; Platelet Count 157 10^3/cmm (157-399); Red Cell Distribution Width 12.5 % (12.1-15.1)
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
[2024-11-05 12:04] LABS: INR 0.86 (0.8-1.2)
[2024-11-05 12:12] LABS: Troponin(5th) Baseline 32 ng/L (0-15)
[2024-11-05] MEDS: methylPREDNISolone sod succ 125 mg/2 mL INJ IVP (12:14)
[2024-11-05 12:19] LABS: ABG PH Result 7.23 (7.35-7.45); Alveolar-Arterial Oxygen Gradi 33.9 mmHg (5-10); Arterial Blood Gas Hematocrit 44.7 % (42-52); Base Excess ABG 19.3 mmol/L (-2.0-2.0); Blood Gas Allen Test Pos; Blood Gas Operator Identificat MONRO; Blood Gas Sample Site Brachial, right; Blood Gas Sample Type Arterial; Carboxyhemoglobin 2.3 %THgb (0.4-20.1); HCO3 ABG 53.9 mmol/L (22-26); HGB O2 Sat 96.5 % (95-100); Ionized Calcium Level - ABG 1.3 mmol/L (1.1-1.4); Methemoglobin 1.1 % (0.4-1.5); Oxygen Device NRB; Oxygen Saturation ABG > 99.1; PO2 FiO2 Ratio Arterial Blood 310; Potassium Level - ABG 3.8 mmol/L (3.5-5.0); Total Hemoglobin 14.6 g/dL (14-18)
[2024-11-05 12:19] LABS: Alanine Aminotransferase 12 U/L (0-41); Albumin Level 3.9 g/dL (3.5-5.2); Alkaline Phosphatase 60 U/L (40-130); Anion Gap 10.3 (5-19); Aspartate Amino Transferase 13 U/L (0-40); Blood Urea Nitrogen 10 mg/dL (8-23); Calcium 9.3 mg/dL (8.5-10.5); Chloride 94 mmol/L (98-107); Creatinine Clr Calc Pharmacy 80.1343; Globulin 1.9 g/dL (1.3-4.6); Glucose 198 mg/dL (65-115); Lipase 24 U/L (13-60); Osmolality Calculated 305 mOsm/kg (285-295); Potassium 4.3 mmol/L (3.5-5.1); Sodium 145 mmol/L (136-145); Total Bilirubin 1.2 mg/dL (0.15-1.2); Total Protein 5.8 g/dL (6.6-8.7)
[2024-11-05 12:20] LABS: ABG PCO2 > 102.0 mmHg (35-45)
[2024-11-05 12:24] LABS: Carbon Dioxide 45 mmol/L (22-29)
[2024-11-05] MEDS: ipratropium-albuterol 3 mL Neb INHALATION ×2 (12:28→20:52)
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
[2024-11-05] MEDS: LORazepam 2 mg/mL INJ 1 mL 1 MG IVP (12:53)
[2024-11-05 13:03] LABS: Influenza A NEGATIVE (Negative); Influenza B NEGATIVE (Negative); Respiratory Syncytial Virus Ce NEGATIVE (Negative); SARS-CoV-2 PCR NEGATIVE (Negative)
--- NOTE | 2024-11-05 13:05 | ECG_ITS ---
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 Measurements Intervals [place] Rate: 79 P: 142 FL: 159 QRS: 126 QRSD: 88 T: 124 QT: 403 QTc: 463 Interpretive Statements ECTOPIC ATRIAL RHYTHM RIGHT AXIS DEVIATION [QRS AXIS > 100] Compared to ECG 11/05/2024 11:14:51 Ectopic atrial rhythm now present Sinus rhythm no longer present Electronically Signed On 11-06-2024 21:49:39 CDT by Lucretia Tobar M.D. [email or web address]
[2024-11-05 13:30] LABS: ABG PH Result 7.37 (7.35-7.45); Arterial Blood Gas Hematocrit 43.8 % (42-52); Base Excess ABG 21.1 mmol/L (-2.0-2.0); Blood Gas Allen Test Pos; Blood Gas Sample Type Arterial; Carboxyhemoglobin 2.3 %THgb (0.4-20.1); HCO3 ABG 52.2 mmol/L (22-26); HGB O2 Sat 92.5 % (95-100); Ionized Calcium Level - ABG 1.2 mmol/L (1.1-1.4); Oxygen Saturation ABG 95.7; PO2 ABG 72.2 mmHg (80.0-100.0); Potassium Level - ABG 3.6 mmol/L (3.5-5.0); Total Hemoglobin 14.3 g/dL (14-18)
[2024-11-05 13:31] LABS: ABG PCO2 91.5 mmHg (35-45); Alveolar-Arterial Oxygen Gradi 13.9 mmHg (5-10); Blood Gas Operator Identificat MONRO; Blood Gas Sample Site Radial, left; Oxygen Device BIPAP; PO2 FiO2 Ratio Arterial Blood 180
[2024-11-05 13:40] LABS: Troponin 5 2HR 37.19 ng/L (0-15); Troponin 5 2HR Delta 5.19 ABS# (0-10)
[2024-11-05] MEDS: sodium chloride 0.9% 1,000 ML 999 ML IV (14:03)
[2024-11-05 14:23] LABS: Bilirubin Urine Negative (Negative); Blood Urine Negative (Negative); Glucose Urine UA Negative (Normal); Ketones Urine Negative (Negative); Leukocyte Esterase Urine Negative (Negative); Nitrate Urine Negative (Negative); Protein Urine 2+ (Negative); Specific Gravity, Urine 1.016 (1.005-1.030); Urine Appearance Cloudy (CLEAR); Urine Color Dark Yellow (Yellow)
[2024-11-05 14:28] LABS: Add Urine Microscopic? YES; Bacteria Urine None Seen /hpf; Hyaline Casts Urine 25.63 /lpf; RBC Urine 0-2 /hpf (0-2); Squamous Epithelial Cell Urine 0-5 /hpf (0-5); WBC Urine 0-5 /hpf (0-5)
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
--- NOTE | 2024-11-05 17:05 | ECG_ITS ---
[employer] Test Date: 2024-11-05 Pat Name: Jason Escobedo Department: Room: ICU11 Gender: Male Photo Lab Manager: : 1940 Requested By: Denny Jeter Order Number: [id number] Fabian MD: Lucretia Tobar M.D. Measurements Intervals [place] Rate: 101 P: 36 RI: 150 QRS: 89 QRSD: 84 T: 44 QT: 334 QTc: 434 Interpretive Statements SINUS TACHYCARDIA ABNORMAL RHYTHM ECG Compared to ECG 11/05/2024 13:08:19 Ectopic atrial rhythm no longer present Right-axis deviation no longer present Electronically Signed On 11-06-2024 21:46:51 CDT by Lucretia Tobar M.D. [email or web address]
[2024-11-05] MEDS: LORazepam 2 mg/mL INJ 1 mL 0.5 MG IVP (17:48)
[2024-11-05] MEDS: methylPREDNISolone sod succ 40 mg/mL INJ IVP (17:48)
[2024-11-05] MEDS: D5-NS 0.45% + KCL 20 mEq 20 MEQ/1,000 ML BAG 100 MEQ IV (17:49)
[2024-11-05] MEDS: enoxaparin 40 mg/0.4 mL Syringe SUBCUT (17:49)
[2024-11-05] MEDS: famotidine 20 mg/2 mL INJ IVP (17:49)
[2024-11-05 18:37] LABS: Troponin 5 6HR 27.18 ng/L (0-15)
[2024-11-05 18:40] LABS: Troponin 5 6HR Delta -4.82 ng/L (0-12)
[2024-11-05] MEDS: budesonide 0.5 mg/2 mL Neb INHALATION (20:52)
[2024-11-05] MEDS: dexmedeTOMIDine 0.9 % NaCL 400 MCG/100 ML PREMIX IV (22:19)
[2024-11-05] MEDS: haloperidol inj 5 mg/mL INJ 1 mL 1 MG IM (23:38)
[2024-11-06] VITALS (48 sets, daily range): BP systolic 86–154; BP diastolic 48–80; PULSE 66–100; RESP 12–46; TEMP 35.8–36.5; O2SAT 83–100
[2024-11-06] MEDS: haloperidol inj 5 mg/mL INJ 1 mL 1 MG IM (00:52)
[2024-11-06] MEDS: LORazepam 2 mg/mL INJ 1 mL 1 MG IVP (01:49)
[2024-11-06] MEDS: methylPREDNISolone sod succ 40 mg/mL INJ IVP ×3 (01:53→17:37)
[2024-11-06] MEDS: ipratropium-albuterol 3 mL Neb INHALATION ×4 (02:50→20:42)
[2024-11-06] MEDS: dexmedeTOMIDine 0.9 % NaCL 400 MCG/100 ML PREMIX 16 MCG IV (04:10)
[2024-11-06] MEDS: D5-NS 0.45% + KCL 20 mEq 20 MEQ/1,000 ML BAG 100 MEQ IV ×2 (04:11→14:24)
--- NOTE | 2024-11-06 04:33 | XRR_ITS ---
PROCEDURE INFORMATION: Exam: XR Chest Exam date and time: 11/06/2024 5:26 AM Age: 84 years old Clinical indication: Shortness of breath; Additional info: Decreased oxygen saturation TECHNIQUE: Imaging protocol: Radiologic exam of the chest. Views: 1 view. COMPARISON: CR XR chest 1V portable [id number] 11/05/2024 11:08 AM FINDINGS: Lungs: Unremarkable. No consolidation. Pleural spaces: Unremarkable. No pleural effusion. No pneumothorax. Heart/Mediastinum: Unremarkable. No cardiomegaly. Bones/joints: Unremarkable. Other findings: Numerous scattered metallic BBs over the left chest. XR/XR chest 1V portable [id number] IMPRESSION: Negative for acute chest pathology.
[2024-11-06 04:46] LABS: Hematocrit 45.7 % (37-53); Lymphocytes # 0.8 10^3/uL (0.8-4.8); Lymphocytes % 9.5 %; Mean Corpuscular HGB Conc 29.3 g/dL (30-55); Mean Corpuscular Hemoglobin 28.6 pg (27-33); Mean Corpuscular Volume 97.4 fl (82-101); Mean Platelet Volume 10.2 fL (7.4-10.4); Monocytes # 0.2 10^3/uL (0.2-0.9); Neutrophils # 6.87 10^3/uL (1.8-7.7); Neutrophils % 87.1 %; Nucleated Red Blood Cells % 0 %; Platelet Count 152 10^3/cmm (157-399); Red Blood Count 4.69 10^6/uL (3.85-5.65); Red Cell Distribution Width 12.6 % (12.1-15.1); White Blood Count 7.89 10^3/uL (3.29-11.43)
[2024-11-06 05:14] LABS: Anion Gap 10.5 (5-19); Blood Urea Nitrogen 18 mg/dL (8-23); Chloride 96 mmol/L (98-107); Creatinine Clr Calc Pharmacy 79.1056; Glucose 194 mg/dL (65-115); Magnesium 2.1 mg/dL (1.7-2.3); NT Pro B Type Natriuretic Pept 119 pg/mL (0-450); Osmolality Calculated 305 mOsm/kg (285-295); Potassium 4.5 mmol/L (3.5-5.1); Sodium 144 mmol/L (136-145)
[2024-11-06 05:17] LABS: Carbon Dioxide 42 mmol/L (22-29)
[2024-11-06] MEDS: famotidine 20 mg/2 mL INJ IVP ×2 (05:22→17:36)
--- NOTE | 2024-11-06 05:40 | PC.NURSE ---
Hold medications Received telephone order from Dr Delvalle to hold patient's PO aspirin and plavix at this time due to confusion, sedation, and dependence on Bipap. Ordered to try administering medications again later in the day.
[2024-11-06] MEDS: FUROsemide 10 mg/mL SDV 4mL 40 MG IVP (06:05)
[2024-11-06] MEDS: budesonide 0.5 mg/2 mL Neb INHALATION ×2 (08:15→20:42)
--- NOTE | 2024-11-06 11:51 | PC.OT ---
OT EVALUATION ATTEMPTED IN A.M. PATIENT ON BIPAP AND UNABLE TO PARTICIPATE AT THIS TIME.
--- NOTE | 2024-11-06 12:17 | PC.NURSE ---
Attempted administration of daily meds. Pt remains too drowsy/sedated.
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
[2024-11-06] MEDS: aspirin 81 mg EC Tablet PO (12:54)
[2024-11-06] MEDS: atorvastatin 40 mg Tablet 80 MG PO (12:55)
[2024-11-06] MEDS: clopidogrel 75 mg Tablet PO (12:55)
[2024-11-06] MEDS: finasteride 5 mg Tablet PO (12:55)
[2024-11-06 13:02] LABS: ABG PH Result 7.32 (7.35-7.45); Alveolar-Arterial Oxygen Gradi 4.3 mmHg (5-10); Arterial Blood Gas Hematocrit 43.1 % (42-52); Base Excess ABG 17.5 mmol/L (-2.0-2.0); Blood Gas Allen Test Pos; Blood Gas Operator Identificat CAK; Blood Gas Sample Site Radial, left; Blood Gas Sample Type Arterial; Carboxyhemoglobin 1.5 %THgb (0.4-20.1); HCO3 ABG 48.9 mmol/L (22-26); HGB O2 Sat 94.3 % (95-100); Ionized Calcium Level - ABG 1.2 mmol/L (1.1-1.4); Oxygen Device NC; Oxygen Saturation ABG 96.7; PO2 ABG 81.9 mmHg (80.0-100.0); PO2 FiO2 Ratio Arterial Blood 255; Potassium Level - ABG 4.4 mmol/L (3.5-5.0); Total Hemoglobin 14.1 g/dL (14-18)
--- NOTE | 2024-11-06 13:06 | PC.NURSE ---
at bedside, pt more alert. He was able to take oral medications at her urging.
--- NOTE | 2024-11-06 13:31 | PC.RESP ---
pt. off bipap at 1140 for lunch placed back on post abg
[2024-11-06] MEDS: enoxaparin 40 mg/0.4 mL Syringe SUBCUT (17:35)
[2024-11-06 18:01] LABS: ABG PCO2 60.5 mmHg (35-45); ABG PH Result 7.48 (7.35-7.45); Alveolar-Arterial Oxygen Gradi 11.3 mmHg (5-10); Arterial Blood Gas Hematocrit 41.6 % (42-52); Base Excess ABG 18.2 mmol/L (-2.0-2.0); Blood Gas Allen Test Pos; Blood Gas Operator Identificat CAK; Blood Gas Sample Site Radial, left; Blood Gas Sample Type Arterial; Carboxyhemoglobin 1.4 %THgb (0.4-20.1); HCO3 ABG 45.1 mmol/L (22-26); HGB O2 Sat 90.1 % (95-100); Ionized Calcium Level - ABG 1.2 mmol/L (1.1-1.4); Methemoglobin 1.1 % (0.4-1.5); Oxygen Device BIPAP; Oxygen Saturation ABG 92.4; PO2 ABG 53.5 mmHg (80.0-100.0); PO2 FiO2 Ratio Arterial Blood 178; Potassium Level - ABG 3.9 mmol/L (3.5-5.0); Total Hemoglobin 13.6 g/dL (14-18)
[2024-11-06] MEDS: dexmedeTOMIDine 0.9 % NaCL 400 MCG/100 ML PREMIX 8 MCG IV (21:57)
[2024-11-06] MEDS: haloperidol inj 5 mg/mL INJ 1 mL 2 MG IM (22:54)
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
[2024-11-07] VITALS (30 sets, daily range): BP systolic 113–166; BP diastolic 53–107; PULSE 57–116; RESP 12–33; TEMP 35.8–37.4; O2SAT 83–100
--- NOTE | 2024-11-07 | PC.NURSE ---
Contact with Charge nurse Brandon attempted to call patient's , which went to voicemail. She called back shortly after. Charge nurse requested that she speak to patient if willing in an attempt to calm him down. Tried to get to explain to patient that he is sick and fell at home and needs to be in the hospital to get better. Patient began yelling at over the phone and becoming increasingly agitated. This nurse spoke with the afterward to explain to her the patient's exhibited behaviors. She voiced understanding and also understanding for the need to administer medications such as ativan and haldol. No further questions at this time.
[2024-11-07] MEDS: D5-NS 0.45% + KCL 20 mEq 20 MEQ/1,000 ML BAG 100 MEQ IV ×2 (00:13→10:24)
[2024-11-07] MEDS: LORazepam 2 mg/mL INJ 1 mL 1 MG IVP ×4 (00:44→23:56)
[2024-11-07] MEDS: methylPREDNISolone sod succ 40 mg/mL INJ IVP ×3 (01:51→17:59)
[2024-11-07] MEDS: dexmedeTOMIDine 0.9 % NaCL 400 MCG/100 ML PREMIX 20 MCG IV (02:42)
[2024-11-07] MEDS: ipratropium-albuterol 3 mL Neb INHALATION ×4 (03:40→20:35)
[2024-11-07 04:50] LABS: Basophils % 0.1 %; Hematocrit 48.3 % (37-53); Lymphocytes # 0.9 10^3/uL (0.8-4.8); Lymphocytes % 8.1 %; Mean Corpuscular HGB Conc 29.6 g/dL (30-55); Mean Corpuscular Hemoglobin 28.1 pg (27-33); Mean Corpuscular Volume 94.9 fl (82-101); Mean Platelet Volume 10.3 fL (7.4-10.4); Monocytes # 0.5 10^3/uL (0.2-0.9); Monocytes % 4.2 %; Neutrophils # 9.45 10^3/uL (1.8-7.7); Neutrophils % 87.2 %; Nucleated Red Blood Cells % 0 %; Platelet Count 156 10^3/cmm (157-399); Red Blood Count 5.09 10^6/uL (3.85-5.65); Red Cell Distribution Width 12.7 % (12.1-15.1); White Blood Count 10.84 10^3/uL (3.29-11.43)
[2024-11-07 05:16] LABS: Anion Gap 15.6 (5-19); Blood Urea Nitrogen 19 mg/dL (8-23); Calcium 8.9 mg/dL (8.5-10.5); Carbon Dioxide 32 mmol/L (22-29); Chloride 95 mmol/L (98-107); Creatinine Clr Calc Pharmacy 78.5014; Glucose 217 mg/dL (65-115); Osmolality Calculated 295 mOsm/kg (285-295); Potassium 4.6 mmol/L (3.5-5.1); Sodium 138 mmol/L (136-145)
[2024-11-07] MEDS: famotidine 20 mg/2 mL INJ IVP ×2 (06:45→17:59)
--- NOTE | 2024-11-07 07:21 | XR_ITS ---
WS: [id number] Portable AP semiupright chest, 11/07/2024 Clinical Data: Hypercarbic respiratory failure Comparison: Portable chest, 11/06/2024 Findings: No nodules, masses or effusions are seen. The heart is normal. The pulmonary vascularity is not increased. No pneumonia or pneumothorax is seen. The aortic arch and descending thoracic aorta show calcification and minimal tortuosity. There are monitor leads on the chest wall. There are multiple BBs over the left chest and supraclavicular region unchanged. XR/XR chest 1V portable [id number] Impression: Atherosclerosis.
[2024-11-07] MEDS: budesonide 0.5 mg/2 mL Neb INHALATION ×2 (07:57→20:35)
[2024-11-07] MEDS: AZITHROMYCIN ADD-Vantage 500 MG in 0.9% NaCl ADD-Vantage 250 ML 250 MG IV (08:06)
--- NOTE | 2024-11-07 08:10 | PC.NURSE ---
Pt sedated. Pt not initiating breaths without the BIPa, he breathing the set respiratory rate on BiPap. Precedex stopped.
[2024-11-07] MEDS: clopidogrel 75 mg Tablet PO (10:23)
[2024-11-07] MEDS: atorvastatin 40 mg Tablet 80 MG PO (10:23)
[2024-11-07] MEDS: aspirin 81 mg EC Tablet PO (10:23)
[2024-11-07] MEDS: finasteride 5 mg Tablet PO (10:23)
--- NOTE | 2024-11-07 10:24 | PC.NURSE ---
Daily medications: Admin late. Pt now awake, alert and cooperative.
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
[2024-11-07] MEDS: enoxaparin 40 mg/0.4 mL Syringe SUBCUT (18:00)
[2024-11-07] MEDS: OLANZapine 5 mg TABLET PO ×2 (18:00→20:55)
--- NOTE | 2024-11-07 21:29 | PC.NURSE ---
Transfer Patient [facility], nurse Anat to bedside. Sitter with patient. Patient transferred on 5 L NC. Patient voiced no complaints.
[2024-11-07] MEDS: haloperidol inj 5 mg/mL INJ 1 mL 2 MG IM (22:32)
[2024-11-08] VITALS (11 sets, daily range): BP systolic 146–180; BP diastolic 72–87; PULSE 100–115; RESP 15–18; TEMP 36.3–37.2; O2SAT 91–97
[2024-11-08] MEDS: methylPREDNISolone sod succ 40 mg/mL INJ IVP ×3 (00:23→20:16)
--- NOTE | 2024-11-08 02:07 | PC.RESP ---
Nocturnal Pulse Oximeter stopped due to patient constantly pulling off
[2024-11-08] MEDS: clopidogrel 75 mg Tablet PO (05:09)
[2024-11-08] MEDS: famotidine 20 mg/2 mL INJ IVP ×2 (05:09→17:22)
[2024-11-08] MEDS: aspirin 81 mg EC Tablet PO (05:09)
[2024-11-08 06:20] LABS: Blood Urea Nitrogen 17 mg/dL (8-23); Carbon Dioxide 36 mmol/L (22-29); Chloride 102 mmol/L (98-107); Creatinine Clr Calc Pharmacy 80.1343; Glucose 149 mg/dL (65-115); Osmolality Calculated 306 mOsm/kg (285-295); Sodium 146 mmol/L (136-145)
[2024-11-08 06:21] LABS: Anion Gap 12.4 (5-19); Potassium 4.4 mmol/L (3.5-5.1)
[2024-11-08] MEDS: AZITHROMYCIN ADD-Vantage 500 MG in 0.9% NaCl ADD-Vantage 250 ML 250 MG IV (06:36)
[2024-11-08] MEDS: budesonide 0.5 mg/2 mL Neb INHALATION ×2 (08:34→20:32)
[2024-11-08] MEDS: ipratropium-albuterol 3 mL Neb INHALATION ×3 (08:34→20:32)
[2024-11-08] MEDS: atorvastatin 40 mg Tablet 80 MG PO (09:22)
[2024-11-08] MEDS: finasteride 5 mg Tablet PO (09:23)
[2024-11-08] MEDS: OLANZapine 5 mg TABLET PO ×2 (09:23→17:23)
--- NOTE | 2024-11-08 10:06 | PC.SOCIAL ---
IMM Updated Updated pt on IMM. No questions voiced. Provided pt a copy. Initialed, dated, & timed a copy & placed in chart.
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
[2024-11-08] MEDS: enoxaparin 40 mg/0.4 mL Syringe SUBCUT (17:22)
[2024-11-08] MEDS: LORazepam 2 mg/mL INJ 1 mL 1 MG IVP (20:16)
[2024-11-08] MEDS: nicotine 14 mg Patch 1 PATCH TRANSDERMA (21:12)
[2024-11-08] MEDS: haloperidol inj 5 mg/mL INJ 1 mL 2 MG IM (23:11)
[2024-11-09] VITALS (13 sets, daily range): BP systolic 135–188; BP diastolic 65–93; PULSE 66–111; RESP 15–17; TEMP 36.6–37.1; O2SAT 92–100
[2024-11-09] MEDS: ipratropium-albuterol 3 mL Neb INHALATION ×4 (02:33→21:03)
[2024-11-09] MEDS: famotidine 20 mg/2 mL INJ IVP ×2 (05:16→15:44)
[2024-11-09] MEDS: AZITHROMYCIN ADD-Vantage 500 MG in 0.9% NaCl ADD-Vantage 250 ML 250 MG IV (06:43)
[2024-11-09] MEDS: budesonide 0.5 mg/2 mL Neb INHALATION ×2 (09:10→21:03)
[2024-11-09] MEDS: methylPREDNISolone sod succ 40 mg/mL INJ IVP (09:30)
[2024-11-09] MEDS: nicotine 14 mg Patch 1 PATCH TRANSDERMA (09:30)
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
--- NOTE | 2024-11-09 13:58 | PC.PT ---
SUPERVISOR METAL FABRICATING checked in with patient twice with patient sleeping both times. HAT PARTS CUTTER MACHINE states that patient has slept for the better part of 12 hours and nursing staff has not been able to rouse him for more than 30 seconds to a minute at a time. Patient has not eaten since lunch yesterday and has been very disoriented and lethargic. No PT today due to nutritional needs and patient sleeping.
[2024-11-09] MEDS: enoxaparin 40 mg/0.4 mL Syringe SUBCUT (15:44)
[2024-11-09] MEDS: donepezil 5 MG Tablet PO (15:45)
[2024-11-09] MEDS: memantine 5 mg tablet PO (15:45)
[2024-11-09] MEDS: haloperidol 1 mg Tablet 2 MG PO (17:45)
[2024-11-09] MEDS: LORazepam 1 mg Tablet PO (20:07)
[2024-11-10] VITALS (16 sets, daily range): BP systolic 121–176; BP diastolic 52–79; PULSE 71–105; RESP 14–24; TEMP 36.3–37; O2SAT 90–97
[2024-11-10] MEDS: ipratropium-albuterol 3 mL Neb INHALATION ×4 (02:33→19:48)
[2024-11-10] MEDS: aspirin 81 mg EC Tablet PO (05:12)
[2024-11-10] MEDS: clopidogrel 75 mg Tablet PO (05:12)
[2024-11-10] MEDS: budesonide 0.5 mg/2 mL Neb INHALATION ×2 (08:58→19:48)
[2024-11-10] MEDS: nicotine 14 mg Patch 1 PATCH TRANSDERMA (09:26)
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
[2024-11-10 11:18] LABS: ABG PCO2 > 102.0 mmHg (35-45); ABG PH Result 7.22 (7.35-7.45); Arterial Blood Gas Hematocrit 43.6 % (42-52); Base Excess ABG 13.1 mmol/L (-2.0-2.0); Blood Gas Allen Test Pos; Blood Gas Operator Identificat CAK; Blood Gas Sample Site Radial, left; Blood Gas Sample Type Arterial; HCO3 ABG 46.4 mmol/L (22-26); HGB O2 Sat 88.4 % (95-100); Ionized Calcium Level - ABG 1.2 mmol/L (1.1-1.4); Methemoglobin 1.2 % (0.4-1.5); Oxygen Device NC; Oxygen Saturation ABG 91.3; PO2 ABG 62.1 mmHg (80.0-100.0); PO2 FiO2 Ratio Arterial Blood 194; Potassium Level - ABG 3.8 mmol/L (3.5-5.0); Total Hemoglobin 14.2 g/dL (14-18)
[2024-11-10] MEDS: atorvastatin 40 mg Tablet 80 MG PO (13:30)
[2024-11-10] MEDS: finasteride 5 mg Tablet PO (13:30)
[2024-11-10] MEDS: predniSONE 20 mg Tablet 40 MG PO (13:30)
[2024-11-10] MEDS: donepezil 5 MG Tablet PO (13:31)
[2024-11-10] MEDS: memantine 5 mg tablet PO (13:31)
[2024-11-10] MEDS: enoxaparin 40 mg/0.4 mL Syringe SUBCUT (15:58)
[2024-11-10] MEDS: LORazepam 1 mg Tablet PO (20:27)
--- NOTE | 2024-11-10 23:23 | PC.NURSE ---
Addendum entered by Kush Veronica 11/10/24 23:35: Patient had a unwittness fall at 2318. Respiratory therapist came and got the nurse in charge of patient to help assist patient from the floor back into their bed. No new injuries was noticed. HEALTHCARE PROJECT MANAGER staff stated that they just walked him back from the bathroom back into their recliner. The recliner had a chair alarm and the staff herd a walker fall and immediatly went to go check on the patient. The patient was sitting in front of the recliner when staff arrived into the patients room. Hospitalist Dr. Delvalle was notified and wants a head CT without contrast. Label Press Operator was called and notified. Family will also be c Original Note: Patient had a unwittness fall at 2318. Respiratory therapist came and got the nurse in charge of patient to help assist patient from the floor back into their bed. No new injuries was noticed. HEALTHCARE PROJECT MANAGER staff stated that they just walked him back from the bathroom back into their recliner. The recliner had a chair alarm and the staff herd a walker fall and immediatly went to go check on the patient. The patient was sitting in front of the recliner when staff arrived into the patients room. Hospitalist Dr. Delvalle was notified and wants a head CT without contrast. Label Press Operator was called and notified. Family will also be called and notified.
--- NOTE | 2024-11-10 23:28 | CTR_ITS ---
PROCEDURE INFORMATION: Exam: CT Head Without Contrast Exam date and time: 11/10/2024 11:40 PM Age: 84 years old Clinical indication: Injury or trauma; Blunt trauma (contusions or hematomas); Unwitnessed fall. Patient found down on floor by nursing staff. No visible signs of trauma of head. ; Additional info: Unwittnessed fall TECHNIQUE: Imaging protocol: Computed tomography of the head without contrast. Radiation optimization: All CT scans at this facility use at least one of these dose optimization techniques: automated exposure control; mA and/or kV adjustment per patient size (includes targeted exams where dose is matched to clinical indication); or iterative reconstruction. COMPARISON: CT head wo con* [id number] 11/05/2024 2:29 PM RADIATION DOSE METRICS: Total DLP (mGy-cm): 1039.94 FINDINGS: Brain: No focal hemorrhage or midline shift is identified. The ventricles and parenchyma show mild atrophy and chronic bicerebral white matter ischemic change. Small chronic bifrontal subdural hygromas stable. Small right frontal probable meningioma is stable measuring about 2 cm on series 11, image 42. Cerebral ventricles: No ventriculomegaly or evidence of hydrocephalus. Paranasal sinuses: The partially assessed sinuses are grossly clear. Mastoid air cells: Visualized mastoid air cells are well aerated. Bones: No displaced skull fracture is noted. Left temporal area metallic pellet again noted. Soft tissues: Right EAC cerumen. Vasculature: Diffuse vascular calcifications are present. CT/CT head wo con* [id number] IMPRESSION: 1. No acute intracranial hemorrhage. 2. Mild age-related changes. 3. A few other chronic/incidental findings above. Stable from prior, including small right frontal meningioma.
--- NOTE | 2024-11-10 23:36 | PC.NURSE ---
Patient had a unwittness fall at 2318. Respiratory therapist came and got the nurse in charge of patient to help assist patient from the floor back into their bed. No new injuries was noticed. The HUMAN RESOURCES TRAINEE assisted the patient to the bathroom and informed the patient to pull the call light cord. Patient proceeded to get up off the toilet on their own and walk back to their chair unassisted. The nursing staff heard a walker fall and immediatly went to go check on the patient. The patient was sitting in front of the recliner when staff arrived into the patients room. Hospitalist Dr. Delvalle was notified and wants a head CT without contrast. Environmental Program Manager was called and notified. Family will also be notified in the morning.
--- NOTE | 2024-11-10 23:38 | PC.NURSE ---
Incident report number is [id number]
--- NOTE | 2024-11-10 23:42 | PC.NURSE ---
Patients spouse Madonna Escobedo was called and notified by the patients nurse at 1712.
[2024-11-11] VITALS (9 sets, daily range): BP systolic 101–124; BP diastolic 54–82; PULSE 84–100; RESP 12–24; TEMP 36.6–37.7; O2SAT 90–97
[2024-11-11] MEDS: acetaminophen 325 mg Tablet 650 MG PO (01:30)
[2024-11-11] MEDS: ipratropium-albuterol 3 mL Neb INHALATION ×3 (02:51→15:52)
[2024-11-11] MEDS: clopidogrel 75 mg Tablet PO (05:02)
[2024-11-11] MEDS: aspirin 81 mg EC Tablet PO (05:02)
[2024-11-11] MEDS: budesonide 0.5 mg/2 mL Neb INHALATION (08:18)
[2024-11-11] MEDS: memantine 5 mg tablet PO (08:29)
[2024-11-11] MEDS: finasteride 5 mg Tablet PO (08:29)
[2024-11-11] MEDS: donepezil 5 MG Tablet PO (08:29)
[2024-11-11] MEDS: predniSONE 20 mg Tablet 40 MG PO (08:30)
[2024-11-11] MEDS: nicotine 14 mg Patch 1 PATCH TRANSDERMA (08:30)
[2024-11-11] MEDS: atorvastatin 40 mg Tablet 80 MG PO (08:30)
[2024-11-11] MEDS: haloperidol 1 mg Tablet 2 MG PO (08:30)
--- NOTE | 2024-11-11 09:57 | PC.SOCIAL ---
IMM Update pg 2 of IMM Updated and reviewed w/ patient. Copy provided and copy dated, initialed and placed in chart.
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
--- NOTE | 2024-11-11 16:18 | PC.OT ---
OT TREATMENT HELD DUE TO SCHEDULED PATIENT D/C TODAY
[2024-11-11] MEDS: enoxaparin 40 mg/0.4 mL Syringe SUBCUT (17:00)
== END 2024-11-11 17:40 | disposition skilled nursing facility (03) | DRG 189 ==
LOC: ER 13:38 → ICU 15:13 → MEDSURG 11-07 21:23
PROVIDERS: Emergency Medicine; Admitting Provider Internal Medicine; Emergency Provider Family Medicine; PCP Family Medicine; Visit Provider Internal Medicine
DX: J96.02 Acute respiratory failure with hypercapnia (principal); J44.1 Chronic obstructive pulmonary disease with (acute) exacerbation; F03.911 Unspecified dementia, unspecified severity, with agitation; J96.01 Acute respiratory failure with hypoxia; I10 Essential (primary) hypertension; I25.10 Atherosclerotic heart disease of native coronary artery without angina pectoris; E78.5 Hyperlipidemia, unspecified; J43.9 Emphysema, unspecified; F17.210 Nicotine dependence, cigarettes, uncomplicated; R55 Syncope and collapse; Z95.5 Presence of coronary angioplasty implant and graft; Z99.81 Dependence on supplemental oxygen; I25.2 Old myocardial infarction; Z85.828 Personal history of other malignant neoplasm of skin; Z79.82 Long term (current) use of aspirin; Z79.02 Long term (current) use of antithrombotics/antiplatelets
CPT/HCPCS: 36415; 36600; 51702; 70450; 71045; 72125; 80048; 80051; 80053; 81001; 82330; 82805; 83690; 83735; 83880; 84484; 85025; 85610; 87637; 93005; 94640; 94660; 96361; 96372; 96374; 96375; 97116; 97163; 97167; 97530; 97535; 99291; J0456; J1630; J1650; J1940; J2060; J2919; J3490; J7030; J7050; J7512; J7626; J9999

== ENCOUNTER 2024-12-30 11:17 | Outpatient (CLI) | payer OTHER, SELFPAY ==
--- NOTE | 2024-12-30 11:20 | CT_ITS ---
WS: [id number] CT HEAD NONCONTRAST HISTORY: FOLLOW UP UP FROM 08/2024/?POSSIBLE meningioma/syncope TECHNIQUE: Contiguous axial imaging performed through the brain. Bone and soft tissue windows. Sagittal and coronal reformats reviewed. All CT scans at [facility] use at least one of these dose optimization techniques: automated exposure control; mA and/or kV adjustment per patient size (includes targeted exams where dose is matched to clinical indication); or iterative reconstruction. DLP: 1187.33 mGy.cm COMPARISON: 11/10/2024, 11/05/2024, 09/02/2024 Moderate bifrontal lobe atrophy similar to the prior exams. No prior infarcts. Mild small vessel disease. Reidentified is a extra-axial RIGHT frontal mass which contacts the frontal lobe cortex but does not displace it. Mass measures 14 x 8 mm and is stable since 09/02/2024. Bilateral cerebellar atrophy. Ventricles: Normal size with no hydrocephalus. Paranasal sinuses: As visualized are clear. Mastoid air cells: Well pneumatized. Calvarium and scalp: Skull is intact with no soft tissue edema or swelling. CT/CT head wo con* [id number] IMPRESSION: 1. Stable noncontrast head CT since 09/02/2024. 2. Stable extra-axial noncalcified mass in the RIGHT frontal region. Probably represents meningioma. Mass measures 14 x 8 mm. 3. Bifrontal lobe atrophy is stable.
== END 2024-12-30 11:18 | disposition home or self-care (01) ==
PROVIDERS: PCP Family Medicine; Visit Provider Family Medicine
DX: Z01.89 Encounter for other specified special examinations (principal); R22.0 Localized swelling, mass and lump, head; G31.89 Other specified degenerative diseases of nervous system; I67.89 Other cerebrovascular disease
CPT/HCPCS: 70450

== ENCOUNTER → 2025-02-24 10:52 | Outpatient (BNVA) | payer OTHER, SELFPAY | PROVIDERS: PCP Family Medicine; Visit Provider Nurse Practitioner Family | DX: L57.8 Other skin changes due to chronic exposure to nonionizing radiation (principal); L21.8 Other seborrheic dermatitis; L72.0 Epidermal cyst; L81.4 Other melanin hyperpigmentation; Z08 Encounter for follow-up examination after completed treatment for malignant neoplasm; Z85.828 Personal history of other malignant neoplasm of skin; D48.5 Neoplasm of uncertain behavior of skin; L57.0 Actinic keratosis | CPT/HCPCS: 11102; 17000; 99214 ==

== ENCOUNTER → 2025-02-26 12:07 | Outpatient (BNVA) | payer OTHER, SELFPAY | PROVIDERS: PCP Family Medicine; Visit Provider Internal Medicine Cardiovascular Disease | DX: I25.10 Atherosclerotic heart disease of native coronary artery without angina pectoris (principal); E78.5 Hyperlipidemia, unspecified; I97.3 Postprocedural hypertension; I10 Essential (primary) hypertension; Z79.02 Long term (current) use of antithrombotics/antiplatelets; Z79.82 Long term (current) use of aspirin; Z90.5 Acquired absence of kidney; Z99.81 Dependence on supplemental oxygen; Z95.5 Presence of coronary angioplasty implant and graft; F17.200 Nicotine dependence, unspecified, uncomplicated; I25.2 Old myocardial infarction | CPT/HCPCS: 99214 ==

== ENCOUNTER → 2025-03-19 09:41 | Outpatient (BNVA) | payer OTHER, SELFPAY | PROVIDERS: PCP Family Medicine; Visit Provider Dermatology | DX: L57.8 Other skin changes due to chronic exposure to nonionizing radiation (principal); L21.8 Other seborrheic dermatitis; Z08 Encounter for follow-up examination after completed treatment for malignant neoplasm; Z85.828 Personal history of other malignant neoplasm of skin; C44.629 Squamous cell carcinoma of skin of left upper limb, including shoulder; L57.0 Actinic keratosis | CPT/HCPCS: 11603; 13121; 17000; 99213 ==

== ENCOUNTER 2025-04-23 13:19 | Inpatient (IN) | payer OTHER, SELFPAY ==
[2025-04-23] VITALS (35 sets, daily range): BP systolic 109–159; BP diastolic 58–107; PULSE 63–92; RESP 14–49; TEMP 36.3–37.4; O2SAT 89–100
--- NOTE | 2025-04-23 13:21 | XRR_ITS ---
PROCEDURE INFORMATION: Exam: XR Chest Exam date and time: 04/23/2025 1:43 PM Age: 85 years old Clinical indication: Other: Weakness TECHNIQUE: Imaging protocol: Radiologic exam of the chest. Views: 1 view. COMPARISON: CR XR chest 1V portable [id number] 11/07/2024 7:29 AM FINDINGS: Lungs: No consolidating infiltrates. Pleural spaces: Unremarkable. No pleural effusion. No pneumothorax. Heart/Mediastinum: Unremarkable. No cardiomegaly. Bones/joints: There are degenerative changes of the thoracic spine. Soft tissues: There are multiple metallic densities throughout the left chest and abdominal wall. XR/XR chest 1V portable [id number] IMPRESSION: Stable appearance of the chest without acute abnormality
--- NOTE | 2025-04-23 13:21 | ECG_ITS ---
[facility]: 2025-[facility]23 Pat Name: Jason Escobedo Department: Room: Gender: Male Facilities Project Manager: : 1940 Requested By: Denny Jeter Order Number: [id number] Fabian MD: Orestes Barkley M.D. Measurements Intervals [place] Rate: 81 P: 84 PA: 160 QRS: 87 QRSD: 88 T: 68 QT: 347 QTc: 404 Interpretive Statements SINUS RHYTHM Compared to ECG 11/05/2024 17:34:21 Sinus tachycardia no longer present Electronically Signed On 04-24-2025 08:36:34 CDT by Orestes Barkley M.D. [email or web address]
[2025-04-23 14:05] LABS: Hematocrit 47.1 % (37-53); Hemoglobin 13.90 g/dL (11.27-16.99); Mean Corpuscular HGB Conc 29.5 g/dL (30-55); Mean Corpuscular Hemoglobin 29.4 pg (27-33); Mean Corpuscular Volume 99.6 fl (82-101); Nucleated Red Blood Cells % 0 %; Platelet Count 204 10^3/cmm (157-399); Red Blood Count 4.73 10^6/uL (3.85-5.65); White Blood Count 9.61 10^3/uL (3.29-11.43)
--- NOTE | 2025-04-23 14:16 | CT_ITS ---
WS: [id number] CT HEAD NONCONTRAST HISTORY: fall TECHNIQUE: Contiguous axial imaging performed through the brain. Bone and soft tissue windows. Sagittal and coronal reformats reviewed. All CT scans at [facility] use at least one of these dose optimization techniques: automated exposure control; mA and/or kV adjustment per patient size (includes targeted exams where dose is matched to clinical indication); or iterative reconstruction. DLP: 1257.08 mGy.cm COMPARISON: 12/30/2024, 09/02/2024. No acute intracranial hemorrhage, midline shift or mass effect. Moderate bilateral frontal lobe atrophy is noted to the prior studies. RIGHT extra-axial frontal mass identified measuring 1.6 x 1.2 cm which has been previously described and thought to be a meningioma. There is slight mass effect and contact on the cortical surface of the brain. Ventricles: Normal size with no hydrocephalus. No inferior displacement cerebellar tonsils. Paranasal sinuses: As visualized are clear. Mastoid air cells: Well pneumatized. Calvarium and scalp: Skull is intact with no soft tissue edema or swelling. CT/CT head wo con* [id number] IMPRESSION: 1. No acute intracranial hemorrhage or edema. 2. Stable noncontrast head CT since 12/30/2024. 3. Moderate bifrontal lobe atrophy. 4. Extra-axial RIGHT frontal mass is reidentified measuring 1.6 x 1.2 cm. Like ly meningioma. Slight contact on the RIGHT frontal lobe cortex. Stable since 04/2025.
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
[2025-04-23 14:29] LABS: INR 0.90 (0.8-1.2); Prothrombin Time 12.80 SECONDS (12.1-14.9)
[2025-04-23 14:38] LABS: Alanine Aminotransferase 47 U/L (0-41); Albumin Level 3.7 g/dL (3.5-5.2); Alkaline Phosphatase 71 U/L (40-130); Anion Gap 6.6 (5-19); Aspartate Amino Transferase 19 U/L (0-40); Blood Urea Nitrogen 40 mg/dL (8-23); Calcium 8.8 mg/dL (8.5-10.5); Chloride 93 mmol/L (98-107); Creatinine Clr Calc Pharmacy 69.6832; Globulin 2.8 g/dL (1.3-4.6); Glucose 203 mg/dL (65-115); Magnesium 2.6 mg/dL (1.7-2.3); Osmolality Calculated 310 mOsm/kg (285-295); Potassium 4.6 mmol/L (3.5-5.1); Sodium 142 mmol/L (136-145); Thyroid Stimulating Hormone 1.49 uIU/mL (0.27-4.20); Total Protein 6.5 g/dL (6.6-8.7)
[2025-04-23 14:40] LABS: Carbon Dioxide 47 mmol/L (22-29)
[2025-04-23 14:48] LABS: ABG PH Result 7.19 (7.35-7.45); Arterial Blood Gas Hematocrit 44.2 % (42-52); Blood Gas LPM 3.0 %; Blood Gas Operator Identificat AMH; Blood Gas Sample Site Brachial, right; Blood Gas Sample Type Arterial; HCO3 ABG 49.6 mmol/L (22-26); PO2 ABG 86.4 mmHg (80.0-100.0); PO2 FiO2 Ratio Arterial Blood 270
[2025-04-23 14:49] LABS: ABG PCO2 > 102.0 mmHg (35-45)
[2025-04-23] MEDS: methylPREDNISolone sod succ 125 mg/2 mL INJ IVP (15:03)
[2025-04-23 15:10] LABS: Glucose Urine UA Negative (Normal); Nitrate Urine Negative (Negative); Specific Gravity, Urine 1.021 (1.005-1.030)
[2025-04-23 15:55] LABS: ABG PH Result 7.34 (7.35-7.45); Arterial Blood Gas Hematocrit 41.9 % (42-52); Blood Gas Allen Test Pos; Blood Gas Operator Identificat AMH; Blood Gas Sample Site Brachial, right; Blood Gas Sample Type Arterial; HCO3 ABG 43.7 mmol/L (22-26); PO2 ABG 64.3 mmHg (80.0-100.0); PO2 FiO2 Ratio Arterial Blood 229
[2025-04-23 15:56] LABS: ABG PCO2 80.4 mmHg (35-45)
--- NOTE | 2025-04-23 16:03 | ECG_ITS ---
[facility] Test Date: 2025-04-23 Pat Name: Jason Escobedo Department: Room: [facility]09 Gender: Male Instructional Coordinator: : 1940 Requested By: Agustin Delvalle Order Number: [id number] Peralta MD: Orestes Barkley M.D. Measurements Intervals [place] Rate: 84 P: 0 NM: 0 QRS: 86 QRSD: 85 T: 67 QT: 370 QTc: 440 Interpretive Statements ECTOPIC ATRIAL RHYTHM Electronically Signed On 04-24-2025 08:35:35 CDT by Orestes Barkley M.D. [id number] [id number]
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
[2025-04-23 16:10] LABS: Add Urine Microscopic? YES; UA Manual Slide Review YES
--- NOTE | 2025-04-23 16:37 | USR_ITS ---
PROCEDURE INFORMATION: Exam: US Duplex Lower Extremity Veins, Bilateral Exam date and time: 04/23/2025 5:51 PM Age: 85 years old Clinical indication: Swelling (edema) of limb; Lower extremity, bilateral; Additional info: Calf swelling TECHNIQUE: Imaging protocol: Real-time duplex ultrasound of the bilateral extremities with 2-D mora scale, color Doppler flow and spectral waveform analysis including responses to compression and other maneuvers (when performed) with image documentation. Complete exam focused on the lower extremity veins. COMPARISON: CT abdomen pelvis wo con [id number] 05/01/2024 2:30 PM FINDINGS: Right deep veins: Unremarkable. The common femoral, femoral, proximal profunda femoral, popliteal, posterior tibial and peroneal veins are patent without thrombus. Normal Doppler waveforms. Normal compressibility and/or augmentation response. Left deep veins: Unremarkable. The common femoral, femoral, proximal profunda femoral, popliteal, posterior tibial and peroneal veins are patent without thrombus. Normal Doppler waveforms. Normal compressibility and/or augmentation response. Superficial veins: Greater saphenous veins at the saphenofemoral junctions are patent bilaterally without thrombus. Soft tissues: Unremarkable. US/CV venous duplex [facility] [id number] IMPRESSION: No sonographic evidence of deep venous thrombosis.
--- NOTE | 2025-04-23 16:37 | XRR_ITS ---
PROCEDURE INFORMATION: Exam: XR Bilateral Hips Exam date and time: 04/23/2025 4:43 PM Age: 85 years old Clinical indication: Injury or trauma; Fall; Blunt trauma (contusions or hematomas); Bilateral; Hip TECHNIQUE: Imaging protocol: Radiologic exam of the bilateral hips. Views: 2 views of hips with pelvis when performed. COMPARISON: CT abdomen pelvis wo con [id number] 05/01/2024 2:30 PM FINDINGS: Bones/joints: The bones are demineralized. No suspicious bone lesion. Soft tissues: Mild asymmetric increased density involving the right gluteal musculature which may be normal or correspond to potential intramuscular edema. No large subcutaneous soft tissue hematoma identified by plain film radiograph. Intraperitoneal space: AP pelvis is slightly oblique which limits evaluation. No displaced fracture involving the right or left hemipelvis. The symphysis pubis is normally aligned. Superior and inferior pubic rami are intact. SI joints appear symmetric. Visualized sacral ala appear intact. Evaluation of the sacrum is limited. Advanced degenerative changes are present within the lower lumbar spine. Probable bridging osteophyte formation is present to the right at the L4-L5 and L5-S1 levels. Alignment of the right and left hip joint appears normal. No evidence for an acute fracture involving the proximal right or left femur. No evidence for dislocation at the right and left hip joint. Moderate osteoarthritic changes are present at the right and left hip joint, greater on the right. Bony spurring is present along the right acetabulum. A portion of this likely corresponds to calcification of the labrum. Vasculature: Dense atherosclerotic plaque involving the distal abdominal aorta and iliac arteries. XR/XR hip BI 2V wo/w pel [id number] IMPRESSION: The bones are demineralized. No acute fracture or dislocation.
[2025-04-23 16:57] LABS: INR 0.87 (0.8-1.2); Prothrombin Time 12.40 SECONDS (12.1-14.9)
[2025-04-23 17:00] LABS: Lactic Sepsis W/Reflex 1.5 mmol/L (0.5-2.2)
[2025-04-23 17:10] LABS: Troponin(5th) Baseline 69 ng/L (0-15)
[2025-04-23 17:12] LABS: Troponin 5 2HR 70.25 ng/L (0-15); Troponin 5 2HR Delta 1.25 ABS# (0-10)
[2025-04-23 17:21] LABS: Cholesterol 165 mg/dL (0-200); HDL Cholesterol 73 mg/dL (60-100); NT Pro B Type Natriuretic Pept 2870 pg/mL (0-450); Thyroid Stimulating Hormone 1.15 uIU/mL (0.27-4.20); Triglycerides 102 mg/dL (0-150)
[2025-04-23 17:22] LABS: Procalcitonin 0.05 ng/mL (0-0.5)
[2025-04-23] MEDS: cefTRIAXone 1,000 mg SDV 1000 MG IVP (17:33)
[2025-04-23] MEDS: pantoprazole 40 mg SDV IVP (17:33)
--- NOTE | 2025-04-23 18:02 | ECG_ITS ---
[facility] Date: 2025-04-23 Pat Name: Jason Escobedo Department: Room: [facility]09 Gender: Male Room Maid: : 1940 Requested By: Agustin Delvalle Order Number: [id number] Fabian MD: Orestes Barkley M.D. Measurements Intervals [place] Rate: 92 P: 78 [place]: 171 QRS: 84 QRSD: 81 T: 66 QT: 334 QTc: 414 Interpretive Statements SINUS RHYTHM Compared to ECG 04/23/2025 16:21:03 Atrial fibrillation no longer present Electronically Signed On 04-24-2025 08:51:42 CDT by Orestes Barkley M.D. [email or web address] [id number]
[2025-04-23 18:10] LABS: Estmated Average Glucose 126; Hemoglobin A1C 6.0 % (4.0-6.0)
--- NOTE | 2025-04-23 18:35 | PC.NURSE ---
Young leaking, discontinued. 18F young replaced using sterile technique.
[2025-04-23 19:22] LABS: Coronavirus 229E,HKU1,NL63,OC4 Not Detected (NOT DETECT); Parainfluenza Virus Type 1 Not Detected (NOT DETECT); Parainfluenza Virus Type 2 Not Detected (NOT DETECT); Parainfluenza Virus Type 3 Not Detected (NOT DETECT); Parainfluenza Virus Type 4 Not Detected (NOT DETECT); SARS-COV-2 Not Detected (NOT DETECT)
[2025-04-23 20:07] LABS: Troponin 5 6HR 67.62 ng/L (0-15)
[2025-04-23 20:08] LABS: Troponin 5 6HR Delta -1.38 ng/L (0-12)
--- NOTE | 2025-04-23 22:45 | ECG_ITS ---
[facility] Test Date: 2025-04-23 Pat Name: Jason Escobedo Department: Room: [facility]09 Gender: Male Electronic Design Engineer: : 1940 Requested By: Agustin Delvalle Order Number: [id number] Fabian MD: Orestes Barkley M.D. Measurements Intervals [place] Rate: 87 P: 77 [place]: 155 QRS: 85 QRSD: 83 T: 74 QT: 354 QTc: 428 Interpretive Statements SINUS RHYTHM Compared to ECG 04/23/2025 18:31:03 No significant changes Electronically Signed On 04-24-2025 08:50:58 CDT by Orestes Barkley M.D. [email or web address] [id number]
--- NOTE | 2025-04-23 22:55 | PC.NURSE ---
Respiratory Effort Patient's respiratory rate intermittently increasing into the mid 40s while on bipap. Retractions and accessory muscle use still noted. Oxygen saturations maintaining in the 90s. Dr. Garay notified; no new orders received.
[2025-04-24] VITALS (52 sets, daily range): BP systolic 105–165; BP diastolic 52–107; PULSE 57–99; RESP 10–45; TEMP 36.3–38; O2SAT 88–100
--- NOTE | 2025-04-24 00:50 | PC.NURSE ---
Respiratory Effort Patient's respiratory effort still increased with retractions and accessory muscle use noted. Respiratory rate maintaining in the high 30s with intermittent increases into the 50s while on bipap. Dr. Garay notified and at bedside for examination. During examination, patient breathing 28 times/minute. No new orders received.
[2025-04-24] MEDS: haloperidol inj 5 mg/mL INJ 1 mL IVP (03:08)
[2025-04-24] MEDS: dexmedeTOMIDine 0.9 % NaCL 400 MCG/100 ML PREMIX IV (03:09)
--- NOTE | 2025-04-24 03:19 | PC.NURSE ---
Precedex Patient pulling bipap mask off and taking it apart, attempting to get out of bed, all while stating I'm getting out of here. Verbal deescalation attempted with limited success. Dr. Garay contacted; orders received for 0.2 mg haldol IVP once and precedex drip.
[2025-04-24 03:41] LABS: Hematocrit 41.2 % (37-53); Hemoglobin 12.10 g/dL (11.27-16.99); Mean Corpuscular HGB Conc 29.4 g/dL (30-55); Mean Corpuscular Hemoglobin 28.2 pg (27-33); Mean Corpuscular Volume 96.0 fl (82-101); Nucleated Red Blood Cells % 0 %; Platelet Count 181 10^3/cmm (157-399); Red Blood Count 4.29 10^6/uL (3.85-5.65); White Blood Count 9.02 10^3/uL (3.29-11.43)
--- NOTE | 2025-04-24 03:48 | PC.NURSE ---
ABG Respiratory therapist, Lidya, at bedside states patient had brief periods of apnea followed by tachypnea and recommends an ABG. Dr. Garay notified; order received for an ABG.
[2025-04-24] MEDS: methylPREDNISolone sod succ 40 mg/mL INJ IVP ×3 (04:09→19:12)
[2025-04-24 04:15] LABS: Anion Gap 12.9 (5-19); Blood Urea Nitrogen 41 mg/dL (8-23); Calcium 9.1 mg/dL (8.5-10.5); Carbon Dioxide 40 mmol/L (22-29); Chloride 97 mmol/L (98-107); Creatinine Clr Calc Pharmacy 64.0794; Glucose 166 mg/dL (65-115); Magnesium 2.4 mg/dL (1.7-2.3); Osmolality Calculated 314 mOsm/kg (285-295); Potassium 4.9 mmol/L (3.5-5.1); Sodium 145 mmol/L (136-145)
[2025-04-24 04:36] LABS: ABG PCO2 56.5 mmHg (35-45); ABG PH Result 7.50 (7.35-7.45); Alveolar-Arterial Oxygen Gradi 7.5 mmHg (5-10); Arterial Blood Gas Hematocrit 38.4 % (42-52); Blood Gas Operator Identificat JDB; Blood Gas Sample Site Brachial, right; Blood Gas Sample Type Arterial; Carboxyhemoglobin 1.8 %THgb (0.4-20.1); Glucose Level-ABG 153.0 mg/dL (70-115); HCO3 ABG 43.7 mmol/L (22-26); Ionized Calcium Level - ABG 1.2 mmol/L (1.1-1.4); Methemoglobin 1.0 % (0.4-1.5); Oxygen Saturation ABG 97.3; PO2 ABG 74.1 mmHg (80.0-100.0); PO2 FiO2 Ratio Arterial Blood 264; Potassium Level - ABG 4.2 mmol/L (3.5-5.0); Sodium Level - ABG 143.0 mmol/L (131-143)
--- NOTE | 2025-04-24 05:05 | PC.NURSE ---
Sitter Patient attempting to climb out of bed multiple times while also pulling off his bipap despite precedex drip. Dr. Garay notified; order received for a 1:1 sitter.
[2025-04-24] MEDS: ATORVASTATIN 10 MG TABLET PO (05:08)
[2025-04-24] MEDS: dexmedeTOMIDine 0.9 % NaCL 400 MCG/100 ML PREMIX 6.45 MCG IV (11:06)
--- NOTE | 2025-04-24 14:29 | P.PN_ITS ---
Subjective 2 Subjective: She was seen this morning, currently alert to person, not to place, to time, he can follow some commands, but is globally encephalopathic is off BiPAP therapy on nasal cannula, currently on Precedex drip for agitation Vitals/I&O/Wt Last Vital Signs Temp 97.3 F L 04/24/25 12:00 Pulse 75 04/24/25 14:00 Resp 16 04/24/25 14:00 BP 136/67 04/24/25 14:00 Pulse Ox 99 04/24/25 14:00 O2 Del Method Nasal Cannula 04/24/25 14:00 O2 Flow Rate 2 04/24/25 14:00 FiO2 28 04/24/25 11:33 04/23/25 04/24/25 04/24/25 22:59 06:59 14:59 Intake Total 250 / 250 16.591 / 266.591 270.255 / 270.255 Output Total 50 / 50 150 / 200 Balance 200 / 200 -133.409 / 66.591 270.255 / 270.255 Weight last 48 hrs Weight 83.003 kg Weight 85.956 kg Weight 81.647 kg Physical Exam 2 Const: COMMON NORMALS: no acute distress ORIENTATION/CONSCIOUSNESS: Yes awake, Yes oriented to person and Yes confused; not oriented to place and not oriented to time Eye: COMMON NORMALS: Equal, round and reactive pupils present PUPIL: Yes Equal, round and reactive pupils present Resp: COMMON NORMALS: normal respiratory effort, No retractions and No use of accessory muscles AUSCULTATION: crackles and wheezes Cardio: COMMON NORMALS: regular rate, regular rhythm, S1 normal heart sound present and S2 normal heart sound present RATE: regular rate RHYTHM: r egular rhythm HEART SOUNDS: S1 normal heart sound present and S2 normal heart sound present GI: COMMON NORMALS: Normal to inspection, nondistended, normoactive bowel sounds present and non-tender Extremity: COMMON NORMALS: no pedal edema Neuro: SENSORIUM/ORIENTATION: Yes oriented to person, No oriented to place and No oriented to time Urinary Catheter Management: Echols: Cath Placed During This Visit: yes, but has since been removed by the nurse Reason for Continuing Indwelling Catheter: Accurate Measurement of Urinary Output in Critically Ill Patients Urinary Catheter Date of Insertion: 04/23/25 Urinary Catheter Time of Insertion: 18:34 Date Urinary Catheter Removed: 04/23/25 Time Urinary Catheter Discontinued: 18:20 Data 04/24/25 03:28 04/24/25 03:28 Micro: Microbiology 04/23/25 16:31 Blood Culture - Preliminary Blood SPECIMEN COLLECTED 04/23/25 16:29 Blood Culture - Preliminary Blood SPECIMEN COLLECTED A&P Assessment and plan 1. CAD (coronary artery disease): 2. Hyperlipidemia: 3. COPD with acute exacerbation: 4. Acute on chronic respiratory failure with hypoxia and hypercapnia: 5. Altered mental status: 6. Type 2 diabetes mellitus: 7. Fall: Plan: Acute hypoxic hypercarbic respiratory failure Plan - Solu-Medrol 40 mg IV every 8 hours - IV Rocephin - IV azithromycin - Blood cultures - Sputum culture - Respiratory viral panel - Full code - Lovenox for DVT prophylaxis Acute encephalopathy, neurochecks, NIH stroke scale, aspiration precautions - On Precedex drip for agitation Type 2 diabetes mellitus, low-dose insulin sliding scale Fall - CT head CT/CT head wo con* 50639 IMPRESSION: 1. No acute intracranial hemorrhage or edema. 2. Stable noncontrast head CT since 12/30/2024. 3. Moderate bifrontal lobe atrophy. 4. Extra-axial RIGHT frontal mass is reidentified measuring 1.6 x 1.2 cm. Likely meningioma. Slight contact on the RIGHT frontal lobe cortex. Stable since 09/02/2024. - X-ray hip no acute fracture PDMP PDMP Reviewed: Not Reviewed Attestations 2 Medical Necessity Statement*: Patient requires hospitalization for acute encephalopathy, acute hypoxic respiratory failure, COPD Diagnoses CAD (coronary artery disease) I25.10 Hyperlipidemia E78.5 COPD with acute exacerbation J44.1 Acute on chronic respiratory failure with hypoxia and hypercapnia J96.21; J96.22 Altered mental status R41.82 Type 2 diabetes mellitus E11.9 Fall W19.XXXA
[2025-04-24] MEDS: pantoprazole 40 mg SDV IVP (16:50)
[2025-04-24] MEDS: cefTRIAXone 1,000 mg SDV 1000 MG IVP (16:52)
[2025-04-25] VITALS (30 sets, daily range): BP systolic 124–174; BP diastolic 57–100; PULSE 81–107; RESP 16–31; TEMP 36.6–36.9; O2SAT 87–97
[2025-04-25 04:03] LABS: Hematocrit 38.7 % (37-53); Hemoglobin 12.10 g/dL (11.27-16.99); Mean Corpuscular HGB Conc 31.3 g/dL (30-55); Mean Corpuscular Hemoglobin 28.5 pg (27-33); Mean Corpuscular Volume 91.1 fl (82-101); Nucleated Red Blood Cells % 0 %; Platelet Count 206 10^3/cmm (157-399); Red Blood Count 4.25 10^6/uL (3.85-5.65); White Blood Count 10.13 10^3/uL (3.29-11.43)
[2025-04-25 04:29] LABS: Anion Gap 14.2 (5-19); Blood Urea Nitrogen 39 mg/dL (8-23); Calcium 8.9 mg/dL (8.5-10.5); Carbon Dioxide 37 mmol/L (22-29); Chloride 96 mmol/L (98-107); Creatinine Clr Calc Pharmacy 70.1603; Glucose 173 mg/dL (65-115); Magnesium 2.5 mg/dL (1.7-2.3); Osmolality Calculated 310 mOsm/kg (285-295); Potassium 4.2 mmol/L (3.5-5.1); Sodium 143 mmol/L (136-145)
[2025-04-25] MEDS: ATORVASTATIN 10 MG TABLET PO (04:35)
[2025-04-25] MEDS: methylPREDNISolone sod succ 40 mg/mL INJ IVP ×3 (04:38→20:02)
--- NOTE | 2025-04-25 06:30 | PC.NURSE ---
Young Catheter Patient intermittently pulling at young catheter throughout shift. Education provided on function of catheter as well as the need to not pull on it; reinforcement provided often. This AM, patient stated You better get this out. If you don't, I'm going to rip it out. Dr. Garay contacted; order received to remove young catheter. Young catheter removed. After removal, patient urinated approximately 250 ml of urine into chair.
--- NOTE | 2025-04-25 11:46 | PC.SOCIAL ---
IMM Update pg 2 of IMM Updated and reviewed w/ patient. Copy provided and copy dated, initialed and placed in chart.
--- NOTE | 2025-04-25 12:47 | P.PN_ITS ---
Subjective 2 Subjective: Patient was seen this morning, currently alert oriented x 1, follow commands, denies any fevers, no chills, no nausea, no vomiting, no lightheadedness Vitals/I&O/Wt Last Vital Signs Temp 98.5 F 04/25/25 08:00 Pulse 107 H 04/25/25 12:00 Resp 26 H 04/25/25 12:00 BP 150/78 04/25/25 12:00 Pulse Ox 93 04/25/25 11:28 O2 Del Method Nasal Cannula 04/25/25 11:28 O2 Flow Rate 2 04/25/25 08:00 FiO2 2 04/25/25 11:28 04/24/25 04/25/25 04/25/25 22:59 06:59 14:59 Intake Total 500 / 770.255 480 / 1250.255 250 / 250 Output Total 525 / 525 540 / 1065 750 / 750 Balance -25 / 245.255 -60 / 185.255 -500 / -500 Weight last 48 hrs Weight 82.962 kg Weight 83.003 kg Weight 85.956 kg Weight 81.647 kg Physical Exam 2 Const: COMMON NORMALS: no acute distress ORIENTATION/CONSCIOUSNESS: Yes awake, Yes oriented to person, Yes oriented to place and Yes confused; not oriented to time Resp: COMMON NORMALS: normal respiratory effort, No retractions, No use of accessory muscles and clear to auscultation bilaterally AUSCULTATION: clear to auscultation bilaterally Cardio: COMMON NORMALS: regular rate, regular rhythm, S1 normal heart sound present and S2 normal heart sound present RATE: regular rate RHYTHM: r egular rhythm HEART SOUNDS: S1 normal heart sound present and S2 normal heart sound present GI: COMMON NORMALS: Normal to inspection, nondistended, normoactive bowel sounds present and non-tender Extremity: COMMON NORMALS: no pedal edema Neuro: COMMON NORMALS: CN's II-XII intact bilaterally and moves all extremities SENSORIUM/ORIENTATION: Yes oriented to person, Yes oriented to place and No oriented to time Psych: COMMON NORMALS: mental status grossly normal Urinary Catheter Management: Echols: Cath Placed During This Visit: yes, but has since been removed by the nurse Reason for Continuing Indwelling Catheter: Decision to DC Catheter Urinary Catheter Date of Insertion: 04/23/25 Urinary Catheter Time of Insertion: 18:34 Date Urinary Catheter Removed: 04/25/25 Time Urinary Catheter Discontinued: 06:30 Data 04/25/25 03:46 04/25/25 03:46 Micro: Microbiology 04/23/25 16:31 Blood Culture - Preliminary Blood NEGATIVE TO DATE 04/23/25 16:29 Blood Culture - Preliminary Blood NEGATIVE TO DATE A&P Assessment and plan 1. CAD (coronary artery disease): 2. Hyperlipidemia: 3. COPD with acute exacerbation: 4. Acute on chronic respiratory failure with hypoxia and hypercapnia: 5. Altered mental status: 6. Type 2 diabetes mellitus: 7. Fall: Plan: Acute hypoxic hypercarbic respiratory failure Plan - Solu-Medrol 40 mg IV every 8 hours - IV Rocephin - IV azithromycin - Blood cultures - Sputum culture - Respiratory viral panel - Full code - Lovenox for DVT prophylaxis Acute encephalopathy, neurochecks, NIH stroke scale, aspiration precautions - Wean off Precedex to Zyprexa Type 2 diabetes mellitus, low-dose insulin sliding scale Fall - CT head CT/CT head wo con* [id number] IMPRESSION: 1. No acute intracranial hemorrhage or edema. 2. Stable noncontrast head CT since 12/30/2024. 3. Moderate bifrontal lobe atrophy. 4. Extra-axial RIGHT frontal mass is reidentified measuring 1.6 x 1.2 cm. Likely meningioma. Slight contact on the RIGHT frontal lobe cortex. Stable since 09/02/2024. - X-ray hip no acute fracture PDMP PDMP Reviewed: Not Reviewed Attestations 2 Medical Necessity Statement*: Patient requires hospitalization for acute hypoxic respiratory failure, fall, acute encephalopathy Diagnoses CAD (coronary artery disease) I25.10 Hyperlipidemia E78.5 COPD with acute exacerbation J44.1 Acute on chronic respiratory failure with hypoxia and hypercapnia J96.21; J96.22 Altered mental status R41.82 Type 2 diabetes mellitus E11.9 Fall W19.XXXA
[2025-04-25] MEDS: pantoprazole 40 mg SDV IVP (17:05)
[2025-04-25] MEDS: cefTRIAXone 1,000 mg SDV 1000 MG IVP (17:09)
[2025-04-25] MEDS: haloperidol inj 5 mg/mL INJ 1 mL 1 MG IVP (23:28)
[2025-04-26] VITALS (24 sets, daily range): BP systolic 134–174; BP diastolic 67–91; PULSE 73–106; RESP 5–25; TEMP 36.7–37.3; O2SAT 94–95
[2025-04-26 04:27] LABS: Hematocrit 37.9 % (37-53); Hemoglobin 12.00 g/dL (11.27-16.99); Mean Corpuscular HGB Conc 31.7 g/dL (30-55); Mean Corpuscular Hemoglobin 28.8 pg (27-33); Mean Corpuscular Volume 91.1 fl (82-101); Nucleated Red Blood Cells % 0 %; Platelet Count 213 10^3/cmm (157-399); Red Blood Count 4.16 10^6/uL (3.85-5.65); White Blood Count 8.10 10^3/uL (3.29-11.43)
[2025-04-26] MEDS: methylPREDNISolone sod succ 40 mg/mL INJ IVP ×2 (04:36→11:22)
[2025-04-26] MEDS: ATORVASTATIN 10 MG TABLET PO (04:36)
--- NOTE | 2025-04-26 04:42 | PC.NURSE ---
Shift Summary Pt refused to wear pulse ox, tele monitoring, and BP cuff. Pt repeatedly educated on the need to wear monitoring. Pt alert to person, birthdate, and place, but otherwise confused thoughout the night. At times, pt would state there was a water leak, the cattle were out, or that he needed to go to a different room. When reorienting pt, he would become confused/frustrated/angry and once stated, You need to move out of my way, or I will move you myself because I am bigger than you. Dr Garay notified. Dr stated he would put consult in to Psych for evaluation of mental status prior to d/c.
[2025-04-26 04:56] LABS: Anion Gap 8.6 (5-19); Blood Urea Nitrogen 29 mg/dL (8-23); Calcium 8.8 mg/dL (8.5-10.5); Carbon Dioxide 39 mmol/L (22-29); Chloride 98 mmol/L (98-107); Creatinine Clr Calc Pharmacy 70.1459; Glucose 216 mg/dL (65-115); Magnesium 2.5 mg/dL (1.7-2.3); Osmolality Calculated 304 mOsm/kg (285-295); Potassium 4.6 mmol/L (3.5-5.1); Sodium 141 mmol/L (136-145)
--- NOTE | 2025-04-26 13:33 | P.PN_ITS ---
Vitals/I&O/Wt Last Vital Signs Temp 98.2 F 04/26/25 12:01 Pulse 73 04/26/25 11:29 Resp 16 04/26/25 11:26 BP 159/80 04/26/25 12:01 Pulse Ox 94 04/26/25 11:26 O2 Del Method Nasal Cannula 04/26/25 12:01 O2 Flow Rate 2 04/26/25 12:01 FiO2 28 04/25/25 23:58 04/25/25 04/26/25 04/26/25 22:59 06:59 14:59 Intake Total 850 / 1100 240 / 240 Output Total 950 / 1700 Balance 850 / 350 -950 / -600 240 / 240 Weight last 48 hrs Weight 82.962 kg Physical Exam 2 Const: COMMON NORMALS: no acute distress ORIENTATION/CONSCIOUSNESS: Yes awake, Yes oriented to person and Yes oriented to place; not oriented to time Eye: COMMON NORMALS: Equal, round and reactive pupils present PUPIL: Yes Equal, round and reactive pupils present Resp: COMMON NORMALS: normal respiratory effort, No retractions, No use of accessory muscles and clear to auscultation bilaterally AUSCULTATION: clear to auscultation bilaterally Cardio: COMMON NORMALS: regular rate, regular rhythm, S1 normal heart sound present and S2 normal heart sound present RATE: regular rate RHYTHM: r egular rhythm HEART SOUNDS: S1 normal heart sound present and S2 normal heart sound present GI: COMMON NORMALS: Normal to inspection, nondistended, normoactive bowel sounds present and non-tender Extremity: COMMON NORMALS: no calf tenderness and no pedal edema Neuro: SENSORIUM/ORIENTATION: Yes oriented to person, Yes oriented to place and No oriented to time Psych: COMMON NORMALS: mental status grossly normal Urinary Catheter Management: Echols: Cath Placed During This Visit: yes, but has since been removed by the nurse Reason for Continuing Indwelling Catheter: Decision to DC Catheter Urinary Catheter Date of Insertion: 04/23/25 Urinary Catheter Time of Insertion: 18:34 Date Urinary Catheter Removed: 04/25/25 Time Urinary Catheter Discontinued: 06:30 Data 04/26/25 03:51 04/26/25 03:51 A&P Assessment and plan 1. CAD (coronary artery disease): 2. Hyperlipidemia: 3. COPD with acute exacerbation: 4. Acute on chronic respiratory failure with hypoxia and hypercapnia: 5. Altered mental status: 6. Type 2 diabetes mellitus: 7. Fall: Plan: Acute hypoxic hypercarbic respiratory failure -Concerns for pneumonia Plan - Prednisone 40 mg daily - IV Rocephin - Continue azithromycin - Blood cultures - Sputum culture - Respiratory viral panel - Full code - Lovenox for DVT prophylaxis Acute encephalopathy, neurochecks, NIH stroke scale, aspiration precautions - Zyprexa 10 mg every afternoon Type 2 diabetes mellitus, low-dose insulin sliding scale Fall - CT head CT/CT head wo con* [id number] IMPRESSION: 1. No acute intracranial hemorrhage or edema. 2. Stable noncontrast head CT since 12/30/2024. 3. Moderate bifrontal lobe atrophy. 4. Extra-axial RIGHT frontal mass is reidentified measuring 1.6 x 1.2 cm. Likely meningioma. Slight contact on the RIGHT frontal lobe cortex. Stable since 09/02/2024. - X-ray hip no acute fracture Moved to medical floors PDMP PDMP Reviewed: Not Reviewed Attestations 2 Medical Necessity Statement*: Patient requires hospitalization for acute hypoxic respiratory failure, acute encephalopathy, Diagnoses CAD (coronary artery disease) I25.10 Hyperlipidemia E78.5 COPD with acute exacerbation J44.1 Acute on chronic respiratory failure with hypoxia and hypercapnia J96.21; J96.22 Altered mental status R41.82 Type 2 diabetes mellitus E11.9 Fall W19.XXXA
[2025-04-26] MEDS: pantoprazole 40 mg SDV IVP (16:20)
[2025-04-26] MEDS: cefTRIAXone 1,000 mg SDV 1000 MG IVP (16:20)
[2025-04-27] VITALS (25 sets, daily range): BP systolic 121–166; BP diastolic 60–91; PULSE 72–120; RESP 13–23; TEMP 36.4–37.2; O2SAT 92–99
[2025-04-27 04:22] LABS: Hematocrit 45.1 % (37-53); Hemoglobin 13.80 g/dL (11.27-16.99); Mean Corpuscular HGB Conc 30.6 g/dL (30-55); Mean Corpuscular Hemoglobin 28.9 pg (27-33); Mean Corpuscular Volume 94.5 fl (82-101); Nucleated Red Blood Cells % 0 %; Platelet Count 246 10^3/cmm (157-399); Red Blood Count 4.77 10^6/uL (3.85-5.65); White Blood Count 10.20 10^3/uL (3.29-11.43)
[2025-04-27 05:01] LABS: Anion Gap 14.8 (5-19); Blood Urea Nitrogen 25 mg/dL (8-23); Calcium 9.0 mg/dL (8.5-10.5); Carbon Dioxide 38 mmol/L (22-29); Chloride 98 mmol/L (98-107); Creatinine Clr Calc Pharmacy 63.1313; Glucose 116 mg/dL (65-115); Osmolality Calculated 307 mOsm/kg (285-295); Potassium 4.8 mmol/L (3.5-5.1); Sodium 146 mmol/L (136-145)
[2025-04-27] MEDS: ATORVASTATIN 10 MG TABLET PO (05:54)
--- NOTE | 2025-04-27 06:14 | ECG_ITS ---
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 Measurements Intervals [place] Rate: 108 P: 0 VT: 0 QRS: 88 QRSD: 87 T: 49 QT: 334 QTc: 449 Interpretive Statements ATRIAL FIBRILLATION WITH RAPID VENTRICULAR RESPONSE ABNORMAL RHYTHM ECG INTERPRETATION BASED ON A DEFAULT AGE OF 40 YEARS Compared to ECG 04/23/2025 22:45:51 Sinus rhythm no longer present Electronically Signed On 04-27-2025 21:27:07 CDT by Lucretia Tobar M.D. [id number]
--- NOTE | 2025-04-27 06:44 | W.PM.EVENTAC ---
Event Note Event Note: new onset atrial fib with mild chest pain: no previous history: BP stable trops sent and to follow up amiodarone infusion started.
--- NOTE | 2025-04-27 07:03 | PC.NURSE ---
Addendum entered by Landon Raya RN 04/27/25 07:05: Event began at aprox. 0620. Original Note: Contacted Dr. Garay in reference to patient now complaining of mild chest pain, increased HR 100-110's initially, and a new irregular rhythm. EKG preformed and confirmed a-fib. Pt has no charted Hx of a-fib, but does have cardiac Hx with stents. Received orders for Troponin series, and amiodarone.
[2025-04-27 07:23] LABS: Troponin(5th) Baseline 98 ng/L (0-15)
[2025-04-27] MEDS: AMIODARONE HCL/D5W 900 MG/500 ML BAG 33.33 MG IV (07:33)
--- NOTE | 2025-04-27 07:34 | USCV_ITS ---
Jason Escobedo Age: 85 Gender: M : 1940 Exam Date: 04/27/2025 13:17 Ordering Phys: Natalio Garay MD Technologist: Edison Rascon Exam Location: [facility] [place] Indication: new onset afib BP: 134 / 70 HR: 77 Rhythm: Sinus Technical Quality: Adequate MEASUREMENTS (Male / Female) Normal Values 2D ECHO LV Diastolic Diameter PLAX 3.5 cm 4.2 - 5.9 / 3.9 - 5.3 cm IVS Diastolic Thickness 0.9 cm 0.6 - 1.0 / 0.6 - 0.9 cm IVS Systolic Thickness 1.1 cm LVPW Diastolic Thickness 1.1 cm 0.6 - 1.0 / 0.6 - 0.9 cm LVPW Systolic Thickness 1.0 cm LVOT Diameter 2.0 cm LV Ejection Fraction 2D Teich 65.1 % LV Ejection Fraction MOD 4C 70.9 % LV Ejection Fraction MOD 2C 56.6 % LV Ejection Fraction 2C AL 56.1 % LA Diameter 3.6 cm RA Systolic Volume 4C AL 36.3 ml RA Systolic Volume 4C MOD 35.7 ml LA Sys Volume AL 43.6 cm cubed LA Sys Volume Index AL 21.3 cm cubed/m squared Aorta at Sinotubular Diameter 2.4 cm IVC Diameter 2.0 cm M-MODE LA Ao Ratio MM 1.0 AV Cusp Separation MM 1.4 cm DOPPLER AV Peak Velocity 134.0 cm/s LVOT Peak Velocity 91.0 cm/s AV Area Cont Eq vti 2.3 cm squared AV Area Cont Eq pk 2.2 cm squared MV Peak Velocity 102.0 cm/s MV Area PHT 4.8 cm squared Mitral E to A Ratio 1.1 TV Peak Velocity 198.5 cm/s TR Peak Velocity 202.0 cm/s TR Peak Gradient 16.3 mmHg TR Mean Velocity 170.0 cm/s TR Mean Gradient 12.1 mmHg TR Velocity Time Integral 46.4 cm RV Ejection Time 0.2 s FINDINGS Left Ventricle Normal left ventricular size and systolic function, EF 56%. No gross wall motion abnormalities noted Right Ventricle Possibly of normal size and ejection fraction Right Atrium Possibly of normal size Left Atrium Possibly of normal size IA Septum Could not be visualized well Mitral Valve No gross abnormalities noted Aortic Valve Thickened aortic valve. Tricuspid Valve Could not be visualized well Pulmonic Valve Pulmonic valve not well visualized. Pericardium Aorta IVC Normal inferior vena cava. CONCLUSIONS Normal left ventricular size and systolic function, EF 56%. No gross wall motion abnormalities noted. Right ventricle, possibly of normal size and ejection fraction. The atria appear to be of normal size. There is no pericardial effusion. Comparison with the previous study is difficult because of the difference in the technical quality. Technically difficult study because of the poor ultrasonic window. Dr Lucretia Tobar MD FACC (Electronically Signed) Final Date: 27 April 2025 18:15 S
[2025-04-27 09:03] LABS: Troponin 5 2HR Delta 2.2 ABS# (0-10)
[2025-04-27 09:05] LABS: Troponin 5 2HR 100.2 ng/L (0-15)
[2025-04-27] MEDS: pantoprazole 40 mg SDV IVP ×2 (10:14→22:45)
--- NOTE | 2025-04-27 10:38 | P.PN_ITS ---
Subjective 2 Subjective: Patient was seen this morning, currently alert oriented x 3, following all commands, but this morning he had episodes of right sided chest discomfort, troponin 98, currently in A-fib with RVR on amiodarone drip, complaining of left shoulder pain, no active chest pain, Vitals/I&O/Wt Last Vital Signs Temp 98.9 F 04/27/25 08:00 Pulse 107 H 04/27/25 10:00 Resp 19 H 04/27/25 10:00 BP 134/70 04/27/25 10:00 Pulse Ox 92 04/27/25 10:00 O2 Del Method Nasal Cannula 04/27/25 10:00 O2 Flow Rate 2 04/27/25 10:00 FiO2 28 04/25/25 23:58 04/26/25 04/27/25 04/27/25 22:59 06:59 14:59 Intake Total 300 / 540 Output Total 500 / 500 250 / 750 350 / 350 Balance -200 / 40 -250 / -210 -350 / -350 Weight last 48 hrs Weight 82.282 kg Physical Exam 2 Const: COMMON NORMALS: no acute distress Eye: COMMON NORMALS: Equal, round and reactive pupils present and EOMs intact bilaterally PUPIL: Yes Equal, round and reactive pupils present Resp: COMMON NORMALS: normal respiratory effort, No retractions, No use of accessory muscles and clear to auscultation bilaterally AUSCULTATION: clear to auscultation bilaterally Cardio: COMMON NORMALS: S1 normal heart sound present and S2 normal heart sound present RATE: tachycardic RHYTHM: abnormal rhythm HEART SOUNDS: S 1 normal heart sound present and S2 normal heart sound present GI: COMMON NORMALS: Normal to inspection, nondistended, normoactive bowel sounds present and non-tender Extremity: COMMON NORMALS: no pedal edema Psych: COMMON NORMALS: mental status grossly normal Urinary Catheter Management: Echols: Cath Placed During This Visit: yes, but has since been removed by the nurse Reason for Continuing Indwelling Catheter: Decision to DC Catheter Urinary Catheter Date of Insertion: 04/23/25 Urinary Catheter Time of Insertion: 18:34 Date Urinary Catheter Removed: 04/25/25 Time Urinary Catheter Discontinued: 06:30 Data 04/27/25 03:44 04/27/25 03:44 A&P Assessment and plan 1. CAD (coronary artery disease): 2. Hyperlipidemia: 3. COPD with acute exacerbation: 4. Acute on chronic respiratory failure with hypoxia and hypercapnia: 5. Altered mental status: 6. Type 2 diabetes mellitus: 7. Fall: Plan: Acute hypoxic hypercarbic respiratory failure -Concerns for pneumonia Plan - Prednisone 40 mg daily - IV Rocephin - Continue oral azithromycin - Blood cultures - Sputum culture - Respiratory viral panel - Full code - Lovenox for DVT prophylaxis Atypical chest discomfort, NSTEMI Cardiac cath in 2020 Conclusions 1. Severe ostial diagonal stenosis status post successful revascularization with REMBERTO x1. 2. Moderate OM stenosis s/p FFR. FFR was non-ischemic. 3. No disease noted in the Left Main, Left Anterior Descending, Right, or Circumflex coronary arteries. 4. 1st Diagonal was treated with a Balloon, and Drug Eluting Stent. Plan - Serial EKGs, serial troponins, telemetry monitoring - Aspirin, statin, Plavix, therapeutic Lovenox - Cardiac echo Atrial fibrillation with rapid ventricular response - Continue amiodarone drip - Therapeutic Lovenox Acute encephalopathy, neurochecks, NIH stroke scale, aspiration precautions - Zyprexa 10 mg every afternoon Type 2 diabetes mellitus, low-dose insulin sliding scale Fall - CT head CT/CT head wo con* [id number] IMPRESSION: 1. No acute intracranial hemorrhage or edema. 2. Stable noncontrast head CT since 12/30/2024. 3. Moderate bifrontal lobe atrophy. 4. Extra-axial RIGHT frontal mass is reidentified measuring 1.6 x 1.2 cm. Likely meningioma. Slight contact on the RIGHT frontal lobe cortex. Stable since 09/02/2024. - X-ray hip no acute fracture Extra-axial right frontal mass 1.6 x 1.2 cm - Will need to follow-up with neurosurgery as outpatient Full code Therapeutic Lovenox for DVT prophylaxis For today, continue IV antibiotics, steroids, monitor mentation, cardiac echo, monitor troponin trend, amiodarone drip, therapeutic Lovenox, PDMP PDMP Reviewed: Not Reviewed Attestations 2 Medical Necessity Statement*: Patient requires hospitalization for acute hypoxic respiratory failure, atypical chest discomfort, NSTEMI, A-fib with RVR Diagnoses CAD (coronary artery disease) I25.10 Hyperlipidemia E78.5 COPD with acute exacerbation J44.1 Acute on chronic respiratory failure with hypoxia and hypercapnia J96.21; J96.22 Altered mental status R41.82 Type 2 diabetes mellitus E11.9 Fall W19.XXXA
[2025-04-27 13:34] LABS: Troponin 5 6HR 87.52 ng/L (0-15)
[2025-04-27 13:47] LABS: Troponin 5 6HR Delta -10.48 ng/L (0-12)
[2025-04-27] MEDS: cefTRIAXone 1,000 mg SDV 1000 MG IVP (17:07)
--- NOTE | 2025-04-27 22:57 | ECG_ITS ---
[facility] Test Date: 2025-04-27 Pat Name: Jason Escobedo Department: Room: [facility] Gender: Male [employer]: : 1940 Requested By: Natalio Garay Order Number: [id number] Fabian MD: Lucretia Tobar M.D. Measurements Intervals [place] Rate: 75 P: 79 OR: 174 QRS: 75 QRSD: 87 T: 67 QT: 382 QTc: 427 Interpretive Statements SINUS RHYTHM Compared to ECG 04/27/2025 06:14:33 Atrial fibrillation no longer present Electronically Signed On 04-28-2025 23:27:19 CDT by Lucretia Tobar M.D. [email or web address]
[2025-04-28] VITALS (34 sets, daily range): BP systolic 104–163; BP diastolic 49–70; PULSE 64–88; RESP 14–35; TEMP 36.4–37; O2SAT 92–100; BMI 23.1
[2025-04-28] MEDS: AMIODARONE HCL/D5W 900 MG/500 ML BAG 16.67 MG IV (02:48)
[2025-04-28] MEDS: ATORVASTATIN 10 MG TABLET PO (04:13)
[2025-04-28 04:33] LABS: Hematocrit 48.0 % (37-53); Hemoglobin 13.80 g/dL (11.27-16.99); Mean Corpuscular HGB Conc 28.8 g/dL (30-55); Mean Corpuscular Hemoglobin 28.0 pg (27-33); Mean Corpuscular Volume 97.6 fl (82-101); Nucleated Red Blood Cells % 0 %; Platelet Count 234 10^3/cmm (157-399); Red Blood Count 4.92 10^6/uL (3.85-5.65); White Blood Count 10.68 10^3/uL (3.29-11.43)
[2025-04-28 05:04] LABS: Anion Gap 8.4 (5-19); Blood Urea Nitrogen 29 mg/dL (8-23); Calcium 8.6 mg/dL (8.5-10.5); Chloride 99 mmol/L (98-107); Creatinine Clr Calc Pharmacy 62.9160; Glucose 74 mg/dL (65-115); Osmolality Calculated 302 mOsm/kg (285-295); Potassium 4.4 mmol/L (3.5-5.1); Sodium 144 mmol/L (136-145)
[2025-04-28 05:09] LABS: Carbon Dioxide 41 mmol/L (22-29)
[2025-04-28] MEDS: pantoprazole 40 mg SDV IVP ×2 (09:24→23:23)
--- NOTE | 2025-04-28 11:25 | P.PN_ITS ---
Subjective 2 Subjective: Patient was seen this morning, is sedated and lethargic awakening but gives minimal nonpurposeful answers to verbal questioning. He is back in sinus rhythm electrolytes are normal. Patient's bedside RN Brandon states patient has been overly sedated following Zyprexa 10 mg last night Patient was started on amiodarone drip early a.m. on 04/27/2025 at 6:44 AM for A- fib. Troponin 98 dropped to 87 at 6 hours Vitals/I&O/Wt Last Vital Signs Temp 98.0 F 04/28/25 08:00 Pulse 73 04/28/25 10:00 Resp 20 H 04/28/25 10:00 BP 109/54 04/28/25 10:00 Pulse Ox 97 04/28/25 10:00 O2 Del Method Nasal Cannula 04/28/25 07:40 O2 Flow Rate 3 04/28/25 07:40 FiO2 28 04/25/25 23:58 04/27/25 04/28/25 04/28/25 22:59 06:59 14:59 Intake Total 488.309 / 848.309 251.691 / 1100.000 Output Total 200 / 550 Balance 288.309 / 298.309 251.691 / 550.000 Weight last 48 hrs Weight 77.13 kg Weight 82.282 kg Physical Exam 2 Narrative: General Well-developed male in no acute cardiopulmonary distress but lethargic. Neuro patient moves all extremities symmetrically. Pupils are equally round he does give verbal response but does not follow commands well and keeps falling asleep CV regular rate and rhythm Lungs clear to auscultation bilaterally with prolonged x-ray phase but no wheezes Abdomen positive bowel tones soft nontender Calves no tenderness cords pretibial edema Urinary Catheter Management: Echols: Cath Placed During This Visit: yes, but has since been removed by the nurse Reason for Continuing Indwelling Catheter: Decision to DC Catheter Urinary Catheter Date of Insertion: 04/23/25 Urinary Catheter Time of Insertion: 18:34 Date Urinary Catheter Removed: 04/25/25 Time Urinary Catheter Discontinued: 06:30 Data 04/28/25 03:47 04/28/25 03:47 A&P Assessment and plan 1. Coronary artery disease involving [place] coronary artery of [place] heart without angina pectoris: Troponin appears to be related to A-fib RVR with heart rate max at 120 and echo showing EF 56% no wall motion abnormalities. Will continue Lovenox monitoring telemetry and anticipate patient be discharged on apixaban 2. Hyperlipidemia: LDL is 72 on 2.5 mg rosuvastatin outpatient with a LDL of 73 triglycerides 102 3. COPD with acute exacerbation: Improved initial ABG pH 7.34 pCO2 80 improved to pH 7.5 pCO2 56 with BiPAP 4. Acute on chronic respiratory failure with hypoxia and hypercapnia: Much improved. Decrease prednisone to 20 mg daily. Viral respiratory panel was negative 5. Altered mental status: Decrease Zyprexa to 5 mg nightly 6. Type 2 diabetes mellitus: A1c was 6 7. Fall: Start PT and OT. Patient has a stable right frontal mass 1.6 x 1.2 1. No acute intracranial hemorrhage or edema. 2. Stable noncontrast head CT since 12/30/2024. 3. Moderate bifrontal lobe atrophy. 4. Extra-axial RIGHT frontal mass is reidentified measuring 1.6 x 1.2 cm. Likely meningioma. Slight contact on the RIGHT frontal lobe cortex. Stable since 09/02/2024. - X-ray hip no acute fracture Extra-axial right frontal mass 1.6 x 1.2 cm - Will need to follow-up with neurosurgery as outpatient PDMP PDMP Reviewed: Not Reviewed Attestations 2 Medical Necessity Statement*: Patient remains hospitalized for treatment of COPD and altered mental status. He will require greater than 2 midnight Coding Level of Care Code 99059 Diagnoses Coronary artery disease involving [place] coronary artery of [place] heart without angina pectoris I25.10 Coronary Disease-Associated Artery/Lesion type: [place] artery [place] vs. transplanted heart: [place] heart Associated angina: without angina Hyperlipidemia E78.5 COPD with acute exacerbation J44.1 Acute on chronic respiratory failure with hypoxia and hypercapnia J96.21; J96.22 Altered mental status R41.82 Type 2 diabetes mellitus E11.9 Fall W19.XXXA Time Spent (min) 40
--- NOTE | 2025-04-28 14:13 | PC.NURSE ---
called and made aware of transfer to stepdown unit
--- NOTE | 2025-04-28 16:06 | PC.OT ---
OT TREATMENT ATTEMPTED; PATIENT IS SLEEPING SOUNDLY. WILL ATTEMPT AGAIN AT A LATER TIME.
[2025-04-28] MEDS: cefTRIAXone 1,000 mg SDV 1000 MG IVP (17:24)
[2025-04-29] VITALS (24 sets, daily range): BP systolic 99–122; BP diastolic 51–95; PULSE 75–90; RESP 19–37; TEMP 36.6–37.1; O2SAT 89–97
[2025-04-29 03:24] LABS: Hematocrit 41.6 % (37-53); Hemoglobin 12.30 g/dL (11.27-16.99); Mean Corpuscular HGB Conc 29.6 g/dL (30-55); Mean Corpuscular Hemoglobin 28.7 pg (27-33); Mean Corpuscular Volume 97.2 fl (82-101); Nucleated Red Blood Cells % 0 %; Platelet Count 215 10^3/cmm (157-399); Red Blood Count 4.28 10^6/uL (3.85-5.65); White Blood Count 9.72 10^3/uL (3.29-11.43)
[2025-04-29 03:48] LABS: Anion Gap 8.4 (5-19); Blood Urea Nitrogen 28 mg/dL (8-23); Calcium 8.4 mg/dL (8.5-10.5); Chloride 95 mmol/L (98-107); Creatinine Clr Calc Pharmacy 55.7132; Glucose 73 mg/dL (65-115); Osmolality Calculated 296 mOsm/kg (285-295); Potassium 4.4 mmol/L (3.5-5.1); Sodium 141 mmol/L (136-145)
[2025-04-29 03:55] LABS: Carbon Dioxide 42 mmol/L (22-29)
[2025-04-29] MEDS: ATORVASTATIN 10 MG TABLET PO (05:35)
--- NOTE | 2025-04-29 08:28 | PC.NURSE ---
Patient stated that he had cold sweats and blurry vision. Patient was visible sweaty. Blood glucose was taken and it was 43. Per protocol patient was given 2 4oz apple juice and 2 4oz orange juice along with crackers and peanut butter. recheck BG at 0240 and it was 62. 4 more 4oz juices wasw given to patient at 15 minute check bg was 72. Sweating was resolved and vision was becoming more clear. Dr Pelletier notigfied of situation and ordersw for 1/2 D50 was ordered. Lab glucose was drawn and another POC bg drawn and bg was above 150. Order for 1/2 D50 not given due to elevated BG.
[2025-04-29] MEDS: pantoprazole 40 mg SDV IVP (09:12)
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
--- NOTE | 2025-04-29 11:16 | PC.NURSE ---
Spoke with Cely director of medical services with the [place] is to call patient and this person to schedule patients follow-up appointment.
--- NOTE | 2025-04-29 13:47 | P.PN_ITS ---
Subjective 2 Subjective: 85-year-old male with COPD exa cerbation admitted with x-ray negative for infiltrate had initial pH 7.19 pCO2 102. He was treated with BiPAP and pH teto to 7.5 with pCO2 56.5. His stay has been complicated by obtundation from Zyprexa 10 mg for agitation. Additionally he is awaiting his physical and Occupational Therapy evaluation. He is continuing with respiratory rate of 32 and has oxygen ordered to titrate to keep sats right at 90% due to CO2 retention. Patient declined to go to [facility] states he has been there 18 days and is no place that even an animal should go to per his report. He says he is willing to go to other intermediate and so we are trying to arrange other options. states she is unable to take him home to care for him. Vitals/I&O/Wt Last Vital Signs Temp 98.8 F 04/29/25 07:40 Pulse 83 04/29/25 12:35 Resp 32 H 04/29/25 12:35 BP 110/95 04/29/25 10:51 Pulse Ox 97 04/29/25 12:35 O2 Del Method Nasal Cannula 04/29/25 12:35 O2 Flow Rate 1 04/29/25 12:35 FiO2 28 04/25/25 23:58 04/28/25 04/29/25 04/29/25 22:59 06:59 14:59 Intake Total 240 / 240 630 / 870 120 / 120 Output Total 0 / 0 500 / 500 200 / 200 Balance 240 / 240 130 / 370 -80 / -80 Weight last 48 hrs Weight 91.58 kg Weight 77.13 kg Physical Exam 2 Narrative: General Well-developed male in no acute cardiopulmonary distress alert and conversant CV regular rate and rhythm Lungs clear to auscultation bilaterally with prolonged x-ray phase but no wheezes. Air movement is diminished Abdomen positive bowel tones soft nontender Calves no tenderness cords pretibial edema Urinary Catheter Management: Echols: Cath Placed During This Visit: yes, but has since been removed by the nurse Reason for Continuing Indwelling Catheter: Decision to DC Catheter Urinary Catheter Date of Insertion: 04/23/25 Urinary Catheter Time of Insertion: 18:34 Date Urinary Catheter Removed: 04/25/25 Time Urinary Catheter Discontinued: 06:30 Data 04/29/25 02:58 04/29/25 02:58 Micro: Microbiology 04/27/25 23:30 Gram Stain - Final Sputum - Expectorated Sputum Sputum Culture - Preliminary 04/23/25 16:31 Blood Culture - Final Blood NO GROWTH AFTER 5 DAYS 04/23/25 16:29 Blood Culture - Final Blood NO GROWTH AFTER 5 DAYS A&P Assessment and plan 1. Coronary artery disease involving [place] coronary artery of [place] heart without angina pectoris: Troponin appears to be related to A-fib RVR with heart rate max at 120 and echo showing EF 56% no wall motion abnormalities. Change Lovenox to apixaban for A- fib 2. Hyperlipidemia: LDL is 72 on 2.5 mg rosuvastatin outpatient with a LDL of 73 triglycerides 102 3. COPD with acute exacerbation: Improved initial ABG pH 7.34 pCO2 80 improved to pH 7.5 pCO2 56 with BiPAP. With significant tachypnea continue prednisone and azithromycin. Discontinue Rocephin. Wean O2 to keep sats just at 90% 4. Acute on chronic respiratory failure with hypoxia and hypercapnia: Much improved. Continue prednisone 40 mg mg daily. Viral respiratory panel was negative. Keep oxygen saturations at 90% 5. Altered mental status: Decrease Zyprexa to 5 mg nightly. Patient is doing well not agitated but some confusion. 6. Type 2 diabetes mellitus: A1c was 6 7. Fall: Start PT and OT. Patient has a stable right frontal mass 1.6 x 1.2 1. No acute intracranial hemorrhage or edema. 2. Stable noncontrast head CT since 12/30/2024. 3. Moderate bifrontal lobe atrophy. 4. Extra-axial RIGHT frontal mass is reidentified measuring 1.6 x 1.2 cm. Likely meningioma. Slight contact on the RIGHT frontal lobe cortex. Stable since 09/02/2024. - X-ray hip no acute fracture Extra-axial right frontal mass 1.6 x 1.2 cm - Will need to follow-up with neurosurgery as outpatient PDMP PDMP Reviewed: Not Reviewed Attestations 2 Medical Necessity Statement*: Patient tessie in hospital for occupational physical therapy evaluation and anticipate discharge to assisted facility tomorrow Coding Level of Care Code Acute Code for Chg Fwd Diagnoses Coronary artery disease involving [place] coronary artery of [place] heart without angina pectoris I25.10 Coronary Disease-Associated Artery/Lesion type: [place] artery [place] vs. transplanted heart: [place] heart Associated angina: without angina Hyperlipidemia E78.5 COPD with acute exacerbation J44.1 Acute on chronic respiratory failure with hypoxia and hypercapnia J96.21; J96.22 Altered mental status R41.82 Type 2 diabetes mellitus E11.9 Fall W19.XXXA Time Spent (min) 35
[2025-04-29 14:41] LABS: ABG PCO2 46.9 mmHg (35-45); ABG PH Result 7.54 (7.35-7.45); Alveolar-Arterial Oxygen Gradi 7.7 mmHg (5-10); Arterial Blood Gas Hematocrit 38.5 % (42-52); Blood Gas Allen Test Pos; Blood Gas LPM 2.0 %; Blood Gas Operator Identificat BROMA; Blood Gas Sample Site Radial, left; Blood Gas Sample Type Arterial; Carboxyhemoglobin 1.5 %THgb (0.4-20.1); Glucose Level-ABG 236.0 mg/dL (70-115); HCO3 ABG 40.0 mmol/L (22-26); Ionized Calcium Level - ABG 1.1 mmol/L (1.1-1.4); Methemoglobin 1.0 % (0.4-1.5); Oxygen Saturation ABG 98.8; PO2 ABG 82.7 mmHg (80.0-100.0); PO2 FiO2 Ratio Arterial Blood 295; Potassium Level - ABG 4.5 mmol/L (3.5-5.0); Sodium Level - ABG 135.0 mmol/L (131-143)
--- NOTE | 2025-04-29 15:55 | P.DS_ITS ---
Discharge Providers Date of Admission: 04/23/25 15:42 Date of Discharge: April 29, 2025 Attending Provider at Admission: Agustin Delvalle MD Attending Provider at Discharge: Enmanuel Sullivan MD Primary Care Provider: Christa Morris MD Diagnoses at Discharge Discharge Diagnosis 1. Coronary artery disease involving [place] coronary artery of [place] heart without angina pectoris: Details from hospital stay: Troponin appears to be related to A-fib RVR with heart rate max at 120 and echo showing EF 56% no wall motion abnormalities. Changed Lovenox to apixaban for A- fib today and on discharge. He is maintaining sinus rhythm with amiodarone 2. Hyperlipidemia: Details from hospital stay: LDL is 72 on 2.5 mg rosuvastatin outpatient with a LDL of 73 triglycerides 102 3. COPD with acute exacerbation: Details from hospital stay: Improved initial ABG pH 7.34 pCO2 80 improved to pH 7.5 pCO2 56 with BiPAP. With significant tachypnea continue prednisone and azithromycin. Discontinue Rocephin. Wean O2 to keep sats just at 90% 4. Acute on chronic respiratory failure with hypoxia and hypercapnia: Details from hospital stay: Much improved. Continue prednisone 40 mg mg daily x 2 days and then taper on discharge. Viral respiratory panel was negative. Keep oxygen saturations at 90% 5. Altered mental status: Details from hospital stay: Decrease Zyprexa to 5 mg nightly. Patient is doing well not agitated but some confusion. 6. Type 2 diabetes mellitus: Details from hospital stay: A1c was 6 7. Fall: Details from hospital stay: Start PT and OT. Patient has a stable right frontal mass 1.6 x 1.2 8. Paroxysmal atrial fibrillation: Details from hospital stay: Patient was admitted with acute on chronic respiratory failure requiring BiPAP. He had episode of A-fib RVR treated in the ICU with amiodarone load and now on 400 mg twice a day amiodarone for 3 days then decrease to 200 mg twice a day and follow-up with PCP Reason for Visit Reason for Visit: general weakness from a fall on 04-21 Brief History: Jason Escobedo is a 85 year old male with a past medical history of COPD, history of CAD, history of smoking, who presents to [facility] for shortness of breath and altered mental status. Currently patient alert to person, not place, to time, he reports feeling short of breath, he keeps asking me why he is here in the hospital, he can follow some commands, but is encephalopathic. GCS score is 10. In mild to moderate respiratory distress, nasal flaring, intercostal retractions, suprasternal sternal retractions, tachypnea, tachycardia wheezing and crackles in all lung cerda, pulling at BiPAP 18/10, 28% FiO2, initial ABG shows pH 7.19, pCO2 102. No family is at bedside. According to ER provider, patient was brought into the emergency room due to shortness of breath and weakness, he had a fall 2 days ago, he tripped over his dog, has had difficulty ambulating after his fall, complaining shortness of breath Hospital Course Hospital Course 85-year-old male with COPD exacerbation admitted with x-ray negative for infiltrate had initial pH 7.19 pCO2 102. He was treated with BiPAP and pH teto to 7.5 with pCO2 56.5. His stay has been complicated by obtundation from Zyprexa 10 mg for agitation. Additionally he is awaiting his physical and Occupational Therapy evaluation. He is continuing with respiratory rate of 32 and has oxygen ordered to titrate to keep sats right at 90% due to CO2 retention. Patient declined to go to [facility] states he has been there 18 days and is no place that even an animal should go to per his report. He says he is willing to go to other fdc and so we are trying to arrange other options. states she is unable to take him home to care for him. Later on after above visit patient insist on going home and did not want to go to fdc at all. His came in and decided she would take him home after all. They received counseling from nursing and RT regarding maintaining oxygen saturations 88 to 91% and not higher to prevent CO2 retention. He has also been counseled to quit smoking Physical Exam Narrative: General Well-developed male in no acute cardiopulmonary distress alert and conversant CV regular rate and rhythm Lungs clear to auscultation bilaterally with prolonged x-ray phase but no wheezes. Air movement is diminished Abdomen positive bowel tones soft nontender Calves no tenderness cords pretibial edema Urinary Catheter Management: Echols: Cath Placed During This Visit: yes, but has since been removed by the nurse Reason for Continuing Indwelling Catheter: Decision to DC Catheter Urinary Catheter Date of Insertion: 04/23/25 Urinary Catheter Time of Insertion: 18:34 Date Urinary Catheter Removed: 04/25/25 Time Urinary Catheter Discontinued: 06:30 Discharge Data Studies Completed and Pending Completed Studies During Hospitalization Category Date Time Status CT head wo con* [id number] Stat Cat Scan 04/23/25 14:16 Completed XR chest 1V portable [id number] Routine Exams 04/29/25 11:01 Completed XR chest 1V portable [id number] Stat Exams 04/23/25 13:21 Completed XR hip BI 2V wo/[place] [id number] Routine Exams 04/23/25 16:37 [place] [id number] Routine Ultrasound 04/23/25 16:37 Completed CV. echo complete* [id number] Routine Ultrasound 04/27/25 07:34 Completed Pending at discharge Category Date Time Status Sputum Culture and Gram Stain Stat Lab 04/27/25 23:30 Results Radiology Impressions Head CT 04/23/25 14:16 IMPRESSION: 1. No acute intracranial hemorrhage or edema. 2. Stable noncontrast head CT since 12/30/2024. 3. Moderate bifrontal lobe atrophy. 4. Extra-axial RIGHT frontal mass is reidentified measuring 1.6 x 1.2 cm. Likely meningioma. Slight contact on the RIGHT frontal lobe cortex. Stable since 09/02/2024. Hip/Pelvis X-Ray 04/23/25 16:37 IMPRESSION: The bones are demineralized. No acute fracture or dislocation. Venous Duplex 04/23/25 16:37 IMPRESSION: No sonographic evidence of deep venous thrombosis. Chest X-Ray 04/29/25 11:01 Impression: Atherosclerosis. Laboratory Results WBC 9.72 10^3/uL (3.29-11.43) 04/29/25 02:58 RBC 4.28 10^6/uL (3.85-5.65) 04/29/25 02:58 Hgb 12.30 g/dL (11.27-16.99) 04/29/25 02:58 Hct 41.6 % (37-53) 04/29/25 02:58 MCV 97.2 fl (82-101) 04/29/25 02:58 MCH 28.7 pg (27-33) 04/29/25 02:58 MCHC 29.6 g/dL (30-55) L 04/29/25 02:58 RDW 12.7 % (12.1-15.1) 04/29/25 02:58 Plt Count 215 10^3/cmm (157-399) 04/29/25 02:58 MPV 10.3 fL (7.4-10.4) 04/29/25 02:58 Neut % (Auto) 69.9 % 04/29/25 02:58 Lymph % (Auto) 18.9 % 04/29/25 02:58 Power % (Auto) 9.4 % 04/29/25 02:58 Eos % (Auto) 1.2 % 04/29/25 02:58 Baso % (Auto) 0.1 % 04/29/25 02:58 Neut # (Auto) 6.79 10^3/uL (1.8-7.7) 04/29/25 02:58 Lymph # (Auto) 1.8 10^3/uL (0.8-4.8) 04/29/25 02:58 Power # (Auto) 0.9 10^3/uL (0.2-0.9) 04/29/25 02:58 Eos # (Auto) 0.1 10^3/uL (0.0-0.8) 04/29/25 02:58 Baso # (Auto) 0.0 10^3/uL (0.0-0.1) 04/29/25 02:58 Nucleated RBC % (auto) 0 % 04/29/25 02:58 Nucleated RBCs # 0.0 /100WBC 04/29/25 02:58 PT 12.40 SECONDS (12.1-14.9) 04/23/25 16:29 INR 0.87 (0.8-1.2) 04/23/25 16:29 Specimen Type Arterial 04/29/25 14:30 Sample Site Radial, left 04/29/25 14:30 ABG pH 7.54 (7.35-7.45) H 04/29/25 14:30 ABG pCO2 46.9 mmHg (35-45) H 04/29/25 14:30 ABG pO2 82.7 mmHg (80.0-100.0) 04/29/25 14:30 ABG PO2/FiO2 Ratio 295 04/29/25 14:30 ABG HCO3 40.0 mmol/L (22-26) H 04/29/25 14:30 ABG O2 Saturation 98.8 04/29/25 14:30 ABG Base Excess 15.5 mmol/L (-2.0-2.0) H 04/29/25 14:30 Saúl Test Pos 04/29/25 14:30 A-a O2 Gradient 7.7 mmHg (5-10) 04/29/25 14:30 Hematocrit 38.5 % (42-52) L 04/29/25 14:30 Hgb O2 Saturation 96.3 % (95-100) 04/29/25 14:30 Carboxyhemoglobin 1.5 %THgb (0.4-20.1) 04/29/25 14:30 Methemoglobin 1.0 % (0.4-1.5) 04/29/25 14:30 Total Hemoglobin 12.6 g/dL (14-18) L 04/29/25 14:30 Sodium 135.0 mmol/L (131-143) 04/29/25 14:30 Potassium 4.5 mmol/L (3.5-5.0) 04/29/25 14:30 Glucose 236.0 mg/dL (70-115) H 04/29/25 14:30 Ionized Calcium 1.1 mmol/L (1.1-1.4) 04/29/25 14:30 O2 Delivery Device Nc 04/29/25 14:30 O2 Liters/Min 2.0 % 04/29/25 14:30 FiO2 28.0 % 04/29/25 14:30 Sales Enablement Manager ID Broma 04/29/25 14:30 Sodium 141 mmol/L (136-145) 04/29/25 02:58 Potassium 4.4 mmol/L (3.5-5.1) 04/29/25 02:58 Chloride 95 mmol/L (98-107) L 04/29/25 02:58 Carbon Dioxide 42 mmol/L (22-29) H* 04/29/25 02:58 Anion Gap 8.4 (5-19) 04/29/25 02:58 BUN 28 mg/dL (8-23) H 04/29/25 02:58 Creatinine 1.1 mg/dL (0.7-1.2) 04/29/25 02:58 GFR Calculation Not Reportable 04/29/25 02:58 Glucose 73 mg/dL (65-115) 04/29/25 02:58 POC Glucose 225 mg/dL (70-110) H 04/29/25 10:59 Estimat Average Glucose 126 04/23/25 16:29 Hemoglobin A1c 6.0 % (4.0-6.0) 04/23/25 16:29 Calculated Osmolality 296 mOsm/kg (285-295) H 04/29/25 02:58 Lactic Acid 1.5 mmol/L (0.5-2.2) 04/23/25 16:29 Calcium 8.4 mg/dL (8.5-10.5) L 04/29/25 02:58 Phosphorus 3.6 mg/dL (2.5-4.5) 04/26/25 03:51 Magnesium 2.5 mg/dL (1.7-2.3) H 04/26/25 03:51 Total Bilirubin 0.6 mg/dL (0.15-1.2) 04/23/25 13:50 AST 19 U/L (0-40) 04/23/25 13:50 ALT 47 U/L (0-41) H 04/23/25 13:50 Alkaline Phosphatase 71 U/L (40-130) 04/23/25 13:50 Creatine Kinase 134 U/L (39-308) 04/23/25 13:50 Troponin T Baseline 98 ng/L (0-15) H 04/27/25 06:57 Troponin T 120 Minute 100.2 ng/L (0-15) H 04/27/25 08:33 Delta Troponin T 2.2 ABS# (0-10) 04/27/25 08:33 Troponin T Hi Sens 6Hr 87.52 ng/L (0-15) H 04/27/25 12:44 Troponin T Hi Sens 6Hr Delta -10.48 ng/L (0-12) L 04/27/25 12:44 NT-Pro-B Natriuret Pep 2870 pg/mL (0-450) H 04/23/25 16:29 Total Protein 6.5 g/dL (6.6-8.7) L 04/23/25 13:50 Albumin 3.7 g/dL (3.5-5.2) 04/23/25 13:50 Globulin 2.8 g/dL (1.3-4.6) 04/23/25 13:50 Triglycerides 102 mg/dL (0-150) 04/23/25 16: Cholesterol 165 mg/dL (0-200) 04/23/25 16: LDL Cholesterol, Calc 72 mg/dL (50-129) 04/23/25 16: HDL Cholesterol 73 mg/dL (60-100) 04/23/25 16: LDL/HDL Ratio 0.99 RATIO (0.00-3.22) 04/23/25 16: Cholesterol/HDL Ratio 2.26 mg/dL (1.0-5.00) 04/23/25 16: Procalcitonin 0.05 ng/mL (0-0.5) 04/23/25 16: TSH 1.15 uIU/mL (0.27-4.20) 04/23/25 16: Urine Color Yellow (Yellow) 04/23/25 15: Urine Appearance Clear (CLEAR) 04/23/25 15: Urine pH 6.0 (5-7) 04/23/25 15:02 Ur Specific [place] 1.021 (1.005-1.030) 04/23/25 15:02 Urine Protein 2+ (Negative) A 04/23/25 15: Urine Glucose (UA) Negative (Normal) 04/23/25 15: Urine Ketones Negative (Negative) 04/23/25 15: Urine Blood Non-haemolysed trace (Negative) 04/23/25 15: Urine Nitrate Negative (Negative) 04/23/25 15: Urine Bilirubin Negative (Negative) 04/23/25 15:02 Urine Urobilinogen 1.0 mg/dL (Negative) 04/23/25 15:02 Ur Leukocyte Esterase Negative (Negative) 04/23/25 15:02 Urine RBC None /hpf (0-2) 04/23/25 15:02 Urine WBC 0-4 /hpf (0-5) H 04/23/25 15:02 Ur Squamous Epith Cells 0-4 /hpf (0-5) H 04/23/25 15:02 Amorphous Sediment Not Reportable 04/23/25 15:02 Urine Bacteria Trace /hpf (NONE) 04/23/25 15:02 Hyaline Casts 0-4 /lpf H 04/23/25 15:02 Fine Granular Casts 0-4 /lpf H 04/23/25 15:02 Urine Mucus 2+ /hpf 04/23/25 15:02 Adenovirus (PCR) Not detected (NOT DETECT) 04/23/25 16:45 C. pneumoniae DNA (PCR) Not detected (NOT DETECT) 04/23/25 16:45 Coronavirus 229E (PCR) Not detected (NOT DETECT) 04/23/25 16:45 Human Metapneumovir PCR Not detected (NOT DETECT) 04/23/25 16:45 Influenza A (H1) PCR Not detected (NOT DETECT) 04/23/25 16:45 Influ A (H1/09) PCR Not detected (NOT DETECT) 04/23/25 16:45 Influenza A (H3) PCR Not detected (NOT DETECT) 04/23/25 16:45 Influenza Type A (PCR) Not detected (NOT DETECT) 04/23/25 16:45 Influenza Type B (PCR) Not detected (NOT DETECT) 04/23/25 16:45 M. pneumoniae (PCR) Not detected (NOT DETECT) 04/23/25 16:45 Parainfluenza 1 (PCR) Not detected (NOT DETECT) 04/23/25 16:45 Parainfluenza 2 (PCR) Not detected (NOT DETECT) 04/23/25 16:45 Parainfluenza 3 (PCR) Not detected (NOT DETECT) 04/23/25 16:45 Parainfluenza 4 (PCR) Not detected (NOT DETECT) 04/23/25 16:45 RSV Type A (PCR) Not detected (NOT DETECT) 04/23/25 16:45 RSV Type B (PCR) Not detected (NOT DETECT) 04/23/25 16:45 Entero/Rhino (PCR) Not detected (NOT DETECT) 04/23/25 16:45 SARS-CoV-2 (PCR) Not detected (NOT DETECT) 04/23/25 16:45 Vitals Last Vital Signs Temp 98.8 F 04/29/25 07:40 Pulse 83 04/29/25 12:35 Resp 32 H 04/29/25 12:35 BP 121/62 04/29/25 12:00 Pulse Ox 97 04/29/25 12:35 O2 Del Method Nasal Cannula 04/29/25 12:35 O2 Flow Rate 1 04/29/25 12:35 FiO2 28 04/25/25 23:58 Discharge Plan Discharge Patient Disposition: Home Condition: Stable Prescriptions: New azithromycin 250 mg Tablet 250 mg PO QPM Qty: 4 0RF olanzapine 5 mg Tablet,Disintegrating 5 mg PO QPM Qty: 30 0RF amiodarone [Pacerone] 200 mg Tablet See Rx Instructions .ROUTE .COMPLEX Qty: 100 0RF Rx Instructions: Take 2 tablets twice a day for 3 days then 1 tablet twice a day thereafter and follow-up with your primary care provider prednisone 10 mg tablet See Rx Instructions .ROUTE .COMPLEX Qty: 20 0RF Rx Instructions: Take 4 daily for 2 days 3 daily for 2 days to daily for 2 days 1 daily for 2 days and stop ipratropium-albuterol 0.5 mg-3 mg(2.5 mg base)/3 mL Solution For Nebulization 3 ml inhalation Q4H.RESPIRATORY Qty: 90 0RF Eliquis 5 mg Tablet 5 mg PO BID@0900,2100 Qty: 60 0RF famotidine [Acid Controller] 20 mg tablet 20 mg PO BID 42 Days Qty: 84 0RF Continued aspirin [Adult Low Dose Aspirin] 81 mg tablet,delayed release (DR/EC) 81 mg PO QAM cholecalciferol (vitamin D3) 50 mcg (2,000 unit) capsule 50 mcg PO QAM lisinopril-hydrochlorothiazide 10-12.5 mg tablet 1 tab PO DAILY rosuvastatin 5 mg tablet 2.5 mg PO DAILY Breztri Aerosphere 160-9-4.8 mcg/actuation HFA aerosol inhaler 2 inh inhalation BID clopidogrel 75 mg Tablet 75 mg PO QAM Qty: 30 0RF nitroglycerin [Nitrostat] 0.4 mg Tablet, Sublingual 0.4 mg SUBLINGUAL Q5M PRN (Reason: Chest Pain) Rx Instructions: do not exceed 3 doses per episode albuterol sulfate 90 mcg/actuation HFA aerosol inhaler 2 puff INHALATION Q4H PRN (Reason: Shortness Of Breath Or Wheezing) finasteride 5 mg Tablet 5 mg PO DAILY guaifenesin 400 mg Tablet 400 mg PO QID PRN (Reason: Cough) Discontinued phenazopyridine 100 mg tablet 200 mg PO TID Referrals: Christa Morris MD [Primary Care Provider, Family Practice] - 05/15/25 11:00 am Discharge Diet: Cardiac Discharge Activity: Increase activity as tolerated Patient Instructions: Coronary Artery Disease (DC), Fall Prevention (DC), Chronic Respiratory Failure (GEN), Acute Respiratory Failure (ED), COPD Stoplight, Opioid Safety, Patient Portal & Jessica Instructions Activity Restrictions/Additional Instructions: Stop smoking completely Wear oxygen only to keep your oxygen saturation between 88 and 91%. Make sure you are keeping the oxygen saturation number and the heart rate numbers clear and not confused If you keep your oxygen levels above 91% you will retain carbon dioxide and become sleepy and confused. That is the problem you had when you presented to the hospital for this admission Take your prednisone taper as prescribed You had atrial fibrillation with rapid heart rate which makes it hard to breathe. We have put you on amiodarone to control your heart rate but this medication starts off at a higher dose and then will wean down. Follow-up with your primary care provider regarding this Discharge Attestations Time Spent in Discharge Care*: greater than 30 min Time Spent in Smoking Cessation: 5 Quality Metrics Clinical Quality Measures [ No reported AMI, CVA or VTE this stay] Coding Level of Care Code 47143 Diagnoses Coronary artery disease involving [place] coronary artery of [place] heart without angina pectoris I25.10 Coronary Disease-Associated Artery/Lesion type: [place] artery [place] vs. transplanted heart: [place] heart Associated angina: without angina Hyperlipidemia E78.5 COPD with acute exacerbation J44.1 Acute on chronic respiratory failure with hypoxia and hypercapnia J96.21; J96.22 Altered mental status R41.82 Type 2 diabetes mellitus E11.9 Fall W19.XXXA Paroxysmal atrial fibrillation I48.0 Time Spent (min) 55
--- NOTE | 2025-04-29 16:35 | PC.NURSE ---
Patient insisting on going home. Family would like him to go to SNF. patient was discharged to home with all in agreement. Instruction provided regarding new medication and SpO2 requirements. Patient and family verbalized complete understanding. Patient taken by wheelchair to private vehicle with spouse and other family at side.
== END 2025-04-29 16:38 | disposition home or self-care (01) | DRG 189 ==
LOC: ER 14:53 → ICU 15:43 → CSU 04-28 14:22
PROVIDERS: Student in an Organized Health Care Education/Training Program; Admitting Provider Family Medicine; Emergency Provider Emergency Medicine; PCP Family Medicine; Visit Provider Internal Medicine
DX: J96.21 Acute and chronic respiratory failure with hypoxia (principal); J44.1 Chronic obstructive pulmonary disease with (acute) exacerbation; G93.40 Encephalopathy, unspecified; I25.10 Atherosclerotic heart disease of native coronary artery without angina pectoris; J96.22 Acute and chronic respiratory failure with hypercapnia; I48.0 Paroxysmal atrial fibrillation; E11.9 Type 2 diabetes mellitus without complications; E78.2 Mixed hyperlipidemia; I25.2 Old myocardial infarction; Z79.899 Other long term (current) drug therapy; Z87.891 Personal history of nicotine dependence; Z79.02 Long term (current) use of antithrombotics/antiplatelets; Z79.82 Long term (current) use of aspirin; Z88.8 Allergy status to other drugs, medicaments and biological substances; Z91.041 Radiographic dye allergy status; Z85.828 Personal history of other malignant neoplasm of skin; Z86.0100 Personal history of colon polyps, unspecified; Z95.5 Presence of coronary angioplasty implant and graft; Z82.49 Family history of ischemic heart disease and other diseases of the circulatory system; Z56.0 Unemployment, unspecified
CPT/HCPCS: 36415; 36416; 36600; 51702; 70450; 71045; 73521; 80048; 80051; 80053; 80061; 81001; 82330; 82550; 82803; 82805; 82962; 83036; 83605; 83735; 83880; 84100; 84145; 84443; 84484; 85025; 85610; 87040; 87070; 87205; 87486; 87581; 87633; 92523; 92610; 93005; 93306; 93970; 94640; 94660; 94664; 96361; 96372; 96374; 97110; 97116; 97162; 97167; 97530; 97535; 99285; A4222; J0282; J0456; J0696; J1630; J1650; J1815; J2470; J2919; J7030; J7050; J7512; J7613; J7626; J9999; Q0144; Q3014